=== PATIENT | male | born 1965 | race Caucasian/White ===

== ENCOUNTER 2022-07-04 12:53 | Outpatient (REF) | payer OTHER, SELFPAY ==
[2022-07-04 13:05] LABS: MANUAL DIFF FLAG NO
[2022-07-04 14:04] LABS: Basophils Absolute Auto 0.1 X10*3/uL (0.0-0.2); Basophils Percent Auto 1.4 % (0-2); Eosinophils Absolute Auto 0.5 X10*3/uL (0.0-0.4); Eosinophils Percent Auto 7.2 % (0-4); Hematocrit 49.1 % (42.0-52.0); Hemoglobin 16.1 g/dl (14.0-18.0); Imm Gran Abs Auto 0.02 X10*3/uL (0.00-0.03); Imm Gran Pct Auto 0.3 % (0.0-0.4); Lymphocytes Absolute Auto 2.8 X10*3/uL (1.2-4.9); Lymphocytes Percent Auto 38.8 % (20-40); Mean Corpuscular HGB Conc 32.8 g/dl (31.0-36.0); Mean Corpuscular Hemoglobin 28.5 pg (27.0-33.0); Mean Corpuscular Volume 87.1 fL (80.0-98.0); Mean Platelet Volume 9.9 fL (9.4-12.4); Monocytes Absolute Auto 0.5 X10*3/uL (0.1-1.2); Monocytes Percent Auto 6.9 % (2-11); Neutrophils Absolute Auto 3.2 x10*3/uL (2.0-8.3); Neutrophils Percent Auto 45.4 % (45-73); Platelet Count 225 X10*3/uL (160-400); Red Blood Count 5.64 X10*6/uL (4.60-5.80); Red Cell Distribution Width 13.1 % (11.0-16.0); White Blood Count 7.1 X10*3/uL (4.8-10.8)
[2022-07-04 14:05] LABS: Appearance Urine Clear; Color Urine Yellow; Glucose Urine UA Negative (Negative); Leukocyte Esterase Urine Negative (Negative); Nitrite Urine Negative (Negative); Specific Gravity - Urine 1.015 (1.005-1.025); Urine Blood Negative (Negative); Urine Ketones Negative (Negative); Urine Protein Negative (Neg-Trace)
[2022-07-04 14:10] LABS: Bacteria Urine None Seen (None Seen); Hyaline Casts Urine 0-2 /LPF (0-2); RBC Urine 0-2 /HPF (0-2); Squamous Epithelial Cell Urine 0-2 /HPF (0-2); WBC Urine 0-5 /HPF (0-5)
[2022-07-04 14:16] LABS: Estimated Average Glucose 91 mg/dL; Hemoglobin A1c % 4.8 %
[2022-07-04 14:52] LABS: Creatinine Urine 155.97 mg/dL; Microalbum/Creatinine Ratio Ur 21.7 ug/mg cr
[2022-07-04 15:17] LABS: Alanine Aminotransferase 18 U/L (0-40); Albumin Level 3.8 g/dL (3.5-5.0); Alkaline Phosphatase 60 U/L (39-117); Anion Gap 13 (12-20); Aspartate Amino Transferase 21 U/L (5-37); Bilirubin Total 0.7 mg/dL (0.0-1.0); Blood Urea Nitrogen 17 mg/dL (9-16); Calcium 9.5 mg/dL (8.4-10.2); Carbon Dioxide 26 mmol/L (22-29); Chloride 103 mmol/L (96-108); Cholesterol 204 mg/dL; Estimated Glomerular Filt Rate > 60; Free T4 (Free Thyroxine) 0.87 ng/dL (0.71-1.85); Glucose Random 88 mg/dL (60-115); HDL Cholesterol 34 mg/dL; LDL Cholesterol Calculated 148 mg/dl; Potassium 4.1 mmol/L (3.3-5.1); Prostate Specific Antigen Scr 1.71 ng/mL (<0.05-4.0); Sodium 138 mmol/L (135-145); Thyroid Stimulating Hormone 0.82 uIU/mL (0.32-4.0); Total Protein 6.8 g/dL (6.5-8.0); Triglycerides 110 mg/dL; Uric Acid 6.6 mg/dL (3.4-7.0)
[2022-07-04 15:55] LABS: Vitamin B12 818 pg/mL (200-900)
== END 2022-07-04 12:54 | disposition home or self-care (01) ==
LOC: HO.LAB 12:53
PROVIDERS: PCP Internal Medicine; Visit Provider Internal Medicine
DX: Z12.5 Encounter for screening for malignant neoplasm of prostate (principal); E11.65 Type 2 diabetes mellitus with hyperglycemia; E78.00 Pure hypercholesterolemia, unspecified
CPT/HCPCS: 36415; 80053; 80061; 81001; 82043; 82607; 82746; 83036; 84153; 84439; 84443; 84550; 85025

== ENCOUNTER 2023-02-06 11:23 | Emergency (ER) | payer OTHER, SELFPAY ==
[2023-02-06] VITALS (9 sets, daily range): BP systolic 84–126; BP diastolic 45–85; PULSE 94–114; RESP 16–29; TEMP 36.5–36.9; O2SAT 89–97; BMI 21.0
--- NOTE | 2023-02-06 11:26 | ED.GENADULT ---
HPI - General Adult General Chief complaint: Weakness Stated complaint: R knee swelling/Weakness Time Seen by Provider: 02/06/23 11:55 Source: patient and family (, Paloma, mother, Fauzia) Mode of arrival: wheelchair Limitations: no limitations History of Present Illness HPI narrative: 57-year-old male with a past medical history of hypothyroid, anxiety, renal cell carcinoma currently on Chemo w/lung mets s/p nephrectomy, KAYLYN, HTN, HLD, diabetes, presenting to the ED complaining of weakness w/inability to dress himself, lethargy, myalgias, decreased PO intake x1 week & autramatic R knee pain swelling x4-5 days. Patient's states that he has been sleeping all day long which is very unusual for him. The states that he had a very similar presentation in May of 2022 when he was admitted to the [facility] ICU for sepsis. Related Data Home Medications Medication Instructions Recorded Confirmed hydrocortisone 10 mg tablet 10 mg PO DAILY 10/24/22 02/06/23 levothyroxine 75 mcg tablet 75 mcg PO QAM 10/24/22 02/06/23 sertraline 100 mg tablet 100 mg PO DAILY 10/24/22 02/06/23 Allergies Allergy/AdvReac Type Severity Reaction Status Date / Time No Known Allergies Allergy Verified 10/24/22 13:53 Review of Systems Review of Systems: Yes all other systems are reviewed and are negative [facility] Past Medical History [facility] Narrative: Past medical history: hypothyroid, anxiety, renal cell carcinoma currently on Chemo w/lung mets s/p nephrectomy-chemo Q month due to at [facility], KAYLYN, HTN, HLD, diabetes. Social history: He lives at home with his . He is a former tobacco smoker and quit 20 years prior but smoked for at least 15 years. He denies alcohol use. He denies drug use. Surgical History History of biopsy History of right nephrectomy Family History Family History Father No problems noted. Mother Breast cancer Social History Social History (Updated 10/24/22 @ 14:26 by Nataly Cerda MD) Housing: House Alcohol intake: unknown Patient Tobacco Use Status: Former Tobacco user Years Smoked: quit 2000 Smoked in Last 30 Days: No e-Cigarette/Vaping Use: Never Used Second Hand Smoke Exposure: No Use of substances other than those prescribed or required for medical reasons: Unknown Advance Directives: Yes Advance Directives on File: Yes Advance Directives Date on File: 02/07/23 Current occupational status: unemployed Cognitive needs: No Hearing needs: No Vision needs: Yes Physical Exam ED Vital Signs: Vital Signs - 24 hr 02/07/23 12:05 02/07/23 16:00 02/08/23 06:00 Temperature 98.7 F 99.7 F 97.3 F Pulse Rate 101 H 94 86 Respiratory Rate 20 16 16 Blood Pressure 107/67 109/79 110/73 Pulse Oximetry 93 93 98 Oxygen Delivery Method Room Air Room Air Room Air BMI result Body Mass Index 21.0 Const Other: Awake, alert, male patient, does not appear to be in distress, answers questions appropriately [facility] Head: Yes normal to inspection, Yes normocephalic and Yes atraumatic Ears: external ears normal General nose exam: Normal external nose present Face and sinus: Yes normal facial exam Mouth: Normal oral and palatal mucosa present Throat: Yes posterior oropharynx normal Eyes General: appearance normal, both eyes and all related structures Pupils: Equal, round and reactive pupils present Neck Neck: Yes normal visual inspection, Yes no lymphadenopathy, Yes trachea midline and Yes supple Chest Chest palpation & inspection: normal inspection of the chest and normal palpation of entire chest wall Resp Effort & Inspection: normal respiratory effort and able to speak in complete sentences Auscultation: clear to auscultation bilaterally Cardio Rate: regular rate Rhythm: regular rhythm Heart sounds: S1 normal heart sound present, S2 normal heart sound present and no murmurs GI Inspection: Yes normal to inspection Palpation (GI): Soft to palpation, nontender and no guarding Auscultation: normal bowel sounds General: Yes no CVA tenderness Back/Spine/Pelvis Back: no CVA tenderness Skin General skin exam: no rashes or lesions noted Neuro Cranial nerves: Yes CN's II-XII intact bilaterally and Yes Equal, round and reactive pupils present Cognition (Neuro): normal cognition Motor exam (neuro): 5/5 motor strength present throughout Extrem Other: The patient has a large right knee joint effusion, there is no surrounding erythema but there is slight increased warmth compared to the left knee, patient is tender to palpation over the effusion Psych Appearance: grossly normal Speech and movement: Normal speech and movement present Affect: normal affect Attitude: cooperative Course Course Course Narrative: RME: 57-year-old male with a past medical history of hypothyroid, anxiety, renal cell carcinoma currently on Chemo w/lung mets s/p nephrectomy, KAYLYN, HTN, HLD, diabetes, presenting to the ED complaining of weakness w/inability to dress himself, lethargy, myalgias, decreased PO intake x1 week & autramatic R knee pain swelling x4-5 days Patient presented in wheelchair, at baseline ambulates without assistive devices. BP 93/76, HR 114, appears pale/frail EKG, labs, UA, CXR, lactic/blood cultures, orthostatics, IVF ordered Full HPI, ROS and PE to be performed by primary ED provider. Reevaluation(s) Reevaluation #1: 02/07/2023 0646: Physician observation continues. Patient awaiting PT evaluation and Case mangement. Reevaluation #2: 02/08/2023 0948: Physician observation continues. Case management following the case. 02/08/2023 1128: Patient cleared for discharge to [facility]. Medications Administered Generic Name Dose Route Start Last Admin Trade Name Freq PRN Reason Stop Dose Admin Hydrocortisone 10 mg 02/07/23 09:00 02/07/23 08:28 Hydrocortisone 10 Mg Tablet PO 10 mg DAILY ZOEY Administration Levothyroxine Sodium 75 mcg 02/07/23 06:30 02/08/23 06:22 Levothyroxine Sodium 75 Mcg Tablet PO 75 mcg DAILY@0630 ZOEY Administration Sertraline HCl 100 mg 02/07/23 09:00 02/07/23 08:29 Sertraline Hcl 100 Mg Tablet PO 100 mg DAILY ZOEY Administration Discontinued Medications Generic Name Dose Route Start Last Admin Trade Name Freq PRN Reason Stop Dose Admin Sodium Chloride 1,000 mls @ 999 mls/hr 02/06/23 11:45 02/06/23 13:05 Ns IV 02/06/23 12:45 Infused .Q1H1M ZOEY Infusion Sodium Chloride 1,000 mls @ 999 mls/hr 02/06/23 19:15 02/06/23 20:40 Ns IV 02/06/23 20:15 Infused .Q1H1M ZOEY Infusion Lidocaine HCl 5 ml 02/06/23 13:10 02/06/23 13:33 Lidocaine Hcl 1 % Mpf 5 Ml Vial INFILTRATI 02/06/23 13:11 5 ml ONCE STA Administration Morphine Sulfate 4 mg 02/06/23 13:51 02/06/23 14:10 Morphine Sulfate 4 Mg/Ml Cartridge IVPUSH 02/06/23 13:52 4 mg ONCE STA Administration Protocol Medical Decision Making Medical Decision Making MDM Narrative: 57-year-old male with a past medical history of hypothyroid, anxiety, renal cell carcinoma currently on Chemo w/lung mets s/p nephrectomy, KAYLYN, HTN, HLD, diabetes, presenting to the ED complaining of weakness w/inability to dress himself, lethargy, myalgias, decreased PO intake x1 week & autramatic R knee pain swelling x4-5 days. Patient's family states that a similar presentation in May of 2022 and was hospitalized at the [facility] ICU for sepsis, at that time he did not have knee swelling. Patient's vital signs did reveal tachycardia with a pulse of 114 otherwise were unremarkable. The following tests were ordered: CBC, BMP, liver panel, lactic acid, magnesium, PT/INR, ESR, CRP, urinalysis, blood cultures x2, 12 EKG, synovial fluid-Gram stain, crystal analysis, cell count, chest x-ray one view. 1519: Patient's laboratory evaluation was unremarkable, WBC was normal. Lactic acid was not elevated. Synovial fluid WBC count was 19,000 which is less than 25,000, this is reassuring and suggests that this is not a septic arthritis. Patient's [address] segment depression V3 through V6 which I believe is rate related but is new since January 2019 The following studies are pending: Troponin, urinalysis, synovial fluid Gram stain and crystal analysis. At the end of my shift, patient's care was turned over to my colleague, Dr. Gaffney The patient's case the change of shift. Patient has no crystal in the synovial fluid. Troponin is negative. Patient is as set some slight ST segment depression over the lateral leads which are most likely rate related. Ambulated well in the emergency department. Patient to be discharged home. [place] [address] suggestive of inflammatory arthritis. No evidence for septic joint. Patient unable to ambulate in the emergency department. Will have patient be evaluated by Physical therapy and Case Management in a.m.. Differential Diagnosis Differential diagnosis includes but is not limited to pneumonia, urinary tract infection, electrolyte abnormality, anemia, right knee: inflammatory arthritis, gout, septic arthritis Admission/Observation Consideration of admission/observation: Escalation of care including admission/observation considered Lab Data MDM Lab Attestation statement: I reviewed the patient's lab results. My interpretation of patient's laboratory evaluation is as follows: CBC was normal. Platelet count was elevated 424,000. PT/INR were elevated at 16.9 1.5. Sodium low 130, bicarb low 20, glucose elevated 171. Bilirubin is elevated 1.2. Lactic acid normal 1.6. CRP elevated 35.19. ESR elevated 66. Synovial fluid WBC 19,158, 88% neutrophils, 4% lymphocytes. gram stain and uric acid crystal analysis pending. 02/06/23 11:48 02/06/23 11:48 Labs: Lab Results 02/06/23 02/06/23 02/06/23 Range/Units 11:48 11:48 11:48 WBC 8.2 (4.8-10.8) X10*3/uL RBC 5.53 (4.60-5.80) X10*6/uL Hgb 15.1 (14.0-18.0) g/dl Hct 45.0 (42.0-52.0) % MCV 81.4 (80.0-98.0) fL MCH 27.3 (27.0-33.0) pg MCHC 33.6 (31.0-36.0) g/dl RDW 11.6 (11.0-16.0) % Plt Count 424 H D (160-400) X10*3/uL MPV 8.7 L (9.4-12.4) fL Immature Gran % (Auto) 0.1 (0.0-0.4) % Neut % (Auto) 60.1 (45-73) % Lymph % (Auto) 22.4 (20-40) % [place] % (Auto) 8.5 (2-11) % Eos % (Auto) 7.8 H (0-4) % Baso % (Auto) 1.1 (0-2) % Lymph # (Auto) 1.8 (1.2-4.9) X10*3/uL [place]on # (Auto) 0.7 (0.1-1.2) X10*3/uL Eos # (Auto) 0.6 H (0.0-0.4) X10*3/uL Baso # (Auto) 0.1 (0.0-0.2) X10*3/uL Abs Immat Gran (auto) 0.01 (0.00-0.03) X10*3/uL Absolute Neuts (auto) 4.9 (2.0-8.3) x10*3/uL Absolute Nucleated RBC 0.000 (0.0-0.012) X10*3/uL Nucleated RBC % (auto) 0.0 (0.0-0.2) /100WBC ESR (0-15) MM/HR PT (10.0-13.1) SEC INR (0.9-1.1) Sodium 130 L (135-145) mmol/L Potassium 3.6 (3.3-5.1) mmol/L Chloride 96 (96-108) mmol/L Carbon Dioxide 20 L (22-29) mmol/L Anion Gap 18 (12-20) BUN 16 (9-16) mg/dL Creatinine 1.30 (0.5-1.4) mg/dL Estim Creat Clear Calc 52.9 Estimated GFR 57 Random Glucose 171 H (60-115) mg/dL Lactic Acid (0.5-2.0) mmol/L Calcium 9.6 (8.4-10.2) mg/dL Magnesium 1.9 (1.6-2.6) mg/dL Total Bilirubin 1.2 H (0.0-1.0) mg/dL Direct Bilirubin 0.5 (0.0-0.5) mg/dL AST 15 (5-37) U/L ALT 8 (0-40) U/L Alkaline Phosphatase 73 (39-117) U/L Troponin I High Sens < 2.7 (<3.5-35.0) ng/L C-Reactive Protein 35.19 H (< or = 0.50) mg/dL Total Protein 7.3 (6.5-8.0) g/dL Albumin 3.3 L (3.5-5.0) g/dL Urine Color Urine Appearance Urine pH (5.0-9.0) Ur Specific Taylor (1.005-1.025) Urine Protein (Neg-Trace) mg/dL Urine Glucose (UA) (Negative) mg/dL Urine Ketones (Negative) mg/dL Urine Blood (Negative) Urine Nitrite (Negative) Ur Leukocyte Esterase (Negative) Urine RBC (0-2) /HPF Urine WBC (0-5) /HPF Ur Squamous Epith Cells (0-2) /HPF Urine Bacteria (None Seen) Hyaline Casts (0-2) /LPF Synovial Source Synovial WBC X10*3/uL Synovial RBC X10*6/uL Synovial Neutrophils % Synovial Lymphocytes % Synovial Monocytes % Synovial Other Cells Synovial Uric Acid MG/DL Influenza Type A (PCR) (Negative) Influenza Type B (PCR) (Negative) RSV RNA Qual (PCR) (Negative) SARS-CoV-2 RNA (RT-PCR) (Negative) 02/06/23 02/06/23 02/06/23 Range/Units 11:48 11:48 12:00 WBC (4.8-10.8) X10*3/uL RBC (4.60-5.80) X10*6/uL Hgb (14.0-18.0) g/dl Hct (42.0-52.0) % MCV (80.0-98.0) fL MCH (27.0-33.0) pg MCHC (31.0-36.0) g/dl RDW (11.0-16.0) % Plt Count (160-400) X10*3/uL MPV (9.4-12.4) fL Immature Gran % (Auto) (0.0-0.4) % Neut % (Auto) (45-73) % Lymph % (Auto) (20-40) % [place]on % (Auto) (2-11) % Eos % (Auto) (0-4) % Baso % (Auto) (0-2) % Lymph # (Auto) (1.2-4.9) X10*3/uL [place]on # (Auto) (0.1-1.2) X10*3/uL Eos # (Auto) (0.0-0.4) X10*3/uL Baso # (Auto) (0.0-0.2) X10*3/uL Abs Immat Gran (auto) (0.00-0.03) X10*3/uL Absolute Neuts (auto) (2.0-8.3) x10*3/uL Absolute Nucleated RBC (0.0-0.012) X10*3/uL Nucleated RBC % (auto) (0.0-0.2) /100WBC ESR 66 H (0-15) MM/HR PT 16.9 H (10.0-13.1) SEC INR 1.5 H (0.9-1.1) Sodium (135-145) mmol/L Potassium (3.3-5.1) mmol/L Chloride (96-108) mmol/L Carbon Dioxide (22-29) mmol/L Anion Gap (12-20) BUN (9-16) mg/dL Creatinine (0.5-1.4) mg/dL Estim Creat Clear Calc Estimated GFR Random Glucose (60-115) mg/dL Lactic Acid (0.5-2.0) mmol/L Calcium (8.4-10.2) mg/dL Magnesium (1.6-2.6) mg/dL Total Bilirubin (0.0-1.0) mg/dL Direct Bilirubin (0.0-0.5) mg/dL AST (5-37) U/L ALT (0-40) U/L Alkaline Phosphatase (39-117) U/L Troponin I High Sens (<3.5-35.0) ng/L C-Reactive Protein (< or = 0.50) mg/dL Total Protein (6.5-8.0) g/dL Albumin (3.5-5.0) g/dL Urine Color Urine Appearance Urine pH (5.0-9.0) Ur Specific Taylor (1.005-1.025) Urine Protein (Neg-Trace) mg/dL Urine Glucose (UA) (Negative) mg/dL Urine Ketones (Negative) mg/dL Urine Blood (Negative) Urine Nitrite (Negative) Ur Leukocyte Esterase (Negative) Urine RBC (0-2) /HPF Urine WBC (0-5) /HPF Ur Squamous Epith Cells (0-2) /HPF Urine Bacteria (None Seen) Hyaline Casts (0-2) /LPF Synovial Source Synovial WBC X10*3/uL Synovial RBC X10*6/uL Synovial Neutrophils % Synovial Lymphocytes % Synovial Monocytes % Synovial Other Cells Synovial Uric Acid MG/DL Influenza Type A (PCR) NEGATIVE (Negative) Influenza Type B (PCR) NEGATIVE (Negative) RSV RNA Qual (PCR) NEGATIVE (Negative) SARS-CoV-2 RNA (RT-PCR) NEGATIVE (Negative) 02/06/23 02/06/23 02/06/23 Range/Units 13:48 13:48 14:03 WBC (4.8-10.8) X10*3/uL RBC (4.60-5.80) X10*6/uL Hgb (14.0-18.0) g/dl Hct (42.0-52.0) % MCV (80.0-98.0) fL MCH (27.0-33.0) pg MCHC (31.0-36.0) g/dl RDW (11.0-16.0) % Plt Count (160-400) X10*3/uL MPV (9.4-12.4) fL Immature Gran % (Auto) (0.0-0.4) % Neut % (Auto) (45-73) % Lymph % (Auto) (20-40) % [place] % (Auto) (2-11) % Eos % (Auto) (0-4) % Baso % (Auto) (0-2) % Lymph # (Auto) (1.2-4.9) X10*3/uL [place] # (Auto) (0.1-1.2) X10*3/uL Eos # (Auto) (0.0-0.4) X10*3/uL Baso # (Auto) (0.0-0.2) X10*3/uL Abs Immat Gran (auto) (0.00-0.03) X10*3/uL Absolute Neuts (auto) (2.0-8.3) x10*3/uL Absolute Nucleated RBC (0.0-0.012) X10*3/uL Nucleated RBC % (auto) (0.0-0.2) /100WBC ESR (0-15) MM/HR PT (10.0-13.1) SEC INR (0.9-1.1) Sodium (135-145) mmol/L Potassium (3.3-5.1) mmol/L Chloride (96-108) mmol/L Carbon Dioxide (22-29) mmol/L Anion Gap (12-20) BUN (9-16) mg/dL Creatinine (0.5-1.4) mg/dL Estim Creat Clear Calc Estimated GFR Random Glucose (60-115) mg/dL Lactic Acid 1.6 (0.5-2.0) mmol/L Calcium (8.4-10.2) mg/dL Magnesium (1.6-2.6) mg/dL Total Bilirubin (0.0-1.0) mg/dL Direct Bilirubin (0.0-0.5) mg/dL AST (5-37) U/L ALT (0-40) U/L Alkaline Phosphatase (39-117) U/L Troponin I High Sens (<3.5-35.0) ng/L C-Reactive Protein (< or = 0.50) mg/dL Total Protein (6.5-8.0) g/dL Albumin (3.5-5.0) g/dL Urine Color Urine Appearance Urine pH (5.0-9.0) Ur Specific Taylor (1.005-1.025) Urine Protein (Neg-Trace) mg/dL Urine Glucose (UA) (Negative) mg/dL Urine Ketones (Negative) mg/dL Urine Blood (Negative) Urine Nitrite (Negative) Ur Leukocyte Esterase (Negative) Urine RBC (0-2) /HPF Urine WBC (0-5) /HPF Ur Squamous Epith Cells (0-2) /HPF Urine Bacteria (None Seen) Hyaline Casts (0-2) /LPF Synovial Source Right knee Synovial WBC 19.158 X10*3/uL Synovial RBC < 0.002 X10*6/uL Synovial Neutrophils 88 % Synovial Lymphocytes 4 % Synovial Monocytes 2 % Synovial Other Cells 6 Synovial Uric Acid 7 MG/DL Influenza Type A (PCR) (Negative) Influenza Type B (PCR) (Negative) RSV RNA Qual (PCR) (Negative) SARS-CoV-2 RNA (RT-PCR) (Negative) 02/07/23 Range/Units 06:05 WBC (4.8-10.8) X10*3/uL RBC (4.60-5.80) X10*6/uL Hgb (14.0-18.0) g/dl Hct (42.0-52.0) % MCV (80.0-98.0) fL MCH (27.0-33.0) pg MCHC (31.0-36.0) g/dl RDW (11.0-16.0) % Plt Count (160-400) X10*3/uL MPV (9.4-12.4) fL Immature Gran % (Auto) (0.0-0.4) % Neut % (Auto) (45-73) % Lymph % (Auto) (20-40) % [place] % (Auto) (2-11) % Eos % (Auto) (0-4) % Baso % (Auto) (0-2) % Lymph # (Auto) (1.2-4.9) X10*3/uL [place] # (Auto) (0.1-1.2) X10*3/uL Eos # (Auto) (0.0-0.4) X10*3/uL Baso # (Auto) (0.0-0.2) X10*3/uL Abs Immat Gran (auto) (0.00-0.03) X10*3/uL Absolute Neuts (auto) (2.0-8.3) x10*3/uL Absolute Nucleated RBC (0.0-0.012) X10*3/uL Nucleated RBC % (auto) (0.0-0.2) /100WBC ESR (0-15) MM/HR PT (10.0-13.1) SEC INR (0.9-1.1) Sodium (135-145) mmol/L Potassium (3.3-5.1) mmol/L Chloride (96-108) mmol/L Carbon Dioxide (22-29) mmol/L Anion Gap (12-20) BUN (9-16) mg/dL Creatinine (0.5-1.4) mg/dL Estim Creat Clear Calc Estimated GFR Random Glucose (60-115) mg/dL Lactic Acid (0.5-2.0) mmol/L Calcium (8.4-10.2) mg/dL Magnesium (1.6-2.6) mg/dL Total Bilirubin (0.0-1.0) mg/dL Direct Bilirubin (0.0-0.5) mg/dL AST (5-37) U/L ALT (0-40) U/L Alkaline Phosphatase (39-117) U/L Troponin I High Sens (<3.5-35.0) ng/L C-Reactive Protein (< or = 0.50) mg/dL Total Protein (6.5-8.0) g/dL Albumin (3.5-5.0) g/dL Urine Color Dark Yellow Urine Appearance Cloudy Urine pH 5.5 (5.0-9.0) Ur Specific Taylor 1.015 (1.005-1.025) Urine Protein 30 (1+) H (Neg-Trace) mg/dL Urine Glucose (UA) Negative (Negative) mg/dL Urine Ketones 15 (Negative) mg/dL Urine Blood Negative (Negative) Urine Nitrite Negative (Negative) Ur Leukocyte Esterase Large (3+) H (Negative) Urine RBC 0-2 (0-2) /HPF Urine WBC >50 H (0-5) /HPF Ur Squamous Epith Cells 0-2 (0-2) /HPF Urine Bacteria None Seen (None Seen) Hyaline Casts 11-20 (0-2) /LPF Synovial Source Synovial WBC X10*3/uL Synovial RBC X10*6/uL Synovial Neutrophils % Synovial Lymphocytes % Synovial Monocytes % Synovial Other Cells Synovial Uric Acid MG/DL Influenza Type A (PCR) (Negative) Influenza Type B (PCR) (Negative) RSV RNA Qual (PCR) (Negative) SARS-CoV-2 RNA (RT-PCR) (Negative) Independent Interpretation I performed an independent interpretation of an: EKG and Plain X-Ray Interpretation: My independent interpretation patient's chest x-ray is as follows: No acute disease My independent interpretation the patient's 12 EKG is as follows: Sinus tachycardia with rate of 116, normal MI interval QRS duration and prolonged QTC interval of 489 milliseconds, no ST segment elevation, less than [address] segment depression V3 through V6. Compared to January 2029 ST segment depressions are new. Radiology Impression Discussion of test interpretation with radiology: I have reviewed the radiologist's reading. Radiologist Impression: XR chest 1V IMPRESSION: No acute disease. Dictated By:Tony Shirley MD Independent Historian Clinical information obtained from an independent historian. History obtained from or confirmed by: Spouse () and Parent (Mother) Discharge Plan Discharge Clinical Impression: Weakness, Effusion of knee joint right, Arthritis of knee, right Patient Disposition: Xfer Inpatient Rehab Fac Transfer Details: [facility] [place] Instructions: Osteoarthritis (DC), Joint Aspiration (DC) Prescriptions: No Action levothyroxine 75 mcg tablet 75 mcg PO QAM hydrocortisone 10 mg tablet 10 mg PO DAILY sertraline 100 mg tablet 100 mg PO DAILY Referrals: [facility] [place] [Outside] [facility] [Outside] (Blood work scheduled for 02/26 at 1pm Infusion scheduled for 02/27 at 1pm. ) Po,Nataly Anthony MD [Primary Care Provider] - 02/08/23
[2023-02-06 12:12] LABS: Alanine Aminotransferase 8 U/L (0-40); Albumin Level 3.3 g/dL (3.5-5.0); Alkaline Phosphatase 73 U/L (39-117); Anion Gap 18 (12-20); Aspartate Amino Transferase 15 U/L (5-37); Bilirubin Direct 0.5 mg/dL (0.0-0.5); Bilirubin Total 1.2 mg/dL (0.0-1.0); Blood Urea Nitrogen 16 mg/dL (9-16); C Reactive Protein 35.19 mg/dL (< or = 0.50); Calcium 9.6 mg/dL (8.4-10.2); Carbon Dioxide 20 mmol/L (22-29); Chloride 96 mmol/L (96-108); Creatinine Clr Calc Pharmacy 52.9; Estimated Glomerular Filt Rate 57; Glucose Random 171 mg/dL (60-115); Magnesium 1.9 mg/dL (1.6-2.6); Potassium 3.6 mmol/L (3.3-5.1); Sodium 130 mmol/L (135-145); Total Protein 7.3 g/dL (6.5-8.0)
[2023-02-06 16:20] LABS: Uric Acid Synovial Fluid 7 MG/DL
--- NOTE | 2023-02-06 17:51 | PC.NURSE ---
poor ambulation trial w walker, does not bear weight well. plan for cm/pt eval.
--- NOTE | 2023-02-06 18:40 | PHA.MEDREC ---
Pharmacy Consult ? Medication Reconciliation Pharmacy has completed the medication reconciliation. Pt with rx bottles at bedside
--- NOTE | 2023-02-06 19:13 | MHC.EDTECH ---
This tech assumed care of pt at 1900, Vitals taken and were low, MARÍA Reeder was made aware. Pt was placed on the piano mover and was repositioned to comfort.
--- NOTE | 2023-02-06 19:52 | PC.NURSE ---
Medicated per Oct, Notified Katarina Reeder.
--- NOTE | 2023-02-06 20:38 | PC.NURSE ---
I assumed care of the pt at 1900, pt has been asleep comfortably. Pt had low BP at the beginning of the shift, MD aware, ordered a liter of fluids. Other vital signs stable. Pt is PT/CM, waiting PT eval in AM.
[2023-02-07] VITALS (7 sets, daily range): BP systolic 93–109; BP diastolic 62–79; PULSE 94–101; RESP 11–20; TEMP 36.4–37.6; O2SAT 93–99
--- NOTE | 2023-02-07 04:41 | MHC.EDTECH ---
This tech completed hourly rounding, vitals were taken and pt has a low bp at 93/68,RN Lilli was made aware. Patient is sleeping comfortably at this time. Call wilson within reach
--- NOTE | 2023-02-07 06:44 | MHC.EDTECH ---
Tech completed hourly rounding, pt urinated 400cc of a tea color urine in the urinal. Patient was repositioned and is clean and dry. Call wilson within reach
--- NOTE | 2023-02-07 08:46 | PC.NURSE ---
ate a small amt of breakfast, medicated as ordered, skin wpd, alert
--- NOTE | 2023-02-07 10:01 | MHC.CM.ED ---
Received case management consult overnight. Patient came to the ER due to knee swelling and weakness. Work up essentially negative. Physical therapy eval completed. Short term rehab is recommended. Attempted to meet with patient in regards to discharge planning. Patient currently sleeping. Will attempt to meet again. Continue to monitor for d/c needs.
--- NOTE | 2023-02-07 10:53 | MHC.CM.ED ---
Addendum entered by Gracie Bellamy 02/07/23 15:22: HCP completed, signed and witnessed. Original given to patient. Copy placed in chart. [facility] [place] [facility] is reviewing to see if they can offer a bed. Patient's , Paloma, made aware via telephone. Addendum entered by Gracie Bellamy 02/07/23 13:56: Patient receives monthly chem at [facility]. Spoke with Helen at Center. Patient was scheduled for infusion today. Rescheduled to 02/13. T/W explained patient will need STR. Dr Rodriguez (oncologist) will approve changing blood work to 02/26 at 1pm and infusion to 02/27 at 1pm so patient can go to STR. Original Note: Met with patient in regards to discharge planning. Patient lives with , ambulates independently and had no services prior to coming to the ER. PCP verified. Patient denies having a HCP. Information provided. Patient not interested in completing one at this time. Patient received 2 Pfizer vaccines. No boosters. Physical therapy eval is recommending rehab. Patient is unsure if he wants to go to STR and requested T/W speak with his . Spoke with patient's , Paloma, via telephone at [phone]. Paloma wants to know what the cost of STR will be. T/W explained referrals can be made locally to see what beds are available and what cost would be. Paloma agreeable. Referral broadcasted within 10 miles at this time. Continue to monitor for d/c needs.
--- NOTE | 2023-02-07 16:13 | PC.NURSE ---
Received pt to overflow unit. Denies pain, states is comfortable at this time. GSR took dinner order. All needs met
--- NOTE | 2023-02-07 16:38 | MHC.EDTECH ---
Brought patient a pitcher of ice water.
--- NOTE | 2023-02-07 18:09 | PC.NURSE ---
Pt tolerated dinner, voided in urinal and is currently sleeping in bed. All needs in reach.
[2023-02-08 06:00] VITALS: BP 110/73; PULSE 86; RESP 16; TEMP 36.3; O2SAT 98
--- NOTE | 2023-02-08 06:41 | PC.NURSE ---
no drainage noted to right knee. slept well overnight. no compaints.
--- NOTE | 2023-02-08 11:05 | MHC.CM.ED ---
Patient remains in ER overflow. [facility] has obtained insurance auth. Marcin PETERSEN booked for 130pm. Med [facility] with chart. Patient, Paloma, Debra RN and Mahsa PABON aware. Continue to monitor for d/c needs.
== END 2023-02-08 13:48 ==
PROVIDERS: Emergency Medicine Emergency Medical Services; Physician Assistant; Emergency Provider Emergency Medicine Emergency Medical Services; PCP Internal Medicine
DX: R53.83 Other fatigue (principal); R53.1 Weakness; M25.461 Effusion, right knee; M17.11 Unilateral primary osteoarthritis, right knee; E03.9 Hypothyroidism, unspecified; C64.9 Malignant neoplasm of unspecified kidney, except renal pelvis; C78.00 Secondary malignant neoplasm of unspecified lung; Z79.60 Long term (current) use of unspecified immunomodulators and immunosuppressants; I10 Essential (primary) hypertension; E11.9 Type 2 diabetes mellitus without complications; M79.10 Myalgia, unspecified site; Z20.822 Contact with and (suspected) exposure to COVID-19
CPT/HCPCS: 0241U; 71045; 80048; 80076; 81001; 83605; 83735; 84484; 84560; 85025; 85610; 85652; 86140; 87040; 87070; 87073; 87086; 87205; 89051; 89060; 93005; 96361; 96374; 97162; 99285; J2270

== ENCOUNTER 2023-03-05 08:51 | Outpatient (REF) | payer OTHER, SELFPAY ==
--- NOTE | ~2023-03-05 | XR_ITS ---
EXAMINATION: XR knee RT 2V, XR knee standing BI CLINICAL INFORMATION: Reason for Exam M25.569 - Pain in unspecified knee COMPARISON: None TECHNIQUE: 1 view of the bilateral knees and 2 views of the right knee FINDINGS: RIGHT KNEE: Subtle lucency in the superior aspect of the patella may reflect a possible small nondisplaced patellar fracture in the appropriate clinical setting, recommend correlation with point tenderness and CT knee if warranted. Mild degenerative changes of the knee with small medial and patellofemoral compartment osteophytes. Large suprapatellar joint effusion. Soft tissue swelling. LEFT KNEE: No acute fracture or dislocation appreciated on the limited single view. Mild degenerative changes of the knee with small medial compartment osteophytes and spurring of the tibial spines. Soft tissues are unremarkable. XR/XR knee standing BI IMPRESSION: RIGHT KNEE: 1. Subtle lucency in the superior aspect of the patella may reflect a possible small nondisplaced patellar fracture in the appropriate clinical setting, recommend correlation with history trauma, point tenderness and CT knee if warranted. 2. Large suprapatellar joint effusion. Soft tissue swelling. LEFT KNEE: 1. Mild degenerative changes of the knee.
--- NOTE | ~2023-03-05 | XR_ITS ---
EXAMINATION: XR knee RT 2V, XR knee standing BI CLINICAL INFORMATION: Reason for Exam M25.569 - Pain in unspecified knee COMPARISON: None TECHNIQUE: 1 view of the bilateral knees and 2 views of the right knee FINDINGS: RIGHT KNEE: Subtle lucency in the superior aspect of the patella may reflect a possible small nondisplaced patellar fracture in the appropriate clinical setting, recommend correlation with point tenderness and CT knee if warranted. Mild degenerative changes of the knee with small medial and patellofemoral compartment osteophytes. Large suprapatellar joint effusion. Soft tissue swelling. LEFT KNEE: No acute fracture or dislocation appreciated on the limited single view. Mild degenerative changes of the knee with small medial compartment osteophytes and spurring of the tibial spines. Soft tissues are unremarkable. XR/XR knee RT 2V IMPRESSION: RIGHT KNEE: 1. Subtle lucency in the superior aspect of the patella may reflect a possible small nondisplaced patellar fracture in the appropriate clinical setting, recommend correlation with history trauma, point tenderness and CT knee if warranted. 2. Large suprapatellar joint effusion. Soft tissue swelling. LEFT KNEE: 1. Mild degenerative changes of the knee.
== END 2023-03-05 08:52 | disposition home or self-care (01) ==
LOC: HO.HOSX 08:51
PROVIDERS: Visit Provider Physician Assistant
DX: M17.11 Unilateral primary osteoarthritis, right knee (principal); M25.562 Pain in left knee; C80.1 Malignant (primary) neoplasm, unspecified; Z79.899 Other long term (current) drug therapy
CPT/HCPCS: 20610; 73560; 73565; J1040

== ENCOUNTER 2023-03-05 14:57 | Outpatient (AMB) | payer OTHER, SELFPAY ==
--- NOTE | 2023-03-05 15:18 | A.OFFVIS_ITS ---
Intake Vital Signs 03/05/23 15:21 Height 5 ft 6 in Weight 182 lb 4 oz BMI 29.4 Intake Visit Reasons: Chief Investigator- Arthritis of knee, right Intake Note: Clifford a 57 year old male who presents today as a new patient for an evaluation of right knee. Patient reports cancer doctor prescribed meloxicam that helped with swelling but is no longer helping. He presented to [facility] ED where his knee was aspirated. His pain has been present for about 4 weeks, denies injury. States most of his pain comes with getting up from a sitting position and with walking. He uses a walker for support with ambulation. Denies numbness or tingling. No relief with ibuprofen. Allergies No Known Allergies Allergy (Verified 03/05/23 15:23) Medication List - Last Reconciled 03/05/23 by Magalis Morton PA-C hydrocortisone 10 mg PO DAILY levothyroxine 75 mcg PO QAM meloxicam 7.5 mg PO DAILY sertraline 100 mg PO DAILY HPI Chief Investigator- Arthritis of knee, right HPI Details 57-year-old male who presents to the office today for evaluation of right knee pain for about 4 weeks. He was seen by ED where his knee was aspirated, results were negative for septic arthritis. He states his oncologist prescribed him meloxicam which helped him with swelling but is no longer helpful and he continues to have pain with activity. He states he has pain in his right knee which is aggravated with getting up from a sitting position and when ambulating. He denies any numbness, tingling or injury. He uses a walker for support. He finds no relief with ibuprofen. [facility] Medical History (Updated 03/05/23 @ 21:36 by Magalis Morton PA-C) Hx of cancer of lung Surgical History History of biopsy History of right nephrectomy Family History Father No problems noted. Mother Breast cancer Social History (Updated 10/24/22 @ 14:26 by Nataly Cerda MD) Housing: House Alcohol intake: unknown Patient Tobacco Use Status: Former Tobacco user Years Smoked: quit 1999 e-Cigarette/Vaping Use: Never Used Second Hand Smoke Exposure: No Advance Directives Date on File: 02/07/23 Current occupational status: unemployed Cognitive needs: No Hearing needs: No Vision needs: Yes Review of Systems Const All systems reviewed & are unremarkable except as noted in HPI and below Physical Exam Vital Signs: BMI result Body Mass Index 29.4 Const General: cooperative, healthy appearing, comfortable, no acute distress, well developed and alert Orientation/consciousness: patient oriented x3 HEENT Head: Yes normal to inspection, Yes normocephalic and Yes atraumatic Eyes General: appearance normal, both eyes and all related structures Resp Effort & Inspection: normal respiratory effort and able to speak in complete sentences Cardio Rate: regular rate Peripheral pulses: Peripheral pulses 2+ throughout GI Palpation (GI): Soft to palpation Skin Lesions: no lesions Rashes: no rashes Neuro General: patient oriented x3 Extrem Other: Right knee: Skin intact, no erythema. Retropatellar tenderness present along with a moderate sized effusion. Full ROM with crepitus. Negative Rosa M?s. No ligamentous laxity. NVI. Office Procedures Joint Injection/Drain Joint Injection/Drain Details: 55cc clear joint fluid Primary Site: right knee Prep: site was prepped using aseptic technique and injection warnings given Injected: 80 mg of, DepoMedrol, with 8 mL of, 1% plain lidocaine and in the joint Approach Used: lateral parapatellar Procedure: The patient tolerated the procedure well and there was some relief with the local anesthesia Coding 01065 - Glenohumeral/Tronchanteric Bursa/Intraarticular Procedure code (CPT) selection complete Results Reviewed Results Reviewed: 03/05/23 15:45 Lidocaine HCl 2 % MPF [Xylocaine 2 % MPF] 5 ml .ROUTE .STK-MED ONE methylPREDNISolone acetate [DEPO-MedroL] 80 mg .ROUTE .STK-MED ONE Xrays were obtained in the office today and personally reviewed by me of the right knee show mild oa Assessment & Plan Assessment & Plan (1) Osteoarthritis of right knee: Code(s): M17.11 - Unilateral primary osteoarthritis, right knee Plan We discussed options today which include steroid injection. They did consent to move forward with the right knee injection and aspiration of the right knee, which was tolerated well. 55cc joint fluid was aspirated. This was not sent for analysis as it did appear to be normal appearing joint fluid. I recommended rest, ice and elevation. If symptoms persist or worsens over the next 6-8 weeks, patient will contact the office, otherwise follow-up as needed. Orders: Orders XR knee RT 2V Today M25.569 - Pain in unspecified knee XR knee standing BI Today M25.561 - Pain in right knee, M25.562 - Pain in left knee Patient Instructions: Scribed for Magalis Morton PA-C, by Eloy Davalos medical technician, on 03/05/2023 at 3:15 PM EST. I, Magalis Morton PA-C, have personally reviewed and agree with the information entered by the scribe. Coding Level of Care Code New Pt Level 3 (43181) Diagnoses Osteoarthritis of right knee M17.11 CPT Codes Coding - Joint 7: 45183 - Glenohumeral/Tronchanteric Bursa/Intraarticular ([id number])
[2023-03-05 15:21] VITALS: BMI 29.4
== END 2023-03-05 16:32 | disposition home or self-care (01) ==
PROVIDERS: PCP Internal Medicine; Visit Provider Physician Assistant
DX: M17.11 Unilateral primary osteoarthritis, right knee (principal)
CPT/HCPCS: 20610; 99204; 99214

== ENCOUNTER 2023-03-14 09:15 | Outpatient (AMB) | payer OTHER, SELFPAY ==
[2023-03-14 09:15] VITALS: BP 126/84; PULSE 102; O2SAT 97; BMI 29.2
--- NOTE | 2023-03-14 09:15 | A.OFFPC_ITS ---
Vital Signs 03/14/23 09:15 Height 5 ft 6 in Weight 82.1 kg BMI 29.2 BP 126/84 Blood Pressure Location Lt brachial Position Sitting Pulse 102 H Pulse Source Pulse Oximeter Temp Source Skin Pulse Oximetry (%) 97 Oxygen Delivery Method Room Air Intake Visit Reasons: 02/08/23-02/15/23 following treatment for arthritis Intake Note: Patient is here for hospital discharge follow up. Patient was discharged from [facility] on 02/08/23-02/15/23. 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 Allergies No Known Allergies Allergy (Verified 03/14/23 09:19) Medication List - Last Reconciled 03/14/23 by CM Carter diclofenac sodium 1% 4 grams topical QID hydrocortisone 10 mg PO DAILY levothyroxine 75 mcg PO QAM meloxicam 7.5 mg PO DAILY sertraline 100 mg PO DAILY Tobacco use date assessed: 03/14/23 Dental Screening Dental Screen Date: 03/14/23 Did you have a dental visit in the last 12 months?: Yes Did you have a dental problem in the last 6 months where you did not have access to dental care?: No Was dental information given to patient?: Patient has dentist HPI HPI Comments History of Present Illness Details 57-year-old male with history of hypothyroidism, anxiety, renal cell carcinoma currently on chemo with lung Mets s/p nephrectomy among others presents to the office today for ED and STIR follow-up. The patient had been experiencing weakness and inability to perform ADLs. He was also experiencing severe right knee pain the there is no swelling or erythema. Initially patient did have a mild tachycardia of 114 but no other sirs criteria. ESR, CRP, urinalysis, blood cultures, EKG within normal limits. He did have [place] [address] inconsistent with septic arthritis there are also no significant crystals in the synovial fluid. Patient was diagnosed with inflammatory arthritis and given decrease inability to perform ADLs related to his cancer, he was observed and evaluated by Physical therapy and Case Management and recommended for short-term rehab. The patient has since been discharged and medications have been reviewed. He has since seen orthopedics for his right knee pain and received a cortisone injection with great improvement in pain and mobility. He is functioning much better at home as well. He is now stating that his left leg is hurting and has upcoming appointment with Orthopedics. He is able to ambulate. right knee pain PFSH Medical History Hx of cancer of lung Surgical History History of biopsy History of right nephrectomy Family History Father No problems noted. Mother Breast cancer Social History Housing: House Alcohol intake: unknown Patient Tobacco Use Status: Former Tobacco user Years Smoked: quit 1999 e-Cigarette/Vaping Use: Never Used Second Hand Smoke Exposure: No Advance Directives Date on File: 02/07/23 Current occupational status: unemployed Cognitive needs: No Hearing needs: No Vision needs: Yes Questionnaire Thrive Questionnaire Date Thrive assessed: 06/14/22 AUDIT C Alcohol Use Questionnaire (AUDIT-C) 1. How often do you have a drink containing alcohol?: Never 3. How often do you have six or more drinks on one occasion?: Never Total Score: 0 BRIT-7 AMB Questionnaire BRIT-7 Date BRIT - 7 assessed: 03/14/23 Source: Developed by Drs. Enrrique Chinchilla, Sujata Baer, Linden Robert and colleagues, with an educational herson from [employer]. Review of Systems Const All systems reviewed & are unremarkable except as noted in HPI and below Physical exam (Primary Care) Vital Signs: Last Vital Signs Pulse 102 H 03/14/23 09:15 BP 126/84 03/14/23 09:15 Pulse Ox 97 03/14/23 09:15 Oxygen Delivery Method Room Air 03/14/23 09:15 BMI result Body Mass Index 29.2 Tobacco/Smoking Status: Tobacco use Status Tobacco use date assessed 03/14/23 03/14/23 09:17 Patient Tobacco Use Status Former Tobacco user 03/14/23 09:17 e-Cigarette/Vaping Use Never Used 03/14/23 09:17 Thrive Assessment: Date of Thrive Assessment Date Thrive assessed 06/14/22 03/14/23 09:17 Const Other: Constitutional - Awake and Alert, No apparent distress Eyes - PERRLA, EOMI Cardiovascular - S1S2, RRR, No edema Respiratory - Normal lung expansion, Normal respiratory effort, No respiratory distress, CTA bilaterally Extremities - no calf tenderness bilaterally, no swelling Musculoskeletal - KNees- no swelling, erythema, warmth, or effusion. Full flexion and extension bilaterally. Negative Tim test bilaterally Skin - Warm/Dry Neurological - Alert & oriented x3, 5/5 strength BLE . Gait is normal Psychological - Appropriate affect Assessment and Plan Assessment & Plan (1) Osteoarthritis of right knee: Code(s): M17.11 - Unilateral primary osteoarthritis, right knee Plan: Reviewed ER notes. Arthrocentesis negative for septic arthritis. Has been following with Orthopedic surgery and received cortisone injection with good effect. Continue following with Orthopedic surgery as scheduled. He is also referred to physical therapy giving he is also having left knee pain which is likely compensatory. Prescribed diclofenac gel which she can use up to 4 times daily as needed for pain. (2) Left knee pain: Code(s): M25.562 - Pain in left knee Plan: As above Orders: Orders PT Evaluation and Treatment 03/14/23 M17.11 - Unilateral primary osteoarthritis, right knee, M25.562 - Pain in left knee Medications: New diclofenac sodium 1% apply to single knee, ankle, foot; for foot includes sole/toes/top of foot 4 grams topical QID 100 grams 0RF Coding Level of Care Code Est Pt Level 4 (35394) Diagnoses Osteoarthritis of right knee M17.11 Left knee pain M25.562
== END 2023-03-14 09:44 | disposition home or self-care (01) ==
PROVIDERS: PCP Internal Medicine; Visit Provider Physician Assistant
DX: M17.11 Unilateral primary osteoarthritis, right knee (principal); M25.562 Pain in left knee
CPT/HCPCS: 99214

== ENCOUNTER 2023-04-12 06:50 | Outpatient (REF) | payer OTHER, SELFPAY ==
--- NOTE | ~2023-04-12 | XR_ITS ---
EXAMINATION: XR KNEE, LEFT CLINICAL INFORMATION: Pain. COMPARISON: Bilateral knee standing views 03/05/2023. TECHNIQUE: Two views of the left knee. FINDINGS: No acute fractures or subluxation, accounting for limitations in the absence of the frontal view. Mild joint space narrowing of the patellofemoral compartment. Suboptimal evaluation of the medial and lateral compartments in the absence of a frontal view. Small joint effusion with nonspecific soft tissue thickening along the anterior compartment of the knee. Moderate vascular calcifications. XR/XR knee LT 2V IMPRESSION: 1. No acute fractures or subluxation. 2. Mild degenerative osteoarthritis of the patellofemoral compartment. 3. Small joint effusion. 4. Nonspecific soft tissue thickening along the anterior compartment of the knee.
--- NOTE | ~2023-04-12 | XR_ITS ---
EXAMINATION: XR ANKLE, LEFT CLINICAL INFORMATION: Pain. COMPARISON: None available. TECHNIQUE: AP, lateral, and mortise views of the left ankle. FINDINGS: Bony alignment and mineralization are normal. The ankle mortise is intact. No fracture or dislocation is seen. A trace left ankle joint effusion is noted. Boehler's angle is normal. There is a small posterior calcaneal spur. There is mild soft tissue swelling adjacent to the lateral malleolus. No focal soft tissue gas or foreign body is seen. XR/XR ankle LT min 3V IMPRESSION: 1. No fracture or dislocation is seen. 2. There is a trace left ankle joint effusion. 3. There is mild soft tissue swelling adjacent to lateral malleolus. 4. A small posterior calcaneal spur is seen.
== END 2023-04-12 06:51 | disposition home or self-care (01) ==
LOC: HO.HOSX 06:50
PROVIDERS: Visit Provider Physician Assistant
DX: M17.12 Unilateral primary osteoarthritis, left knee (principal); M25.572 Pain in left ankle and joints of left foot
CPT/HCPCS: 20610; 73560; 73610; J1040

== ENCOUNTER 2023-04-12 09:35 | Outpatient (AMB) | payer OTHER, SELFPAY ==
--- NOTE | 2023-04-12 09:35 | MHC.OFFVIS ---
Intake Vital Signs 04/12/23 09:39 Height 5 ft 6 in Weight 181 lb BMI 29.2 Intake Visit Reasons: New Prob- LT knee pain Intake Note: Clifford a 57 year old male who presents today for an evaluation of left knee pain. Xrays obtained in office. Patient reports pain presented about 4 weeks ago, denies injury. He states pain at the lateral aspect of left ankle. No relief with ibuprofen or Tylenol. States was in too much pain to attend PT. Occasional numbness and tingling. Allergies No Known Allergies Allergy (Verified 04/12/23 09:39) HPI New Prob- LT knee pain HPI Details 57-year-old male who presents to the office today for evaluation of left knee pain for about 4 weeks. He states he has pain, swelling, limited ROM and occasional numbness and tingling in the lateral aspect of his knee. He finds no relief with ibuprofen or Tylenol. He has not had any injury in the past. He also c/o left ankle pain, denies injury. pain is located on the lateral aspect of the ankle. He has a history of diabetes. His sugar level is currently controlled. [facility] Medical History Hx of cancer of lung Surgical History History of biopsy History of right nephrectomy Family History Father No problems noted. Mother Breast cancer Social History Housing: House Alcohol intake: unknown Patient Tobacco Use Status: Former Tobacco user Years Smoked: quit 1999 e-Cigarette/Vaping Use: Never Used Second Hand Smoke Exposure: No Advance Directives Date on File: 02/07/23 Current occupational status: unemployed Cognitive needs: No Hearing needs: No Vision needs: Yes Review of Systems Const All systems reviewed & are unremarkable except as noted in HPI and below Physical Exam Vital Signs: BMI result Body Mass Index 29.2 Extrem Other: Left knee: Skin intact, no erythema. Moderate sized joint effusion present. Tenderness along the lateral joint line. Full ROM with crepitus. Negative Rosa M?s. No ligamentous laxity. NVI. Left ankle skin intact, no redness or joint effusion, mild tenderness along the lateral soft tissues. NVI. Office Procedures Joint Injection/Drain Joint Injection/Drain Details: left knee asp 25 cc joint fluid Primary Site: left knee Prep: site was prepped using aseptic technique and injection warnings given Injected: 80 mg of, DepoMedrol, with 8 mL of, 1% plain lidocaine and in the joint Approach Used: lateral parapatellar Coding 38839 - Glenohumeral/Tronchanteric Bursa/Intraarticular Procedure code (CPT) selection complete Results Reviewed Results Reviewed: 04/12/23 10:58 Lidocaine HCl 2 % MPF [Xylocaine 2 % MPF] 5 ml .ROUTE .STK-MED ONE methylPREDNISolone acetate [DEPO-MedroL] 80 mg .ROUTE .STK-MED ONE Xrays were obtained in the office today and personally reviewed by me of the left knee show mild oa Xrays were obtained in the office today and personally reviewed by me of the left ankle negative for acute fracture or dislocation , mild oa Assessment & Plan Assessment & Plan (1) Osteoarthritis of left knee: Code(s): M17.12 - Unilateral primary osteoarthritis, left knee (2) Left ankle pain: Code(s): M25.572 - Pain in left ankle and joints of left foot Plan We discussed options today which include steroid injection. They did consent to move forward with the left knee injection and aspiration of the right knee, which was tolerated well. 25 cc joint fluid was aspirated. This was not sent for analysis as it did appear to be normal appearing joint fluid. I recommended rest, ice and elevation. If symptoms persist or worsens over the next 6-8 weeks, patient will contact the office, otherwise follow-up as needed. His ankle does not appear to be an infective process. I recommend ankle brace for support and tylenol for pain. He is content with this plan. Orders: Orders XR knee LT 2V Today M25.562 - Pain in left knee XR ankle LT min 3V Today M25.572 - Pain in left ankle and joints of left foot Patient Instructions: Scribed for Magalis Morton PA-C, by Eloy Davalos medical office clerk, on 04/12/2023 at 10:15 AM EST. Magalis Kurtz PA-C, have personally reviewed and agree with the information entered by the scribe. Coding Level of Care Code Est Pt Level 3 (51073) Diagnoses Osteoarthritis of left knee M17.12 Left ankle pain M25.572 CPT Codes Coding - Joint 7: 43798 - Glenohumeral/Tronchanteric Bursa/Intraarticular ([id number])
[2023-04-12 09:39] VITALS: BMI 29.2
== END 2023-04-12 12:21 | disposition home or self-care (01) ==
PROVIDERS: PCP Internal Medicine; Visit Provider Physician Assistant
DX: M17.12 Unilateral primary osteoarthritis, left knee (principal); M25.572 Pain in left ankle and joints of left foot
CPT/HCPCS: 20610; 99213

== ENCOUNTER 2023-04-20 09:50 | Outpatient (AMB) | payer OTHER, SELFPAY ==
[2023-04-20 09:54] VITALS: BP 108/86; PULSE 98; RESP 17; O2SAT 98; BMI 28.3
--- NOTE | 2023-04-20 09:54 | A.OFFPC_ITS ---
Vital Signs 04/20/23 09:54 Height 5 ft 6 in Weight 175 lb 6 oz BMI 28.3 BP 108/86 Blood Pressure Location Lt brachial Position Sitting Respiration 17 Pulse 98 Pulse Source Pulse Oximeter Pulse Oximetry (%) 98 Oxygen Delivery Method Room Air Intake Visit Reasons: office visit Intake Note: Pt is here for routine check up. Fire Information Officer Required: No Accompanied by: Self / Same As Patient Allergies No Known Allergies Allergy (Verified 04/20/23 10:00) Tobacco use date assessed: 03/14/23 Dental Screening Dental Screen Date: 04/20/23 Did you have a dental visit in the last 12 months?: No Did you have a dental problem in the last 6 months where you did not have access to dental care?: No Was dental information given to patient?: Patient has dentist HPI office visit HPI Details 57-year-old overweight male with control led diabetes mellitus hypertension hypothyroidism hypercholesterolemia generalized anxiety disorder history of renal cell carcinoma coming in for follow-up. Patient was last seen in October 2022. April 2023 seen by Ortho for left knee pain x-ray showing mild osteoarthritis and left ankle no fracture. patient had aspiration right knee and injection left knee. Review of the notes in November [address] scan of the abdomen in chest showing stable exam with night nephrectomy and unchanged pulmonary nodules. Able to get the diclofenac due to non coverage but discussed with the patient that this is [id number] gave him the generic name and advised him to use it to help decrease the swelling on the knees. If pain persists then discussed with the patient we can go with the stronger pain controlled. Otherwise reminded about the blood work this has not been done still very much hesitant with colon test even with Cologuard. [facility] Medical History Hx of cancer of lung Surgical History History of biopsy History of right nephrectomy Family History Father No problems noted. Mother Breast cancer Social History Housing: House Alcohol intake: unknown Patient Tobacco Use Status: Former Tobacco user Years Smoked: quit 1999 e-Cigarette/Vaping Use: Never Used Second Hand Smoke Exposure: No Advance Directives Date on File: 02/07/23 Current occupational status: unemployed Cognitive needs: No Hearing needs: No Vision needs: Yes Questionnaire PHQ-9 Over the last 2 weeks, how often have you been bothered by any of the following problems? 1. Little interest or pleasure in doing things: not at all 2. Feeling down, depressed, or hopeless: not at all 3. Trouble falling or staying asleep, or sleeping too much: not at all 4. Feeling tired or having little energy: not at all 5. Poor appetite or overeating: not at all 6. Feeling bad about yourself - or that you are a failure or have let yourself or your family down: not at all 7. Trouble concentrating on things, such as reading the newspaper or watching television: not at all 8. Moving or speaking so slowly that other people could have noticed. Or the opposite - being so fidgety or restless that you have been moving around a lot more than usual: not at all 9. Thoughts that you would be better off or of hurting yourself in some way: not at all Total score: 0 Depression Screening Interpretation: Negative 35737 - PHQ-9 Billing: Yes Source: Developed by Drs. Enrrique Chinchilla, Sujata Baer, Linden Robert and colleagues, with an educational herson from [employer]. Thrive Questionnaire Date Thrive assessed: 04/20/23 I am a: Patient What is your living situation today?: I have a steady place to live Within the past 12 months, did the food you bought not last and you didn't have the money to get more?: Never true Within the past 12 months, did you worry whether your food would run out before you got money to buy more?: Never true Do you have trouble paying for medicines?: No Do you have trouble getting transportation to medical appointments?: No Do you have trouble paying your heating and electricity bill?: No Do you have trouble taking care of your child, family member or friend?: No Do you have trouble with day-to-day activities such as bathing, preparing meals, shopping, managing finances, etc.?: No Are you currently unemployed and looking for a job?: No Are you interested in more education?: No Please select the resources that you would like help with: None Currently or been in a relationship where the following occur: no concerns reported BRIT-7 AMB Questionnaire BRIT-7 Date BRIT - 7 assessed: 03/14/23 Source: Developed by Drs. Enrrique Chinchilla, Sujata Baer, Linden Robert and colleagues, with an educational herson from [employer]. Physical exam (Primary Care) Vital Signs: Last Vital Signs Pulse 98 04/20/23 09:54 Resp 17 04/20/23 09:54 BP 108/86 04/20/23 09:54 Pulse Ox 98 04/20/23 09:54 Oxygen Delivery Method Room Air 04/20/23 09:54 BMI result Body Mass Index 28.3 Tobacco/Smoking Status: Tobacco use Status Tobacco use date assessed 03/14/23 04/20/23 09:54 Patient Tobacco Use Status Former Tobacco user 04/20/23 09:54 e-Cigarette/Vaping Use Never Used 04/20/23 09:54 PHQ-9: PHQ-9 Score PHQ-9: Total score 0 04/20/23 10:04 Depression Screening Interpretation: Negative Thrive Assessment: Date of Thrive Assessment Date Thrive assessed 04/20/23 04/20/23 10:04 Currently or been in a relationship where the following occur: no concerns reported Const General: alert; No acute distress Eyes Conjunctivae: conjunctivae normal Resp Auscultation: clear to auscultation bilaterally Cardio Rate: regular rate Rhythm: regular rhythm GI Inspection: Yes normal to inspection Extrem General: Yes normal to inspection and No edema Assessment and Plan Assessment & Plan (1) Osteoarthritis of left knee: Code(s): M17.12 - Unilateral primary osteoarthritis, left knee Plan: Patient has met with Orthopedics and had injection (2) Osteoarthritis of right knee: Code(s): M17.11 - Unilateral primary osteoarthritis, right knee Plan: Patient met with orthopedics and had aspiration (3) Type 2 diabetes mellitus with hyperglycemia: Code(s): E11.65 - Type 2 diabetes mellitus with hyperglycemia Plan: Decrease the amount of carbohydrate intake, pasta, bread, rice and potatoes are all sugar and that is aside from all the sweet stuff, remember that fruits are good but they are Sweet also. Hemoglobin A1c goal of less than 6.5 patient on diet control (4) Hypercholesterolemia: Code(s): E78.00 - Pure hypercholesterolemia, unspecified Plan: Avoid fried foods, chicken skin, eggs, butter margarine, pastries and meat. Be it pork or beef they have a lot of cholesterol LDL goal of less than 100. Last blood work was done June 2022 (5) Hypertension: Code(s): I10 - Essential (primary) hypertension Plan: Continue with blood pressure medication. Decrease salt intake and exercise since loss of weight patient's blood pressure has been under control (6) Obstructive sleep apnea: Comment: Cannot tolerate CPAP Code(s): G47.33 - Obstructive sleep apnea (adult) (pediatric) Plan: Discussed importance of CPAP 8 minutes for sleep apnea (7) Renal cell carcinoma: Comment: December 2019 Dr. Richard right nephrectomy Code(s): C64.9 - Malignant neoplasm of unspecified kidney, except renal pelvis Plan: Continue to follow-up with Urology. (8) Hypothyroid: Code(s): E03.9 - Hypothyroidism, unspecified Plan: Continue with thyroid medication will need blood work (9) Generalized anxiety disorder: Code(s): F41.1 - Generalized anxiety disorder Plan: Continue with therapy (10) Colonoscopy refused: Code(s): Z53.20 - Procedure and treatment not carried out because of patient's decision for unspecified reasons Orders: Orders Complete Blood Count Auto Diff Today E03.9 - Hypothyroidism, unspecified Comprehensive Met. Panel Today E03.9 - Hypothyroidism, unspecified Thyroid Stimulating Hormone Today E03.9 - Hypothyroidism, unspecified Vitamin B12 and Folate Today E03.9 - Hypothyroidism, unspecified Hemoglobin A1c Today E03.9 - Hypothyroidism, unspecified Free T4 (Free Thyroxine) Today E03.9 - Hypothyroidism, unspecified Lipid Panel Today E03.9 - Hypothyroidism, unspecified, E78.00 - Pure hypercholesterolemia, unspecified Prostate Specific Antigen Scr Today E03.9 - Hypothyroidism, unspecified Coding Level of Care Code Est Pt Level 4 (40339) Diagnoses Osteoarthritis of left knee M17.12 Osteoarthritis of right knee M17.11 Type 2 diabetes mellitus with hyperglycemia E11.65 Hypercholesterolemia E78.00 Hypertension I10 Obstructive sleep apnea G47.33 Renal cell carcinoma C64.9 Hypothyroid E03.9 Generalized anxiety disorder F41.1 Colonoscopy refused Z53.20
== END 2023-04-20 10:21 | disposition home or self-care (01) ==
PROVIDERS: PCP Internal Medicine; Visit Provider Internal Medicine
DX: E11.65 Type 2 diabetes mellitus with hyperglycemia (principal); I10 Essential (primary) hypertension; C64.9 Malignant neoplasm of unspecified kidney, except renal pelvis; E03.9 Hypothyroidism, unspecified; M17.0 Bilateral primary osteoarthritis of knee; E78.00 Pure hypercholesterolemia, unspecified; G47.33 Obstructive sleep apnea (adult) (pediatric); F41.1 Generalized anxiety disorder; Z53.20 Procedure and treatment not carried out because of patient's decision for unspecified reasons
CPT/HCPCS: 99214

== ENCOUNTER 2023-05-23 06:58 | Observation (INO) | payer OTHER, SELFPAY ==
[2023-05-23] VITALS (7 sets, daily range): BP systolic 93–128; BP diastolic 53–96; PULSE 93–114; RESP 12–20; TEMP 36.2–38.7; O2SAT 92–98; BMI 27.8
--- NOTE | ~2023-05-23 | XR_ITS ---
EXAMINATION: XR WRIST, RIGHT CLINICAL INFORMATION: Wrist pain and swelling. COMPARISON: None available. TECHNIQUE: PA, lateral, and oblique views of the right wrist. FINDINGS: Mild degenerative changes are present at the radiocarpal joints with some mild sclerosis. No fractures or dislocations are seen. No chondrocalcinosis. XR/XR wrist RT 2V IMPRESSION: Mild degenerative changes at the radiocarpal joint.
--- NOTE | ~2023-05-23 | XR_ITS ---
EXAMINATION: XR KNEE, RIGHT CLINICAL INFORMATION: Knee pain and swelling COMPARISON: 03/05/2023 TECHNIQUE: Two views of the right knee. FINDINGS: Moderate joint effusion is present, similar compared to 02/23/2023. Bones have normal alignment joint spaces are maintained. No acute fracture or subluxation. There appears to be periarticular osteopenia of the knee. No erosions or periostitis. Small marginal osteophytes are present at patellofemoral and tibiofemoral compartments. XR/XR knee RT 2V IMPRESSION: * No acute fracture or malalignment the right knee. * Persistent joint effusion, similar compared to 03/05/2023. The specific cause of the joint effusion is uncertain. Consider possibility of inflammation/synovitis, or reactive change if there is internal derangement. * Mild tricompartmental osteoarthritis is present.
--- NOTE | ~2023-05-23 | XR_ITS ---
EXAMINATION: XR CHEST CLINICAL INFORMATION: 57-year-old male with fever COMPARISON: 02/06/2023 TECHNIQUE: 2 views of the chest were obtained. FINDINGS: No significant abnormality is noted involving the heart, lungs, mediastinum, bony thorax or soft tissues. There is stable position of Port-A-Cath on the right XR/XR chest 2V IMPRESSION: No active cardiopulmonary disease
--- NOTE | 2023-05-23 07:22 | ED_ITS ---
HPI - General Adult General Chief complaint: General Medical Stated complaint: ZENAIDA KNEE/WRIST SWELLING X4 WKS, HX STAGE 4 LUNG CA Time Seen by Provider: 05/23/23 07:21 Source: patient, EMS and RN notes reviewed Mode of arrival: EMS Limitations: no limitations History of Present Illness HPI narrative: Patient is a 57-year-old male with history of Stave IV lung cancer not currently undergoing treatment, right nephrectomy, T2DM, OA, HTN, hypercholesterolemia, KAYLYN presenting to the emergency department with complaint of right knee pain and swelling as well as bilateral wrist pain, R>L. He also complains of generalized weakness. Denies fevers. reports that symptoms have been ongoing since January and vary in intensity. She reports that patient had fluid aspirated from his knee by Dr. Willingham in January, fluid negative for septic arthritis at that time. also reports decreased p.o. intake over the past several days. States that patient has been urinating into a milk jug and that the urine appears dark. Patient denies any chest pain or shortness of breath. Patient states he has not used any OTC or prescribed medications for his pain. MD complaint: knee and wrist pain Onset (ago): day(s) Location: right, upper extremity and lower extremity Radiation: non-radiation Severity: severe Quality: aching Pain Consistency: constant Relieving factors: rest Exacerbating factors: movement Associated symptoms: weakness Treatments prior to arrival: none Related Data Home Medications Medication Instructions Recorded Confirmed hydrocortisone 10 mg tablet 10 mg PO DAILY 10/24/22 03/14/23 levothyroxine 75 mcg tablet 75 mcg PO QAM 10/24/22 03/14/23 sertraline 100 mg tablet 100 mg PO DAILY 10/24/22 03/14/23 meloxicam 7.5 mg tablet 7.5 mg PO DAILY 03/05/23 03/14/23 Previous Rx's Medication Instructions Recorded diclofenac sodium 1 % topical gel 4 g topical QID #100 grams 03/14/23 Allergies Allergy/AdvReac Type Severity Reaction Status Date / Time No Known Allergies Allergy Verified 04/20/23 10:00 Review of Systems 2 Review of Systems: As per HPI. Yes all other systems are reviewed and are negative Constitutional: Constitutional: Reports as per HPI [facility] Past Medical History Medical History Hx of cancer of lung Surgical History History of biopsy History of right nephrectomy Family History Family History Father No problems noted. Mother Breast cancer Social History Social History Housing: House Alcohol intake: unknown Patient Tobacco Use Status: Former Tobacco user Years Smoked: quit 2000 Smoked in Last 30 Days: No e-Cigarette/Vaping Use: Never Used Second Hand Smoke Exposure: No Use of substances other than those prescribed or required for medical reasons: No Advance Directives: Yes Advance Directives on File: Yes Advance Directives Date on File: 02/07/23 Current occupational status: unemployed Cognitive needs: No Hearing needs: No Vision needs: Yes Physical Exam ED Vital Signs: Vital Signs - 24 hr 05/23/23 07:06 05/23/23 10:41 05/23/23 12:10 Temperature 99.5 F 101.7 F H 99.6 F Pulse Rate 112 H 114 H 110 H Respiratory Rate 20 18 14 Blood Pressure 106/70 93/53 L 99/69 Pulse Oximetry 95 95 92 Oxygen Delivery Method Room Air Room Air Room Air 05/23/23 13:08 Temperature 99 F Pulse Rate 106 H Respiratory Rate 12 Blood Pressure 94/61 Pulse Oximetry 95 Oxygen Delivery Method Room Air BMI result Body Mass Index 27.8 Vital signs have been reviewed and appear to be correct. Blood pressure normal. Heart rate tachycardic. Respiratory rate normal. Temperature normal. Oxygen saturation normal. Const General: cooperative, healthy appearing and no acute distress Orientation/consciousness: oriented to person, oriented to place, oriented to time and patient oriented x3 Limitations: no limitations HENMT Head: Yes normocephalic and Yes atraumatic Ears: external ears normal General nose exam: Normal external nose present Face and sinus: Yes face symmetric Mouth: oropharynx normal and moist mucous membranes Throat: Yes uvula midline Eyes Pupils: Equal, round and reactive pupils present Neck Neck: Yes normal visual inspection and Yes supple Resp Effort & Inspection: normal respiratory effort and able to speak in complete sentences Auscultation: clear to auscultation bilaterally Cardio Rate: regular rate Rhythm: regular rhythm Heart sounds: S1 normal heart sound present and S2 normal heart sound present GI Palpation (GI): Soft to palpation and nontender Auscultation: normoactive bowel sounds General: Yes no CVA tenderness Back/Spine/Pelvis Back: no CVA tenderness Skin General skin exam: elasticity normal and turgor normal Neuro General: oriented to person, oriented to place, oriented to time, patient oriented x3, moves all extremities, no focal motor deficits and CN's II-XI intact bilaterally Cranial nerves: Yes Equal, round and reactive pupils present Cognition (Neuro): normal cognition Extrem General: Yes full ROM, Yes no pedal edema and Yes no calf tenderness Right upper extremity: wrist Details: tenderness Location: of the distal ulna, swelling Location: of the dorsal wrist (mild), normal ROM (pain with ROM) and normal vascular exam; no unusual warmth and no ecchymosis Left upper extremity: wrist distal lateral Details: tenderness Location: of the distal ulna, swelling Location: of the dorsal wrist (mild), normal ROM (pain with ROM) and normal vascular exam; no unusual warmth and no ecchymosis Right lower extremity: knee Details: tenderness (diffuse) Location: of the pre- patellar area, swelling Location: of the pre-patellar area and of the distal upper leg Details: medially and abnormal ROM Details: pain with passive ROM during Details: in extension and in flexion Psych Mental Status: mental status grossly normal Affect: normal affect Thought process: Normal thought process present Medications Administered Discontinued Medications Generic Name Dose Route Start Last Admin Trade Name Freq PRN Reason Stop Dose Admin Acetaminophen 650 mg 05/23/23 10:50 05/23/23 11:36 Acetaminophen 325 Mg Tablet PO 05/23/23 10:51 650 mg ONCE ONE Administration Ceftriaxone Sodium 1 gm/ 50 mls @ 100 mls/hr 05/23/23 11:19 05/23/23 13:46 Sodium Chloride IV 05/23/23 11:48 Infused ONCE ONE Infusion Sodium Chloride 1,000 mls @ 999 mls/hr 05/23/23 12:45 05/23/23 15:16 Ns IV 05/23/23 13:45 Infused .Q1H1M ZOEY Infusion Lidocaine HCl 5 ml 05/23/23 09:29 05/23/23 10:10 Lidocaine Hcl 1 % Mpf 5 Ml Vial INFILTRATI 05/23/23 09:30 5 ml ONCE ONE Administration Oxycodone HCl 5 mg 05/23/23 10:45 05/23/23 11:35 Oxycodone Hcl Immed Release 5 Mg Tablet PO 05/23/23 10:46 5 mg ONCE ONE Administration Procedures Joint Aspiration/Injection Joint Asp./Inject. 1: Time Out Performed: Yes Side of body: right Joint Aspirated: knee Ultrasound Guidance: No Skin Prep: Povidone-Iodine1% Local Anesthetic: lidocaine 1% Amount of anesthesia used (mL): 3 Needle Size Used: 18G Fluid Obtained: clear Total fluid obtained (mL): 60 Patient Tolerated Procedure: well Complications: none Medical Decision Making Medical Decision Making [facility] Narrative: 07:35 Patient is a 57-year-old male with history of Stave IV lung cancer not currently undergoing treatment, right nephrectomy, T2DM, OA, HTN, hypercholesterolemia, KAYLYN presenting to the emergency department with complaint of right knee pain and swelling as well as bilateral wrist pain, R>L. On exam patient is awake, A+Ox3, VS WNL, afebrile, normal neurological exam without focal deficits, physical exam findings as above. Given reported symptoms and physical exam findings, initial differential includes arthralgias, osteoarthritis. Less concern for septic arthritis. Do not suspect sepsis at this time. Labs notable for new microcytic anemia, patient denies any hematochezia or melena, but reports has not had a bowel movement in approximately one week. Denies any abdominal pain, nausea, vomiting. Guaiac negative. Likely related to untreated stage IV lung CA. Right knee x-ray notable for moderate joint effusion, similar to February of this year, mild OA. Wrist x-ray shows mild degenerative changes at radiocarpal joint. My interpretation is in agreement with the radiologist's interpretation. EKG shows sinus tachycardia, rate 113 bpm, with T-wave abnormality, normal OH and QT intervals. Right knee aspirated as per procedure note. 11:20 Patient now febrile, lactic WNL, awaiting urine specimen. Tylenol ordered. No evidence of septic joint. Will swab for flu/Covid. CXR and ceftriaxone ordered. Patient does not meet severe sepsis criteria. Discussed case with Dr. Moulton who accepts admission for sepsis. Lab Data 05/23/23 08:19 05/23/23 08:19 Labs: Lab Results 05/23/23 05/23/23 05/23/23 Range/Units 08:19 09:03 09:56 WBC 5.9 (4.8-10.8) X10*3/uL RBC 4.89 (4.60-5.80) X10*6/uL Hgb 10.6 L D (14.0-18.0) g/dl Hct 35.0 L D (42.0-52.0) % MCV 71.6 L (80.0-98.0) fL MCH 21.7 L (27.0-33.0) pg MCHC 30.3 L (31.0-36.0) g/dl RDW 17.4 H (11.0-16.0) % Plt Count 447 H (160-400) X10*3/uL MPV 8.1 L (9.4-12.4) fL Immature Gran % (Auto) 0.2 (0.0-0.4) % Neut % (Auto) 63.8 (45-73) % Lymph % (Auto) 24.6 (20-40) % [place] % (Auto) 6.9 (2-11) % Eos % (Auto) 3.7 (0-4) % Baso % (Auto) 0.8 (0-2) % Lymph # (Auto) 1.5 (1.2-4.9) X10*3/uL [place] # (Auto) 0.4 (0.1-1.2) X10*3/uL Eos # (Auto) 0.2 (0.0-0.4) X10*3/uL Baso # (Auto) 0.1 (0.0-0.2) X10*3/uL Abs Immat Gran (auto) 0.01 (0.00-0.03) X10*3/uL Absolute Neuts (auto) 3.8 (2.0-8.3) x10*3/uL Absolute Nucleated RBC 0.000 (0.0-0.012) X10*3/uL Nucleated RBC % (auto) 0.0 (0.0-0.2) /100WBC Sodium 132 L (135-145) mmol/L Potassium 3.7 (3.3-5.1) mmol/L Chloride 94 L (96-108) mmol/L Carbon Dioxide 21 L (22-29) mmol/L Anion Gap 21 H (12-20) BUN 10 (9-16) mg/dL Creatinine 0.80 (0.5-1.4) mg/dL Estim Creat Clear Calc 104.7 Estimated GFR > 60 Random Glucose 77 (60-115) mg/dL Lactic Acid 1.2 (0.5-2.0) mmol/L Calcium 9.5 (8.4-10.2) mg/dL Total Bilirubin 0.9 (0.0-1.0) mg/dL AST 17 (5-37) U/L ALT 7 (0-40) U/L Alkaline Phosphatase 100 (39-117) U/L Total Protein 7.3 (6.5-8.0) g/dL Albumin 3.1 L (3.5-5.0) g/dL Synovial Source TNP Synovial WBC 13.606 X10*3/uL Synovial RBC < 0.002 X10*6/uL Synov WBC Hemocytom Sq Cancelled Synov RBC Hemocytom Sq Cancelled Synovial Neutrophils 87 % Synovial Lymphocytes 11 % Synovial Monocytes 2 % Stool Occult Blood NEGATIVE (NEGATIVE) COVID-19 ([facility]) (Negative) COVID-19 Clin Com Influenza Type A (TRUPTI) (Negative) Influenza Type B (TRUPTI) (Negative) Influenza A & B Note 05/23/23 Range/Units 11:21 WBC (4.8-10.8) X10*3/uL RBC (4.60-5.80) X10*6/uL Hgb (14.0-18.0) g/dl Hct (42.0-52.0) % MCV (80.0-98.0) fL MCH (27.0-33.0) pg MCHC (31.0-36.0) g/dl RDW (11.0-16.0) % Plt Count (160-400) X10*3/uL MPV (9.4-12.4) fL Immature Gran % (Auto) (0.0-0.4) % Neut % (Auto) (45-73) % Lymph % (Auto) (20-40) % [place] % (Auto) (2-11) % Eos % (Auto) (0-4) % Baso % (Auto) (0-2) % Lymph # (Auto) (1.2-4.9) X10*3/uL [place] # (Auto) (0.1-1.2) X10*3/uL Eos # (Auto) (0.0-0.4) X10*3/uL Baso # (Auto) (0.0-0.2) X10*3/uL Abs Immat Gran (auto) (0.00-0.03) X10*3/uL Absolute Neuts (auto) (2.0-8.3) x10*3/uL Absolute Nucleated RBC (0.0-0.012) X10*3/uL Nucleated RBC % (auto) (0.0-0.2) /100WBC Sodium (135-145) mmol/L Potassium (3.3-5.1) mmol/L Chloride (96-108) mmol/L Carbon Dioxide (22-29) mmol/L Anion Gap (12-20) BUN (9-16) mg/dL Creatinine (0.5-1.4) mg/dL Estim Creat Clear Calc Estimated GFR Random Glucose (60-115) mg/dL Lactic Acid (0.5-2.0) mmol/L Calcium (8.4-10.2) mg/dL Total Bilirubin (0.0-1.0) mg/dL AST (5-37) U/L ALT (0-40) U/L Alkaline Phosphatase (39-117) U/L Total Protein (6.5-8.0) g/dL Albumin (3.5-5.0) g/dL Synovial Source Synovial WBC X10*3/uL Synovial RBC X10*6/uL Synov WBC Hemocytom Sq Synov RBC Hemocytom Sq Synovial Neutrophils % Synovial Lymphocytes % Synovial Monocytes % Stool Occult Blood (NEGATIVE) COVID-19 ([facility]) Negative (Negative) COVID-19 Clin Com See Note Influenza Type A ([facility]UPTI) Negative (Negative) Influenza Type B ([facility]UPTI) Negative (Negative) Influenza A & B Note See Note Independent Interpretation I performed an independent interpretation of an: EKG Interpretation: EKG: sinus tachycardia, rate 115 bpm, normal OH and QT intervals, no evidence of STEMI Discharge Plan Discharge Clinical Impression: Sepsis Qualifiers: Sepsis type: sepsis due to unspecified organism Sepsis acute organ dysfunction status: without acute organ dysfunction Qualified Code(s): A41.9 - Sepsis, unspecified organism Patient Disposition: Admitted As Inpatient
--- NOTE | 2023-05-23 07:41 | ECG_ITS ---
Test Reason : bilat leg swelling Blood Pressure : / mmHG Vent. Rate : 112 BPM Atrial Rate : 112 BPM P-R Int : 124 ms QRS Dur : 080 ms QT Int : 328 ms P-R-T Axes : 038 037 013 degrees QTc Int : 447 ms Sinus tachycardia Nonspecific ST and T wave abnormality Abnormal ECG When compared with ECG of 06-FEB-2023 11:32, Nonspecific T wave abnormality, worse in Inferior leads Nonspecific T wave abnormality now evident in Lateral leads Referred By: Shantal Brown Electronically Signed By:DEENA WESTON MD
[2023-05-23 08:25] LABS: MANUAL DIFF FLAG NO
[2023-05-23 08:27] LABS: Basophils Absolute Auto 0.1 X10*3/uL (0.0-0.2); Basophils Percent Auto 0.8 % (0-2); Eosinophils Absolute Auto 0.2 X10*3/uL (0.0-0.4); Eosinophils Percent Auto 3.7 % (0-4); Hemoglobin 10.6 g/dl (14.0-18.0); Imm Gran Abs Auto 0.01 X10*3/uL (0.00-0.03); Imm Gran Pct Auto 0.2 % (0.0-0.4); Lymphocytes Absolute Auto 1.5 X10*3/uL (1.2-4.9); Lymphocytes Percent Auto 24.6 % (20-40); Mean Corpuscular HGB Conc 30.3 g/dl (31.0-36.0); Mean Corpuscular Hemoglobin 21.7 pg (27.0-33.0); Mean Corpuscular Volume 71.6 fL (80.0-98.0); Mean Platelet Volume 8.1 fL (9.4-12.4); Monocytes Absolute Auto 0.4 X10*3/uL (0.1-1.2); Monocytes Percent Auto 6.9 % (2-11); Neutrophils Absolute Auto 3.8 x10*3/uL (2.0-8.3); Neutrophils Percent Auto 63.8 % (45-73); Platelet Count 447 X10*3/uL (160-400); Red Blood Count 4.89 X10*6/uL (4.60-5.80); Red Cell Distribution Width 17.4 % (11.0-16.0); White Blood Count 5.9 X10*3/uL (4.8-10.8)
[2023-05-23 08:36] LABS: Lactic Acid 1.2 mmol/L (0.5-2.0)
[2023-05-23 08:41] LABS: Alanine Aminotransferase 7 U/L (0-40); Albumin Level 3.1 g/dL (3.5-5.0); Alkaline Phosphatase 100 U/L (39-117); Anion Gap 21 (12-20); Aspartate Amino Transferase 17 U/L (5-37); Bilirubin Total 0.9 mg/dL (0.0-1.0); Blood Urea Nitrogen 10 mg/dL (9-16); Calcium 9.5 mg/dL (8.4-10.2); Carbon Dioxide 21 mmol/L (22-29); Chloride 94 mmol/L (96-108); Creatinine Clr Calc Pharmacy 104.7; Estimated Glomerular Filt Rate > 60; Glucose Random 77 mg/dL (60-115); Potassium 3.7 mmol/L (3.3-5.1); Sodium 132 mmol/L (135-145); Total Protein 7.3 g/dL (6.5-8.0)
[2023-05-23 09:10] LABS: OBS Int Ctl Valid YES; OBS1 NEGATIVE (NEGATIVE)
--- NOTE | 2023-05-23 10:09 | PC.NURSE ---
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 no distress- pt talking well. aox4.
[2023-05-23] MEDS: Lidocaine HCl 1 % MPF 5 ML VIAL INFILTRATI (10:10)
[2023-05-23 10:29] LABS: WBC Synovial Fluid 13.606 X10*3/uL
[2023-05-23 10:30] LABS: MN% 17.1 %; PMN% 82.9 %; RBC Synovial Fluid < 0.002 X10*6/uL
[2023-05-23 10:48] LABS: BF Shift QC OK YES; Lymphocytes Synovial Fluid 11 %; Man Diluent Bkgrd OK YES; Monocytes Synovial Fluid 2 %; Neutrophils Synovial Fluid 87 %
[2023-05-23] MEDS: oxyCODONE HCl Immed Release 5 MG TABLET PO ×2 (11:35→17:17)
[2023-05-23] MEDS: Acetaminophen 325 MG TABLET 650 MG PO (11:36)
[2023-05-23 11:46] LABS: COVID-19 Test Negative (Negative); IDNOW Serial# 9DB6401D; IDNOW Serial# BCCEAD1C; Influenza A Negative (Negative); Influenza B2 Negative (Negative)
--- NOTE | 2023-05-23 11:55 | PC.NURSE ---
Addendum entered by Ivet Gonsalez 05/23/23 13:11: chemical machine tender aware tachy- +CMS/no cp/no dizziness Addendum entered by Ivet Gonsalez 05/23/23 13:11: kendrick regalado aware sbp 90s. asymptomatic. talks well Original Note: KENDRICK regalado aware pt needs port at this time for iv order per MAR. aware is not power port per CXRAY.
--- NOTE | 2023-05-23 12:45 | PC.NURSE ---
tolerated port access by rn well. no distress noted. talking well. is not a powr port- labeled- 20 g 3/4 needle. sterile.
[2023-05-23] MEDS: cefTRIAXone sodium 1 GM in 0.9 % Sodium Chloride 50 ML IV (12:55)
[2023-05-23] MEDS: 0.9 % Sodium Chloride 1,000 ML 999 ML IV (12:56)
--- NOTE | 2023-05-23 14:22 | P.HPHOSP_ITS ---
History of Present Illness Date of Service: 05/23/23 Attending physician on admission: [facility] Chief Complaint: Bilateral knee/wrist swelling x4 weeks Pt is a 57-year-old male with a PMH significant for?renal cell carcinoma with lung metastasis s/p right nephrectomy in 2019 currently on maintenance immunotherapy, hypothyroidism, osteoarthritis, KAYLYN who presents to the ED for evaluation of increasing right knee and right wrist swelling and pain. Patient has been dealing with right knee pain on and off since January of this year. Head joint aspirated by Dr. Willingham in January, negative for septic arthritis. Patient seen by Orthopedics and given hydrocortisone shot which he states provided great relief for 2 months before pain returned. Patient states the pain has been particularly bad the past couple of weeks. Patient has been unable to get up from his chair and ambulate normally. States he has been drinking less due to this, and eating less secondary to pain. Patient states that he has also been experiencing right wrist and swelling and pain that began about 1 month ago. Patient denies trauma to either areas. Patient denies fever, chills, nausea, vomiting. No abdominal pain. Patient also denies polyuria, dysuria. Says he has been having normal bowel movements with last 1 2-3 days ago. Denies any increased fatigue. No acute episodes of bleeding: Denies hematemesis, hemoptysis, melen, hematochezia. Patient denies chest pain/pressure, palpitations. No shortness of breath, cough. In the ED patient was febrile at 101.7, tachycardic up to 114, with soft BP 93/53, satting at 95% on RA. Labs were significant for microcytic anemia 10.6/35.0, MCV 71.6, platelets 447, sodium 132. No leukocytosis. Lactic acid WNL at 1.2. Renal function baseline. Stool negative for occult blood. Synovial fluid of right knee negative for septic arthritis, no organisms or crystals seen. CXR showed no active cardiopulmonary disease. X-ray of right knee found no acute fracture or malalignment did show persistent joint effusion similar to 03/05/2023 with mild tricompartmental osteoarthritis. Right wrist x-ray found mild degenerative changes at the radiocarpal joint. EKG demonstrated sinus tachycardia with nonspecific ST and T-wave abnormalities. Pt was treated with lidocaine, oxy, acetaminophen, IVF, and ceftriaxone. Pt will be admitted to the hospital under observation treatment further evaluation of right knee swelling and pain and reduced ability to ambulate and perform ADLs. Review of Systems 2 Review of Systems: Right knee and wrist swelling and pain Decreased po intake Difficulty ambulating Denies chest pain/pressure, palpitations No fever, chills, nausea, vomiting, abdominal pain Denies dysuria, polyuria No hemoptysis, hematemesis, hematochezia, melena [facility] Medical History Hx of cancer of lung Family History Father No problems noted. Mother Breast cancer Surgical History History of biopsy History of right nephrectomy Social History Housing: House Alcohol intake: unknown Patient Tobacco Use Status: Former Tobacco user Years Smoked: quit 2000 Smoked in Last 30 Days: No e-Cigarette/Vaping Use: Never Used Second Hand Smoke Exposure: No Use of substances other than those prescribed or required for medical reasons: No Advance Directives: Yes Advance Directives on File: Yes Advance Directives Date on File: 02/07/23 Nutrition Risks: No Nutritional Risk service: No Current occupational status: unemployed Cognitive needs: No Hearing needs: No Vision needs: Yes Meds Allergies Allergy/AdvReac Type Severity Reaction Status Date / Time No Known Allergies Allergy Verified 04/20/23 10:00 Home Medications Medication Instructions Recorded Confirmed Last Taken Type No Known Home Meds 05/23/23 05/23/23 Unknown History Physical Exam 2 Vital Signs and Narrative: Vital Signs: Last Vital Signs Temp 99 F 05/23/23 13:08 Pulse 106 H 05/23/23 13:08 Resp 12 05/23/23 13:08 BP 94/61 05/23/23 13:08 Pulse Ox 95 05/23/23 13:08 O2 Del Method Room Air 05/23/23 13:08 BMI result Body Mass Index 27.8 Constitutional: Alert, in no acute distress. Mental Status: Oriented to person, place and time. Eyes: Pupils are equal, round, and reactive to light. Ear, Nose, and Throat: Oropharynx clear, mucous membranes moist. Ears and nose without deformities. Trachea midline. Respiratory: Clear to auscultation bilaterally. No wheezing, rales, or rhonchi. Cardiovascular: S1, S2 regular. No murmurs, rubs, or gallops. Gastrointestinal: Abdomen soft, non-tender, non-distended. Normal bowel sounds. Neurologic: Cranial nerves II-XII are grossly intact bilaterally. No focal neurological deficits. Moves all extremities spontaneously. Skin: No rashes or lesions noted. Musculoskeletal: No cyanosis or clubbing. Extremities: No edema. Right knee wrapped in fabiola bandage, nontender to palpation. ROM limited to pain. Right knee with moderate swelling, nontender. No warm, erythema. Right wrist with slight swelling, ROM limited secondary to pain. Nontender to palpation. Psychiatric: Normal mood and affect. Results Labs 05/24/23 05:29 05/24/23 05:29 Labs: Laboratory Results - last 24 hr 05/23/23 05/23/23 05/23/23 08:19 09:03 09:56 MCV 71.6 L MCH 21.7 L MCHC 30.3 L RDW 17.4 H Plt Count 447 H MPV 8.1 L Immature Gran % (Auto) 0.2 Neut % (Auto) 63.8 Lymph % (Auto) 24.6 Forrest % (Auto) 6.9 Eos % (Auto) 3.7 Baso % (Auto) 0.8 Lymph # (Auto) 1.5 Forrest # (Auto) 0.4 Eos # (Auto) 0.2 Baso # (Auto) 0.1 Abs Immat Gran (auto) 0.01 Absolute Neuts (auto) 3.8 Absolute Nucleated RBC 0.000 Nucleated RBC % (auto) 0.0 Anion Gap 21 H Estim Creat Clear Calc 104.7 Estimated GFR > 60 Random Glucose 77 Lactic Acid 1.2 Calcium 9.5 Total Bilirubin 0.9 AST 17 ALT 7 Alkaline Phosphatase 100 Total Protein 7.3 Albumin 3.1 L Synovial Source TNP Synovial WBC 13.606 Synovial RBC < 0.002 Synov WBC Hemocytom Sq Cancelled Synov RBC Hemocytom Sq Cancelled Synovial Neutrophils 87 Synovial Lymphocytes 11 Synovial Monocytes 2 Stool Occult Blood NEGATIVE COVID-19 ([facility]) COVID-19 Clin Com Influenza Type A (TRUPTI) Influenza Type B (TRUPTI) Influenza A & B Note 05/23/23 11:21 MCV MCH MCHC RDW Plt Count MPV Immature Gran % (Auto) Neut % (Auto) Lymph % (Auto) Forrest % (Auto) Eos % (Auto) Baso % (Auto) Lymph # (Auto) Forrest # (Auto) Eos # (Auto) Baso # (Auto) Abs Immat Gran (auto) Absolute Neuts (auto) Absolute Nucleated RBC Nucleated RBC % (auto) Anion Gap Estim Creat Clear Calc Estimated GFR Random Glucose Lactic Acid Calcium Total Bilirubin AST ALT Alkaline Phosphatase Total Protein Albumin Synovial Source Synovial WBC Synovial RBC Synov WBC Hemocytom Sq Synov RBC Hemocytom Sq Synovial Neutrophils Synovial Lymphocytes Synovial Monocytes Stool Occult Blood COVID-19 ([facility]) Negative COVID-19 Clin Com See Note Influenza Type A (TRUPTI) Negative Influenza Type B (TRUPTI) Negative Influenza A & B Note See Note Imaging Radiologist's Impressions: Impressions Knee X-Ray 05/23/23 07:55 IMPRESSION: * No acute fracture or malalignment the right knee. * Persistent joint effusion, similar compared to 03/05/2023. The specific cause of the joint effusion is uncertain. Consider possibility of inflammation/synovitis, or reactive change if there is internal derangement. * Mild tricompartmental osteoarthritis is present. Wrist X-Ray 05/23/23 07:55 IMPRESSION: Mild degenerative changes at the radiocarpal joint. Chest X-Ray 05/23/23 11:44 IMPRESSION: No active cardiopulmonary disease Assessment and Plan (1) Swelling of right knee joint: Status: Acute Plan Pt is a 57-year-old male with a PMH significant for?renal cell carcinoma with lung metastasis s/p right nephrectomy in 2019 currently on maintenance immunotherapy, hypothyroidism, osteoarthritis, KAYLYN who presents to the ED for evaluation of increasing right knee and right wrist swelling and pain. Pt will be admitted to the hospital under observation treatment further evaluation of right knee swelling and pain and reduced ability to ambulate and perform ADLs. Right knee and wrist pain Patient has been experiencing right knee pain on and off since January, received hydrocortisone shot in knee in January 2 good affect Joint aspirated in January, negative for septic arthritis; joint re-aspirated today in ED, again negative for septic arthritis X-ray of knee showed persistent joint effusion similar to previous on 03/05/2023, with mild tricompartmental osteoarthritis Right wrist x-ray showed mild degenerative changes at the radiocarpal joint Analgesics for pain management Orthopedic consult PT consult New onset microcytic anemia H&H 10.6/35.0 with MCV 71.6, down from H&H of 15.1/45.0 with MCV of 81.4 on 02/06/2023 Unclear etiology: Pt denies hematemesis, hemoptysis, melena, hematochezia, stool negative for occult blood Iron panels shows me iron 13, TIBC 135, 10% saturation Will start on oral iron supplementation Should f/u outpatient for additional workup Follow CBC Sirs criteria Contrary to ED note, pt does not appear septic: no clear source of infection, no WBC, lactic acid WNL Tachycardia likely secondary to pain Check UA Pt given ceftriaxone in ED Will hold off on additional antibiotics at this time Hyponatremia Sodium slightly low at 132 The patient received IVF in the ED, placed on maintenance fluids Follow BMP Full Code Attending:?Dr. Gardner DVT Prophylaxis: Lovenox Pt will be admitted to the hospital under observation treatment further evaluation of right knee swelling and pain and reduced ability to ambulate and perform ADLs. Time Spent With Patient Time: Total time managing care of this patient today ____ minutes. Quality Stroke Does the patient have a stroke diagnosis?: No VTE Prior VTE?: No VTE Risk Level:: Medical - moderate - high VTE Device Contraindication: Treatment Not Indicated VTE Drug Contraindication: N/A - Med Ordered
--- NOTE | 2023-05-23 15:37 | PC.NURSE ---
This RN assumed care of patient at 1500, pt verbalizes no change in pain/status. offers no complaints to this RN. Pt respirations even and unlabored, skin pwd, alert and oriented x4. Pt provided with water. Vitals stable at this time, with pressure being soft but at baseline per pt. Plan for admission
--- NOTE | 2023-05-23 15:42 | MHC.EDTECH ---
pt provided with urinal. reminded of need for urine sample. belongings list complete
--- NOTE | 2023-05-23 16:06 | PHA.MEDREC ---
Pharmacy Consult ? Medication Reconciliation Pharmacy has completed the medication reconciliation. Patient reports no medications at home any more, including levothyroxine and sertaline. Rachelle Greenwood, PharmD
[2023-05-23 16:14] LABS: Iron 13 mcg/dL (45-160); Percent Iron Saturation 10 % (15-50); Total Iron Binding Capacity 135 mcg/dL (228-428); Unsaturated Iron Binding 122 ug/dL
[2023-05-23] MEDS: Enoxaparin Sodium 40 MG/0.4 ML SYRINGE SUBCUT (16:34)
[2023-05-23] MEDS: 0.9 % Sodium Chloride Flush 3 ML SYRINGE IVFLUSH (16:34)
[2023-05-23] MEDS: Lactated Ringers 1,000 ML 100 ML IVCONT (16:34)
[2023-05-23] MEDS: Ferrous Sulfate 300 MG/5 ML LIQUID PO (17:17)
[2023-05-24] VITALS (7 sets, daily range): BP systolic 94–116; BP diastolic 58–73; PULSE 92–103; RESP 18–20; TEMP 36.3–37.9; O2SAT 94–98
[2023-05-24 05:51] LABS: Mean Corpuscular Hemoglobin 21.4 pg (27.0-33.0); Mean Corpuscular Volume 71.3 fL (80.0-98.0); Mean Platelet Volume 8.4 fL (9.4-12.4); Platelet Count 379 X10*3/uL (160-400); Red Blood Count 4.21 X10*6/uL (4.60-5.80); Red Cell Distribution Width 17.1 % (11.0-16.0); White Blood Count 3.4 X10*3/uL (4.8-10.8)
[2023-05-24 06:12] LABS: Anion Gap 14 (12-20); Blood Urea Nitrogen 8 mg/dL (9-16); Carbon Dioxide 24 mmol/L (22-29); Chloride 98 mmol/L (96-108); Creatinine Clr Calc Pharmacy 126.9; Estimated Glomerular Filt Rate > 60; Glucose Random 84 mg/dL (60-115); Potassium 3.6 mmol/L (3.3-5.1); Sodium 132 mmol/L (135-145)
[2023-05-24] MEDS: 0.9 % Sodium Chloride Flush 3 ML SYRINGE IVFLUSH ×2 (07:59→14:50)
[2023-05-24] MEDS: Ferrous Sulfate 300 MG/5 ML LIQUID PO ×2 (07:59→18:21)
--- NOTE | 2023-05-24 08:35 | MHC.CM.PN ---
CM met with Patient, his /HCP/Paloma and his Mother at bedside and addressed ROBINS with them, providing the original to the Patient and a copy has been placed on the chart. Patient lives in a house with his and 2 adult Sons and he uses both a cane and a walker at times to assist with mobility. Home/self care is the goal and CM has initiated and will follow for dc planning. PCP is Dr. Nataly Cerda.
--- NOTE | 2023-05-24 09:31 | P.PNIM_ITS ---
Subjective Subjective Date of Service: 05/24/23 Interval History: f/u on poly articular arthritis pain seems better today Physical Exam 2 Vital Signs: Vital Signs: Last Vital Signs Temp 98.0 F 05/24/23 07:09 Pulse 95 05/24/23 07:09 Resp 20 05/24/23 07:09 BP 110/73 05/24/23 07:09 Pulse Ox 97 05/24/23 07:09 O2 Del Method Room Air 05/24/23 07:09 BMI result Body Mass Index 27.8 Const: Other: General: AO X 3, no acute distress Resp: CTA bilateral CVS: S1,S2,RRR GI: +BS, NT, no distention Skin: No rash MSK: no erythema over joints, minimal effusion of knee Neuro: motor grossly intact Psych: appropriate affect Objective Data Active Medications Acetaminophen (Acetaminophen 325 Mg Tablet) 650 mg PO Q6H PRN PRN Reason: Pain, Mild (Pain Scale 1-3) Docusate Sodium (Docusate Sodium 100 Mg Capsule) 100 mg PO DAILY PRN PRN Reason: Constipation Enoxaparin Sodium (Enoxaparin Sodium 40 Mg/0.4 Ml Syringe) 40 mg SUBCUT Q24H [facility] Last Admin: 05/23/23 16:34 Dose: 40 mg Documented By: MICKEY Ferrous Sulfate (Ferrous Sulfate 300 Mg/5 Ml Liquid) 300 mg PO BIDWM [facility] Last Admin: 05/24/23 07:59 Dose: 300 mg Documented By: JADYN Ondansetron HCl (Ondansetron Hcl 4 Mg/2 Ml Vial) 4 mg IVPUSH Q8H PRN PRN Reason: Nausea and Vomiting Oxycodone HCl (Oxycodone Hcl Immed Release 5 Mg Tablet) 5 mg PO Q4H PRN PRN Reason: Pain, Severe (Pain Scale 7-10) Last Admin: 05/23/23 17:17 Dose: 5 mg Documented By: CINDY Sodium Chloride (0.9 % Sodium Chloride Flush 3 Ml Syringe) 3 ml IVFLUSH QSHIFT [facility] Last Admin: 05/24/23 07:59 Dose: 3 ml Documented By: JADYN Labs 05/24/23 05:29 05/24/23 05:29 Labs: Laboratory Results - last 24 hr 05/23/23 05/23/23 05/23/23 08:19 09:56 11:21 MCV MCH MCHC RDW Plt Count MPV Absolute Nucleated RBC Nucleated RBC % (auto) Anion Gap Estim Creat Clear Calc Estimated GFR Random Glucose Calcium Iron 13 L TIBC 135 L % Saturation 10 L Unsat Iron Binding 122 Synovial Source TNP Synovial WBC 13.606 Synovial RBC < 0.002 Synov WBC Hemocytom Sq Cancelled Synov RBC Hemocytom Sq Cancelled Synovial Neutrophils 87 Synovial Lymphocytes 11 Synovial Monocytes 2 COVID-19 ([facility]) Negative COVID-19 Clin Com See Note Influenza Type A (TRUPTI) Negative Influenza Type B (TRUPTI) Negative Influenza A & B Note See Note 05/24/23 05:29 MCV 71.3 L MCH 21.4 L MCHC 30.0 L RDW 17.1 H Plt Count 379 MPV 8.4 L Absolute Nucleated RBC 0.000 Nucleated RBC % (auto) 0.0 Anion Gap 14 Estim Creat Clear Calc 126.9 Estimated GFR > 60 Random Glucose 84 Calcium 9.0 Iron TIBC % Saturation Unsat Iron Binding Synovial Source Synovial WBC Synovial RBC Synov WBC Hemocytom Sq Synov RBC Hemocytom Sq Synovial Neutrophils Synovial Lymphocytes Synovial Monocytes COVID-19 ([facility]) COVID-19 Clin Com Influenza Type A (TRUPTI) Influenza Type B (TRUPTI) Influenza A & B Note Microbiology Microbiology Results: Microbiology 05/23/23 09:56 Gram Stain - Final Knee aspirate Anaerobic Culture - Preliminary No growth to date. Gross Specimen Examination - Final Fluid Crystals - Final Assessment and Plan (1) Swelling of right knee joint: Status: Acute Plan Pt is a 57-year-old male with a PMH significant for?renal cell carcinoma with lung metastasis s/p right nephrectomy in 2019 currently on maintenance immunotherapy, hypothyroidism, osteoarthritis, KAYLYN who presents to the ED for evaluation of increasing right knee and right wrist swelling and pain. Pt will be admitted to the hospital under observation treatment further evaluation of right knee swelling and pain and reduced ability to ambulate and perform ADLs. Right knee and wrist pain Patient has been experiencing right knee pain on and off since January, received hydrocortisone shot in knee in January 2 good affect Joint aspirated in January, negative for septic arthritis; joint re-aspirated today in ED, again negative for septic arthritis X-ray of knee showed persistent joint effusion similar to previous on 03/05/2023, with mild tricompartmental osteoarthritis Right wrist x-ray showed mild degenerative changes at the radiocarpal joint -Analgesics for pain management -Orthopedic consult -PT consult -check RF, BOO -Need outpatient rheumatology eval New onset microcytic anemia H&H 10.6/35.0 with MCV 71.6, down from H&H of 15.1/45.0 with MCV of 81.4 on 02/06/2023 Unclear etiology: Pt denies hematemesis, hemoptysis, melena, hematochezia, stool negative for occult blood Iron panels shows me iron 13, TIBC 135, 10% saturation Will start on oral iron supplementation Should f/u outpatient for additional workup Follow CBC Sirs criteria--One time fever and low WBC, NO sepsis. No Abx at this time. mild Hyponatremia, likely chronic Sodium slightly low at 132 The patient received IVF in the ED, placed on maintenance fluids Follow BMP Full Code Attending:?Dr. Gardner DVT Prophylaxis: Lovenox Time Spent With Patient Time: Total time managing care of this patient today ____ minutes. Quality Stroke Does the patient have a stroke diagnosis?: No VTE Prior VTE?: No VTE Risk Level:: Medical - moderate - high VTE Device Contraindication: Treatment Not Indicated VTE Drug Contraindication: N/A - Med Ordered
[2023-05-24 10:42] LABS: Rheumatoid Factor < 13.0 IU/mL (<15.0)
[2023-05-24] MEDS: Enoxaparin Sodium 40 MG/0.4 ML SYRINGE SUBCUT (14:50)
[2023-05-24] MEDS: oxyCODONE HCl Immed Release 5 MG TABLET PO (18:25)
[2023-05-25] VITALS (7 sets, daily range): BP systolic 90–116; BP diastolic 57–77; PULSE 75–100; RESP 18–20; TEMP 36.4–37.6; O2SAT 95–98
[2023-05-25] MEDS: 0.9 % Sodium Chloride Flush 3 ML SYRINGE IVFLUSH ×4 (01:54→22:19)
[2023-05-25] MEDS: oxyCODONE HCl Immed Release 5 MG TABLET PO ×3 (01:57→22:22)
[2023-05-25 06:19] LABS: Appearance Urine Clear; Color Urine Dark Yellow; Glucose Urine UA Negative (Negative); Leukocyte Esterase Urine Trace (Negative); Nitrite Urine Negative (Negative); PH 5.5 (5.0-9.0); Specific Gravity - Urine 1.015 (1.005-1.025); UMIC TRIGGER UACC YES; Urine Blood Negative (Negative); Urine Ketones Trace mg/dL (Negative); Urine Protein Negative (Neg-Trace)
[2023-05-25 06:21] LABS: Bacteria Urine None Seen (None Seen); Hyaline Casts Urine 0-2 /LPF (0-2); RBC Urine 0-2 /HPF (0-2); Squamous Epithelial Cell Urine 0-2 /HPF (0-2); WBC Urine 0-5 /HPF (0-5)
--- NOTE | 2023-05-25 08:13 | P.CONOP_ITS ---
History of Present Illness HPI Consult date: 05/25/23 Chief complaint: right knee pain,unable to ambulate Narrative: 57 yo male known to me from the office for right knee oa s/p injection . He c/o increased pain and swelling in the right knee. No recent injury. Review of Systems 2 Review of Systems: Yes all other systems are reviewed and are negative PMFSH Past Medical History Medical History Hx of cancer of lung Family History Family History Father No problems noted. Mother Breast cancer Surgical History Surgical History History of biopsy History of right nephrectomy Social History Social History Housing: House Alcohol intake: unknown Patient Tobacco Use Status: Former Tobacco user Years Smoked: quit 2000 Smoked in Last 30 Days: No e-Cigarette/Vaping Use: Never Used Second Hand Smoke Exposure: No Use of substances other than those prescribed or required for medical reasons: No Advance Directives: Yes Advance Directives on File: Yes Advance Directives Date on File: 02/07/23 Nutrition Risks: No Nutritional Risk service: No Current occupational status: unemployed Cognitive needs: No Hearing needs: No Vision needs: Yes Meds Allergies Allergy/AdvReac Type Severity Reaction Status Date / Time No Known Allergies Allergy Verified 04/20/23 10:00 Active Medications: Current Medications Acetaminophen (Acetaminophen 325 Mg Tablet) 650 mg PO Q6H PRN PRN Reason: Pain, Mild (Pain Scale 1-3) Docusate Sodium (Docusate Sodium 100 Mg Capsule) 100 mg PO DAILY PRN PRN Reason: Constipation Enoxaparin Sodium (Enoxaparin Sodium 40 Mg/0.4 Ml Syringe) 40 mg SUBCUT Q24H [facility] Last Admin: 05/24/23 14:50 Dose: 40 mg Ferrous Sulfate (Ferrous Sulfate 300 Mg/5 Ml Liquid) 300 mg PO BIDWM [facility] Last Admin: 05/24/23 18:21 Dose: 300 mg Ondansetron HCl (Ondansetron Hcl 4 Mg/2 Ml Vial) 4 mg IVPUSH Q8H PRN PRN Reason: Nausea and Vomiting Oxycodone HCl (Oxycodone Hcl Immed Release 5 Mg Tablet) 5 mg PO Q4H PRN PRN Reason: Pain, Severe (Pain Scale 7-10) Last Admin: 05/25/23 01:57 Dose: 5 mg Sodium Chloride (0.9 % Sodium Chloride Flush 3 Ml Syringe) 3 ml IVFLUSH QSHIFT [facility] Last Admin: 05/25/23 01:54 Dose: 3 ml Home Medications Medication Instructions Recorded Confirmed Last Taken Type No Known Home Meds 05/23/23 05/23/23 Unknown History Physical Exam 2 Vital Signs: Vital Signs: Last Vital Signs Temp 99.7 F 05/25/23 07:10 Pulse 100 05/25/23 07:10 Resp 20 05/25/23 07:10 BP 102/62 05/25/23 07:10 Pulse Ox 98 05/25/23 07:10 O2 Del Method Room Air 05/25/23 07:10 BMI result Body Mass Index 27.8 Const: General: cooperative, healthy appearing, comfortable, no acute distress, well developed and alert Orientation/consciousness: patient oriented x3 HEENT: Head: Yes normal to inspection, Yes normocephalic and Yes atraumatic Eyes: General: appearance normal, both eyes and all related structures Resp: Effort & Inspection: normal respiratory effort and able to speak in complete sentences Cardio: Rate: regular rate Peripheral pulses: Peripheral pulses 2+ throughout GI: Palpation (GI): Soft to palpation Skin: Lesions: no lesions Rashes: no rashes Neuro: General: patient oriented x3 Extrem: Other: Right knee: Skin intact, no erythema. Retropatellar tenderness present along with a moderate sized effusion. Full ROM with crepitus. NVI. Results Labs 05/24/23 05:29 05/24/23 05:29 Labs: Abnormal lab results 05/25/23 Range/Units 06:00 Ur Leukocyte Esterase Trace H (Negative) H & H 05/23/23 05/24/23 Range/Units 08:19 05:29 Hgb 10.6 L D 9.0 L (14.0-18.0) g/dl Hct 35.0 L D 30.0 L (42.0-52.0) % All other labs normal. Assessment and Plan (1) Osteoarthritis of right knee: Qualifiers: Osteoarthritis type: primary Qualified Code(s): M17.11 - Unilateral primary osteoarthritis, right knee Status: Acute Plan No evidence of septic joint. We discussed options today, which include steroid injection. The patient did consent to move forward with the injection, which was tolerated well.? I recommended rest, ice and elevation and OTC antiinflammatories prn for discomfort. If symptoms persist over the next 6-8 weeks, they will contact our office, otherwise, prn Time Spent With Patient Time: Total time managing care of this patient today ____ minutes. Procedures Date of Service Date of Service: 05/25/23 Joint Injection/Drain Joint Injection/Drain Primary Site: right knee Prep: site was prepped using aseptic technique and injection warnings given Injected: 80 mg of, DepoMedrol, with 1 mL of, 1% plain lidocaine and in the joint Approach Used: lateral parapatellar Procedure: The patient tolerated the procedure well and there was some relief with the local anesthesia Coding Procedure code (CPT) selection complete
[2023-05-25] MEDS: methylPREDNISolone acetate 80 MG VIAL INTRAARTIC (08:58)
[2023-05-25] MEDS: Ferrous Sulfate 300 MG/5 ML LIQUID PO ×2 (08:58→16:13)
[2023-05-25] MEDS: Lidocaine HCl 1 % 20 ML VIAL SUBCUT (08:59)
[2023-05-25] MEDS: Celecoxib 200 MG CAPSULE PO ×2 (09:06→22:18)
--- NOTE | 2023-05-25 09:56 | HO.PM.IMPN ---
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 --knee and hands but no synovitis Still with pain in the joints, particularly the right knee and had steroid injection to knee this morning Physical Exam Vital Signs: Vital Signs: Last Vital Signs Temp 99.7 F 05/25/23 07:10 Pulse 100 05/25/23 09:20 Resp 20 05/25/23 07:10 BP 102/62 05/25/23 09:20 Pulse Ox 98 05/25/23 09:20 O2 Del Method Room Air 05/25/23 07:10 BMI result Body Mass Index 27.8 Objective Data Active Medications Acetaminophen (Acetaminophen 325 Mg Tablet) 650 mg PO Q6H PRN PRN Reason: Pain, Mild (Pain Scale 1-3) Celecoxib (Celecoxib 200 Mg Capsule) 200 mg PO BID [facility] Last Admin: 05/25/23 09:06 Dose: 200 mg Documented By: LILY Docusate Sodium (Docusate Sodium 100 Mg Capsule) 100 mg PO DAILY PRN PRN Reason: Constipation Enoxaparin Sodium (Enoxaparin Sodium 40 Mg/0.4 Ml Syringe) 40 mg SUBCUT Q24H [facility] Last Admin: 05/24/23 14:50 Dose: 40 mg Documented By: JADYN Ferrous Sulfate (Ferrous Sulfate 300 Mg/5 Ml Liquid) 300 mg PO BIDWM [facility] Last Admin: 05/25/23 08:58 Dose: 300 mg Documented By: LILY Ondansetron HCl (Ondansetron Hcl 4 Mg/2 Ml Vial) 4 mg IVPUSH Q8H PRN PRN Reason: Nausea and Vomiting Oxycodone HCl (Oxycodone Hcl Immed Release 5 Mg Tablet) 5 mg PO Q4H PRN PRN Reason: Pain, Severe (Pain Scale 7-10) Last Admin: 05/25/23 08:58 Dose: 5 mg Documented By: LILY Sodium Chloride (0.9 % Sodium Chloride Flush 3 Ml Syringe) 3 ml IVFLUSH QSHIFT [facility] Last Admin: 05/25/23 08:59 Dose: 3 ml Documented By: LILY Labs 05/24/23 05:29 05/24/23 05:29 Labs: Laboratory Results - last 24 hr 05/24/23 05/25/23 09:57 06:00 Hold Purple Top SEE NOTE Urine Color Dark Yellow Urine Appearance Clear Urine pH 5.5 Ur Specific [place] 1.015 Urine Protein Negative Urine Glucose (UA) Negative Urine Ketones Trace Urine Blood Negative Urine Nitrite Negative Ur Leukocyte Esterase Trace H Urine RBC 0-2 Urine WBC 0-5 Ur Squamous Epith Cells 0-2 Urine Bacteria None Seen Hyaline Casts 0-2 Rheumatoid Factor < 13.0 Microbiology Microbiology Results: Microbiology 05/23/23 09:56 Gram Stain - Final Knee aspirate Anaerobic Culture - Preliminary No growth to date. Gross Specimen Examination - Final Fluid Crystals - Final Joint Fluid Culture - Final No growth after 2 days 05/23/23 08:19 Blood Culture - Preliminary Blood - Venous No growth after 24 hours. 05/23/23 08:19 Blood Culture - Preliminary Blood - Venous No growth after 24 hours. Assessment and Plan (1) Swelling of right knee joint: Status: Acute Plan Pt is a 57-year-old male with a PMH significant for?renal cell carcinoma with lung metastasis s/p right nephrectomy in 2019 currently on maintenance immunotherapy, hypothyroidism, osteoarthritis, KAYLYN who presents to the ED for evaluation of increasing right knee and right wrist swelling and pain. Pt will be admitted to the hospital under observation treatment further evaluation of right knee swelling and pain and reduced ability to ambulate and perform ADLs. Right knee and wrist pain Patient has been experiencing right knee pain on and off since January, received hydrocortisone shot in knee in January 05 good affect Joint aspirated in January, negative for septic arthritis; joint re-aspirated 05/23 in ED, again negative for septic arthritis X-ray of knee showed persistent joint effusion similar to previous on 03/05/2023, with mild tricompartmental osteoarthritis Right wrist x-ray showed mild degenerative changes at the radiocarpal joint -Analgesics for pain management -Orthopedic has injected the right knee today 05/25 -PT consult recommends STR -check RF, BOO, ESR and CRP, systemic steroid if ESR/CRP high -Need outpatient rheumatology eval New onset microcytic anemia H&H 10.6/35.0 with MCV 71.6, down from H&H of 15.1/45.0 with MCV of 81.4 on 02/06/2023 Unclear etiology: Pt denies hematemesis, hemoptysis, melena, hematochezia, stool negative for occult blood Iron panels shows me iron 13, TIBC 135, 10% saturation Will start on oral iron supplementation Should f/u outpatient for additional workup Follow CBC Sirs criteria--One time fever and low WBC, NO sepsis. No Abx at this time. mild Hyponatremia, likely chronic Sodium slightly low at 132 The patient received IVF in the ED, placed on maintenance fluids Follow BMP Full Code Attending:?Dr. Gardner DVT Prophylaxis: Lovenox DC today if STR bed available Time Spent With Patient Time: Total time managing care of this patient today ____ minutes. Quality Stroke Does the patient have a stroke diagnosis?: No VTE Prior VTE?: No VTE Risk Level:: Medical - moderate - high VTE Device Contraindication: Treatment Not Indicated VTE Drug Contraindication: N/A - Med Ordered
[2023-05-25 10:54] LABS: C Reactive Protein 20.81 mg/dL (< or = 0.50)
--- NOTE | 2023-05-25 10:56 | MHC.CM.PN ---
Per ROUNDS discussion, Patient is medically cleared for dc to STR pending [facility] auth. CM met with Patient, and Mother and ChristoKinzakesha @ [facility] is first choice and interested. CM awaits clarification from MD as to which immunosuppressive med Patient is on (indicated in H&P). No bed offers without this clarification. CM will follow.
[2023-05-25 11:19] LABS: Erythrocyte Sedimentation Rate 101 MM/HR (0-15)
[2023-05-25] MEDS: Enoxaparin Sodium 40 MG/0.4 ML SYRINGE SUBCUT (16:13)
[2023-05-26 03:42] VITALS: BP 107/68; PULSE 69; RESP 18; TEMP 36.3; O2SAT 95
[2023-05-26 07:26] VITALS: BP 91/61; PULSE 71; RESP 20; TEMP 36.2; O2SAT 97
[2023-05-26] MEDS: Ferrous Sulfate 300 MG/5 ML LIQUID PO ×2 (08:19→16:33)
[2023-05-26] MEDS: predniSONE 20 MG TABLET 40 MG PO (08:19)
[2023-05-26] MEDS: 0.9 % Sodium Chloride Flush 3 ML SYRINGE IVFLUSH ×3 (08:19→20:40)
[2023-05-26] MEDS: Celecoxib 200 MG CAPSULE PO ×2 (08:19→20:40)
--- NOTE | 2023-05-26 09:06 | P.PNIM_ITS ---
Subjective Subjective Date of Service: 05/26/23 Interval History: f/u on poly articular arthritis --knee and hands but no synovitis. He is feeling better today, ESR 101, CRP 20, no fever Physical Exam 2 Vital Signs: Vital Signs: Last Vital Signs Temp 97.2 F 05/26/23 07:26 Pulse 71 05/26/23 07:26 Resp 20 05/26/23 07:26 BP 91/61 05/26/23 07:26 Pulse Ox 97 05/26/23 07:26 O2 Del Method Room Air 05/26/23 07:26 BMI result Body Mass Index 27.8 Const: Other: General: AO X 3, no acute distress Resp: CTA bilateral CVS: S1,S2,RRR GI: +BS, NT, no distention Skin: No rash MSK: no erythema over joints, minimal effusion of knee Neuro: motor grossly intact Psych: appropriate affect Objective Data Active Medications Acetaminophen (Acetaminophen 325 Mg Tablet) 650 mg PO Q6H PRN PRN Reason: Pain, Mild (Pain Scale 1-3) Celecoxib (Celecoxib 200 Mg Capsule) 200 mg PO BID [facility] Last Admin: 05/26/23 08:19 Dose: 200 mg Documented By: JADYN Docusate Sodium (Docusate Sodium 100 Mg Capsule) 100 mg PO DAILY PRN PRN Reason: Constipation Enoxaparin Sodium (Enoxaparin Sodium 40 Mg/0.4 Ml Syringe) 40 mg SUBCUT Q24H [facility] Last Admin: 05/25/23 16:13 Dose: 40 mg Documented By: LILY Ferrous Sulfate (Ferrous Sulfate 300 Mg/5 Ml Liquid) 300 mg PO BIDWM [facility] Last Admin: 05/26/23 08:19 Dose: 300 mg Documented By: JADYN Ondansetron HCl (Ondansetron Hcl 4 Mg/2 Ml Vial) 4 mg IVPUSH Q8H PRN PRN Reason: Nausea and Vomiting Oxycodone HCl (Oxycodone Hcl Immed Release 5 Mg Tablet) 5 mg PO Q4H PRN PRN Reason: Pain, Severe (Pain Scale 7-10) Last Admin: 05/25/23 22:22 Dose: 5 mg Documented By: DIXIE Prednisone (Prednisone 20 Mg Tablet) 40 mg PO DAILY [facility] Last Admin: 05/26/23 08:19 Dose: 40 mg Documented By: JADYN Sodium Chloride (0.9 % Sodium Chloride Flush 3 Ml Syringe) 3 ml IVFLUSH QSHIFT [facility] Last Admin: 05/26/23 08:19 Dose: 3 ml Documented By: JADYN Labs 05/24/23 05:29 05/24/23 05:29 Labs: Laboratory Results - last 24 hr 05/25/23 10:36 ESR 101 H C-Reactive Protein 20.81 H Microbiology Microbiology Results: Microbiology 05/23/23 08:19 Blood Culture - Preliminary Blood - Venous No growth after 48 hours. 05/23/23 08:19 Blood Culture - Preliminary Blood - Venous No growth after 48 hours. 05/23/23 09:56 Gram Stain - Final Knee aspirate Anaerobic Culture - Preliminary No growth to date. Gross Specimen Examination - Final Fluid Crystals - Final Joint Fluid Culture - Final No growth after 2 days Assessment and Plan (1) Swelling of right knee joint: Status: Acute Plan Pt is a 57-year-old male with a PMH significant for?renal cell carcinoma with lung metastasis s/p right nephrectomy in 2019 currently on maintenance immunotherapy, hypothyroidism, osteoarthritis, KAYLYN who presents to the ED for evaluation of increasing right knee and right wrist swelling and pain. Pt will be admitted to the hospital under observation treatment further evaluation of right knee swelling and pain and reduced ability to ambulate and perform ADLs. Right knee and wrist pain Patient has been experiencing multiple joint pain, particulary the right knee pain on and off since January, received hydrocortisone shot in knee in January 2 good affect Joint aspirated in January, negative for septic arthritis; joint re-aspirated 05/23 in ED, again negative for septic arthritis X-ray of knee showed persistent joint effusion similar to previous on 03/05/2023, with mild tricompartmental osteoarthritis Right wrist x-ray showed mild degenerative changes at the radiocarpal joint, ESR is 101, CRP 20 -Analgesics for pain management -Orthopedic has injected the right knee today 05/25 -PT consult recommends STR -RF, BOO (pending). High ESR, CRP likely point to systemic reaction, and given negative cultures, will try prednisone 40 mg daily by ultimately evaluation by a rheumatoligst on outpatient basis New onset microcytic anemia H&H 10.6/35.0 with MCV 71.6, down from H&H of 15.1/45.0 with MCV of 81.4 on 02/06/2023 Unclear etiology: Pt denies hematemesis, hemoptysis, melena, hematochezia, stool negative for occult blood Iron panels shows me iron 13, TIBC 135, 10% saturation Will start on oral iron supplementation Should f/u outpatient for additional workup Follow CBC Sirs criteria--One time fever and low WBC, NO sepsis. No Abx at this time. mild Hyponatremia, likely chronic Sodium slightly low at 132 The patient received IVF in the ED, placed on maintenance fluids Follow BMP history of renal cell cancer with lung met--has not been attending chemo and supposedly to be restarted this month, details not available, goes to [facility] Full Code Attending:?Dr. Gardner DVT Prophylaxis: Lito MENDEZ today if STR bed available Time Spent With Patient Time: Total time managing care of this patient today ____ minutes. Quality Stroke Does the patient have a stroke diagnosis?: No VTE Prior VTE?: No VTE Risk Level:: Medical - moderate - high VTE Device Contraindication: Treatment Not Indicated VTE Drug Contraindication: N/A - Med Ordered
[2023-05-26 11:21] VITALS: BP 110/74; PULSE 79; RESP 20; TEMP 36.1; O2SAT 96
--- NOTE | 2023-05-26 13:22 | MHC.CM.PN ---
This CM received message form Manjit at [place] that insurance will review for auth on Monday 05/28.
[2023-05-26 14:49] VITALS: BP 115/61; PULSE 86; RESP 20; TEMP 36.7; O2SAT 98
[2023-05-26] MEDS: Enoxaparin Sodium 40 MG/0.4 ML SYRINGE SUBCUT (16:33)
[2023-05-26 19:18] VITALS: BP 111/73; PULSE 94; RESP 20; TEMP 36.7; O2SAT 97
[2023-05-27] VITALS: BP 114/69; PULSE 78; RESP 16; TEMP 36; O2SAT 98
[2023-05-27 04:00] VITALS: BP 104/68; PULSE 68; RESP 16; TEMP 36.3; O2SAT 97
[2023-05-27 07:28] VITALS: BP 108/67; PULSE 82; RESP 20; TEMP 36.3; O2SAT 97
[2023-05-27] MEDS: Ferrous Sulfate 300 MG/5 ML LIQUID PO ×2 (08:23→16:42)
[2023-05-27] MEDS: predniSONE 20 MG TABLET 40 MG PO (08:23)
[2023-05-27] MEDS: 0.9 % Sodium Chloride Flush 3 ML SYRINGE IVFLUSH ×2 (08:23→16:42)
[2023-05-27] MEDS: Celecoxib 200 MG CAPSULE PO ×2 (08:23→21:14)
--- NOTE | 2023-05-27 09:42 | HO.PM.IMPN ---
Subjective Subjective Date of Service: 05/27/23 Interval History: f/u on poly articular arthritis -- His pain level is significantly much better, he has been able to walk down the [place] with a walker, something he couldn't do earlier Physical Exam Vital Signs: Vital Signs: Last Vital Signs Temp 97.4 F 05/27/23 07:28 Pulse 82 05/27/23 07:28 Resp 20 05/27/23 07:28 BP 108/67 05/27/23 07:28 Pulse Ox 97 05/27/23 07:28 O2 Del Method Room Air 05/27/23 07:28 BMI result Body Mass Index 27.8 Const: Other: General: AO X 3, no acute distress Resp: CTA bilateral CVS: S1,S2,RRR GI: +BS, NT, no distention Skin: No rash MSK: no erythema over joints, minimal effusion of knee Neuro: motor grossly intact Psych: appropriate affect Objective Data Active Medications Acetaminophen (Acetaminophen 325 Mg Tablet) 650 mg PO Q6H PRN PRN Reason: Pain, Mild (Pain Scale 1-3) Celecoxib (Celecoxib 200 Mg Capsule) 200 mg PO BID [facility] Last Admin: 05/27/23 08:23 Dose: 200 mg Documented By: JADYN Docusate Sodium (Docusate Sodium 100 Mg Capsule) 100 mg PO DAILY PRN PRN Reason: Constipation Enoxaparin Sodium (Enoxaparin Sodium 40 Mg/0.4 Ml Syringe) 40 mg SUBCUT Q24H [facility] Last Admin: 05/26/23 16:33 Dose: 40 mg Documented By: JADYN Ferrous Sulfate (Ferrous Sulfate 300 Mg/5 Ml Liquid) 300 mg PO BIDWM [facility] Last Admin: 05/27/23 08:23 Dose: 300 mg Documented By: JADYN Ondansetron HCl (Ondansetron Hcl 4 Mg/2 Ml Vial) 4 mg IVPUSH Q8H PRN PRN Reason: Nausea and Vomiting Oxycodone HCl (Oxycodone Hcl Immed Release 5 Mg Tablet) 5 mg PO Q4H PRN PRN Reason: Pain, Severe (Pain Scale 7-10) Last Admin: 05/25/23 22:22 Dose: 5 mg Documented By: DIXIE Prednisone (Prednisone 20 Mg Tablet) 40 mg PO DAILY [facility] Last Admin: 05/27/23 08:23 Dose: 40 mg Documented By: JADYN Sodium Chloride (0.9 % Sodium Chloride Flush 3 Ml Syringe) 3 ml IVFLUSH QSHIFT [facility] Last Admin: 05/27/23 08:23 Dose: 3 ml Documented By: JADYN Labs 05/24/23 05:29 05/24/23 05:29 Microbiology Microbiology Results: Microbiology 05/23/23 09:56 Gram Stain - Final Knee aspirate Anaerobic Culture - Preliminary No growth to date. Gross Specimen Examination - Final Fluid Crystals - Final Joint Fluid Culture - Final No growth after 2 days Assessment and Plan (1) Swelling of right knee joint: Status: Acute Plan Pt is a 57-year-old male with a PMH significant for?renal cell carcinoma with lung metastasis s/p right nephrectomy in 2019 currently on maintenance immunotherapy, hypothyroidism, osteoarthritis, KAYLYN who presents to the ED for evaluation of increasing right knee and right wrist swelling and pain. Pt will be admitted to the hospital under observation treatment further evaluation of right knee swelling and pain and reduced ability to ambulate and perform ADLs. Right knee and wrist pain Patient has been experiencing multiple joint pain, particulary the right knee pain on and off since January, received hydrocortisone shot in knee in January 2 good affect Joint aspirated in January, negative for septic arthritis; joint re-aspirated 05/23 in ED, again negative for septic arthritis X-ray of knee showed persistent joint effusion similar to previous on 03/05/2023, with mild tricompartmental osteoarthritis Right wrist x-ray showed mild degenerative changes at the radiocarpal joint, ESR is 101, CRP 20 -Analgesics for pain management -Orthopedic has injected the right knee today 05/25 -PT consult recommends STR -RF, BOO (pending). High ESR, CRP likely point to systemic reaction, and given negative cultures, will try prednisone 40 mg daily by ultimately evaluation by a rheumatoligst on outpatient basis--significant improvement with Prednisne and will continue for now New onset microcytic anemia H&H 10.6/35.0 with MCV 71.6, down from H&H of 15.1/45.0 with MCV of 81.4 on 02/06/2023 Unclear etiology: Pt denies hematemesis, hemoptysis, melena, hematochezia, stool negative for occult blood Iron panels shows me iron 13, TIBC 135, 10% saturation Will start on oral iron supplementation Should f/u outpatient for additional workup Follow CBC Sirs criteria--One time fever and low WBC, NO sepsis. No Abx at this time. mild HypOnatremia, likely chronic Sodium slightly low at 132 The patient received IVF in the ED, placed on maintenance fluids Follow BMP history of renal cell cancer with lung met--has not been attending chemo and supposedly to be restarted this month, details not available, goes to [facility] Full Code DVT Prophylaxis: Lovenox I think he is doing signficantly much better and can probably go home with home services rather than reahab, will have PT reassess him in the morning Time Spent With Patient Time: Total time managing care of this patient today ____ minutes. Quality Stroke Does the patient have a stroke diagnosis?: No VTE Prior VTE?: No VTE Risk Level:: Medical - moderate - high VTE Device Contraindication: Treatment Not Indicated VTE Drug Contraindication: N/A - Med Ordered
[2023-05-27 11:44] VITALS: BP 107/66; PULSE 91; RESP 16; TEMP 36.6; O2SAT 95
[2023-05-27 14:52] VITALS: BP 130/79; PULSE 93; RESP 20; TEMP 35.9; O2SAT 97
[2023-05-27] MEDS: Enoxaparin Sodium 40 MG/0.4 ML SYRINGE SUBCUT (16:42)
[2023-05-27 18:51] VITALS: BP 108/72; PULSE 104; RESP 20; TEMP 36.4; O2SAT 97
[2023-05-28] VITALS: BP 111/71; PULSE 78; RESP 20; TEMP 36.3; O2SAT 96
[2023-05-28] MEDS: 0.9 % Sodium Chloride Flush 3 ML SYRINGE IVFLUSH ×2 (00:15→08:03)
[2023-05-28 04:00] VITALS: BP 118/68; PULSE 88; RESP 20; TEMP 36.6; O2SAT 97
[2023-05-28 07:43] VITALS: BP 123/85; PULSE 92; RESP 18; TEMP 36.1; O2SAT 97
[2023-05-28] MEDS: Ferrous Sulfate 300 MG/5 ML LIQUID PO (08:03)
[2023-05-28] MEDS: Celecoxib 200 MG CAPSULE PO (08:03)
[2023-05-28] MEDS: predniSONE 20 MG TABLET 40 MG PO (08:03)
[2023-05-28 08:31] LABS: C Reactive Protein 6.09 mg/dL (< or = 0.50)
[2023-05-28 09:01] LABS: Erythrocyte Sedimentation Rate 63 MM/HR (0-15)
[2023-05-28 10:00] LABS: Anti Nuclear Antibody Screen NEGATIVE (NEGATIVE)
--- NOTE | 2023-05-28 10:18 | PM.DS ---
DS: Providers Provider Date of Service: 05/28/23 Date of admission: 05/23/23 15:48 Primary care physician: Nataly Cerda MD Consults: 05/23/23 15:42 Consult to Orthopedics Routine Consulting Provider: [facility] Orthopedic Surgeons Reason for consultation: Right knee and wrist pain and swelling DS: Diagnosis Discharge Diagnosis (1) Swelling of right knee joint: Status: Acute DS: Summary Hospital Course Hospital Course: Admission HPI Chief Complaint: Bilateral knee/wrist swelling x4 weeks Pt is a 57-year-old male with a PMH significant for?renal cell carcinoma with lung metastasis s/p right nephrectomy in 2019 currently on maintenance immunotherapy, hypothyroidism, osteoarthritis, KAYLYN who presents to the ED for evaluation of increasing right knee and right wrist swelling and pain. Patient has been dealing with right knee pain on and off since January of this year. Head joint aspirated by Dr. Willingham in January, negative for septic arthritis. Patient seen by Orthopedics and given hydrocortisone shot which he states provided great relief for 2 months before pain returned. Patient states the pain has been particularly bad the past couple of weeks. Patient has been unable to get up from his chair and ambulate normally. States he has been drinking less due to this, and eating less secondary to pain. Patient states that he has also been experiencing right wrist and swelling and pain that began about 1 month ago. Patient denies trauma to either areas. Patient denies fever, chills, nausea, vomiting. No abdominal pain. Patient also denies polyuria, dysuria. Says he has been having normal bowel movements with last 1 2-3 days ago. Denies any increased fatigue. No acute episodes of bleeding: Denies hematemesis, hemoptysis, melen, hematochezia. Patient denies chest pain/pressure, palpitations. No shortness of breath, cough. In the ED patient was febrile at 101.7, tachycardic up to 114, with soft BP 93/53, satting at 95% on RA. Labs were significant for microcytic anemia 10.6/35.0, MCV 71.6, platelets 447, sodium 132. No leukocytosis. Lactic acid WNL at 1.2. Renal function baseline. Stool negative for occult blood. Synovial fluid of right knee negative for septic arthritis, no organisms or crystals seen. CXR showed no active cardiopulmonary disease. X-ray of right knee found no acute fracture or malalignment did show persistent joint effusion similar to 03/05/2023 with mild tricompartmental osteoarthritis. Right wrist x-ray found mild degenerative changes at the radiocarpal joint. EKG demonstrated sinus tachycardia with nonspecific ST and T-wave abnormalities. Pt was treated with lidocaine, oxy, acetaminophen, IVF, and ceftriaxone. Pt will be admitted to the hospital under observation treatment further evaluation of right knee swelling and pain and reduced ability to ambulate and perform ADLs. Hospital course: The patient has been intermittently experiencing multiple joint pains, particularly in the right knee, since January. In January, they received a hydrocortisone injection in the knee, which had a positive effect. Joint aspiration was performed in January and then again on 05/23 in the Emergency Department, with both tests returning negative for septic arthritis. A knee X-ray conducted on 03/05/2023 showed persistent joint effusion similar to previous findings, along with mild tricompartmental osteoarthritis. Furthermore, a right wrist X-ray revealed mild degenerative changes at the radiocarpal joint. The patient's ESR (Erythrocyte Sedimentation Rate) is 101, and CRP (C-Reactive Protein) is 20. These elevated ESR and CRP levels suggest likely GOUT. Given the negative culture results, the patient was prescribed prednisone at a daily dose of 40, which resulted in a marked improvement. They can now walk independently. Initially, physical therapy recommended short-term rehabilitation, but later revised their recommendation to home-based therapy. Ultimately, the patient will require evaluation by a street flusher driver on an outpatient basis. Their repeat ESR is now 63, and CRP is 6, as measured two days after starting the steroid treatment. It is advised that they follow up with an pathology specialist on an outpatient basis. He will be discharged with Prednisone 30 mg daily and darryl by 10 mg every week Final diagnosis: Suspect Acute Gout Time Spent with Patient Time attestation: Total time managing care of this patient today ____ minutes. Discharge coordination time: Greater than 30 minutes Quality: Safe Use of Opioids Does Pt have an Active Cancer Diagnosis on the Problem List?: No Quality: Stroke Does the patient have a stroke diagnosis?: No Physical Exam Vital Signs: Vital Signs: Last Vital Signs Temp 97.0 F 05/28/23 07:43 Pulse 92 05/28/23 07:43 Resp 18 05/28/23 07:43 BP 123/85 05/28/23 07:43 Pulse Ox 97 05/28/23 07:43 O2 Del Method Room Air 05/28/23 07:43 BMI result Body Mass Index 27.8 Const: Other: General: AO X 3, no acute distress Resp: CTA bilateral CVS: S1,S2,RRR GI: +BS, NT, no distention Skin: No rash Neuro: motor grossly intact MSK: swelling in knees and hand much reduced Psych: appropriate affect DS: Data Data Completed and Pending Labs on day of discharge: Laboratory Results - last 24 hr 05/24/23 05/28/23 09:57 07:35 ESR 63 H C-Reactive Protein 6.09 H BOO Screen NEGATIVE Preliminary micro results at discharge 05/23/23 09:56 Anaerobic Culture - Preliminary Knee aspirate No growth to date. 05/23/23 08:19 Blood Culture - Preliminary Blood - Venous No growth after 48 hours. 05/23/23 08:19 Blood Culture - Preliminary Blood - Venous No growth after 48 hours. Discharge Plan Discharge Anticipated Discharge Date/Time: 05/28/23 10:14 Patient Disposition: Home Health Service Discharge Diagnosis: Polyarticular inflammatory arthritis Referrals: [facility] [Outside] - 1 Week Po,Nataly Anthony MD [Primary Care Provider] - 1 Week Cortez Francois MD [Physician] - 2 Weeks Discharge Medications: New prednisone 10 mg tablet See Taper PO DIRECTED Qty: 42 0RF Taper: Prednisone 30 mg daily for 7 Days and 0 Hour 20 mg daily for 7 Days and 0 Hour 10 mg daily for 7 Days and 0 Hour Rx Instructions: see taper instructions Discharge Orders: Discharge Order (Routine); Ordered 05/28/23 Ordered By: David Gardner Diet: Advance to usual diet Activity on Discharge: As tolerated Stand Alone Forms: Patient Portal Discharge page Care Plan Goals: recovery from join pain and arthritis Health Concerns: multiple joint arthritis Plan of Treatment: Take Prednisone as recommended and follow up with your Doctor and a rheumatoligist on outpatient basis [facility] Rheumatology will call you for follow up appointment Follow up with your oncologist as previously planned Assessment: as above
--- NOTE | 2023-05-28 10:56 | MHC.CM.PN ---
PT is now recommending home with services. Patient has been medically cleared for dc to home today with [facility]. A referral was made to [facility], who has been made aware of today's dc.
[2023-05-28 11:37] VITALS: BP 112/75; PULSE 83; RESP 18; TEMP 36.3; O2SAT 96
--- NOTE | 2023-05-28 16:02 | P.F2F_ITS ---
Service Date Service Date: 05/28/23 Encounter Date of encounter: 05/28/23 Reasons for Services Signs and symptoms assessed: Pain in joints, difficulty walking Reason for physical therapy: home safety and mobility, therapeutic exercises and gait/transfer training Homebound: Leaving the home is medically contraindicated at this time without the asist of a device and/or another person due th the listed conditions above and below. Reason homebound: unsteady gait / fall risk, fall risk related to blood pressure changes and leg weakness Homebound supporting statement: homebound due to pain in the joints, making ambulation difficult Certification: Based on the above findings, I certify that this patient is confined to the home and needs intermittent group home care, physical therapy and/or speech therapy, or continues to need occupational therapy. The patient is under my care, and I have initiated the establishment of the plan of care. The patient will be followed by a physician who will periodically review the plan of care. Time Spent With Patient Time: Total time managing care of this patient today ____ minutes.
--- NOTE | 2023-05-30 15:54 | MHC.CM.PN ---
[facility] is now not able to accept Patient r/t discovering they are not contracted with Patient's insurance. has initiated a broad search for an accepting [facility] and will continue to follow.
--- NOTE | 2023-05-31 07:46 | MHC.CM.PN ---
[facility] has accepted Patient.
--- NOTE | 2023-05-31 08:49 | MHC.CM.PN ---
SVEN spoke with Patient's /HCP/Paloma at listed #. Paloma indicated that a PT/Dennis from [facility] treated Patient yesterday in the home. SVEN explained it is likely since that visit that [facility] has discovered that they are not contracted with Patient's insurance (frieda MEJIA has now said that they are not in contract either). Paloma stated that this has been happening elsewhere too, i.e. with Patient's [place] MD. Paloma is agreeable to reach our to PCP/Dr. Cerda for additional support; she did indicate that Patient is getting along, alright.
--- NOTE | 2023-05-31 10:46 | MHC.CM.PN ---
[facility] has accepted Patient.
== END 2023-05-28 14:48 | disposition home health service (06) ==
LOC: HO.ED 13:27 → HO.EDOVER 15:55 → HO.IMC 16:03
PROVIDERS: Registered Nurse Emergency; Admitting Provider Student in an Organized Health Care Education/Training Program; Emergency Provider Emergency Medicine Emergency Medical Services; PCP Internal Medicine; Visit Provider Internal Medicine
DX: M13.0 Polyarthritis, unspecified (principal); D53.9 Nutritional anemia, unspecified; E87.1 Hypo-osmolality and hyponatremia; M25.561 Pain in right knee; M25.532 Pain in left wrist; M25.531 Pain in right wrist; I10 Essential (primary) hypertension; E11.9 Type 2 diabetes mellitus without complications; E78.00 Pure hypercholesterolemia, unspecified; M79.89 Other specified soft tissue disorders; R50.9 Fever, unspecified; E03.9 Hypothyroidism, unspecified; G47.33 Obstructive sleep apnea (adult) (pediatric); Z85.528 Personal history of other malignant neoplasm of kidney; Z85.118 Personal history of other malignant neoplasm of bronchus and lung; Z79.60 Long term (current) use of unspecified immunomodulators and immunosuppressants; Z11.52 Encounter for screening for COVID-19; Z79.899 Other long term (current) drug therapy
CPT/HCPCS: 36415; 71046; 73100; 73560; 80048; 80053; 81001; 82272; 83540; 83605; 85025; 85027; 85652; 86038; 86140; 86431; 87040; 87070; 87073; 87205; 87502; 87635; 89051; 89060; 93005; 96361; 96365; 96372; 97116; 97162; 99222; 99285; J0696; J1040; J1650

== ENCOUNTER → 2023-05-23 15:48 | Outpatient (BNV) | payer OTHER, SELFPAY | PROVIDERS: Admitting Provider Student in an Organized Health Care Education/Training Program; Emergency Provider Emergency Medicine Emergency Medical Services; PCP Internal Medicine; Visit Provider Student in an Organized Health Care Education/Training Program | DX: M25.461 Effusion, right knee (principal) | CPT/HCPCS: 99222; 99232; 99239; G0180 ==

== ENCOUNTER → 2023-05-23 15:48 | Outpatient (BNV) | payer OTHER, SELFPAY | PROVIDERS: Admitting Provider Student in an Organized Health Care Education/Training Program; Emergency Provider Emergency Medicine Emergency Medical Services; PCP Internal Medicine; Visit Provider Physician Assistant | DX: M17.11 Unilateral primary osteoarthritis, right knee (principal) | CPT/HCPCS: 20610; 99231 ==

== ENCOUNTER 2023-06-08 16:14 | Outpatient (AMB) | payer OTHER, SELFPAY ==
--- NOTE | 2023-06-08 16:32 | MHC.PC.OV ---
Vital Signs 06/08/23 16:38 Height 5 ft 7 in Weight 190 lb 8 oz BMI 29.8 BP 94/60 Blood Pressure Location Lt brachial Position Sitting Respiration 17 Pulse 97 Pulse Source Pulse Oximeter Pulse Oximetry (%) 98 Oxygen Delivery Method Room Air Intake Visit Reasons: [facility] 05/23-05/28 RT knee pain Intake Note: Patient is here for hospital discharge follow up. Patient was discharged from [facility]. Chain Sales Representative Required: No Accompanied by: Self / Same As Patient Allergies No Known Allergies Allergy (Verified 06/08/23 16:56) Medication List - Last Reconciled 06/08/23 by Nataly Cerda MD prednisone See Taper mg PO DIRECTED Tobacco use date assessed: 03/14/23 Dental Screening Dental Screen Date: 06/08/23 Did you have a dental visit in the last 12 months?: No Did you have a dental problem in the last 6 months where you did not have access to dental care?: No Was dental information given to patient?: Patient has dentist HPI [facility] 05/23-05/28 RT knee pain HPI Details 57-year-old overweight male with diabetes mellitus hypertension hypercholesterolemia obstructive sleep apnea hypothyroidism generalized anxiety disorder and renal cell cancer status post nephrectomy right 2019 on immunotherapy. Last seen in April 2023 had bilateral knee pain having osteoarthritis. Patient has been follow-up with Ortho. Review of the notes 05/28/2023 complains of right knee and right wrist swelling aspiration done in January was given hydrocortisone shot good relief for 2 months. Patient was febrile to 101.7 right knee did show persistent joint effusion with arthritis. Right wrist found mild degenerative changes sed rate was noted to be very elevate culture negative given prednisone diagnosis of gout it is on the tail end of the prednisone taper feels good no knee pain and no wrist pain. Discussion with the patient with regards to the labs that was done in the hospital noted to have severe iron deficiency anemia although the patient is not on any iron right now. Discussed the need to repeat the test. As for rheumatology patient has a schedule. No nausea no vomiting no chest pains no shortness of breath no bowel bladder symptoms. Deny any black stools PFSH Medical History Hx of cancer of lung Surgical History History of biopsy History of right nephrectomy Family History Father No problems noted. Mother Breast cancer Social History Housing: House Alcohol intake: unknown Patient Tobacco Use Status: Former Tobacco user Years Smoked: quit 1999 e-Cigarette/Vaping Use: Never Used Second Hand Smoke Exposure: No Advance Directives Date on File: 02/07/23 service: No Current occupational status: unemployed Cognitive needs: No Hearing needs: No Vision needs: Yes Questionnaire Thrive Questionnaire Date Thrive assessed: 05/24/23 BRIT-7 AMB Questionnaire BRIT-7 Date BRIT - 7 assessed: 03/14/23 Source: Developed by Drs. Enrrique Chinchilla, Sujata Baer, Linden Robert and colleagues, with an educational herson from [employer]. Physical exam (Primary Care) Vital Signs: Last Vital Signs Pulse 97 06/08/23 16:38 Resp 17 06/08/23 16:38 BP 94/60 06/08/23 16:38 Pulse Ox 98 06/08/23 16:38 Oxygen Delivery Method Room Air 06/08/23 16:38 BMI result Body Mass Index 29.8 Tobacco/Smoking Status: Tobacco use Status Tobacco use date assessed 03/14/23 06/08/23 16:36 Patient Tobacco Use Status Former Tobacco user 06/08/23 16:36 e-Cigarette/Vaping Use Never Used 06/08/23 16:36 Thrive Assessment: Date of Thrive Assessment Date Thrive assessed 05/24/23 06/08/23 16:36 Const General: alert; No acute distress Eyes Conjunctivae: conjunctivae normal Resp Auscultation: clear to auscultation bilaterally Cardio Rate: regular rate Rhythm: regular rhythm GI Inspection: Yes normal to inspection Extrem General: Yes normal to inspection and No edema Assessment and Plan Assessment & Plan (1) Type 2 diabetes mellitus with hyperglycemia: Code(s): E11.65 - Type 2 diabetes mellitus with hyperglycemia Plan: Decrease the amount of carbohydrate intake, pasta, bread, rice and potatoes are all sugar and that is aside from all the sweet stuff, remember that fruits are good but they are Sweet also. (2) Hypercholesterolemia: Code(s): E78.00 - Pure hypercholesterolemia, unspecified Plan: Avoid fried foods, chicken skin, eggs, butter margarine, pastries and meat. Be it pork or beef they have a lot of cholesterol LDL goal of less than 100 and triglyceride of less than 150. Last blood work was last year 148 LDL (3) Hypertension: Code(s): I10 - Essential (primary) hypertension Plan: Continue with blood pressure medication. Decrease salt intake and exercise blood pressure has come down (4) Renal cell carcinoma: Comment: December 2019 Dr. Richard right nephrectomy Code(s): C64.9 - Malignant neoplasm of unspecified kidney, except renal pelvis Plan: Patient continue to follow-up with hematology oncology/urology (5) Hypothyroid: Code(s): E03.9 - Hypothyroidism, unspecified Plan: Continue with thyroid medication will need blood work (6) Gout: Code(s): M10.9 - Gout, unspecified Plan: Low purine diet, increase oral fluids (7) Iron deficiency anemia: Code(s): D50.9 - Iron deficiency anemia, unspecified Orders: Orders Influenza [id number] Immunization Today Z23 - Encounter for immunization Comprehensive Met. Panel Today M10.9 - Gout, unspecified IRON PROFILE Today M10.9 - Gout, unspecified Erythrocyte Sedimentation Rate Today M10.9 - Gout, unspecified C Reactive Protein Today M10.9 - Gout, unspecified Vitamin B12 and Folate Today M10.9 - Gout, unspecified Uric Acid Today M10.9 - Gout, unspecified Complete Blood Count Auto Diff Today M10.9 - Gout, unspecified Ferritin Today M10.9 - Gout, unspecified Reticulocyte Count Today M10.9 - Gout, unspecified Hemoglobin A1c Today M10.9 - Gout, unspecified Medications: New flu vacc [id number] 6mos up(PF) 0.5 mL IM ONCE 0.5 mL 0RF Z23 - Encounter for immunization Coding Level of Care Code Est Pt Level 4 (76803) Diagnoses Type 2 diabetes mellitus with hyperglycemia E11.65 Hypercholesterolemia E78.00 Hypertension I10 Renal cell carcinoma C64.9 Hypothyroid E03.9 Gout M10.9 Iron deficiency anemia D50.9
[2023-06-08 16:38] VITALS: BP 94/60; PULSE 97; RESP 17; O2SAT 98; BMI 29.8
== END 2023-06-08 17:18 | disposition home or self-care (01) ==
PROVIDERS: PCP Internal Medicine; Visit Provider Internal Medicine
DX: E11.65 Type 2 diabetes mellitus with hyperglycemia (principal); E78.00 Pure hypercholesterolemia, unspecified; I10 Essential (primary) hypertension; C64.9 Malignant neoplasm of unspecified kidney, except renal pelvis; E03.9 Hypothyroidism, unspecified; M10.9 Gout, unspecified; D50.9 Iron deficiency anemia, unspecified; Z23 Encounter for immunization
CPT/HCPCS: 90471; 90686; 99214

== ENCOUNTER 2023-07-11 14:36 | Outpatient (AMB) | payer OTHER, SELFPAY ==
--- NOTE | 2023-07-11 14:47 | A.OFFVIS_ITS ---
Intake Vital Signs 07/11/23 14:48 Height 5 ft 7 in BMI Reason not done Patient refused/unable BP 98/76 Blood Pressure Location Lt brachial Position Sitting BP not taken reason Patient Refused Respiration 16 Temp 96.6 F L Temp Source Tympanic Intake Visit Reasons: Joint Pain/Arthritis/hospitalist ref Allergies No Known Allergies Allergy (Verified 07/11/23 15:08) Medication List - Last Reconciled 07/11/23 by Cortez Francois MD prednisone 20 mg PO DAILY HPI HPI Comments History of Present Illness Details This is a 57-year-old male presents for evaluation of multiple joint pain. Per patient has history of kidney cancer with lung metastasis. He is here with his and son. Patient states that he just took oxycodone and he is not very alert. He had a nephrectomy and was receiving (chemo/immunotherapy) until about last year. Per patient it was stopped due to patient being weak. He follows up with Dr. Rodriguez. Since May of last year patient has been having multiple episodes of multiple swollen and tender joints including his wrists, knees, ankles. He went to the hospital multiple times and had knee arthrocentesis twice. No infection was found. It would be treated with prednisone with resolution. States that the prednisone taper works until he is down to 10 mg which does not help much. States that he was diagnosed with diabetes but since his cancer he lost a lot of weight and his diabetes was better controlled. He is not currently on diabetes medications. Patient and his state that currently he has painful and swollen joints every single day. Today he has bilateral wrist, left knee and bilateral ankle pain. He is in a wheelchair. He denies any history of kidney stones. He is unaware of any family history of gout [facility] Medical History Hx of cancer of lung Surgical History History of biopsy History of right nephrectomy Family History Father No problems noted. Mother Breast cancer Social History Housing: House Alcohol intake: unknown Patient Tobacco Use Status: Former Tobacco user Years Smoked: quit 1999 e-Cigarette/Vaping Use: Never Used Second Hand Smoke Exposure: No Advance Directives Date on File: 02/07/23 service: No Current occupational status: unemployed Cognitive needs: No Hearing needs: No Vision needs: Yes Review of Systems Musc Reports arthralgias, Reports joint swelling and Reports stiffness Physical Exam Vital Signs: Last Vital Signs Temp 96.6 F L 07/11/23 14:48 Resp 16 07/11/23 14:48 BP 98/76 07/11/23 14:48 Const General: cooperative, healthy appearing and comfortable Nutritional Appearance: overweight Orientation/consciousness: oriented to person Limitations: wheelchair HEENT Head: Yes normocephalic and Yes atraumatic Resp Effort & Inspection: normal respiratory effort and able to speak in complete sentences Skin Other: Significant seborrheic dermatitis on face Neuro General: oriented to person Extrem Other: Bilateral wrist swelling and significantly limited wrist extension Normal nailfold capillaroscopy Left knee swelling and pain with flexion and extension Bilateral ankle swelling and tenderness Results Reviewed Results Reviewed: Laboratory Tests 02/06/23 13:48 Synovial Source Right knee Synovial WBC 19.158 Synovial RBC < 0.002 Synovial Neutrophils 88 Synovial Lymphocytes 4 Synovial Monocytes 2 Synovial Other Cells 6 Synovial Uric Acid 7 Assessment & Plan Assessment & Plan (1) Inflammatory arthritis: Code(s): M19.90 - Unspecified osteoarthritis, unspecified site Plan: This is a 57-year-old male who presents for evaluation of chronic inflammatory arthritis. Right knee arthrocentesis showed inflammatory, no signs of infection, there were no crystals seen but synovial fluid uric acid was positive. Per Patient , he has history of kidney cancer with lung Mets s/p nephrectomy followed by (chemo therapy/immunotherapy) records not available to me. Will request records from patient's oncologist. DX autoimmune inflammatory arthritis versus crystal induced arthritis versus immune related inflammatory arthritis. Check labs Start prednisone 20 mg daily, follow-up in 3 weeks Plan I spent 47 minutes reviewing patient's chart, evaluating patient, ordering diagnostic workup, counseling patient and documenting in the chart Orders: Orders Comprehensive Met. Panel Today M19.90 - Unspecified osteoarthritis, unspecified site Erythrocyte Sedimentation Rate Today M19.90 - Unspecified osteoarthritis, unspecified site T Spot TB Today Z11.7 - Encounter for testing for latent tuberculosis infection HLA B27 Today M45.9 - Ankylosing spondylitis of unspecified sites in spine Complete Blood Count Auto Diff Today M19.90 - Unspecified osteoarthritis, unspecified site C Reactive Protein Today M19.90 - Unspecified osteoarthritis, unspecified site Hemoglobin A1c Today E11.65 - Type 2 diabetes mellitus with hyperglycemia Hepatitis A,B,C Profile Today Z11.59 - Encounter for screening for other viral diseases Uric Acid Today M19.90 - Unspecified osteoarthritis, unspecified site Cyclic Citrullinated Peptide Today M19.90 - Unspecified osteoarthritis, unspecified site Medications: New prednisone 20 mg PO DAILY 21 tabs 0RF Coding Level of Care Code New Pt Level 4 (07189) Diagnoses Inflammatory arthritis M19.90
[2023-07-11 14:48] VITALS: BP 98/76; RESP 16; TEMP 35.9
== END 2023-07-11 15:45 | disposition home or self-care (01) ==
PROVIDERS: PCP Internal Medicine; Visit Provider Student in an Organized Health Care Education/Training Program
DX: M19.90 Unspecified osteoarthritis, unspecified site (principal)
CPT/HCPCS: 99204; 99214

== ENCOUNTER → 2023-07-11 14:36 | Outpatient (BNVA) | payer OTHER, SELFPAY | PROVIDERS: PCP Internal Medicine; Visit Provider Student in an Organized Health Care Education/Training Program ==

== ENCOUNTER 2023-07-17 06:09 | Outpatient (REF) | payer OTHER, SELFPAY ==
[2023-07-17 11:23] LABS: MANUAL DIFF FLAG NO
[2023-07-17 11:25] LABS: Basophils Percent Auto 0.3 % (0-2); Eosinophils Absolute Auto 0.1 X10*3/uL (0.0-0.4); Eosinophils Percent Auto 1.6 % (0-4); Hematocrit 41.4 % (42.0-52.0); Hemoglobin 12.7 g/dl (14.0-18.0); Imm Gran Abs Auto 0.03 X10*3/uL (0.00-0.03); Imm Gran Pct Auto 0.3 % (0.0-0.4); Lymphocytes Absolute Auto 2.9 X10*3/uL (1.2-4.9); Lymphocytes Percent Auto 33.1 % (20-40); Mean Corpuscular HGB Conc 30.7 g/dl (31.0-36.0); Mean Corpuscular Hemoglobin 24.8 pg (27.0-33.0); Mean Corpuscular Volume 80.7 fL (80.0-98.0); Mean Platelet Volume 9.1 fL (9.4-12.4); Monocytes Absolute Auto 0.5 X10*3/uL (0.1-1.2); Monocytes Percent Auto 5.3 % (2-11); Neutrophils Absolute Auto 5.3 x10*3/uL (2.0-8.3); Neutrophils Percent Auto 59.4 % (45-73); Platelet Count 534 X10*3/uL (160-400); Red Blood Count 5.13 X10*6/uL (4.60-5.80); Red Cell Distribution Width 19.9 % (11.0-16.0); Retic HGB Equivalent 32.6 pg (30.0-35.0); Reticulocyte Percent 2.4 % (0.5-1.8); Reticulocytes Absolute 0.122 X10*6/uL (0.026-0.095); White Blood Count 8.9 X10*3/uL (4.8-10.8)
[2023-07-17 11:37] LABS: Estimated Average Glucose 134 mg/dL; Hemoglobin A1C 151.0105 umol/L; Hemoglobin A1c % 6.3 % (<6.0)
[2023-07-17 11:56] LABS: HBS Num1 0.07 mIU/mL (0-7.99); HBsAGNum1 0.37 S/CO (0.00-0.99); Hepatitis A Antibody IgM 0.16 Index (0-0.79); Hepatitis B Core Antibody Nonreactive (Nonreactive); Hepatitis B Surface Antigen Negative (Negative); ~HepC Num1 0.14 S/CO (0.00-0.79); ~Hepatitis A Antibody IgM Nonreactive (Nonreactive); ~Hepatitis B Surface Antibody NONREACTIVE (Nonreactive); ~Hepatitis C Antibody Nonreactive (Nonreactive)
[2023-07-17 11:58] LABS: Alanine Aminotransferase 14 U/L (0-40); Albumin Level 3.6 g/dL (3.5-5.0); Alkaline Phosphatase 84 U/L (39-117); Anion Gap 15 (12-20); Aspartate Amino Transferase 15 U/L (5-37); Bilirubin Total 0.5 mg/dL (0.0-1.0); Blood Urea Nitrogen 11 mg/dL (9-16); C Reactive Protein 12.32 mg/dL (< or = 0.50); Calcium 10.1 mg/dL (8.4-10.2); Carbon Dioxide 27 mmol/L (22-29); Chloride 102 mmol/L (96-108); Cholesterol 235 mg/dL (<200); Estimated Glomerular Filt Rate > 60; Glucose Random 97 mg/dL (60-115); HDL Cholesterol 37 mg/dL (>40); Iron 25 mcg/dL (45-160); LDL Cholesterol Calculated 178 mg/dL (<100); Percent Iron Saturation 12 % (15-50); Potassium 3.6 mmol/L (3.3-5.1); Sodium 140 mmol/L (135-145); Total Iron Binding Capacity 208 mcg/dL (228-428); Total Protein 7.5 g/dL (6.5-8.0); Triglycerides 101 mg/dL (<150); Unsaturated Iron Binding 183 ug/dL; Uric Acid 4.9 mg/dL (3.4-7.0)
[2023-07-17 12:01] LABS: Alanine Aminotransferase 14 U/L (0-40); Albumin Level 3.6 g/dL (3.5-5.0); Alkaline Phosphatase 83 U/L (39-117); Anion Gap 15 (12-20); Aspartate Amino Transferase 16 U/L (5-37); Bilirubin Total 0.5 mg/dL (0.0-1.0); Blood Urea Nitrogen 11 mg/dL (9-16); C Reactive Protein 12.38 mg/dL (< or = 0.50); Calcium 10.1 mg/dL (8.4-10.2); Carbon Dioxide 27 mmol/L (22-29); Chloride 102 mmol/L (96-108); Estimated Glomerular Filt Rate > 60; Ferritin 475 ng/mL (20-250); Free T4 (Free Thyroxine) 1.17 ng/dL (0.71-1.85); Glucose Random 97 mg/dL (60-115); Potassium 3.6 mmol/L (3.3-5.1); Sodium 140 mmol/L (135-145); Thyroid Stimulating Hormone 5.46 uIU/mL (0.32-4.0); Total Protein 7.6 g/dL (6.5-8.0)
[2023-07-17 12:02] LABS: Uric Acid 4.8 mg/dL (3.4-7.0)
[2023-07-17 12:06] LABS: Erythrocyte Sedimentation Rate 65 MM/HR (0-15)
[2023-07-17 12:13] LABS: Folate 5.5 ng/mL (> or = 4.0); Vitamin B12 838 pg/mL (200-900)
[2023-07-19 12:48] LABS: Cyclic Citrullinated Peptide <16 UNITS
[2023-07-20 09:08] LABS: TS Negative Control Passed; TS Panel A 0; TS Panel B 0; TS Positive Control Passed; TSpotTB Negative (Negative)
[2023-07-22 16:02] LABS: HLA B27 Negative (Negative)
== END 2023-07-17 06:10 | disposition home or self-care (01) ==
LOC: HO.HMGCLDS 06:09
PROVIDERS: Absent Provider Student in an Organized Health Care Education/Training Program; PCP Internal Medicine; Visit Provider Internal Medicine
DX: Z11.59 Encounter for screening for other viral diseases (principal); Z11.7 Encounter for testing for latent tuberculosis infection; Z12.5 Encounter for screening for malignant neoplasm of prostate; E03.9 Hypothyroidism, unspecified; M10.9 Gout, unspecified; E78.00 Pure hypercholesterolemia, unspecified; M19.90 Unspecified osteoarthritis, unspecified site; M45.9 Ankylosing spondylitis of unspecified sites in spine; Z72.89 Other problems related to lifestyle
CPT/HCPCS: 36415; 80053; 80061; 82607; 82728; 82746; 83036; 83540; 84153; 84439; 84443; 84550; 85025; 85045; 85652; 86140; 86200; 86481; 86704; 86706; 86709; 86803; 86812; 87340

== ENCOUNTER 2023-07-24 06:09 | Outpatient (REF) | payer OTHER, SELFPAY ==
[2023-07-24 11:24] LABS: MANUAL DIFF FLAG NO
[2023-07-24 11:33] LABS: Basophils Absolute Auto 0.1 X10*3/uL (0.0-0.2); Basophils Percent Auto 0.5 % (0-2); Eosinophils Absolute Auto 0.1 X10*3/uL (0.0-0.4); Eosinophils Percent Auto 0.7 % (0-4); Hematocrit 42.1 % (42.0-52.0); Hemoglobin 12.7 g/dl (14.0-18.0); Imm Gran Abs Auto 0.24 X10*3/uL (0.00-0.03); Imm Gran Pct Auto 1.4 % (0.0-0.4); Lymphocytes Absolute Auto 3.9 X10*3/uL (1.2-4.9); Lymphocytes Percent Auto 22.7 % (20-40); Mean Corpuscular HGB Conc 30.2 g/dl (31.0-36.0); Mean Corpuscular Volume 82.7 fL (80.0-98.0); Mean Platelet Volume 8.8 fL (9.4-12.4); Monocytes Absolute Auto 0.7 X10*3/uL (0.1-1.2); Monocytes Percent Auto 4.3 % (2-11); Neutrophils Absolute Auto 12.2 x10*3/uL (2.0-8.3); Neutrophils Percent Auto 70.4 % (45-73); Platelet Count 490 X10*3/uL (160-400); Red Blood Count 5.09 X10*6/uL (4.60-5.80); Red Cell Distribution Width 19.9 % (11.0-16.0); White Blood Count 17.3 X10*3/uL (4.8-10.8)
[2023-07-24 11:36] LABS: Estimated Average Glucose 143 mg/dL; Hemoglobin A1c % 6.6 % (<6.0)
[2023-07-24 11:52] LABS: Alanine Aminotransferase 41 U/L (0-40); Albumin Level 3.6 g/dL (3.5-5.0); Alkaline Phosphatase 84 U/L (39-117); Anion Gap 15 (12-20); Aspartate Amino Transferase 23 U/L (5-37); Bilirubin Total 0.3 mg/dL (0.0-1.0); Blood Urea Nitrogen 17 mg/dL (9-16); Calcium 9.7 mg/dL (8.4-10.2); Carbon Dioxide 28 mmol/L (22-29); Chloride 102 mmol/L (96-108); Cholesterol 209 mg/dL (<200); Estimated Glomerular Filt Rate > 60; Glucose Random 82 mg/dL (60-115); HDL Cholesterol 54 mg/dL (>40); LDL Cholesterol Calculated 132 mg/dL (<100); Potassium 4.2 mmol/L (3.3-5.1); Sodium 141 mmol/L (135-145); Total Protein 7.2 g/dL (6.5-8.0); Triglycerides 117 mg/dL (<150)
[2023-07-24 12:00] LABS: MANUAL DIFF FLAG NO
[2023-07-24 12:02] LABS: Basophils Absolute Auto 0.1 X10*3/uL (0.0-0.2); Basophils Percent Auto 0.4 % (0-2); Eosinophils Absolute Auto 0.1 X10*3/uL (0.0-0.4); Eosinophils Percent Auto 0.7 % (0-4); Hematocrit 41.7 % (42.0-52.0); Hemoglobin 12.7 g/dl (14.0-18.0); Imm Gran Abs Auto 0.22 X10*3/uL (0.00-0.03); Imm Gran Pct Auto 1.3 % (0.0-0.4); Lymphocytes Absolute Auto 3.8 X10*3/uL (1.2-4.9); Lymphocytes Percent Auto 22.2 % (20-40); Mean Corpuscular HGB Conc 30.5 g/dl (31.0-36.0); Mean Corpuscular Hemoglobin 24.8 pg (27.0-33.0); Mean Corpuscular Volume 81.4 fL (80.0-98.0); Mean Platelet Volume 8.7 fL (9.4-12.4); Monocytes Absolute Auto 0.8 X10*3/uL (0.1-1.2); Monocytes Percent Auto 4.5 % (2-11); Neutrophils Absolute Auto 12.1 x10*3/uL (2.0-8.3); Neutrophils Percent Auto 70.9 % (45-73); Platelet Count 478 X10*3/uL (160-400); Red Blood Count 5.12 X10*6/uL (4.60-5.80); White Blood Count 17.1 X10*3/uL (4.8-10.8)
[2023-07-24 12:07] LABS: PSA,Total (Free>4and<10) 4.05 ng/mL (0.00-4.00)
[2023-07-24 12:09] LABS: Erythrocyte Sedimentation Rate 25 MM/HR (0-15)
[2023-07-24 13:40] LABS: Folate 4.9 ng/mL (> or = 4.0); Vitamin B12 585 pg/mL (200-900)
[2023-07-25 12:14] LABS: Free Prostate Spec Ag 0.5 ng/mL; Percent Free Prostate Spec Ag 14 % (calc) (>25); Prostate Specific Ag Total 3.6 ng/mL (< OR = 4.0)
== END 2023-07-24 06:10 | disposition home or self-care (01) ==
LOC: HO.HMGCLDS 06:09
PROVIDERS: Absent Provider Student in an Organized Health Care Education/Training Program; PCP Internal Medicine; Visit Provider Internal Medicine
DX: Z12.5 Encounter for screening for malignant neoplasm of prostate (principal); E11.65 Type 2 diabetes mellitus with hyperglycemia; E03.9 Hypothyroidism, unspecified; M10.9 Gout, unspecified; E78.00 Pure hypercholesterolemia, unspecified; R97.20 Elevated prostate specific antigen [PSA]; M19.90 Unspecified osteoarthritis, unspecified site
CPT/HCPCS: 36415; 80053; 80061; 82607; 82746; 83036; 84153; 84154; 85025; 85652

== ENCOUNTER 2023-08-03 13:43 | Outpatient (AMB) | payer OTHER, SELFPAY ==
--- NOTE | 2023-08-03 13:48 | MHC.OFFVIS ---
Intake Vital Signs 08/03/23 13:49 Height 5 ft 6 in Weight 209 lb 7.026 oz BMI 33.8 BP 114/78 Blood Pressure Location Rt brachial Position Sitting Pulse 107 H Pulse Source Pulse Oximeter Temp 98.2 F Temp Source Tympanic Pulse Oximetry (%) 97 Intake Visit Reasons: inflammatory arthritis Senior Compliance Officer Required: No Accompanied by: Spouse Allergies No Known Allergies Allergy (Verified 08/03/23 13:50) Medication List - Last Reconciled 08/03/23 by Janine Bell RN ascorbate calcium (vitamin C) 500 mg PO DAILY ferrous sulfate 325 mg PO DAILY prednisone 20 mg PO DAILY HPI HPI Comments History of Present Illness Details 57-year-old male with 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 Patient was taking prednisone 20 mg daily until it ran out 4-5 days ago. He was doing well overall. With improved joint pain swelling and functioning. After prednisone ran out he started having recurrent joint pain swelling and stiffness of his wrists and knees. Initial history: This is a 57-year-old male presents for evaluation of multiple joint pain. Per patient has history of kidney cancer with lung metastasis. He is here with his and son. Patient states that he just took oxycodone and he is not very alert. He had a nephrectomy and was receiving (chemo/immunotherapy) until about last year. Per patient it was stopped due to patient being weak. He follows up with Dr. Rodriguez. Since May of last year patient has been having multiple episodes of multiple swollen and tender joints including his wrists, knees, ankles. He went to the hospital multiple times and had knee arthrocentesis twice. No infection was found. It would be treated with prednisone with resolution. States that the prednisone taper works until he is down to 10 mg which does not help much. States that he was diagnosed with diabetes but since his cancer he lost a lot of weight and his diabetes was better controlled. He is not currently on diabetes medications. Patient and his state that currently he has painful and swollen joints every single day. Today he has bilateral wrist, left knee and bilateral ankle pain. He is in a wheelchair. He denies any history of kidney stones. He is unaware of any family history of gout [facility] Medical History Hx of cancer of lung Surgical History History of biopsy History of right nephrectomy Family History Father No problems noted. Mother Breast cancer Social History Housing: House Alcohol intake: unknown Patient Tobacco Use Status: Former Tobacco user Years Smoked: quit 1999 e-Cigarette/Vaping Use: Never Used Second Hand Smoke Exposure: No Advance Directives Date on File: 02/07/23 service: No Current occupational status: unemployed Cognitive needs: No Hearing needs: No Vision needs: Yes Review of Systems Musc Reports arthralgias, Reports joint swelling and Reports stiffness Physical Exam Vital Signs: Last Vital Signs Temp 98.2 F 08/03/23 13:49 Pulse 107 H 08/03/23 13:49 BP 114/78 08/03/23 13:49 Pulse Ox 97 08/03/23 13:49 BMI result Body Mass Index 33.8 Const General: cooperative, healthy appearing and comfortable Nutritional Appearance: overweight Orientation/consciousness: patient oriented x3 HEENT Head: Yes normocephalic and Yes atraumatic Resp Effort & Inspection: normal respiratory effort and able to speak in complete sentences Neuro General: patient oriented x3 Extrem Other: Bilateral wrist swelling and significantly limited wrist extension Normal nailfold capillaroscopy Left knee swelling and pain with flexion and extension Results Reviewed Results Reviewed: Laboratory Tests 02/06/23 13:48 Synovial Source Right knee Synovial WBC 19.158 Synovial RBC < 0.002 Synovial Neutrophils 88 Synovial Lymphocytes 4 Synovial Monocytes 2 Synovial Other Cells 6 Synovial Uric Acid 7 Assessment & Plan Assessment & Plan (1) Inflammatory arthritis: Code(s): M19.90 - Unspecified osteoarthritis, unspecified site Plan: This is a 57-year-old male who presents for evaluation of chronic inflammatory arthritis. Right knee arthrocentesis showed inflammatory, no signs of infection, there were no crystals seen but synovial fluid uric acid was positive. Patient has history of kidney cancer with lung Mets s/p nephrectomy followed by (chemo therapy/immunotherapy) he received Opdivo for approximately 2 and half years. Comprehensive serology for underlying RA or SLE is negative. 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 At this point will restart prednisone at 20 mg with a slow taper. Follow-up in 2 months. Of note patient has history of diabetes and his most recent HbA1c is 6.6%. Advised patient to call the office his blood sugar is significantly elevated. If patient remains requiring high doses of prednisone, we will have to consider DMARDs. Patient also states that he will be seeing his oncologist soon and will be having a new scan. Follow-up in 2 months Plan I spent 27 minutes reviewing patient's chart, evaluating patient, counseling patient and documenting in the chart Medications: New prednisone Take 4 tabs daily for 2 weeks then 3 tabs daily for 2 weeks then remain on 2 tabs daily 182 tabs 0RF Discontinued prednisone Discontinued Reason: Doctor's Order 20 mg PO DAILY 21 tabs 0RF Coding Level of Care Code Est Pt Level 4 (49793) Diagnoses Inflammatory arthritis M19.90
[2023-08-03 13:49] VITALS: BP 114/78; PULSE 107; TEMP 36.8; O2SAT 97; BMI 33.8
== END 2023-08-03 14:32 | disposition home or self-care (01) ==
LOC: HO.RHE 13:43
PROVIDERS: PCP Internal Medicine; Visit Provider Student in an Organized Health Care Education/Training Program
DX: M19.90 Unspecified osteoarthritis, unspecified site (principal)
CPT/HCPCS: 99214

== ENCOUNTER → 2023-08-03 13:43 | Outpatient (BNVA) | payer OTHER, SELFPAY | PROVIDERS: PCP Internal Medicine; Visit Provider Student in an Organized Health Care Education/Training Program ==

== ENCOUNTER 2023-08-09 09:55 | Outpatient (AMB) | payer OTHER, SELFPAY ==
[2023-08-09 09:56] VITALS: BP 142/100; PULSE 107; O2SAT 98; BMI 34.0
--- NOTE | 2023-08-09 09:56 | MHC.PC.OV ---
Vital Signs 08/09/23 09:56 Height 5 ft 6 in Weight 210 lb 6 oz BMI 34.0 BP 142/100 H Blood Pressure Location Lt brachial Position Sitting Pulse 107 H Pulse Source Pulse Oximeter Pulse Oximetry (%) 98 Oxygen Delivery Method Room Air Intake Visit Reasons: 3mth f/u Toll Booth Operator Required: No Allergies No Known Allergies Allergy (Verified 08/09/23 09:56) Medication List - Last Reconciled 08/09/23 by Nataly Cerda MD ascorbate calcium (vitamin C) 500 mg PO DAILY atorvastatin 10 mg PO BEDTIME ferrous sulfate 325 mg PO DAILY prednisone Take 4 tabs daily for 2 weeks then 3 tabs daily for 2 weeks then remain on 2 tabs daily Tobacco use date assessed: 08/09/23 Dental Screening Dental Screen Date: 08/09/23 Did you have a dental visit in the last 12 months?: No Did you have a dental problem in the last 6 months where you did not have access to dental care?: No HPI 3mth f/u HPI Details 57-year-old obese male with a history of renal cell carcinoma diabetes mellitus hypertension hypercholesterolemia hypothyroidism iron deficiency anemia last seen in June 2023. Patient's hemoglobin A1c in July was 6.6. Patient was seen by Rheumatology August 03. Patient has been having multiple swollen and tender joints treated with prednisone diagnosis of inflammatory arthritis presently receiving Opdivo plus YErvoy 2019 now on Opdivo maintenance restarted on prednisone 20 mg also noted oncology notes patient on palliative immunotherapy PFSH Medical History Hx of cancer of lung Surgical History History of biopsy History of right nephrectomy Family History Father No problems noted. Mother Breast cancer Social History Housing: House Alcohol intake: unknown Patient Tobacco Use Status: Former Tobacco user Years Smoked: quit 1999 e-Cigarette/Vaping Use: Never Used Second Hand Smoke Exposure: No Advance Directives Date on File: 02/07/23 service: No Current occupational status: unemployed Cognitive needs: No Hearing needs: No Vision needs: Yes Questionnaire Thrive Questionnaire Date Thrive assessed: 05/24/23 AUDIT C Alcohol Use Questionnaire (AUDIT-C) 1. How often do you have a drink containing alcohol?: Never 3. How often do you have six or more drinks on one occasion?: Never Total Score: 0 BRIT-7 AMB Questionnaire BRIT-7 Date BRIT - 7 assessed: 08/09/23 Feeling nervous, anxious, or on edge: 0 = Not at all Not being able to stop or control worryin = Not at all Worrying too much about different things: 0 = Not at all Trouble relaxin = Not at all Being so restless that it is hard to sit still: 0 = Not at all Becoming easily annoyed or irritable: 0 = Not at all Feeling afraid as if something awful might happen: 0 = Not at all Total BRIT-7 score (0-4 normal; 5-9 mild; 10-14 moderate; 15-21 severe): 0 Source: Developed by Drs. Enrrique Chinchilla, Sujata Baer, Linden Robert and colleagues, with an educational herson from [employer]. Physical exam (Primary Care) Vital Signs: Last Vital Signs Pulse 107 H 08/09/23 09:56 BP 142/100 H 08/09/23 09:56 Pulse Ox 98 08/09/23 09:56 Oxygen Delivery Method Room Air 08/09/23 09:56 BMI result Body Mass Index 34.0 Tobacco/Smoking Status: Tobacco use Status Tobacco use date assessed 08/09/23 08/09/23 09:57 Patient Tobacco Use Status Former Tobacco user 08/09/23 09:57 e-Cigarette/Vaping Use Never Used 08/09/23 09:57 Thrive Assessment: Date of Thrive Assessment Date Thrive assessed 05/24/23 08/09/23 09:57 Const General: alert; No acute distress Eyes Conjunctivae: conjunctivae normal Resp Auscultation: clear to auscultation bilaterally Cardio Rate: regular rate Rhythm: regular rhythm GI Inspection: Yes normal to inspection Extrem General: Yes normal to inspection and No edema Assessment and Plan Assessment & Plan (1) Type 2 diabetes mellitus with hyperglycemia: Code(s): E11.65 - Type 2 diabetes mellitus with hyperglycemia Plan: Decrease the amount of carbohydrate intake, pasta, bread, rice and potatoes are all sugar and that is aside from all the sweet stuff, remember that fruits are good but they are Sweet also. Hemoglobin A1c goal of less than 6.5 (2) Hypercholesterolemia: Code(s): E78.00 - Pure hypercholesterolemia, unspecified Plan: Avoid fried foods, chicken skin, eggs, butter margarine, pastries and meat. Be it pork or beef they have a lot of cholesterol LDL goal of less than 100 and triglyceride of less than 150 (3) Hypertension: Code(s): I10 - Essential (primary) hypertension Plan: Continue with blood pressure medication. Decrease salt intake and exercise. elevated BP this time , advised to monitor at home and record and ff up in 2 months (4) Renal cell carcinoma: Comment: December 2019 Dr. Richard right nephrectomy Code(s): C64.9 - Malignant neoplasm of unspecified kidney, except renal pelvis Plan: Patient continues to follow-up with Hematology-Oncology and on Opdivo and prednisone (5) Hypothyroid: Code(s): E03.9 - Hypothyroidism, unspecified Plan: Continue to monitor thyroid (6) Generalized anxiety disorder: Code(s): F41.1 - Generalized anxiety disorder (7) Tinnitus: Code(s): H93.19 - Tinnitus, unspecified ear Plan: hold of hearing test for now Orders: Orders Comprehensive Met. Panel 3 Months E78.00 - Pure hypercholesterolemia, unspecified Hemoglobin A1c 3 Months E78.00 - Pure hypercholesterolemia, unspecified Thyroid Stimulating Hormone 3 Months E78.00 - Pure hypercholesterolemia, unspecified Complete Blood Count Auto Diff 3 Months E78.00 - Pure hypercholesterolemia, unspecified Ferritin 3 Months E78.00 - Pure hypercholesterolemia, unspecified IRON PROFILE 3 Months E78.00 - Pure hypercholesterolemia, unspecified Vitamin B12 and Folate 3 Months E78.00 - Pure hypercholesterolemia, unspecified Lipid Panel 3 Months E78.00 - Pure hypercholesterolemia, unspecified Free T4 (Free Thyroxine) 3 Months E78.00 - Pure hypercholesterolemia, unspecified Reticulocyte Count 3 Months E78.00 - Pure hypercholesterolemia, unspecified Medications: New atorvastatin 10 mg PO BEDTIME 30 tabs 3RF E78.00 - Pure hypercholesterolemia, unspecified Refilled ascorbate calcium (vitamin C) 500 mg PO DAILY 30 tabs 4RF D50.9 - Iron deficiency anemia, unspecified, R97.20 - Elevated prostate specific antigen [PSA] Coding Level of Care Code Est Pt Level 4 (69576) Diagnoses Type 2 diabetes mellitus with hyperglycemia E11.65 Hypercholesterolemia E78.00 Hypertension I10 Renal cell carcinoma C64.9 Hypothyroid E03.9 Generalized anxiety disorder F41.1 Tinnitus H93.19
== END 2023-08-09 10:58 | disposition home or self-care (01) ==
PROVIDERS: PCP Internal Medicine; Visit Provider Internal Medicine
DX: E11.65 Type 2 diabetes mellitus with hyperglycemia (principal); E78.00 Pure hypercholesterolemia, unspecified; I10 Essential (primary) hypertension; C64.9 Malignant neoplasm of unspecified kidney, except renal pelvis; E03.9 Hypothyroidism, unspecified; F41.1 Generalized anxiety disorder; H93.19 Tinnitus, unspecified ear
CPT/HCPCS: 99214

== ENCOUNTER 2023-10-11 07:51 | Outpatient (AMB) | payer OTHER, SELFPAY ==
[2023-10-11 07:56] VITALS: BP 128/72; PULSE 101; O2SAT 95; BMI 40.0
--- NOTE | 2023-10-11 07:56 | A.OFFVIS_ITS ---
Intake Vital Signs 10/11/23 07:56 Height 5 ft 6 in Weight 247 lb 12.793 oz BMI 40.0 BP 128/72 Blood Pressure Location Rt brachial Position Sitting Pulse 101 H Pulse Source Pulse Oximeter Pulse Oximetry (%) 95 Oxygen Delivery Method Room Air Intake Visit Reasons: iRAe Intake Note: Pt last seen 08/03/23 presents today for follow up. 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 Patient has been following the prednisone taper. He is currently on prednisone 10 mg daily. He has gained more than 30 lb of weight. He has also been eating more. States that his joint pain is much better overall. He continues to have some stiffness of his wrists in the morning. But overall better. Was evaluated recently by his oncologist and was told he is cancer-free. He remains off Opdivo Initial history: This is a 57-year-old male presents for evaluation of multiple joint pain. Per patient has history of kidney cancer with lung metastasis. He is here with his and son. Patient states that he just took oxycodone and he is not very alert. He had a nephrectomy and was receiving (chemo/immunotherapy) until about last year. Per patient it was stopped due to patient being weak. He follows up with Dr. Rodriguez. Since May of last year patient has been having multiple episodes of multiple swollen and tender joints including his wrists, knees, ankles. He went to the hospital multiple times and had knee arthrocentesis twice. No infection was found. It would be treated with prednisone with resolution. States that the prednisone taper works until he is down to 10 mg which does not help much. States that he was diagnosed with diabetes but since his cancer he lost a lot of weight and his diabetes was better controlled. He is not currently on diabetes medications. Patient and his state that currently he has painful and swollen joints every single day. Today he has bilateral wrist, left knee and bilateral ankle pain. He is in a wheelchair. He denies any history of kidney stones. He is unaware of any family history of gout [facility] Medical History Hx of cancer of lung Surgical History History of biopsy History of right nephrectomy Family History Father No problems noted. Mother Breast cancer Social History Housing: House Alcohol intake: unknown Patient Tobacco Use Status: Former Tobacco user Years Smoked: quit 1999 e-Cigarette/Vaping Use: Never Used Second Hand Smoke Exposure: No Advance Directives Date on File: 02/07/23 service: No Current occupational status: unemployed Cognitive needs: No Hearing needs: No Vision needs: Yes Review of Systems Musc Reports arthralgias and Reports stiffness Physical Exam Vital Signs: Last Vital Signs Pulse 101 H 10/11/23 07:56 BP 128/72 10/11/23 07:56 Pulse Ox 95 10/11/23 07:56 Oxygen Delivery Method Room Air 10/11/23 07:56 BMI result Body Mass Index 40.0 Const General: cooperative, healthy appearing and comfortable Nutritional Appearance: overweight Orientation/consciousness: patient oriented x3 HEENT Head: Yes normocephalic and Yes atraumatic Resp Effort & Inspection: normal respiratory effort and able to speak in complete sentences Neuro General: patient oriented x3 Extrem Other: Minimal bilateral wrist swelling, no warmth, no swelling but pain with full flexion and extension Right 4th MCP swelling without tenderness Right 3rd and 4th PIP swelling without tenderness No knee warmth swelling or tenderness bilaterally Normal range of motion of both knees without pain Results Reviewed Results Reviewed: Laboratory Tests 02/06/23 13:48 Synovial Source Right knee Synovial WBC 19.158 Synovial RBC < 0.002 Synovial Neutrophils 88 Synovial Lymphocytes 4 Synovial Monocytes 2 Synovial Other Cells 6 Synovial Uric Acid 7 Assessment & Plan Assessment & Plan (1) Inflammatory arthritis: Code(s): M19.90 - Unspecified osteoarthritis, unspecified site Plan: This is a 57-year-old male who presents for evaluation of chronic inflammatory arthritis. Right knee arthrocentesis showed inflammatory, no signs of infection, there were no crystals seen but synovial fluid uric acid was positive. Patient has history of kidney cancer with lung Mets s/p nephrectomy followed by (chemo therapy/immunotherapy) he received Opdivo for approximately 2 and half years. Comprehensive serology for underlying RA or SLE is negative. 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 Patient has been doing much better overall on prednisone, he is currently on 10 mg daily, he has gained more than 30 lb of weight. He continues to have mild synovitis. He remains off Opdivo. Will need to add a DMARD. Discussed risks and benefits of hydroxychloroquine. 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 Panel 3 Months M19.90 - Unspecified osteoarthritis, unspecified site Complete Blood Count Auto Diff 3 Months M19.90 - Unspecified osteoarthritis, unspecified site C Reactive Protein 3 Months M19.90 - Unspecified osteoarthritis, unspecified site Erythrocyte Sedimentation Rate 3 Months M19.90 - Unspecified osteoarthritis, unspecified site Medications: New hydroxychloroquine 200 mg PO BID 60 tabs 2RF Coding Level of Care Code Est Pt Level 4 (38998) Diagnoses Inflammatory arthritis M19.90 Long-term use of hydroxychloroquine Z79.899
== END 2023-10-11 08:24 | disposition home or self-care (01) ==
PROVIDERS: PCP Internal Medicine; Visit Provider Student in an Organized Health Care Education/Training Program
DX: M19.90 Unspecified osteoarthritis, unspecified site (principal); Z79.899 Other long term (current) drug therapy
CPT/HCPCS: 99214

== ENCOUNTER → 2023-10-11 07:51 | Outpatient (BNVA) | payer OTHER, SELFPAY | PROVIDERS: PCP Internal Medicine; Visit Provider Student in an Organized Health Care Education/Training Program ==

== ENCOUNTER 2023-11-13 09:47 | Outpatient (AMB) | payer OTHER, SELFPAY ==
[2023-11-13 09:52] VITALS: BP 136/78; PULSE 106; O2SAT 97; BMI 41.6
--- NOTE | 2023-11-13 09:52 | A.OFFPC_ITS ---
Vital Signs 11/13/23 09:52 Height 5 ft 6 in Weight 258 lb BMI 41.6 BP 136/78 Blood Pressure Location Lt brachial Position Sitting Pulse 106 H Pulse Source Pulse Oximeter Pulse Oximetry (%) 97 Oxygen Delivery Method Room Air Intake Visit Reasons: DM, HTN Allergies No Known Allergies Allergy (Verified 11/13/23 09:52) Tobacco use date assessed: 11/13/23 Dental Screening Dental Screen Date: 11/13/23 Did you have a dental visit in the last 12 months?: Yes Did you have a dental problem in the last 6 months where you did not have access to dental care?: No Was dental information given to patient?: Patient has dentist HPI DM, HTN HPI Details 58-year-old morbidly obese male with a h istory of diabetes mellitus hypercholesterolemia hypertension history of kidney cancer hypothyroidism and generalized anxiety disorder last seen in August 2023. Patient is here for follow-up. Patient follows up with Rheumatology seen in October 2023 for inflammatory arthritis on Opdivo patient was advised to start on hydroxychloroquine and advised to follow up with Ophthalmology also noted a CT scan done in September 2023 showing new 3 mm left lower lobe pulmonary nodule PFSH Medical History Hx of cancer of lung Surgical History History of biopsy History of right nephrectomy Family History (Updated 11/13/23 @ 09:53 by Helen Lorenzo CMA) Father No problems noted. Mother Breast cancer Social History Housing: House Alcohol intake: unknown Patient Tobacco Use Status: Former Tobacco user Tobacco use type: Cigarette Years Smoked: quit 1999 e-Cigarette/Vaping Use: Never Used Second Hand Smoke Exposure: No Advance Directives Date on File: 02/07/23 service: No Current occupational status: unemployed Cognitive needs: No Hearing needs: No Vision needs: Yes Questionnaire PHQ-9 Over the last 2 weeks, how often have you been bothered by any of the following problems? 1. Little interest or pleasure in doing things: not at all 2. Feeling down, depressed, or hopeless: not at all 3. Trouble falling or staying asleep, or sleeping too much: not at all 4. Feeling tired or having little energy: not at all 5. Poor appetite or overeating: not at all 6. Feeling bad about yourself - or that you are a failure or have let yourself or your family down: not at all 7. Trouble concentrating on things, such as reading the newspaper or watching television: not at all 8. Moving or speaking so slowly that other people could have noticed. Or the opposite - being so fidgety or restless that you have been moving around a lot more than usual: not at all 9. Thoughts that you would be better off or of hurting yourself in some way: not at all Total score: 0 Depression Screening Interpretation: Negative Depression Screening Done: Yes 15174 - PHQ-9 Billing: Yes Source: Developed by Drs. Enrrique Chinchilla, Sujata Baer, Linden Robert and colleagues, with an educational herson from [employer]. Thrive Questionnaire Date Thrive assessed: 11/13/23 I am a: Patient What is your living situation today?: I have a steady place to live Within the past 12 months, did the food you bought not last and you didn't have the money to get more?: Never true Within the past 12 months, did you worry whether your food would run out before you got money to buy more?: Never true Do you have trouble paying for medicines?: No Do you have trouble getting transportation to medical appointments?: No Do you have trouble paying your heating and electricity bill?: No Do you have trouble taking care of your child, family member or friend?: No Do you have trouble with day-to-day activities such as bathing, preparing meals, shopping, managing finances, etc.?: No Are you currently unemployed and looking for a job?: No Are you interested in more education?: No Currently or been in a relationship where the following occur: no concerns reported THRIVE Score: 0 AUDIT C Alcohol Use Questionnaire (AUDIT-C) 1. How often do you have a drink containing alcohol?: Monthly or less 2. How many drinks containing alcohol do you have on a typical day when you are drinking?: 1 or 2 3. How often do you have six or more drinks on one occasion?: Never Total Score: 1 BRIT-7 AMB Questionnaire BRIT-7 Date BRIT - 7 assessed: 11/13/23 Feeling nervous, anxious, or on edge: 0 = Not at all Not being able to stop or control worryin = Not at all Worrying too much about different things: 0 = Not at all Trouble relaxin = Not at all Being so restless that it is hard to sit still: 0 = Not at all Becoming easily annoyed or irritable: 0 = Not at all Feeling afraid as if something awful might happen: 0 = Not at all Total BRIT-7 score (0-4 normal; 5-9 mild; 10-14 moderate; 15-21 severe): 0 Source: Developed by Drs. Enrrique Chinchilla, Sujata Baer, Linden Robert and colleagues, with an educational herson from [employer]. Physical exam (Primary Care) Vital Signs: Last Vital Signs Pulse 106 H 11/13/23 09:52 BP 136/78 11/13/23 09:52 Pulse Ox 97 11/13/23 09:52 Oxygen Delivery Method Room Air 11/13/23 09:52 BMI result Body Mass Index 41.6 Tobacco/Smoking Status: Tobacco use Status Tobacco use date assessed 11/13/23 11/13/23 09:53 Patient Tobacco Use Status Former Tobacco user 11/13/23 09:53 Tobacco use type Cigarette 11/13/23 09:53 e-Cigarette/Vaping Use Never Used 11/13/23 09:53 PHQ-9: PHQ-9 Score PHQ-9: Total score 0 11/13/23 10:10 Depression Screening Interpretation: Negative Thrive Assessment: Date of Thrive Assessment Date Thrive assessed 11/13/23 11/13/23 09:53 Currently or been in a relationship where the following occur: no concerns reported Const General: alert; No acute distress Eyes Conjunctivae: conjunctivae normal Resp Auscultation: clear to auscultation bilaterally Cardio Rate: regular rate Rhythm: regular rhythm GI Inspection: Yes normal to inspection Extrem General: Yes normal to inspection and No edema Results AMB Hemoglobin A1c AMB Hemoglobin A1c 8.4 % Last Edit by Helen Lorenzo CMA on 11/13/23 10 :10 Results Reviewed Results Reviewed: Laboratory Last Values Hgb A1c (Clinic) 8.4 % (4.0-6.0) H 11/13/23 09:54 Assessment and Plan Assessment & Plan (1) Renal cell carcinoma: Comment: December 2019 Dr. Richard right nephrectomy Code(s): C64.9 - Malignant neoplasm of unspecified kidney, except renal pelvis Plan: Patient continues to be followed up by hematology oncology had a recent CT scan in September showing a new pulmonary nodule. (2) Type 2 diabetes mellitus with hyperglycemia: Code(s): E11.65 - Type 2 diabetes mellitus with hyperglycemia Plan: Decrease the amount of carbohydrate intake, pasta, bread, rice and potatoes are all sugar and that is aside from all the sweet stuff, remember that fruits are good but they are Sweet also. Hemoglobin A1c goal of less than 6.5. Patient's last hemoglobin A1c was 6.6. Presently on prednisone and not on any medication. ADVISED TO GET THE BLOOD WORK!!! (3) Hypercholesterolemia: Code(s): E78.00 - Pure hypercholesterolemia, unspecified Plan: Avoid fried foods, chicken skin, eggs, butter margarine, pastries and meat. Be it pork or beef they have a lot of cholesterol LDL goal of less than 100 and triglyceride of less than 150 patient is taking atorvastatin 10 mg once a day (4) Hypertension: Code(s): I10 - Essential (primary) hypertension Plan: Continue with blood pressure medication. Decrease salt intake and exercise stable not on any medication (5) Hypothyroid: Code(s): E03.9 - Hypothyroidism, unspecified Plan: Continue to monitor thyroid (6) Inflammatory arthritis: Code(s): M19.90 - Unspecified osteoarthritis, unspecified site Plan: Patient started on hydroxychloroquine Orders: Orders AMB Hemoglobin A1c Today Z13.9 - Encounter for screening, unspecified Referrals Ophthalmology Referral E11.65 - Type 2 diabetes mellitus with hyperglycemia Medications: New metformin 500 mg PO BIDWMEAL 60 tabs 3RF E11.65 - Type 2 diabetes mellitus with hyperglycemia blood sugar diagnostic (FreeStyle Lite Strips) As directed check the BS QD 100 ea 3RF E11.65 - Type 2 diabetes mellitus with hyperglycemia blood-glucose meter (FreeStyle Lite Meter kit) As directed 1 ea 0RF E11.65 - Type 2 diabetes mellitus with hyperglycemia lancets (FreeStyle Lancets) As directed check BS QD 100 ea 3RF E11.65 - Type 2 diabetes mellitus with hyperglycemia Coding Level of Care Code Est Pt Level 4 (40812) Diagnoses Renal cell carcinoma C64.9 Type 2 diabetes mellitus with hyperglycemia E11.65 Hypercholesterolemia E78.00 Hypertension I10 Hypothyroid E03.9 Inflammatory arthritis M19.90
== END 2023-11-13 10:46 | disposition home or self-care (01) ==
PROVIDERS: PCP Internal Medicine; Visit Provider Internal Medicine
DX: C64.9 Malignant neoplasm of unspecified kidney, except renal pelvis (principal); E11.65 Type 2 diabetes mellitus with hyperglycemia; E78.00 Pure hypercholesterolemia, unspecified; I10 Essential (primary) hypertension; E03.9 Hypothyroidism, unspecified
CPT/HCPCS: 83036; 99214

== ENCOUNTER 2024-01-09 13:58 | Outpatient (REF) | payer OTHER, SELFPAY ==
[2024-01-09 16:17] LABS: MANUAL DIFF FLAG NO
[2024-01-09 16:26] LABS: Basophils Absolute Auto 0.1 X10*3/uL (0.0-0.2); Basophils Percent Auto 1.3 % (0-2); Eosinophils Absolute Auto 0.2 X10*3/uL (0.0-0.4); Eosinophils Percent Auto 3.2 % (0-4); Hematocrit 48.5 % (42.0-52.0); Hemoglobin 15.6 g/dl (14.0-18.0); Imm Gran Abs Auto 0.02 X10*3/uL (0.00-0.03); Imm Gran Pct Auto 0.3 % (0.0-0.4); Immature Retic Fraction 23.3 % (2.3-13.4); Lymphocytes Absolute Auto 2.2 X10*3/uL (1.2-4.9); Mean Corpuscular HGB Conc 32.2 g/dl (31.0-36.0); Mean Corpuscular Hemoglobin 27.8 pg (27.0-33.0); Mean Corpuscular Volume 86.3 fL (80.0-98.0); Mean Platelet Volume 9.8 fL (9.4-12.4); Monocytes Absolute Auto 0.5 X10*3/uL (0.1-1.2); Monocytes Percent Auto 6.9 % (2-11); Neutrophils Absolute Auto 4.1 x10*3/uL (2.0-8.3); Neutrophils Percent Auto 57.3 % (45-73); Platelet Count 261 X10*3/uL (160-400); Red Blood Count 5.62 X10*6/uL (4.60-5.80); Retic HGB Equivalent 30.2 pg (30.0-35.0); Reticulocytes Absolute 0.123 X10*6/uL (0.026-0.095); White Blood Count 7.1 X10*3/uL (4.8-10.8)
[2024-01-09 16:30] LABS: RET ABN SCTR 1
[2024-01-09 16:34] LABS: Estimated Average Glucose 143 mg/dL; Hemoglobin A1c % 6.6 % (<6.0)
[2024-01-09 16:47] LABS: Alanine Aminotransferase 12 U/L (0-40); Albumin Level 4.2 g/dL (3.5-5.0); Alkaline Phosphatase 79 U/L (39-117); Anion Gap 18 (12-20); Aspartate Amino Transferase 12 U/L (5-37); Bilirubin Total 0.8 mg/dL (0.0-1.0); Blood Urea Nitrogen 13 mg/dL (9-16); C Reactive Protein 3.09 mg/dL (< or = 0.50); Calcium 9.8 mg/dL (8.4-10.2); Carbon Dioxide 23 mmol/L (22-29); Chloride 104 mmol/L (96-108); Cholesterol 154 mg/dL (<200); Estimated Glomerular Filt Rate > 60; Glucose Random 104 mg/dL (60-115); HDL Cholesterol 41 mg/dL (>40); Iron 62 mcg/dL (45-160); LDL Cholesterol Calculated 92 mg/dL (<100); Percent Iron Saturation 20 % (15-50); Potassium 3.8 mmol/L (3.3-5.1); Sodium 141 mmol/L (135-145); Total Iron Binding Capacity 304 mcg/dL (228-428); Total Protein 7.4 g/dL (6.5-8.0); Triglycerides 105 mg/dL (<150); Unsaturated Iron Binding 242 ug/dL
[2024-01-09 17:04] LABS: Ferritin 76 ng/mL (20-250); Free T4 (Free Thyroxine) 1.01 ng/dL (0.71-1.85); Thyroid Stimulating Hormone 4.19 uIU/mL (0.32-4.0)
[2024-01-09 17:05] LABS: Erythrocyte Sedimentation Rate 7 MM/HR (0-15)
[2024-01-09 17:11] LABS: Vitamin B12 292 pg/mL (200-900)
== END 2024-01-09 13:59 | disposition home or self-care (01) ==
LOC: HO.HMGCLDS 13:58
PROVIDERS: PCP Internal Medicine; Referring Provider Student in an Organized Health Care Education/Training Program; Visit Provider Internal Medicine
DX: E78.00 Pure hypercholesterolemia, unspecified (principal); M19.90 Unspecified osteoarthritis, unspecified site
CPT/HCPCS: 36415; 80053; 80061; 82607; 82728; 82746; 83036; 83540; 84439; 84443; 85025; 85045; 85652; 86140

== ENCOUNTER 2024-01-14 08:15 | Outpatient (AMB) | payer OTHER, SELFPAY ==
--- NOTE | 2024-01-14 08:18 | MHC.OFFVIS ---
Vital Signs 01/14/24 08:19 Height 5 ft 6 in Weight 254 lb 13.67 oz BMI 41.1 BP 128/76 Blood Pressure Location Rt brachial Position Sitting Pulse 96 Pulse Source Pulse Oximeter Pulse Oximetry (%) 92 Oxygen Delivery Method Room Air Intake Visit Reasons: iRAE/CM Intake Note: Patient last seen 10/11/23 presents today for follow up and test results. On prednisone 4mg daily, plaquenil bid. Eye appt booked Sales Marketing Manager Required: No Accompanied by: Self / Same As Patient Allergies No Known Allergies Allergy (Verified 01/14/24 08:27) Medication List - Last Reconciled 01/14/24 by Cortez Francois MD ascorbate calcium (vitamin C) 500 mg PO DAILY atorvastatin 10 mg PO BEDTIME blood sugar diagnostic (FreeStyle Lite Strips) As directed check the BS QD blood-glucose meter (FreeStyle Lite Meter kit) As directed ferrous sulfate 325 mg PO DAILY hydroxychloroquine 200 mg PO BID lancets (FreeStyle Lancets) As directed check BS QD metformin 500 mg PO BIDWMEAL prednisone 5 mg PO DAILY HPI Comments Details: 58-year-old male with 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 He has been taking hydroxychloroquine 200 mg Twice daily regularly over the last 3 months and is currently on prednisone 5 mg daily for the last 2 months. States that his joints are much better overall. Denies any swollen joints. States that he just had a repeat CT scan by his oncologist and he will be going back for a follow-up visit. Initial history: This is a 57-year-old male presents for evaluation of multiple joint pain. Per patient has history of kidney cancer with lung metastasis. He is here with his and son. Patient states that he just took oxycodone and he is not very alert. He had a nephrectomy and was receiving (chemo/immunotherapy) until about last year. Per patient it was stopped due to patient being weak. He follows up with Dr. Rodriguez. Since May of last year patient has been having multiple episodes of multiple swollen and tender joints including his wrists, knees, ankles. He went to the hospital multiple times and had knee arthrocentesis twice. No infection was found. It would be treated with prednisone with resolution. States that the prednisone taper works until he is down to 10 mg which does not help much. States that he was diagnosed with diabetes but since his cancer he lost a lot of weight and his diabetes was better controlled. He is not currently on diabetes medications. Patient and his state that currently he has painful and swollen joints every single day. Today he has bilateral wrist, left knee and bilateral ankle pain. He is in a wheelchair. He denies any history of kidney stones. He is unaware of any family history of gout PFSH Medical History Hx of cancer of lung Surgical History History of biopsy History of right nephrectomy Family History Father No problems noted. Mother Breast cancer Social History Housing: House Alcohol intake: unknown Patient Tobacco Use Status: Former Tobacco user Tobacco use type: Cigarette Years Smoked: quit 1999 e-Cigarette/Vaping Use: Never Used Second Hand Smoke Exposure: No Advance Directives Date on File: 02/07/23 service: No Current occupational status: unemployed Cognitive needs: No Hearing needs: No Vision needs: Yes Review of Systems Musc Denies arthralgias and Denies joint swelling Physical Exam Vital Signs: Last Vital Signs Pulse 96 01/14/24 08:19 BP 128/76 01/14/24 08:19 Pulse Ox 92 01/14/24 08:19 Oxygen Delivery Method Room Air 01/14/24 08:19 BMI result Body Mass Index 41.1 Const General: cooperative, healthy appearing and comfortable Nutritional Appearance: overweight Orientation/consciousness: patient oriented x3 HEENT Head: Yes normocephalic and Yes atraumatic Resp Effort & Inspection: normal respiratory effort and able to speak in complete sentences Neuro General: patient oriented x3 Extrem Other: No wrist swelling or tenderness but pain with full flexion and extension Minimal puffy fingers but no tender joints in the hands Normal range of motion of elbows and shoulders without pain No knee swelling or tenderness or pain with range of motion bilaterally No ankle swelling or tenderness bilaterally Results Reviewed Results Reviewed: Laboratory Tests 02/06/23 13:48 Synovial Source Right knee Synovial WBC 19.158 Synovial RBC < 0.002 Synovial Neutrophils 88 Synovial Lymphocytes 4 Synovial Monocytes 2 Synovial Other Cells 6 Synovial Uric Acid 7 Assessment & Plan Assessment & Plan (1) Inflammatory arthritis: Comment: dx 07/2023 HCQ 10/2023 effective Code(s): M19.90 - Unspecified osteoarthritis, unspecified site Category: Medical Plan: This is a 57-year-old male immune check point inhibitor related inflammatory arthritis who presents for follow-up. Doing much better overall on hydroxychloroquine 200 mg Twice daily and prednisone 5 mg daily CRP remains elevated but symptomatically patient is much better. 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 Patient made an appointment with his sales agent protective service Plan I spent 27 minutes reviewing patient's chart, evaluating patient, ordering diagnostic workup, counseling patient and documenting in the chart Orders: Orders Comprehensive Met. Panel 3 Months M19.90 - Unspecified osteoarthritis, unspecified site Erythrocyte Sedimentation Rate 3 Months M19.90 - Unspecified osteoarthritis, unspecified site Complete Blood Count Auto Diff 3 Months M19.90 - Unspecified osteoarthritis, unspecified site C Reactive Protein 3 Months M19.90 - Unspecified osteoarthritis, unspecified site Medications: New prednisone Take 2 tabs daily for 1 month then stay on 1 tab daily 90 tabs 1RF Refilled hydroxychloroquine 200 mg PO BID 180 tabs 1RF Discontinued prednisone Discontinued Reason: Doctor's Order 5 mg PO DAILY 30 tabs 1RF Coding Level of Care Code Est Pt Level 4 (79410) Diagnoses Inflammatory arthritis M19.90 Long-term use of hydroxychloroquine Z79.899
[2024-01-14 08:19] VITALS: BP 128/76; PULSE 96; O2SAT 92; BMI 41.1
== END 2024-01-14 08:39 | disposition home or self-care (01) ==
PROVIDERS: PCP Internal Medicine; Referring Provider Internal Medicine; Visit Provider Student in an Organized Health Care Education/Training Program
DX: M19.90 Unspecified osteoarthritis, unspecified site (principal); Z79.899 Other long term (current) drug therapy
CPT/HCPCS: 99214

== ENCOUNTER → 2024-01-14 08:15 | Outpatient (BNVA) | payer OTHER, SELFPAY | PROVIDERS: PCP Internal Medicine; Visit Provider Student in an Organized Health Care Education/Training Program ==

== ENCOUNTER 2024-03-26 09:50 | Outpatient (AMB) | payer OTHER, SELFPAY ==
[2024-03-26 09:56] VITALS: BP 124/92; PULSE 101; O2SAT 94; BMI 39.7
--- NOTE | 2024-03-26 09:56 | A.OFFPC_ITS ---
Vital Signs 03/26/24 09:56 Height 5 ft 6 in Weight 246 lb BMI 39.7 BP 124/92 H Blood Pressure Location Lt brachial Position Sitting Pulse 101 H Pulse Source Pulse Oximeter Pulse Oximetry (%) 94 Oxygen Delivery Method Room Air Intake Visit Reasons: DM, hx of renal cancer, hypercholesterol Allergies No Known Allergies Allergy (Verified 03/26/24 09:56) Medication List - Last Reconciled 03/26/24 by Nataly Cerda MD ascorbate calcium (vitamin C) 500 mg PO DAILY atorvastatin 10 mg PO BEDTIME blood sugar diagnostic (FreeStyle Lite Strips) As directed check the BS QD blood-glucose meter (FreeStyle Lite Meter kit) As directed ferrous sulfate 325 mg PO DAILY hydroxychloroquine 200 mg PO BID lancets (FreeStyle Lancets) As directed check BS QD lisinopril 5 mg PO DAILY metformin 500 mg PO BIDWMEAL prednisone Take 2 tabs daily for 1 month then stay on 1 tab daily Tobacco use date assessed: 11/13/23 Dental Screening Dental Screen Date: 11/13/23 HPI DM, hx of renal cancer, hypercholesterol HPI Details 58-year-old obese male(noted) 8 lb weigh t loss with a history of renal cell carcinoma diabetes mellitus hypercholesterolemia hypertension hypothyroid and inflammatory arthritis coming in for follow-up. Last seen in November 2023. Review of the notes had a CT scan of the chest in January 2024 showing enlarging left lower pulmonary nodule and several new and enlarging nodules in the abdomen concerning for metastasis. Patient has also followed up with Rheumatology in January for the inflammatory arthritis on prednisone and Plaquenil patient is reminded about Ophthalmology follow-up. January last blood work sed rate has come down good hemoglobin A1c has come down to 6.6 and the cholesterol LDL is low below 100. will see Dr. Rodriguez in the next few weeks. Patient states was on vacation so did not see the Hematology-Oncology it. Patient also complains of the joint pain after the prednisone was decreased but will be follow-up with Rheumatology. Patient has not seen the business account specialist because of financial reasons and discussed the importance of getting the business account specialist to check due to the medication Plaquenil and diabetes problem patient is aware of consequences of the medication but declined to have the Ophthalmology due to financial. [facility] Medical History (Updated 03/26/24 @ 10:25 by Nataly Cerda MD) Pulmonary nodule, left Hx of cancer of lung Surgical History History of biopsy History of right nephrectomy Family History Father No problems noted. Mother Breast cancer Social History Housing: House Alcohol intake: unknown Patient Tobacco Use Status: Former Tobacco user Tobacco use type: Cigarette Years Smoked: quit 1999 e-Cigarette/Vaping Use: Never Used Second Hand Smoke Exposure: No Advance Directives Date on File: 02/07/23 service: No Current occupational status: unemployed Cognitive needs: No Hearing needs: No Vision needs: Yes Questionnaire PHQ-9 Over the last 2 weeks, how often have you been bothered by any of the following problems? 1. Little interest or pleasure in doing things: not at all 2. Feeling down, depressed, or hopeless: several days 3. Trouble falling or staying asleep, or sleeping too much: not at all 4. Feeling tired or having little energy: not at all 5. Poor appetite or overeating: not at all 6. Feeling bad about yourself - or that you are a failure or have let yourself or your family down: not at all 7. Trouble concentrating on things, such as reading the newspaper or watching television: not at all 8. Moving or speaking so slowly that other people could have noticed. Or the op posite - being so fidgety or restless that you have been moving around a lot more than usual: not at all 9. Thoughts that you would be better off or of hurting yourself in some way: not at all Total score: 1 Depression Screening Interpretation: Negative Depression Screening Done: Yes 28281 - PHQ-9 Billing: Yes Source: Developed by Drs. Enrrique Chinchilla, Sujata Baer, Linden Robert and colleagues, with an educational herson from [employer]. Thrive Questionnaire Date Thrive assessed: 11/13/23 AUDIT C Alcohol Use Questionnaire (AUDIT-C) 1. How often do you have a drink containing alcohol?: Monthly or less 2. How many drinks containing alcohol do you have on a typical day when you are drinking?: 1 or 2 3. How often do you have six or more drinks on one occasion?: Never Total Score: 1 BRIT-7 AMB Questionnaire BRIT-7 Date BRIT - 7 assessed: 11/13/23 Feeling nervous, anxious, or on edge: 1 = Several days Not being able to stop or control worryin = Several days Worrying too much about different things: 1 = Several days Trouble relaxin = Not at all Being so restless that it is hard to sit still: 0 = Not at all Becoming easily annoyed or irritable: 0 = Not at all Feeling afraid as if something awful might happen: 0 = Not at all Total BRIT-7 score (0-4 normal; 5-9 mild; 10-14 moderate; 15-21 severe): 3 Source: Developed by Drs. Enrrique Chinchilla, Sujata Baer, Linden Robert and colleagues, with an educational herson from [employer]. Physical exam (Primary Care) Vital Signs: Last Vital Signs Pulse 101 H 03/26/24 09:56 BP 124/92 H 03/26/24 09:56 Pulse Ox 94 03/26/24 09:56 Oxygen Delivery Method Room Air 03/26/24 09:56 BMI result Body Mass Index 39.7 Tobacco/Smoking Status: Tobacco use Status Tobacco use date assessed 11/13/23 03/26/24 09:57 Patient Tobacco Use Status Former Tobacco user 03/26/24 09:57 Tobacco use type Cigarette 03/26/24 09:57 e-Cigarette/Vaping Use Never Used 03/26/24 09:57 PHQ-9: PHQ-9 Score PHQ-9: Total score 1 03/26/24 10:18 Depression Screening Interpretation: Negative Thrive Assessment: Date of Thrive Assessment Date Thrive assessed 11/13/23 03/26/24 09:57 Const General: alert; No acute distress Eyes Conjunctivae: conjunctivae normal Resp Auscultation: clear to auscultation bilaterally Cardio Rate: regular rate Rhythm: regular rhythm GI Inspection: Yes normal to inspection Extrem General: Yes normal to inspection and No edema Assessment and Plan Assessment & Plan (1) Type 2 diabetes mellitus with hyperglycemia: Code(s): E11.65 - Type 2 diabetes mellitus with hyperglycemia Plan: Decrease the amount of carbohydrate intake, pasta, bread, rice and potatoes are all sugar and that is aside from all the sweet stuff, remember that fruits are good but they are Sweet also. Hemoglobin A1c goal of less than 6.5. Patient on metformin 500 mg twice a day (2) Hypercholesterolemia: Code(s): E78.00 - Pure hypercholesterolemia, unspecified Plan: Avoid fried foods, chicken skin, eggs, butter margarine, pastries and meat. Be it pork or beef they have a lot of cholesterol LDL goal of less than 100 and triglyceride of less than 150 on atorvastatin 10 mg at bedtime blood work last done in 01/24/2024 (3) Hypertension: Code(s): I10 - Essential (primary) hypertension Plan: Continue with blood pressure medication. Decrease salt intake and exercise presently not on medication. (4) Renal cell carcinoma: Comment: December 2019 Dr. Richard right nephrectomy Code(s): C64.9 - Malignant neoplasm of unspecified kidney, except renal pelvis Plan: Continue to follow-up with Hematology-Oncology and concerns about pulmonary nodule with abdominal lymphadenopathy. Patient will be seeing the Hematology-On cology next week (5) Hypothyroid: Code(s): E03.9 - Hypothyroidism, unspecified Plan: Advised to monitor and retest. 01/24/2024 last tested (6) Generalized anxiety disorder: Code(s): F41.1 - Generalized anxiety disorder Plan: Stable (7) Inflammatory arthritis: Comment: dx 07/2023 HCQ 10/2023 effective Code(s): M19.90 - Unspecified osteoarthritis, unspecified site Plan: Patient follows up with Rheumatology on Plaquenil and prednisone. Reminded about Ophthalmology evaluation. (8) Abdominal lymphadenopathy: Comment: January 2024 Code(s): R59.0 - Localized enlarged lymph nodes Plan: Concerning of metastasis (9) Pulmonary nodule, left: Comment: 01/24/2024 Code(s): R91.1 - Solitary pulmonary nodule Plan: Concerning of metastasis Medications: New lisinopril 5 mg PO DAILY 30 tabs 4RF I10 - Essential (primary) hypertension Refilled metformin 500 mg PO BIDWMEAL 180 tabs 2RF E11.65 - Type 2 diabetes mellitus with hyperglycemia Coding Level of Care Code Est Pt Level 4 (51942) Complex EM visit Add On G2211 Diagnoses Type 2 diabetes mellitus with hyperglycemia E11.65 Hypercholesterolemia E78.00 Hypertension I10 Renal cell carcinoma C64.9 Hypothyroid E03.9 Generalized anxiety disorder F41.1 Inflammatory arthritis M19.90 Abdominal lymphadenopathy R59.0 Pulmonary nodule, left R91.1
== END 2024-03-26 10:41 | disposition home or self-care (01) ==
PROVIDERS: PCP Internal Medicine; Visit Provider Internal Medicine
DX: E11.65 Type 2 diabetes mellitus with hyperglycemia (principal); E78.00 Pure hypercholesterolemia, unspecified; I10 Essential (primary) hypertension; C64.9 Malignant neoplasm of unspecified kidney, except renal pelvis; E03.9 Hypothyroidism, unspecified; F41.1 Generalized anxiety disorder; M19.90 Unspecified osteoarthritis, unspecified site; R59.0 Localized enlarged lymph nodes; R91.1 Solitary pulmonary nodule
CPT/HCPCS: 99214; G2211

== ENCOUNTER 2024-04-09 11:46 | Outpatient (REF) | payer OTHER, SELFPAY ==
[2024-04-09 13:21] LABS: MANUAL DIFF FLAG NO
[2024-04-09 13:36] LABS: Basophils Absolute Auto 0.1 X10*3/uL (0.0-0.2); Basophils Percent Auto 0.8 % (0-2); Eosinophils Absolute Auto 0.3 X10*3/uL (0.0-0.4); Eosinophils Percent Auto 5.2 % (0-4); Hematocrit 47.6 % (42.0-52.0); Hemoglobin 15.2 g/dl (14.0-18.0); Imm Gran Abs Auto 0.02 X10*3/uL (0.00-0.03); Imm Gran Pct Auto 0.3 % (0.0-0.4); Lymphocytes Absolute Auto 1.9 X10*3/uL (1.2-4.9); Lymphocytes Percent Auto 30.5 % (20-40); Mean Corpuscular HGB Conc 31.9 g/dl (31.0-36.0); Mean Corpuscular Hemoglobin 27.4 pg (27.0-33.0); Mean Corpuscular Volume 85.9 fL (80.0-98.0); Mean Platelet Volume 9.4 fL (9.4-12.4); Monocytes Absolute Auto 0.4 X10*3/uL (0.1-1.2); Monocytes Percent Auto 6.4 % (2-11); Neutrophils Absolute Auto 3.6 x10*3/uL (2.0-8.3); Neutrophils Percent Auto 56.8 % (45-73); Platelet Count 248 X10*3/uL (160-400); Red Blood Count 5.54 X10*6/uL (4.60-5.80); Red Cell Distribution Width 16.3 % (11.0-16.0); White Blood Count 6.3 X10*3/uL (4.8-10.8)
[2024-04-09 13:44] LABS: Alanine Aminotransferase 15 U/L (0-40); Albumin Level 3.8 g/dL (3.5-5.0); Alkaline Phosphatase 81 U/L (39-117); Anion Gap 13 (12-20); Aspartate Amino Transferase 12 U/L (5-37); Bilirubin Total 0.9 mg/dL (0.0-1.0); Blood Urea Nitrogen 11 mg/dL (9-16); C Reactive Protein 3.72 mg/dL (< or = 0.50); Calcium 9.3 mg/dL (8.4-10.2); Carbon Dioxide 25 mmol/L (22-29); Chloride 104 mmol/L (96-108); Estimated Glomerular Filt Rate > 60; Glucose Random 121 mg/dL (60-115); Potassium 4.2 mmol/L (3.3-5.1); Sodium 138 mmol/L (135-145); Total Protein 7.2 g/dL (6.5-8.0)
[2024-04-09 14:12] LABS: Erythrocyte Sedimentation Rate 13 MM/HR (0-15)
== END 2024-04-09 11:47 | disposition home or self-care (01) ==
LOC: HO.HMGCLDS 11:46
PROVIDERS: PCP Internal Medicine; Visit Provider Student in an Organized Health Care Education/Training Program
DX: M19.90 Unspecified osteoarthritis, unspecified site (principal)
CPT/HCPCS: 36415; 80053; 85025; 85652; 86140

== ENCOUNTER 2024-04-15 07:57 | Outpatient (AMB) | payer OTHER, SELFPAY ==
--- NOTE | 2024-04-15 08:03 | MHC.OFFVIS ---
Vital Signs 04/15/24 08:09 Height 5 ft 6 in Weight 249 lb 1.957 oz BMI 40.2 BP 134/72 Blood Pressure Location Rt brachial Position Sitting Pulse 103 H Pulse Source Pulse Oximeter Pulse Oximetry (%) 94 Oxygen Delivery Method Room Air Intake Visit Reasons: iRAE Intake Note: Patient presents for IRAE. Allergies No Known Allergies Allergy (Verified 04/15/24 08:08) Medication List - Last Reconciled 04/15/24 by Cortez Francois MD ascorbate calcium (vitamin C) 500 mg PO DAILY atorvastatin 10 mg PO BEDTIME blood sugar diagnostic (FreeStyle Lite Strips) As directed check the BS QD blood-glucose meter (FreeStyle Lite Meter kit) As directed cabozantinib (Cabometyx) 60 mg PO DAILY ferrous sulfate 325 mg PO DAILY hydroxychloroquine 200 mg PO BID lancets (FreeStyle Lancets) As directed check BS QD lisinopril 5 mg PO DAILY metformin 500 mg PO BIDWMEAL prednisone 2.5 mg PO DAILY HPI Comments Details: 58-year-old male with 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 He is on hydroxychloroquine 20 mg Twice daily and prednisone 2.5 mg daily. He states that he continues to have bilateral wrist pain, slightly worse on the right, bilateral ankle pain especially with activity, intermittent bilateral knee pain generally worse on the right, worse with standing up. Unfortunately his metastatic cancer has recurred and he was started on a new medication very recently Initial history: This is a 57-year-old male presents for evaluation of multiple joint pain. Per patient has history of kidney cancer with lung metastasis. He is here with his and son. Patient states that he just took oxycodone and he is not very alert. He had a nephrectomy and was receiving (chemo/immunotherapy) until about last year. Per patient it was stopped due to patient being weak. He follows up with Dr. Rodriguez. Since May of last year patient has been having multiple episodes of multiple swollen and tender joints including his wrists, knees, ankles. He went to the hospital multiple times and had knee arthrocentesis twice. No infection was found. It would be treated with prednisone with resolution. States that the prednisone taper works until he is down to 10 mg which does not help much. States that he was diagnosed with diabetes but since his cancer he lost a lot of weight and his diabetes was better controlled. He is not currently on diabetes medications. Patient and his state that currently he has painful and swollen joints every single day. Today he has bilateral wrist, left knee and bilateral ankle pain. He is in a wheelchair. He denies any history of kidney stones. He is unaware of any family history of gout [facility] Medical History Pulmonary nodule, left Hx of cancer of lung Surgical History History of biopsy History of right nephrectomy Family History Father No problems noted. Mother Breast cancer Social History Housing: House Alcohol intake: unknown Patient Tobacco Use Status: Former Tobacco user Tobacco use type: Cigarette Years Smoked: quit 1999 e-Cigarette/Vaping Use: Never Used Second Hand Smoke Exposure: No Advance Directives Date on File: 02/07/23 service: No Current occupational status: unemployed Cognitive needs: No Hearing needs: No Vision needs: Yes Review of Systems Musc Reports arthralgias, Reports joint swelling and Reports stiffness Physical Exam Vital Signs: Last Vital Signs Pulse 103 H 04/15/24 08:09 BP 134/72 04/15/24 08:09 Pulse Ox 94 04/15/24 08:09 Oxygen Delivery Method Room Air 04/15/24 08:09 BMI result Body Mass Index 40.2 Const General: cooperative, healthy appearing and comfortable Nutritional Appearance: overweight Orientation/consciousness: patient oriented x3 HEENT Head: Yes normocephalic and Yes atraumatic Resp Effort & Inspection: normal respiratory effort and able to speak in complete sentences Neuro General: patient oriented x3 Extrem Other: Right wrist swelling, no tenderness but pain with flexion-extension Left wrist with no swelling or tenderness but pain with flexion-extension Mildly limited shoulder abduction bilaterally No elbow warmth or pain with full range of motion bilaterally Right knee warmth Assessment & Plan Assessment & Plan (1) Inflammatory arthritis: Comment: dx 07/2023 HCQ 10/2023 effective Code(s): M19.90 - Unspecified osteoarthritis, unspecified site Category: Medical Plan: This is a 58-year-old male immune check point inhibitor (Opdivo) related inflammatory arthritis who presents for follow-up. He is on hydroxychloroquine 200 mg Twice daily and prednisone 2.5 mg daily. Opdivo has been stopped many months ago Overall patient is doing much better since he was started on hydroxychloroquine and prednisone however he continues multiple swollen and tender joints. I think there is room for improvement. We discussed risks and benefits of adding methotrexate. Patient agreed to proceed. However I will have to discuss with his oncologist Dr. Rodriguez first. I called their office and left a message For now Continue hydroxychloroquine 200 mg Twice daily Continue prednisone 2.5 mg daily Labs before next visit in 3 months (2) Long-term use of hydroxychloroquine: Code(s): Z79.899 - Other long term care administrator (current) drug therapy Category: Medical Plan: Discussed risk of retinopathy with hydroxychloroquine. I strongly urged patient to make an appointment with his physical science professor Plan I spent 27 minutes reviewing patient's chart, evaluating patient, ordering diagnostic workup, counseling patient and documenting in the chart Orders: Orders Comprehensive Met. Panel 3 Months M19.90 - Unspecified osteoarthritis, unspecified site Erythrocyte Sedimentation Rate 3 Months M19.90 - Unspecified osteoarthritis, unspecified site Complete Blood Count Auto Diff 3 Months M19.90 - Unspecified osteoarthritis, unspecified site C Reactive Protein 3 Months M19.90 - Unspecified osteoarthritis, unspecified site Medications: Changed From prednisone Take 2 tabs daily for 1 month then stay on 1 tab daily 90 tabs 1RF To prednisone 2.5 mg PO DAILY Coding Level of Care Code Est Pt Level 4 (81041) Diagnoses Inflammatory arthritis M19.90 Long-term use of hydroxychloroquine Z79.899
[2024-04-15 08:09] VITALS: BP 134/72; PULSE 103; O2SAT 94; BMI 40.2
== END 2024-04-15 08:40 | disposition home or self-care (01) ==
PROVIDERS: PCP Internal Medicine; Visit Provider Student in an Organized Health Care Education/Training Program
DX: M19.90 Unspecified osteoarthritis, unspecified site (principal); Z79.899 Other long term (current) drug therapy
CPT/HCPCS: 99214

== ENCOUNTER → 2024-04-15 07:57 | Outpatient (BNVA) | payer OTHER, SELFPAY | PROVIDERS: PCP Internal Medicine; Visit Provider Student in an Organized Health Care Education/Training Program ==

== ENCOUNTER 2024-05-30 06:56 | Inpatient (IN) | payer OTHER, SELFPAY ==
[2024-05-30] VITALS (15 sets, daily range): BP systolic 78–117; BP diastolic 41–78; PULSE 56–128; RESP 15–24; TEMP 36.2–37.4; O2SAT 91–98; BMI 40.1
--- NOTE | 2024-05-30 | ECG_ITS ---
Test Reason : CHECK QTC Blood Pressure : / mmHG Vent. Rate : 113 BPM Atrial Rate : 113 BPM P-R Int : 112 ms QRS Dur : 086 ms QT Int : 468 ms P-R-T Axes : 037 047 050 degrees QTc Int : 641 ms Sinus tachycardia Low voltage QRS Nonspecific T wave abnormality Prolonged QT Abnormal ECG When compared with ECG of 23-MAY-2023 07:53, Nonspecific T wave abnormality no longer evident in Inferior leads Nonspecific T wave abnormality, worse in Lateral leads Referred By: Liz Thompson Electronically Signed By:Romeo Carter
--- NOTE | ~2024-05-30 | XR_ITS ---
EXAMINATION: XR CHEST CLINICAL INFORMATION: Cough, nausea, vomiting R/O pneumonia COMPARISON: X-ray dated May 23, 2023 TECHNIQUE: Frontal view of the chest was obtained. FINDINGS: No consolidation, pleural effusion or pneumothorax. No hyperinflation. Cardiomediastinal silhouette is normal in size. Right-sided Port-A-Cath remains in unchanged position tip ends at the SVC. Osseous structures are intact. XR/XR chest 1V IMPRESSION: No acute airspace disease. Stable. Electronically signed by: Jarrett García MD 05/30/2024 08:51 AM EDT
--- NOTE | ~2024-05-30 | CT_ITS ---
EXAMINATION: CT ANGIOGRAM CHEST CLINICAL INFORMATION: Shortness of breath and hypoxia COMPARISON: None available. TECHNIQUE: Multiple axial images were obtained through the chest after the administration of 65 mL of Omnipaque 350 intravenous contrast. Extensive vascular post-processing including two-dimensional and three-dimensional reformatted images were created and reviewed on an independent workstation. This CT examination was performed using dose optimization techniques as appropriate, variously including the following: *Automated exposure control *Adjustment of mA and/or kV according to patient size (this includes techniques or standardized protocols for targeted exams where dose is matched to indication/reason for exam; i.e. extremities or head) *Use of iterative reconstruction technique DLP: 360 mGy-cm FINDINGS: Vascular: There is good opacification of pulmonary artery and its branches without intraluminal filling defect or defect or narrowing. The thoracic aorta is of normal caliber. Three-vessel branching of the aortic arch with heart atherosclerotic plaque at the origin of left subclavian artery. Nonvascular: The central trachea and the bronchi are widely patent. Thyroid lobes are symmetrical. No abnormal sized mediastinal or hilar lymph nodes seen. Heart size is normal. No pericardial or pleural effusion seen. There is minimal bibasilar dependent pleural thickening. The lungs are well-expanded with a 5 mm ill-defined opacity right upper lobe axial image 26/6. No acute pneumonic process seen. Minimal atelectatic changes seen in the right lung base. The axilla and chest wall is unremarkable. CT/CT angio chest PE protocol IMPRESSION: 1. No evidence of PE. 2. No evidence of aortic dissection or aneurysm. 3. 5 mm ill-defined opacity right upper lobe. Fleischner guidelines were followed. Electronically signed by: Jorge Courtney MD 06/01/2024 03:15 PM EDT
--- NOTE | ~2024-05-30 | CT_ITS ---
EXAMINATION: CT ABDOMEN AND PELVIS WITHOUT CONTRAST CLINICAL INFORMATION: Right nephrectomy. Renal cancer. Right flank pain. Nausea and vomiting. COMPARISON: Abdominal ultrasound dated 10/02/2019. TECHNIQUE: Multidetector volumetric imaging was performed from the superior aspect of the liver through the pubic symphysis. Sagittal and coronal reformatted images were obtained on the technologist's workstation. This CT examination was performed using dose optimization techniques as appropriate, variously including the following: *Automated exposure control *Adjustment of mA and/or kV according to patient size (this includes techniques or standardized protocols for targeted exams where dose is matched to indication/reason for exam; i.e. extremities or head) *Use of iterative reconstruction technique DLP: 1077 mGy-cm FINDINGS: LUNG BASES: The visualized lung bases are unremarkable. LIVER, GALLBLADDER, AND BILIARY TREE: The liver is normal in size, shape, and attenuation. No focal hepatic lesion or biliary ductal dilatation is present. The gallbladder is unremarkable with no evidence of radiopaque gallstones, gallbladder wall thickening, or obvious pericholecystic inflammatory changes. PANCREAS: Unremarkable. SPLEEN: Unremarkable. ADRENAL GLANDS: Unremarkable. KIDNEYS AND URETERS: The right kidney is surgically absent. No recurrent mass or fluid collection in the right renal fossa. Stable left renal mid pole cyst, unchanged when compared to the ultrasound from 2019. Normal left renal contour. No new parenchymal lesion. No left-sided renal or ureteral stone. No left-sided hydronephrosis or hydroureter. BLADDER: Unremarkable. GASTROINTESTINAL TRACT: No small or large bowel obstruction. There are a few scattered sigmoid diverticula. No evidence of diverticulitis. No bowel wall thickening or inflammatory change. Unremarkable appendix. PERITONEAL CAVITY: No intra-abdominal free air or free fluid. No intra-abdominal mass or organized fluid collection/abscess formation. ABDOMINAL WALL: No significant hernia is appreciated. LYMPH NODES: No significant lymphadenopathy. VASCULAR: No abdominal aortic dilatation. Scattered atherosclerotic calcifications. PELVIC VISCERA: Small prostate calcifications. OSSEOUS STRUCTURES: Unremarkable. CT/CT abdomen pelvis wo IV con IMPRESSION: 1. Status post right nephrectomy. No recurrent mass or fluid collection in the right renal fossa. 2. No new intra-abdominal mass, lymphadenopathy, or ascites. 3. Diverticulosis without evidence of acute diverticulitis. No small or large bowel obstruction. Unremarkable appendix. Fleischner guidelines were followed. Electronically signed by: Magen Blackburn MD 05/30/2024 11:11 AM EDT
--- NOTE | 2024-05-30 07:32 | PC.NURSE ---
changed patient over into hospital attire, belongings on the back of stretcher, patient in room. patient is vague with answers, states he does not want to take his medications because they make him poop a lot. patient states he has not gotten out of bed, wont eat and will not take meds. patient appears to disheveled, no acute distress noted.
--- NOTE | 2024-05-30 08:18 | ED.GENADULT ---
HPI - General Adult General Chief complaint: Psychiatric Symptoms Stated complaint: Gen Med Time Seen by Provider: 05/30/24 07:19 Source: patient and family () Mode of arrival: ambulatory Limitations: no limitations History of Present Illness ED Provider: Dr. Griffin Okeefe HPI narrative: 58-year-old male history of Stave IV lung cancer-right nephrectomy, T2DM, OA, HTN, hypercholesterolemia, KAYLYN presenting to the emergency department with complaint abdominal pain, nausea, vomiting, diarrhea, lack of appetite, lethargy with increased sleepiness and not showering for 2 weeks. The patient was diagnosed with right kidney cancer 2 years prior and had a nephrectomy. According the patient had recurrence of his right-sided renal cancer in February of 2024 and was seen by an oncologist at [facility]. Patient has been taking Cabometyx (cabozantinib) daily for 2 months but he states that this medication has been giving him diarrhea. According to his he stopped all of his medications a proximally 2 weeks prior. The patient has been sleeping and not getting out of bed in his not showered for 2 weeks. The patient denied being suicidal but he states that he does not see the point of taking his medications anymore. He states he does not want to talk to the care team at this time. Denies being actively suicidal. Patient's states she was having difficulty caring for him at home and is requesting case management consult. Related Data Home Medications ?Medication ?Instructions ?Recorded ?Confirmed cabozantinib 60 mg tablet 60 mg PO DAILY 04/15/24 04/15/24 (Cabometyx) prednisone 2.5 mg tablet 2.5 mg PO DAILY 04/15/24 04/15/24 Previous Rx's ?Medication ?Instructions ?Recorded ascorbate calcium (vitamin C) 500 500 mg PO DAILY #30 tabs 08/09/23 mg tablet blood sugar diagnostic (FreeStyle #100 ea 11/13/23 Lite Strips) blood-glucose meter (FreeStyle #1 ea 11/13/23 Lite Meter kit) lancets 28 gauge (FreeStyle #100 ea 11/13/23 Lancets) hydroxychloroquine 200 mg tablet 200 mg PO BID #180 tabs 01/14/24 lisinopril 5 mg tablet 5 mg PO DAILY #30 tabs 03/26/24 metformin 500 mg tablet 500 mg PO BIDWMEAL #180 tabs 03/26/24 ferrous sulfate 325 mg (65 mg 325 mg PO DAILY #90 tabs 04/02/24 iron) tablet folic acid 1 mg tablet 1 mg PO DAILY #90 tabs 04/15/24 methotrexate sodium 2.5 mg tablet See Rx Instructions PO QWEEK #64 04/15/24 tabs atorvastatin 10 mg tablet 10 mg PO BEDTIME #90 tabs 05/10/24 Allergies Allergy/AdvReac Type Severity Reaction Status Date / Time No Known Allergies Allergy Verified 05/30/24 07:06 [facility] Past Medical History [facility] Narrative: Social history: He lives at home with his . Medical History Pulmonary nodule, left Hx of cancer of lung Surgical History History of biopsy History of right nephrectomy Family History Family History Father No problems noted. Mother Breast cancer Social History Social History Housing: House Alcohol intake: unknown Patient Tobacco Use Status: Former Tobacco user Tobacco use type: Cigarette Years Smoked: quit 2000 Smoked in Last 30 Days: No e-Cigarette/Vaping Use: Never Used Second Hand Smoke Exposure: No Advance Directives: Yes Advance Directives on File: Yes Advance Directives Date on File: 02/07/23 service: No Current occupational status: unemployed Cognitive needs: No Hearing needs: No Vision needs: Yes Physical Exam ED Vital Signs: Vital Signs - 24 hr 05/30/24 07:03 05/30/24 09:17 05/30/24 09:58 Temperature 98.5 F 99.3 F Pulse Rate 128 H 125 H Respiratory Rate 22 H 15 18 Blood Pressure 104/78 117/68 Pulse Oximetry 97 97 Oxygen Delivery Method Room Air Room Air Oxygen Flow Rate 05/30/24 09:59 05/30/24 11:09 05/30/24 12:32 Temperature 99.4 F 98.3 F Pulse Rate 123 H 56 127 H Respiratory Rate 18 16 16 Blood Pressure 117/68 114/61 103/53 L Pulse Oximetry 97 97 96 Oxygen Delivery Method Nasal Cannula Nasal Cannula Aerosol Mask Oxygen Flow Rate 3 5 3 05/30/24 13:30 05/30/24 13:31 05/30/24 13:50 Temperature Pulse Rate Respiratory Rate Blood Pressure 85/51 L 78/53 L 87/41 L Pulse Oximetry Oxygen Delivery Method Oxygen Flow Rate 05/30/24 14:14 05/30/24 14:25 Temperature 98.0 F Pulse Rate 117 H 119 H Respiratory Rate 18 24 H Blood Pressure 86/55 L 101/65 Pulse Oximetry 98 94 Oxygen Delivery Method Nasal Cannula Oxygen Flow Rate 2 BMI result Body Mass Index 40.1 Vital signs revealed an elevated heart rate of 128, elevated respiratory rate of 22 Exam: General: Awake, alert, appears depressed, has a strong ketotic odor to his breath, answers questions appropriate Head: Normocephalic, atraumatic EENT: PERRL, Lids normal, sclera normal, conjunctiva normal, nose normal , ears normal, throat without erythema or exudates, very dry mucous membranes Neck: Supple, no adenopathy Lung: breath sounds symmetric, no wheezing, rales or rhonchi Chest: symmetric movement, nontender Heart: regular rate and rhythm, normal S1, S2 no murmurs or rubs Abdomen: soft, diffuse abdominal tenderness with moderate right lower and right upper quadrant tenderness, abdomen appears to be distended, normal bowel sounds Back: no vertebral tenderness, no CVAT Extremities: no deformities, moves all extremities symmetrically Neuro: Awake, alert, oriented, normal speech, cranial nerves intact, moves all extremities symmetrically Psych: Appears depressed Medications Administered Discontinued Medications Generic Name Dose Route Start Last Admin Trade Name Freq PRN Reason Stop Dose Admin Sodium Chloride 1,000 mls @ 999 mls/hr 05/30/24 08:35 05/30/24 10:13 Ns IV 05/30/24 09:35 Infused .Q1H1M STA Infusion Lactated Ringer's 1,000 mls @ 999 mls/hr 05/30/24 13:30 05/30/24 13:43 Lr IV 05/30/24 14:30 999 mls/hr .Q1H1M ZOEY Administration Morphine Sulfate 4 mg 05/30/24 08:56 05/30/24 09:21 Morphine Sulfate 4 Mg/Ml Cartridge IVPUSH 05/30/24 08:57 4 mg ONCE STA Administration Protocol Ondansetron HCl 4 mg 05/30/24 08:35 05/30/24 09:21 Ondansetron Hcl 4 Mg/2 Ml Vial IVPUSH 05/30/24 08:36 4 mg ONCE ONE Administration Medical Decision Making Medical Decision Making [facility] Narrative: 58-year-old male history of Stave IV lung cancer-right nephrectomy, T2DM, OA, HTN, hypercholesterolemia, KAYLYN presenting to the emergency department with complaint abdominal pain, nausea, vomiting, diarrhea, lack of appetite, lethargy with increased sleepiness and not eating or showering for 2 weeks very poor fluid intake x2 weeks. Patient had recurrence of his renal cancer on the right in February of 2024 in his taking Cabometyx orally for 2 month, patient states that this has been giving him diarrhea and he stopped this medication all of his other medications for 2 weeks. Vital signs revealed an elevated heart rate and elevated respiratory rate. Patient was a strong ketotic odor to his mouth and has very dry mucous membranes. Patient has diffuse abdominal tenderness with increased right-sided tenderness. Abdomen also appears to be distended. Differential diagnosis: ?Includes but is not limited to ABD pain secondary to renal cell cancer, bowel obstruction, pneumonia, starvation ketosis, dehydration, volume depletion, depression, anxiety Course: 08:56 Patient was initially treated with normal saline IV x1 L, morphine 4 mg IV, Zofran 4 mg IV 14:38 My interpretation patient's laboratory evaluation as follows WBC low 4100. Platelet count low 141,000. PT INR elevated 23.7 and 2.0. PH was normal at 7.43. Sodium elevated 133. Bicarb low 21. Lactic elevated 2.5-most likely secondary to starvation ketosis not related to infectious process. T bili elevated 2.8. AST and ALT elevated 94 and 92 CK elevated 340. Albumin and total protein low 2.7 and 5.8-consistent with malnutrition. Lipase normal. COVID-19, influenza, RSV were negative. TSH was elevated 8.24 with a normal free T4 of 1.0. Beta hydroxybutyrate elevated at 3.74 again consistent with starvation ketosis CT scan of the abdomen pelvis with IV contrast revealed no significant abnormalities Patient's blood pressures have been low most likely secondary to dehydration and volume depletion. He did get improvement with IV fluid. Patient has not been taking his medications, he is weak secondary to malnutrition/starvation from not eating for the past 2 weeks. The patient may have depression however I do not think that he was medically cleared until he was eating and drinking normally therefore the patient will need to be admitted for further treatment. I did discuss admission over tiger text with the covering hospitalist, Dr. Andino. Admission/Observation Consideration of admission/observation: Escalation of care including admission/observation considered (Yes) Consult Healthcare Provider Management of the patient was discussed with: Hospitalist (Dr. Carter) Lab Data MDM Lab Attestation statement: I reviewed the patient's lab results. 05/30/24 09:08 05/30/24 09:08 Labs: Lab Results 05/30/24 05/30/24 05/30/24 Range/Units 09:08 09:17 11:44 WBC 4.1 L (4.8-10.8) X10*3/uL RBC 5.67 (4.60-5.80) X10*6/uL Hgb 16.3 (14.0-18.0) g/dl Hct 46.6 (42.0-52.0) % MCV 82.2 (80.0-98.0) fL MCH 28.7 (27.0-33.0) pg MCHC 35.0 (31.0-36.0) g/dl RDW 19.9 H (11.0-16.0) % Plt Count 141 L D (160-400) X10*3/uL MPV 9.6 (9.4-12.4) fL Immature Gran % (Auto) 0.2 (0.0-0.4) % Neut % (Auto) 45.5 (45-73) % Lymph % (Auto) 33.8 (20-40) % [place] % (Auto) 13.2 H (2-11) % Eos % (Auto) 6.1 H (0-4) % Baso % (Auto) 1.2 (0-2) % Lymph # (Auto) 1.4 (1.2-4.9) X10*3/uL [place] # (Auto) 0.5 (0.1-1.2) X10*3/uL Eos # (Auto) 0.3 (0.0-0.4) X10*3/uL Baso # (Auto) 0.1 (0.0-0.2) X10*3/uL Abs Immat Gran (auto) 0.01 (0.00-0.03) X10*3/uL Absolute Neuts (auto) 1.9 L (2.0-8.3) x10*3/uL Absolute Nucleated RBC 0.000 (0.0-0.012) X10*3/uL Nucleated RBC % (auto) 0.0 (0.0-0.2) /100WBC PT 23.7 H (10.9-12.4) SEC INR 2.0 H (0.9-1.1) APTT 29.7 (26.0-36.8) SEC VBG pH 7.43 (7.32-7.43) VBG pCO2 31 mmHg VBG pO2 46 mmHg VBG HCO3 21 L (22-26) mmol/L VBG O2 Saturation 78.0 % VBG Base Excess -1.9 mmol/L Sodium 133 L (135-145) mmol/L Potassium 3.4 (3.3-5.1) mmol/L Chloride 98 (96-108) mmol/L Carbon Dioxide 21 L (22-29) mmol/L Anion Gap 17 (12-20) BUN 5 L (9-16) mg/dL Creatinine 1.08 (0.5-1.4) mg/dL Estim Creat Clear Calc 91.9 Estimated GFR > 60 Random Glucose 100 (60-115) mg/dL Lactic Acid 2.5 H* (0.5-2.0) mmol/L Lactic Acid F/U @ 2Hr 2.1 H* (0.5-2.0) mmol/L Lactic Acid F/U @ 4Hr (0.5-2.0) mmol/L Calcium 7.7 L D (8.4-10.2) mg/dL Magnesium 1.7 (1.6-2.6) mg/dL Total Bilirubin 2.8 H (0.0-1.0) mg/dL AST 94 H (5-37) U/L ALT 92 H (0-40) U/L Alkaline Phosphatase 100 (39-117) U/L Total Creatine Kinase 340 H (38-174) U/L Total Protein 5.8 L (6.5-8.0) g/dL Albumin 2.7 L (3.5-5.0) g/dL Lipase 12 (8-78) U/L Beta-Hydroxybutyrate 3.74 H (0.02-0.27) mmol/L TSH 8.29 H (0.32-4.0) uIU/mL Free T4 1.04 (0.71-1.85) ng/dL Ethyl Alcohol < 10 mg/dL Influenza Type A (PCR) NEGATIVE (Negative) Influenza Type B (PCR) NEGATIVE (Negative) RSV RNA Qual (PCR) NEGATIVE (Negative) SARS-CoV-2 RNA (RT-PCR) NEGATIVE (Negative) 05/30/24 Range/Units 14:03 WBC (4.8-10.8) X10*3/uL RBC (4.60-5.80) X10*6/uL Hgb (14.0-18.0) g/dl Hct (42.0-52.0) % MCV (80.0-98.0) fL MCH (27.0-33.0) pg MCHC (31.0-36.0) g/dl RDW (11.0-16.0) % Plt Count (160-400) X10*3/uL MPV (9.4-12.4) fL Immature Gran % (Auto) (0.0-0.4) % Neut % (Auto) (45-73) % Lymph % (Auto) (20-40) % [place] % (Auto) (2-11) % Eos % (Auto) (0-4) % Baso % (Auto) (0-2) % Lymph # (Auto) (1.2-4.9) X10*3/uL [place] # (Auto) (0.1-1.2) X10*3/uL Eos # (Auto) (0.0-0.4) X10*3/uL Baso # (Auto) (0.0-0.2) X10*3/uL Abs Immat Gran (auto) (0.00-0.03) X10*3/uL Absolute Neuts (auto) (2.0-8.3) x10*3/uL Absolute Nucleated RBC (0.0-0.012) X10*3/uL Nucleated RBC % (auto) (0.0-0.2) /100WBC PT (10.9-12.4) SEC INR (0.9-1.1) APTT (26.0-36.8) SEC VBG pH (7.32-7.43) VBG pCO2 mmHg VBG pO2 mmHg VBG HCO3 (22-26) mmol/L VBG O2 Saturation % VBG Base Excess mmol/L Sodium (135-145) mmol/L Potassium (3.3-5.1) mmol/L Chloride (96-108) mmol/L Carbon Dioxide (22-29) mmol/L Anion Gap (12-20) BUN (9-16) mg/dL Creatinine (0.5-1.4) mg/dL Estim Creat Clear Calc Estimated GFR Random Glucose (60-115) mg/dL Lactic Acid (0.5-2.0) mmol/L Lactic Acid F/U @ 2Hr (0.5-2.0) mmol/L Lactic Acid F/U @ 4Hr 2.4 H* (0.5-2.0) mmol/L Calcium (8.4-10.2) mg/dL Magnesium (1.6-2.6) mg/dL Total Bilirubin (0.0-1.0) mg/dL AST (5-37) U/L ALT (0-40) U/L Alkaline Phosphatase (39-117) U/L Total Creatine Kinase (38-174) U/L Total Protein (6.5-8.0) g/dL Albumin (3.5-5.0) g/dL Lipase (8-78) U/L Beta-Hydroxybutyrate (0.02-0.27) mmol/L TSH (0.32-4.0) uIU/mL Free T4 (0.71-1.85) ng/dL Ethyl Alcohol mg/dL Influenza Type A (PCR) (Negative) Influenza Type B (PCR) (Negative) RSV RNA Qual (PCR) (Negative) SARS-CoV-2 RNA (RT-PCR) (Negative) Independent Interpretation I performed an independent interpretation of an: Plain X-Ray Interpretation: My interpretation patient's chest x-ray is as follows: No acute disease Radiology Impression Discussion of test interpretation with radiology: I have reviewed the radiologist's reading. Radiologist Impression: CT abdomen pelvis wo IV con IMPRESSION: 1. Status post right nephrectomy. No recurrent mass or fluid collection in the right renal fossa. 2. No new intra-abdominal mass, lymphadenopathy, or ascites. 3. Diverticulosis without evidence of acute diverticulitis. No small or large bowel obstruction. Unremarkable appendix. Fleischner guidelines were followed. Electronically signed by: Magen Blackburn MD 05/30/2024 11:11 AM XR chest 1V IMPRESSION: No acute airspace disease. Stable. Electronically signed by: Jarrett García MD 05/30/2024 08:51 AM Independent Historian Clinical information obtained from an independent historian. History obtained from or confirmed by: Spouse Chronic Conditions Patient?s care impacted by: Diabetes and Hypertension Critical Care Time Critical Care Time Critical Care Time: Yes Total Critical Care Time: 45 Attestation: Critical Care: The patient was critically ill with a high probability of imminent or life threatening deterioration. I spent greater than 30 minutes of discontinuous time evaluating the patient,delivering critical care at the bedside, discussing and evaluating pertinent data with consultants. Critical care time does not include time spent performing separately billable procedures or teaching. Total time spent performing critical care was 45 minutes. Discharge Plan Discharge Clinical Impression: Adult failure to thrive, Starvation ketoacidosis, Weakness, Volume depletion Patient Disposition: Admitted As Inpatient Prescriptions: No Action ferrous sulfate 325 mg (65 mg iron) tablet 325 mg PO DAILY Qty: 90 0RF atorvastatin 10 mg tablet 10 mg PO BEDTIME Qty: 90 1RF ascorbate calcium (vitamin C) 500 mg tablet 500 mg PO DAILY Qty: 30 4RF (DME) blood-glucose meter [FreeStyle Lite Meter] Kit See Rx Instructions .ROUTE .MEDSUPPLY Qty: 1 0RF Rx Instructions: As directed (DME) FreeStyle Lite Strips Strip See Rx Instructions .ROUTE .MEDSUPPLY Qty: 100 3RF Rx Instructions: As directed check the BS QD (DME) lancets [FreeStyle Lancets] 28 gauge misc See Rx Instructions .ROUTE .MEDSUPPLY Qty: 100 3RF Rx Instructions: As directed check BS QD metformin 500 mg tablet 500 mg PO BIDWMEAL Qty: 180 2RF lisinopril 5 mg tablet 5 mg PO DAILY Qty: 30 4RF Cabometyx 60 mg tablet 60 mg PO DAILY prednisone 2.5 mg tablet 2.5 mg PO DAILY methotrexate sodium 2.5 mg tablet See Rx Instructions PO QWEEK Qty: 64 0RF Rx Instructions: Take 6 tabs once weekly for 2 weeks then 8 tabs once weekly folic acid 1 mg tablet 1 mg PO DAILY Qty: 90 0RF hydroxychloroquine 200 mg tablet 200 mg PO BID Qty: 180 1RF Print Language: Nicaraguan
[2024-05-30] MEDS: 0.9 % Sodium Chloride 1,000 ML 999 ML IV (09:11)
[2024-05-30 09:14] LABS: MANUAL DIFF FLAG NO
[2024-05-30 09:17] LABS: Basophils Absolute Auto 0.1 X10*3/uL (0.0-0.2); Basophils Percent Auto 1.2 % (0-2); Eosinophils Absolute Auto 0.3 X10*3/uL (0.0-0.4); Eosinophils Percent Auto 6.1 % (0-4); Hematocrit 46.6 % (42.0-52.0); Hemoglobin 16.3 g/dl (14.0-18.0); Imm Gran Abs Auto 0.01 X10*3/uL (0.00-0.03); Imm Gran Pct Auto 0.2 % (0.0-0.4); Lymphocytes Absolute Auto 1.4 X10*3/uL (1.2-4.9); Lymphocytes Percent Auto 33.8 % (20-40); Mean Corpuscular Hemoglobin 28.7 pg (27.0-33.0); Mean Corpuscular Volume 82.2 fL (80.0-98.0); Mean Platelet Volume 9.6 fL (9.4-12.4); Monocytes Absolute Auto 0.5 X10*3/uL (0.1-1.2); Monocytes Percent Auto 13.2 % (2-11); Neutrophils Absolute Auto 1.9 x10*3/uL (2.0-8.3); Neutrophils Percent Auto 45.5 % (45-73); Platelet Count 141 X10*3/uL (160-400); Red Blood Count 5.67 X10*6/uL (4.60-5.80); Red Cell Distribution Width 19.9 % (11.0-16.0); White Blood Count 4.1 X10*3/uL (4.8-10.8)
[2024-05-30 09:20] LABS: VBG Base Excess -1.9 mmol/L; VBG HCO3 21 mmol/L (22-26); VBG pCO2 31 mmHg; VBG pH 7.43 (7.32-7.43); VBG pO2 46 mmHg
[2024-05-30 09:20] LABS: Venous Blood Gas Refer to POC result
[2024-05-30] MEDS: Morphine Sulfate 4 MG/ML CARTRIDGE IVPUSH (09:21)
[2024-05-30] MEDS: ondansetron HCL 4 MG/2 ML VIAL IVPUSH (09:21)
[2024-05-30 09:29] LABS: Beta-Hydroxybutyrate 3.74 mmol/L (0.02-0.27)
[2024-05-30 09:35] LABS: Lactic Acid 2.5 mmol/L (0.5-2.0)
[2024-05-30 09:39] LABS: Alanine Aminotransferase 92 U/L (0-40); Albumin Level 2.7 g/dL (3.5-5.0); Alkaline Phosphatase 100 U/L (39-117); Anion Gap 17 (12-20); Aspartate Amino Transferase 94 U/L (5-37); Bilirubin Total 2.8 mg/dL (0.0-1.0); Blood Urea Nitrogen 5 mg/dL (9-16); Calcium 7.7 mg/dL (8.4-10.2); Carbon Dioxide 21 mmol/L (22-29); Chloride 98 mmol/L (96-108); Creatinine Clr Calc Pharmacy 91.9; Estimated Glomerular Filt Rate > 60; Ethanol < 10 mg/dL; Glucose Random 100 mg/dL (60-115); Lipase 12 U/L (8-78); Magnesium 1.7 mg/dL (1.6-2.6); Potassium 3.4 mmol/L (3.3-5.1); Sodium 133 mmol/L (135-145); Total Protein 5.8 g/dL (6.5-8.0)
[2024-05-30 09:40] LABS: Prothrombin Time 23.7 SEC (10.9-12.4)
[2024-05-30 09:43] LABS: Partial Thromboplastin Time 29.7 SEC (26.0-36.8)
[2024-05-30 09:53] LABS: TSH reflex Free T4 8.29 uIU/mL (0.32-4.0)
[2024-05-30 09:56] LABS: Influenza A PCR NEGATIVE (Negative); Influenza B PCR NEGATIVE (Negative); Resp Syncy Virus RNA Qual PCR NEGATIVE (Negative); SARS COV2 PCR INHOUSE NEGATIVE (Negative)
[2024-05-30 10:36] LABS: Free T4 (Free Thyroxine) 1.04 ng/dL (0.71-1.85)
--- NOTE | 2024-05-30 10:58 | PC.NURSE ---
Pt sinus tach on court monitor, 120s-130s. Tech notified this RN of pt having rhythm change. MD Okeefe made aware.
[2024-05-30 11:13] LABS: Reflex Lactate? Lactic Acid Added
--- NOTE | 2024-05-30 11:37 | PC.NURSE ---
Pt port no longer has blood return. Flushing okay. MD Okeefe made aware and okayed.
[2024-05-30 12:00] LABS: ~Lactic Acid-LAB USE ONLY 2.1 mmol/L (0.5-2.0)
--- NOTE | 2024-05-30 13:31 | MHC.EDTECH ---
rn aware of pt bp
[2024-05-30] MEDS: Lactated Ringers 1,000 ML 999 ML IV (13:43)
[2024-05-30 13:46] LABS: Reflex Lactate? 2 Y
--- NOTE | 2024-05-30 13:52 | PC.NURSE ---
Pt BPs noted to be 80s/50s after taken multiple times on bilateral arms. MD lance made aware of low BP. Verbal order to hang 1L LR. LR running at this time, BP cycling q10 min. at bedside, call wilson within reach, all needs met at this time.
[2024-05-30 14:25] LABS: ~Lactic Acid-LAB USE ONLY 2.4 mmol/L (0.5-2.0)
[2024-05-30] MEDS: Dextrose 5 % and Lactated Ring 1,000 ML 80 ML IVCONT (15:30)
--- NOTE | 2024-05-30 15:31 | P.HPHOSP_ITS ---
History of Present Illness Date of Service: 05/30/24 Attending physician on admission: Loc Carter Chief Complaint: weakness Patient is a is a 58-year-old male with a past medical history significant for stage IV lung cancer, history of right renal cancer status post nephrectomy, type 2 diabetes, RA, hypertension, HLD, KAYLYN (no CPAP), who presented to the ED today due to weakness, abdominal pain, nausea, vomiting, diarrhea and decreased appetite. He has not been eating or showering for the past 2 weeks due to lethargy. His reports that she just found out earlier this week that he has not been taking any of his medications for the past 2 weeks due to diarrhea. He spoke with his oncologist regarding this with his cabozantinib and Imodium did not help, but they still persist even after stopping all medications. He has had very poor oral intake and has had a few cups of Pedialyte, refuses protein shakes or any food. Nausea and vomiting have improved. He also describes some dizziness. Review of Systems 2 Constitutional: Constitutional: Reports daytime sleepiness, Reports fatigue, Reports headache(s), Reports lethargy and Reports weakness Eyes: Eyes: Denies change in vision ENT: Reports dizziness, Reports headache(s), Denies nasal congestion and Denies sore throat Cardiovascular: Cardiovascular: Denies rapid heart rate, Reports lightheadedness and Denies dyspnea Respiratory: Respiratory: Denies cough and Denies dyspnea Gastrointestinal: Gastrointestinal: Denies constipation, Reports diarrhea, Reports nausea and Reports vomiting Genitourinary: Genitourinary: Denies dysuria Musculoskeletal: Musculoskeletal: Reports muscle weakness Integumentary/Breasts: Skin/Breast: Denies rash Neurologic: Reports dizziness, Reports headache(s) and Reports weakness Endocrine: Endocrine: Reports fatigue [facility] Medical History Pulmonary nodule, left Hx of cancer of lung Family History Father No problems noted. Mother Breast cancer Surgical History History of biopsy History of right nephrectomy Social History Housing: House Alcohol intake: unknown Patient Tobacco Use Status: Former Tobacco user Tobacco use type: Cigarette Years Smoked: quit 2000 Smoked in Last 30 Days: No e-Cigarette/Vaping Use: Never Used Second Hand Smoke Exposure: No Advance Directives: Yes Advance Directives on File: Yes Advance Directives Date on File: 02/07/23 service: No Current occupational status: unemployed Cognitive needs: No Hearing needs: No Vision needs: Yes Meds Allergies Allergy/AdvReac Type Severity Reaction Status Date / Time No Known Allergies Allergy Verified 05/30/24 07:06 Active Medications: Current Medications Dextrose/Lactated Ringer's (D5lr) 1,000 mls @ 80 mls/hr IVCONT .[id number] Home Medications ?Medication ?Instructions ?Recorded ?Confirmed ?Last Taken ?Type cabozantinib 60 mg tablet 60 mg PO DAILY 04/15/24 04/15/24 Unknown History (Cabometyx) prednisone 2.5 mg tablet 2.5 mg PO DAILY 04/15/24 04/15/24 Unknown History Physical Exam 2 Vital Signs and Narrative: Vital Signs: Last Vital Signs Temp 98.0 F 05/30/24 14:14 Pulse 119 H 05/30/24 14:25 Resp 24 H 05/30/24 14:25 BP 102/62 05/30/24 14:54 Pulse Ox 94 05/30/24 14:25 O2 Del Method Nasal Cannula 05/30/24 14:25 O2 Flow Rate 2 05/30/24 14:25 BMI result Body Mass Index 40.1 General: AOx3, no acute distress, with sister and bedside Resp: CTA bilaterally CVS: S1, S2, RRR GI: +BS, tender LLQ, no distention Skin: Warm, dry Extremities: No edema Psych: Depressed affect Results Labs 05/30/24 09:08 05/30/24 09:08 Labs: Laboratory Results - last 24 hr 05/30/24 05/30/24 05/30/24 09:08 09:17 11:44 MCV 82.2 MCH 28.7 MCHC 35.0 RDW 19.9 H Plt Count 141 L D MPV 9.6 Immature Gran % (Auto) 0.2 Neut % (Auto) 45.5 Lymph % (Auto) 33.8 [place] % (Auto) 13.2 H Eos % (Auto) 6.1 H Baso % (Auto) 1.2 Lymph # (Auto) 1.4 [place] # (Auto) 0.5 Eos # (Auto) 0.3 Baso # (Auto) 0.1 Abs Immat Gran (auto) 0.01 Absolute Neuts (auto) 1.9 L Absolute Nucleated RBC 0.000 Nucleated RBC % (auto) 0.0 PT 23.7 H INR 2.0 H APTT 29.7 VBG pH 7.43 VBG pCO2 31 VBG pO2 46 VBG HCO3 21 L VBG O2 Saturation 78.0 VBG Base Excess -1.9 Anion Gap 17 Estim Creat Clear Calc 91.9 Estimated GFR > 60 Random Glucose 100 Lactic Acid 2.5 H* Lactic Acid F/U @ 2Hr 2.1 H* Lactic Acid F/U @ 4Hr Calcium 7.7 L D Magnesium 1.7 Total Bilirubin 2.8 H AST 94 H ALT 92 H Alkaline Phosphatase 100 Total Creatine Kinase 340 H Total Protein 5.8 L Albumin 2.7 L Lipase 12 Beta-Hydroxybutyrate 3.74 H TSH 8.29 H Free T4 1.04 Ethyl Alcohol < 10 Influenza Type A (PCR) NEGATIVE Influenza Type B (PCR) NEGATIVE RSV RNA Qual (PCR) NEGATIVE SARS-CoV-2 RNA (RT-PCR) NEGATIVE 05/30/24 14:03 MCV MCH MCHC RDW Plt Count MPV Immature Gran % (Auto) Neut % (Auto) Lymph % (Auto) [place] % (Auto) Eos % (Auto) Baso % (Auto) Lymph # (Auto) [place] # (Auto) Eos # (Auto) Baso # (Auto) Abs Immat Gran (auto) Absolute Neuts (auto) Absolute Nucleated RBC Nucleated RBC % (auto) PT INR APTT VBG pH VBG pCO2 VBG pO2 VBG HCO3 VBG O2 Saturation VBG Base Excess Anion Gap Estim Creat Clear Calc Estimated GFR Random Glucose Lactic Acid Lactic Acid F/U @ 2Hr Lactic Acid F/U @ 4Hr 2.4 H* Calcium Magnesium Total Bilirubin AST ALT Alkaline Phosphatase Total Creatine Kinase Total Protein Albumin Lipase Beta-Hydroxybutyrate TSH Free T4 Ethyl Alcohol Influenza Type A (PCR) Influenza Type B (PCR) RSV RNA Qual (PCR) SARS-CoV-2 RNA (RT-PCR) Imaging Radiologist's Impressions: Impressions Chest X-Ray 05/30/24 08:38 IMPRESSION: No acute airspace disease. Stable. Electronically signed by: Jarrett García MD 05/30/2024 08:51 AM EDT RP Abdomen/Pelvis CT 05/30/24 09:43 IMPRESSION: 1. Status post right nephrectomy. No recurrent mass or fluid collection in the right renal fossa. 2. No new intra-abdominal mass, lymphadenopathy, or ascites. 3. Diverticulosis without evidence of acute diverticulitis. No small or large bowel obstruction. Unremarkable appendix. Fleischner guidelines were followed. Electronically signed by: Magen Blackburn MD 05/30/2024 11:11 AM EDT RP Comment: Labs and Imaging reviewed Assessment and Plan (1) Starvation ketoacidosis: Status: Acute (2) Morbid obesity with BMI of 40.0-44.9, adult: Status: Acute Plan Patient is a is a 58-year-old male with a past medical history significant for stage IV lung cancer, history of right renal cancer status post nephrectomy, type 2 diabetes, RA, hypertension, HLD, KAYLYN (no CPAP), who presented to the ED today due to weakness, abdominal pain, nausea, vomiting, diarrhea and decreased appetite. Labs consistent with starvation ketosis. Abdominopelvic CT normal. Chest x-ray normal. Starvation ketosis with mild hypovolemic hyponatremia- likely due to depression with stage IV lung cancer and poor oral intake x 2 weeks - D5LR 80 mls/hr - regular diet - magnesium low, 1.7, given Mag 800 mg PO x 1 - Zofran as needed for nausea - discuss hospice with tomorrow - follow BMP Abdominal pain - mostly tenderness with exam in the left lower quadrant, likely secondary to starvation ketosis - A/P CT normal - no leukocytosis HTN - BP is low likely secondary to hypovolemia - hold home BP meds for now, patient has not been taking Type 2 diabetes - monitor blood sugars - hold meds for now Hyperlipidemia - atorvastatin Full code VTE prophylaxis: Lovenox Patient with starvation ketosis with mild hypovolemic hyponatremia likely secondary to depression with stage IV lung cancer and poor oral intake for the past 2 weeks, requiring admission for IV fluids and treatment of nausea to allow patient were adequate nutritional intake for at least 2 midnight stay. Quality Stroke Does the patient have a stroke diagnosis?: No VTE Prior VTE?: No VTE Risk Level:: Medical - moderate - high VTE Device Contraindication: Treatment Not Indicated VTE Drug Contraindication: N/A - Med Ordered
--- NOTE | 2024-05-30 16:13 | PHA.MEDREC ---
Pharmacy Consult ? Medication Reconciliation Pharmacy has completed the medication reconciliation. Spoke with patient over the phone and she confirmed her husbands medications with his prescription bottles. 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
--- NOTE | 2024-05-30 16:19 | PHA.MEDREC ---
Addendum entered by Peggy Pittman RPh 05/30/24 16:28: MED REC REVIEWED BY BRENDEN Original Note: Pharmacy Consult ? Medication Reconciliation Pharmacy has completed the medication reconciliation. Spoke with patient over the phone and she confirmed her husbands medications with his prescription bottles. While on the phone she found her husbands Methotrexate 2.5mg tab unopened from 05/12 not started. 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
[2024-05-30] MEDS: Enoxaparin Sodium 40 MG/0.4 ML SYRINGE SUBCUT (16:23)
[2024-05-30] MEDS: Magnesium Oxide 400 MG TABLET 800 MG PO (16:23)
[2024-05-30 17:45] LABS: Glucose, Whole Blood 102 mg/dL (60-115)
[2024-05-30] MEDS: Albumin Human 25 % 100 ML IV ×2 (17:55→19:38)
[2024-05-30 18:39] LABS: Glucose, Whole Blood 78 mg/dL (60-115)
[2024-05-30 19:18] LABS: Glucose, Whole Blood 112 mg/dL (60-115)
[2024-05-30] MEDS: Hydroxychloroquine Sulfate 200 MG TABLET PO (20:54)
[2024-05-31] VITALS (10 sets, daily range): BP systolic 103–155; BP diastolic 52–96; PULSE 99–180; RESP 17–18; TEMP 36.3–36.8; O2SAT 93–98
--- NOTE | 2024-05-31 | ECG_ITS ---
Test Reason : stem Blood Pressure : / mmHG Vent. Rate : 179 BPM Atrial Rate : 000 BPM P-R Int : 000 ms QRS Dur : 084 ms QT Int : 260 ms P-R-T Axes : 000 070 -61 degrees QTc Int : 448 ms Supraventricular tachycardia Septal infarct (cited on or before 31-MAY-2024) Abnormal ECG When compared to the previous EKG of Supraventricular tachycardia Present Referred By: David Gardner Electronically Signed By:Romeo Carter
[2024-05-31] MEDS: Dextrose 5 % and Lactated Ring 1,000 ML 80 ML IVCONT (04:00)
[2024-05-31 06:11] LABS: Anion Gap 10 (12-20); Blood Urea Nitrogen 4 mg/dL (9-16); Calcium 7.8 mg/dL (8.4-10.2); Carbon Dioxide 26 mmol/L (22-29); Chloride 101 mmol/L (96-108); Creatinine Clr Calc Pharmacy 97.3; Estimated Glomerular Filt Rate > 60; Glucose Random 126 mg/dL (60-115); Potassium 3.3 mmol/L (3.3-5.1); Sodium 134 mmol/L (135-145)
--- NOTE | 2024-05-31 07:13 | HO.PM.IMPN ---
Subjective Subjective Date of Service: 06/02/24 Interval History: follow up with adult failure to thrive, history renal cell cancer with met to lung, starvation ketosis, dehydration interval history:Patient went into SVT with HR of 180s this morning, didn't break with vagal maneuver, converted to sinus with 6 mg of adenosine given IVF and transfering to [facility] Physical Exam Vital Signs: Vital Signs: Last Vital Signs Temp 97.4 F 05/31/24 03:36 Pulse 108 H 05/31/24 03:36 Resp 18 05/31/24 03:36 BP 104/71 05/31/24 03:36 Pulse Ox 97 05/31/24 03:36 O2 Del Method Room Air 05/31/24 03:36 O2 Flow Rate 2 05/30/24 19:32 BMI result Body Mass Index 40.1 General: AO X 3, no acute distress Resp: CTA bilateral CVS: S1,S2,RRR GI: +BS, NT, no distention Skin: No rash Neuro: motor grossly intact Psych: appropriate affect Objective Data Active Medications Acetaminophen (Acetaminophen 325 Mg Tablet) 650 mg PO Q6H PRN PRN Reason: Pain, Mild (Pain Scale 1-3), fever or headache Calcium Carbonate (Calcium Carbonate 750 Mg Tab.Chew) 750 mg PO Q4H PRN PRN Reason: Heartburn Enoxaparin Sodium (Enoxaparin Sodium 40 Mg/0.4 Ml Syringe) 40 mg SUBCUT Q24H [facility] Last Admin: 05/30/24 16:23 Dose: 40 mg Documented By: CAROL Folic Acid (Folic Acid 1 Mg Tablet) 1 mg PO DAILY [facility] Hydroxychloroquine Sulfate (Hydroxychloroquine Sulfate 200 Mg Tablet) 200 mg PO BID [facility] Last Admin: 05/30/24 20:54 Dose: 200 mg Documented By: YOSELIN Dextrose/Lactated Ringer's (D5lr) 1,000 mls @ 80 mls/hr IVCONT .[id number] [facility] Last Admin: 05/31/24 04:00 Dose: 80 mls/hr Documented By: YOSELIN Influenza Virus Vaccine (Flu Vacc [id number](6mos Up)/Pf 0.5 Ml Syringe) 0.5 ml IM .ONCE ONE Stop: 05/31/24 09:01 Magnesium Hydroxide (Milk Of Magnesia 30 Ml Oral.Susp) 30 ml PO DAILY PRN PRN Reason: Constipation Melatonin (Melatonin 3 Mg Tablet) 6 mg PO BEDTIME PRN PRN Reason: Insomnia Morphine Sulfate (Morphine Sulfate 4 Mg/Ml Cartridge) 4 mg IVPUSH Q4H PRN; Protocol PRN Reason: Pain, Severe (Pain Scale 7-10) Ondansetron HCl (Ondansetron Hcl 4 Mg/2 Ml Vial) 4 mg IVPUSH Q8H PRN PRN Reason: Nausea and Vomiting Oxycodone HCl (Oxycodone Hcl Immed Release 5 Mg Tablet) 5 mg PO Q6H PRN PRN Reason: Pain, Moderate(Pain Scale 4-6) Prednisone (Prednisone 2.5 Mg Tablet) 2.5 mg PO DAILY [facility] Sodium Chloride (0.9 % Sodium Chloride Flush 3 Ml Syringe) 3 ml IVFLUSH QSHIFT [facility] Last Admin: 05/30/24 22:38 Dose: Not Given Documented By: YOSELIN Non-Admin Reason: IV Running Labs 05/30/24 09:08 06/02/24 05:56 Labs: Laboratory Results - last 24 hr 05/30/24 05/30/24 05/30/24 09:08 09:17 11:44 MCV 82.2 MCH 28.7 MCHC 35.0 RDW 19.9 H Plt Count 141 L D MPV 9.6 Immature Gran % (Auto) 0.2 Neut % (Auto) 45.5 Lymph % (Auto) 33.8 [place] % (Auto) 13.2 H Eos % (Auto) 6.1 H Baso % (Auto) 1.2 Lymph # (Auto) 1.4 [place] # (Auto) 0.5 Eos # (Auto) 0.3 Baso # (Auto) 0.1 Abs Immat Gran (auto) 0.01 Absolute Neuts (auto) 1.9 L Absolute Nucleated RBC 0.000 Nucleated RBC % (auto) 0.0 Hold Purple Top PT 23.7 H INR 2.0 H APTT 29.7 VBG pH 7.43 VBG pCO2 31 VBG pO2 46 VBG HCO3 21 L VBG O2 Saturation 78.0 VBG Base Excess -1.9 Anion Gap 17 Estim Creat Clear Calc 91.9 Estimated GFR > 60 POC Glucose Random Glucose 100 Lactic Acid 2.5 H* Lactic Acid F/U @ 2Hr 2.1 H* Lactic Acid F/U @ 4Hr Calcium 7.7 L D Magnesium 1.7 Total Bilirubin 2.8 H AST 94 H ALT 92 H Alkaline Phosphatase 100 Total Creatine Kinase 340 H Total Protein 5.8 L Albumin 2.7 L Lipase 12 Beta-Hydroxybutyrate 3.74 H TSH 8.29 H Free T4 1.04 Ethyl Alcohol < 10 Influenza Type A (PCR) NEGATIVE Influenza Type B (PCR) NEGATIVE RSV RNA Qual (PCR) NEGATIVE SARS-CoV-2 RNA (RT-PCR) NEGATIVE 05/30/24 05/30/24 05/30/24 14:03 17:41 18:36 MCV MCH MCHC RDW Plt Count MPV Immature Gran % (Auto) Neut % (Auto) Lymph % (Auto) [place] % (Auto) Eos % (Auto) Baso % (Auto) Lymph # (Auto) [place] # (Auto) Eos # (Auto) Baso # (Auto) Abs Immat Gran (auto) Absolute Neuts (auto) Absolute Nucleated RBC Nucleated RBC % (auto) Hold Purple Top PT INR APTT VBG pH VBG pCO2 VBG pO2 VBG HCO3 VBG O2 Saturation VBG Base Excess Anion Gap Estim Creat Clear Calc Estimated GFR POC Glucose 102 78 Random Glucose Lactic Acid Lactic Acid F/U @ 2Hr Lactic Acid F/U @ 4Hr 2.4 H* Calcium Magnesium Total Bilirubin AST ALT Alkaline Phosphatase Total Creatine Kinase Total Protein Albumin Lipase Beta-Hydroxybutyrate TSH Free T4 Ethyl Alcohol Influenza Type A (PCR) Influenza Type B (PCR) RSV RNA Qual (PCR) SARS-CoV-2 RNA (RT-PCR) 05/30/24 05/31/24 19:14 05:30 MCV MCH MCHC RDW Plt Count MPV Immature Gran % (Auto) Neut % (Auto) Lymph % (Auto) [place] % (Auto) Eos % (Auto) Baso % (Auto) Lymph # (Auto) [place] # (Auto) Eos # (Auto) Baso # (Auto) Abs Immat Gran (auto) Absolute Neuts (auto) Absolute Nucleated RBC Nucleated RBC % (auto) Hold Purple Top SEE NOTE PT INR APTT VBG pH VBG pCO2 VBG pO2 VBG HCO3 VBG O2 Saturation VBG Base Excess Anion Gap 10 L Estim Creat Clear Calc 97.3 Estimated GFR > 60 POC Glucose 112 Random Glucose 126 H Lactic Acid Lactic Acid F/U @ 2Hr Lactic Acid F/U @ 4Hr Calcium 7.8 L Magnesium Total Bilirubin AST ALT Alkaline Phosphatase Total Creatine Kinase Total Protein Albumin Lipase Beta-Hydroxybutyrate TSH Free T4 Ethyl Alcohol Influenza Type A (PCR) Influenza Type B (PCR) RSV RNA Qual (PCR) SARS-CoV-2 RNA (RT-PCR) Assessment and Plan (1) SVT (supraventricular tachycardia): Status: Acute (2) Morbid obesity with BMI of 40.0-44.9, adult: Status: Acute (3) Volume depletion: Status: Acute Plan 58-year-old male with a past medical history significant for stage IV lung cancer, history of right renal cancer status post nephrectomy, type 2 diabetes, RA, hypertension, HLD, KAYLYN (no CPAP), who presented to the ED today due to weakness, abdominal pain, nausea, vomiting, diarrhea and decreased appetite. Labs consistent with starvation ketosis. Abdominopelvic CT normal. Chest x-ray normal. Went into SVT this morning SVT with HR of 180, failed vagal maneuver, covnerted to sinus rythm with adenosine 6 mg -start metoprolo 25 mg q12 -cardiology consult -TSH, mag, K within normal -transfer to med-tele Starvation ketosis with mild hypovolemic hyponatremia- resolved. -continue IVF Abdominal pain - mostly tenderness with exam in the left lower quadrant, likely secondary to starvation ketosis - A/P CT normal - no leukocytosis -symptomatic treatment Acute lactic acidosis--not due sepsis, d/t starvation ketosis dehydration Mild hyponatermia--d/t hypovolemia, improving, -monitor Hypotension NOT due to sepsis, likely dehydration. -hold BP meds, -hydrate with IVF Type 2 diabetes -hold metformin - monitor blood sugars -SSI as needed Hyperlipidemia - atorvastatin Obesity--should strive for weight loss Renal Cell cancer with Met to lung, status unknown -Obtain more information from [facility] Full code VTE prophylaxis: Lovenox need for inpt: adul failure to thrive with advance cancer Quality Stroke Does the patient have a stroke diagnosis?: No VTE Prior VTE?: No VTE Risk Level:: Medical - moderate - high VTE Device Contraindication: Treatment Not Indicated VTE Drug Contraindication: N/A - Med Ordered
[2024-05-31] MEDS: Adenosine 6 MG/2 ML VIAL IVPUSH (07:50)
[2024-05-31] MEDS: Lactated Ringers 1,000 ML 999 ML IV (07:51)
[2024-05-31] MEDS: 0.9 % Sodium Chloride Flush 3 ML SYRINGE IVFLUSH ×3 (08:10→20:00)
[2024-05-31] MEDS: predniSONE 2.5 MG TABLET PO (08:19)
[2024-05-31] MEDS: Hydroxychloroquine Sulfate 200 MG TABLET PO ×2 (08:19→20:00)
[2024-05-31] MEDS: Folic Acid 1 MG TABLET PO (08:19)
[2024-05-31] MEDS: Metoprolol Tartrate 25 MG TABLET PO ×2 (08:19→20:00)
[2024-05-31] MEDS: Lactated Ringers 1,000 ML 150 ML IVCONT ×3 (09:51→23:23)
[2024-05-31 11:15] LABS: Glucose, Whole Blood 119 mg/dL (60-115)
[2024-05-31 12:03] LABS: Glucose, Whole Blood 123 mg/dL (60-115)
--- NOTE | 2024-05-31 12:29 | P.CONCA_ITS ---
History of Present Illness History of Present Illness Date of Service: 05/31/24 Requesting physician: David Gardner Chief complaint: Starvation ketosis, SVT Narrative: [age] year gentleman who we have been asked to see for supraventricular tachycardia. He unfortunately has metastatic renal cell cancer with previous nephrectomy. He had previous workup done at [facility]. He is presenting to us with failure to thrive and starvation ketosis. He went into supraventricular tachycardia and received adenosine with improvement in rhythm. He is in sinus rhythm currently. He has no symptoms. Denying chest pain or shortness of breath. No palpitations. Saying that he has never had any cardiac issues before. [facility] Past Medical History Medical History Pulmonary nodule, left Hx of cancer of lung Family History Family History Father No problems noted. Mother Breast cancer Surgical History Surgical History History of biopsy History of right nephrectomy Social History Social History Household Members: Spouse and Children Housing: House Do you presently have visiting nurse or other home services: No Alcohol intake: unknown Patient Tobacco Use Status: Never used Tobacco Tobacco use type: Cigarette Years Smoked: quit 1999 e-Cigarette/Vaping Use: Never Used Second Hand Smoke Exposure: No Advance Directives Date on File: 02/07/23 service: No Current occupational status: unemployed Cognitive needs: No Hearing needs: No Vision needs: Yes Meds Allergies Allergy/AdvReac Type Severity Reaction Status Date / Time No Known Allergies Allergy Verified 05/30/24 07:06 Active Medications: Current Medications Acetaminophen (Acetaminophen 325 Mg Tablet) 650 mg PO Q6H PRN PRN Reason: Pain, Mild (Pain Scale 1-3), fever or headache Calcium Carbonate (Calcium Carbonate 750 Mg Tab.Chew) 750 mg PO Q4H PRN PRN Reason: Heartburn Enoxaparin Sodium (Enoxaparin Sodium 40 Mg/0.4 Ml Syringe) 40 mg SUBCUT Q24H [facility] Last Admin: 05/30/24 16:23 Dose: 40 mg Folic Acid (Folic Acid 1 Mg Tablet) 1 mg PO DAILY [facility] Last Admin: 05/31/24 08:19 Dose: 1 mg Hydroxychloroquine Sulfate (Hydroxychloroquine Sulfate 200 Mg Tablet) 200 mg PO BID [facility] Last Admin: 05/31/24 08:19 Dose: 200 mg Lactated Ringer's (Lr) 1,000 mls @ 150 mls/hr IVCONT .Q6H40M [facility] Last Admin: 05/31/24 09:51 Dose: 150 mls/hr Magnesium Hydroxide (Milk Of Magnesia 30 Ml Oral.Susp) 30 ml PO DAILY PRN PRN Reason: Constipation Melatonin (Melatonin 3 Mg Tablet) 6 mg PO BEDTIME PRN PRN Reason: Insomnia Metoprolol Tartrate (Metoprolol Tartrate 25 Mg Tablet) 25 mg PO BID [facility]; Protocol Last Admin: 05/31/24 08:19 Dose: 25 mg Morphine Sulfate (Morphine Sulfate 4 Mg/Ml Cartridge) 4 mg IVPUSH Q4H PRN; Protocol PRN Reason: Pain, Severe (Pain Scale 7-10) Ondansetron HCl (Ondansetron Hcl 4 Mg/2 Ml Vial) 4 mg IVPUSH Q8H PRN PRN Reason: Nausea and Vomiting Oxycodone HCl (Oxycodone Hcl Immed Release 5 Mg Tablet) 5 mg PO Q6H PRN PRN Reason: Pain, Moderate(Pain Scale 4-6) Prednisone (Prednisone 2.5 Mg Tablet) 2.5 mg PO DAILY [facility] Last Admin: 05/31/24 08:19 Dose: 2.5 mg Sodium Chloride (0.9 % Sodium Chloride Flush 3 Ml Syringe) 3 ml IVFLUSH QSHIFT [facility] Last Admin: 05/31/24 08:19 Dose: 3 ml Home Medications ?Medication ?Instructions ?Recorded ?Confirmed ?Last Taken ?Type cabozantinib 60 mg tablet 60 mg PO DAILY 04/15/24 05/30/24 1 Week Ago History (Cabometyx) ~05/23/24 prednisone 2.5 mg tablet 2.5 mg PO DAILY 04/15/24 05/30/24 1 Week Ago History ~05/23/24 Physical Exam 2 Vital Signs: Vital Signs: Last Vital Signs Temp 98.1 F 05/31/24 09:59 Pulse 100 05/31/24 09:59 Resp 18 05/31/24 09:59 BP 109/57 L 05/31/24 09:59 Pulse Ox 95 05/31/24 09:59 O2 Del Method Room Air 05/31/24 09:59 O2 Flow Rate 2 05/30/24 19:32 BMI result Body Mass Index 40.1 GENERAL APPEARANCE: in no acute distress. NECK: no carotid bruit, no jugular venous distention. SKIN: no suspicious lesions, warm and dry. HEART: no murmurs, regular rate and rhythm. LUNGS: clear to auscultation bilaterally. ABDOMEN: soft, nontender. EXTREMITIES: + edema. PERIPHERAL PULSES: equal. NEUROLOGIC: No gross deficits, AAO X 3 Objective Labs and Meds 05/30/24 09:08 05/31/24 05:30 Lab results: Laboratory Results - last 24 hr 05/30/24 05/30/24 05/30/24 14:03 17:41 18:36 Hold Purple Top Sodium Potassium Chloride Carbon Dioxide Anion Gap BUN Creatinine Estim Creat Clear Calc Estimated GFR POC Glucose 102 78 Random Glucose Lactic Acid F/U @ 4Hr 2.4 H* Calcium 05/30/24 05/31/24 05/31/24 19:14 05:30 07:28 Hold Purple Top SEE NOTE Sodium 134 L Potassium 3.3 Chloride 101 Carbon Dioxide 26 Anion Gap 10 L BUN 4 L Creatinine 1.02 Estim Creat Clear Calc 97.3 Estimated GFR > 60 POC Glucose 112 119 H Random Glucose 126 H Lactic Acid F/U @ 4Hr Calcium 7.8 L 05/31/24 11:27 Hold Purple Top Sodium Potassium Chloride Carbon Dioxide Anion Gap BUN Creatinine Estim Creat Clear Calc Estimated GFR POC Glucose 123 H Random Glucose Lactic Acid F/U @ 4Hr Calcium Assessment and Plan (1) SVT (supraventricular tachycardia): Status: Acute Plan Pleasant 58 year gentleman with renal cell carcinoma, hypertension, hyperlipidemia and diabetes who presented for failure to thrive. He had SVT episode and required adenosine with conversion to sinus rhythm. Agree with adding metoprolol 25 mg twice a day. Monitor closely for recurrent episodes. Would avoid antiarrhythmic therapy currently. If he has any hypoxia or recurrent episodes then would recommend scanning him for pulmonary embolism. Sometimes PE can trigger similar arrhythmia and he is high-risk for that given renal cell cancer. We will follow along with you. Thank you for allowing me to participate in the care of your patient. Please feel free to contact me if you have any questions. Procedures Date of Service Date of Service: 05/31/24
[2024-05-31 16:07] LABS: Glucose, Whole Blood 149 mg/dL (60-115)
[2024-05-31] MEDS: Enoxaparin Sodium 40 MG/0.4 ML SYRINGE SUBCUT (16:31)
[2024-05-31 19:45] LABS: Glucose, Whole Blood 124 mg/dL (60-115)
[2024-06-01 00:42] VITALS: BP 117/67; PULSE 95; RESP 20; TEMP 36.3; O2SAT 92
[2024-06-01 04:00] VITALS: BP 108/72; PULSE 97; RESP 20; TEMP 36.4; O2SAT 98
[2024-06-01] MEDS: Lactated Ringers 1,000 ML 150 ML IVCONT ×3 (05:48→18:13)
[2024-06-01 06:48] LABS: Anion Gap 12 (12-20); Blood Urea Nitrogen 3 mg/dL (9-16); Calcium 7.5 mg/dL (8.4-10.2); Carbon Dioxide 22 mmol/L (22-29); Chloride 104 mmol/L (96-108); Creatinine Clr Calc Pharmacy 118.1; Estimated Glomerular Filt Rate > 60; Glucose Random 88 mg/dL (60-115); Potassium 4.3 mmol/L (3.3-5.1); Sodium 134 mmol/L (135-145)
[2024-06-01 07:32] VITALS: BP 110/71; PULSE 99; RESP 20; TEMP 36.4; O2SAT 98
[2024-06-01 07:55] LABS: Glucose, Whole Blood 78 mg/dL (60-115)
[2024-06-01] MEDS: Folic Acid 1 MG TABLET PO (09:24)
[2024-06-01] MEDS: Metoprolol Tartrate 25 MG TABLET PO ×2 (09:24→21:51)
[2024-06-01] MEDS: predniSONE 2.5 MG TABLET PO (09:24)
[2024-06-01] MEDS: Hydroxychloroquine Sulfate 200 MG TABLET PO ×2 (09:24→21:52)
[2024-06-01] MEDS: 0.9 % Sodium Chloride Flush 3 ML SYRINGE IVFLUSH ×2 (09:25→15:24)
[2024-06-01 11:16] LABS: Glucose, Whole Blood 102 mg/dL (60-115)
[2024-06-01] MEDS: iohexoL 350 MG/ML 100 ML INFUS..BTL IV (11:42)
--- NOTE | 2024-06-01 13:31 | MHC.CM.PN ---
CM MET WITH PT AND HIS AT BEDSIDE PT LIVES AT HOME AND IS INDEPENDENT WITH CARE HE HAS NO SERVICES PT HAS A WALKER, CANE AND W/C, HE USES EACH DEPENDING ON HOW HE IS FEELING/HOW FAR HE IS GONG PT DECLINES TO COMPLETE A HCP PCP: PUJA SÁNCHEZ DCP: HOME NO SERVICES TO TRANSPORT
[2024-06-01] MEDS: Enoxaparin Sodium 40 MG/0.4 ML SYRINGE SUBCUT (15:23)
[2024-06-01 15:55] VITALS: BP 93/67; PULSE 95; RESP 18; TEMP 36.5; O2SAT 95
[2024-06-01 16:29] LABS: Glucose, Whole Blood 120 mg/dL (60-115)
[2024-06-01 20:00] VITALS: BP 98/59; PULSE 86; RESP 18; TEMP 37.1; O2SAT 99
[2024-06-01 20:52] LABS: Glucose, Whole Blood 106 mg/dL (60-115)
[2024-06-01 21:26] LABS: Glucose, Whole Blood 118 mg/dL (60-115)
[2024-06-02] MEDS: Lactated Ringers 1,000 ML 150 ML IVCONT ×2 (01:48→08:56)
[2024-06-02 02:56] VITALS: BP 120/78; PULSE 95; RESP 18; TEMP 36.3; O2SAT 96
[2024-06-02 06:55] LABS: Anion Gap 9 (12-20); Blood Urea Nitrogen < 3 mg/dL (9-16); Calcium 7.3 mg/dL (8.4-10.2); Carbon Dioxide 28 mmol/L (22-29); Chloride 104 mmol/L (96-108); Creatinine Clr Calc Pharmacy 132.3; Estimated Glomerular Filt Rate > 60; Glucose Random 90 mg/dL (60-115); Potassium 3.7 mmol/L (3.3-5.1); Sodium 137 mmol/L (135-145)
[2024-06-02 08:00] VITALS: BP 123/81; PULSE 90; RESP 20; TEMP 36.3; O2SAT 96
[2024-06-02 08:40] LABS: Glucose, Whole Blood 82 mg/dL (60-115)
[2024-06-02] MEDS: 0.9 % Sodium Chloride Flush 3 ML SYRINGE IVFLUSH (08:55)
[2024-06-02 08:57] VITALS: BP 123/81; PULSE 90
[2024-06-02] MEDS: predniSONE 2.5 MG TABLET PO (08:57)
[2024-06-02] MEDS: Folic Acid 1 MG TABLET PO (08:57)
[2024-06-02] MEDS: Hydroxychloroquine Sulfate 200 MG TABLET PO (08:57)
[2024-06-02] MEDS: Metoprolol Tartrate 25 MG TABLET PO (08:57)
[2024-06-02 12:08] LABS: Glucose, Whole Blood 87 mg/dL (60-115)
[2024-06-02 12:14] VITALS: BP 128/79; PULSE 95; RESP 18; TEMP 36.4; O2SAT 96
--- NOTE | 2024-06-02 14:09 | PM.DS ---
DS: Providers Provider Date of Service: 06/02/24 Date of admission: 05/30/24 15:26 Primary care physician: Nataly Cerda MD Consults: 05/31/24 08:08 Consult to Cardiology Routine Consulting Provider: [facility] Reason for consultation: SVTs Has provider been notified: Yes DS: Diagnosis Discharge Diagnosis (1) SVT (supraventricular tachycardia): Status: Acute (2) Morbid obesity with BMI of 40.0-44.9, adult: Status: Acute (3) Volume depletion: Status: Acute DS: Summary Hospital Course Hospital Course: admission hpi Chief Complaint: weakness Patient is a is a 58-year-old male with a past medical history significant for stage IV lung cancer, history of right renal cancer status post nephrectomy, type 2 diabetes, RA, hypertension, HLD, KAYLYN (no CPAP), who presented to the ED today due to weakness, abdominal pain, nausea, vomiting, diarrhea and decreased appetite. He has not been eating or showering for the past 2 weeks due to lethargy. His reports that she just found out earlier this week that he has not been taking any of his medications for the past 2 weeks due to diarrhea. He spoke with his oncologist regarding this with his cabozantinib and Imodium did not help, but they still persist even after stopping all medications. He has had very poor oral intake and has had a few cups of Pedialyte, refuses protein shakes or any food. Nausea and vomiting have improved. He also describes some dizziness. Hospital course: 58-year-old male with a past medical history significant for stage IV lung cancer, history of right renal cancer status post nephrectomy, type 2 diabetes, RA, hypertension, HLD, KAYLYN (no CPAP), who presented to the ED to weakness, abdominal pain, nausea, vomiting, diarrhea and decreased appetite. Labs consistent with starvation ketosis. Abdominopelvic CT normal. Chest x-ray normal. Went into SVT at rate of 180 the following and succesfully treated with adenosine with no recurrence SVT with HR of 180, failed vagal maneuver, covnerted to sinus rythm with adenosine 6 mg -started metoprolo 25 mg q12. He was seen by cardiology with no further testing indicated Starvation ketosis with mild hypovolemic hyponatremia- resolved with IVF Abdominal pain - mostly tenderness with exam in the left lower quadrant, likely secondary to starvation ketosis, CT show no acute finding. Pain has resolved. His diet has been advanced. He is tolerating regular diet. Acute lactic acidosis--not due sepsis, d/t starvation ketosis dehydration Mild hyponatermia--d/t hypovolemia, resolved. Hypotension NOT due to sepsis, likely dehydration. Resolved with IVF Type 2 diabetes -resume metformin - monitor blood sugars -SSI as needed Hyperlipidemia - atorvastatin Obesity--should strive for weight loss Renal Cell cancer with Met to lung, status unknown - to schedule a follow up appointment Time Attestation Discharge Coordination Time (in mins): 45 Quality: Safe Use of Opioids Does Pt have an Active Cancer Diagnosis on the Problem List?: No Quality: Stroke Does the patient have a stroke diagnosis?: No Physical Exam Vital Signs: Vital Signs: Last Vital Signs Temp 97.6 F 06/02/24 12:14 Pulse 95 06/02/24 12:14 Resp 18 06/02/24 12:14 BP 128/79 06/02/24 12:14 Pulse Ox 96 06/02/24 12:14 O2 Del Method Room Air 06/02/24 12:14 O2 Flow Rate 1 06/02/24 08:00 BMI result Body Mass Index 40.1 DS: Data Data Completed and Pending Labs on day of discharge: Laboratory Results - last 24 hr 06/01/24 06/01/24 06/01/24 16:25 20:35 21:22 Hold Purple Top Sodium Potassium Chloride Carbon Dioxide Anion Gap BUN Creatinine Estim Creat Clear Calc Estimated GFR POC Glucose 120 H 106 118 H Random Glucose Calcium 06/02/24 06/02/24 06/02/24 05:56 08:31 12:03 Hold Purple Top SEE NOTE Sodium 137 Potassium 3.7 Chloride 104 Carbon Dioxide 28 Anion Gap 9 L BUN < 3 L Creatinine 0.75 Estim Creat Clear Calc 132.3 Estimated GFR > 60 POC Glucose 82 87 Random Glucose 90 Calcium 7.3 L Preliminary micro results at discharge 05/30/24 09:08 Blood Culture - Preliminary Blood - Venous No growth after 48 hours. 05/30/24 09:08 Blood Culture - Preliminary Blood - Venous No growth after 48 hours. Discharge Plan Discharge Anticipated Discharge Date/Time: 06/02/24 13:55 Patient Disposition: Home, Self-Care Discharge Diagnosis: Dehydration, SVT Referrals: Nataly Cerda MD [Primary Care Provider] - 1 Week Discharge Medications: New metoprolol tartrate 25 mg Tablet 25 mg PO BID Qty: 180 0RF Protocol: Hold for SBP/HR < HOLD for SBP < : 90 HOLD for HR < : 60 Continued ferrous sulfate 325 mg (65 mg iron) tablet 325 mg PO DAILY Qty: 90 0RF atorvastatin 10 mg tablet 10 mg PO BEDTIME Qty: 90 1RF (DME) blood-glucose meter [FreeStyle Lite Meter] Kit See Rx Instructions .ROUTE .MEDSUPPLY Qty: 1 0RF Rx Instructions: As directed (DME) FreeStyle Lite Strips Strip See Rx Instructions .ROUTE .MEDSUPPLY Qty: 100 3RF Rx Instructions: As directed check the BS QD (DME) lancets [FreeStyle Lancets] 28 gauge misc See Rx Instructions .ROUTE .MEDSUPPLY Qty: 100 3RF Rx Instructions: As directed check BS QD metformin 500 mg tablet 500 mg PO BIDWMEAL Qty: 180 2RF lisinopril 5 mg tablet 5 mg PO DAILY Qty: 30 4RF Cabometyx 60 mg tablet 60 mg PO DAILY prednisone 2.5 mg tablet 2.5 mg PO DAILY folic acid 1 mg tablet 1 mg PO DAILY Qty: 90 0RF hydroxychloroquine 200 mg tablet 200 mg PO BID Qty: 180 1RF Discharge Orders: Discharge Order (Routine); Ordered 06/02/24 Ordered By: David Gardner Diet: Advance to usual diet Activity on Discharge: As tolerated Stand Alone Forms: Patient Portal Discharge page Print Language: Georgian Care Plan Goals: recovery from dehydration, svt Health Concerns: SVT dehydration Plan of Treatment: take all your medication as before, follow up with your doctor in a week follow up with your oncologist Assessment: see above
--- NOTE | 2024-06-02 14:44 | MHC.CM.PN ---
Pt. has been medically cleared for DC, his will transport home, DC plan is home, self care.
== END 2024-06-02 15:11 | disposition home or self-care (01) | DRG 642 ==
LOC: HO.ED 14:48 → HO.EDOVER 15:36 → HO.S3 16:46 → HO.IMC 05-31 07:56
PROVIDERS: Internal Medicine; Admitting Provider Physician Assistant; Emergency Provider Emergency Medicine Emergency Medical Services; PCP Internal Medicine; Visit Provider Internal Medicine
DX: E88.89 Other specified metabolic disorders (principal); C78.00 Secondary malignant neoplasm of unspecified lung; E87.1 Hypo-osmolality and hyponatremia; I47.10 Supraventricular tachycardia, unspecified; E87.21 Acute metabolic acidosis; Z68.41 Body mass index [BMI] 40.0-44.9, adult; T73.0XXA Starvation, initial encounter; X58.XXXA Exposure to other specified factors, initial encounter; G47.33 Obstructive sleep apnea (adult) (pediatric); E86.0 Dehydration; F32.A Depression, unspecified; E66.01 Morbid (severe) obesity due to excess calories; I10 Essential (primary) hypertension; M06.9 Rheumatoid arthritis, unspecified; E86.1 Hypovolemia; E11.9 Type 2 diabetes mellitus without complications; Z20.822 Contact with and (suspected) exposure to COVID-19; Z90.5 Acquired absence of kidney; Z85.528 Personal history of other malignant neoplasm of kidney; Z79.52 Long term (current) use of systemic steroids; Z79.84 Long term (current) use of oral hypoglycemic drugs; Z79.899 Other long term (current) drug therapy
CPT/HCPCS: 0241U; 36415; 71045; 71275; 74176; 80048; 80053; 80307; 82010; 82550; 82803; 82947; 83605; 83690; 83735; 84439; 84443; 85025; 85610; 85730; 87040; 93005; 99285; J0153; J1650; J2270; J2405; J7120; P9047; Q9967

== ENCOUNTER → 2024-05-30 08:38 | Outpatient (BNV) | payer OTHER, SELFPAY | PROVIDERS: Emergency Provider Emergency Medicine Emergency Medical Services; PCP Internal Medicine; Visit Provider Radiology Diagnostic Radiology | DX: R05.9 Cough, unspecified (principal) | CPT/HCPCS: 71045 ==

== ENCOUNTER 2024-05-30 15:26 | Outpatient (BNV) | payer OTHER, SELFPAY | END 2024-05-31 07:38 | PROVIDERS: Admitting Provider Physician Assistant; Emergency Provider Emergency Medicine Emergency Medical Services; PCP Internal Medicine; Visit Provider Internal Medicine Cardiovascular Disease | DX: I47.10 Supraventricular tachycardia, unspecified (principal); R94.31 Abnormal electrocardiogram [ECG] [EKG] | CPT/HCPCS: 93010 ==

== ENCOUNTER → 2024-05-30 15:26 | Outpatient (BNV) | payer OTHER, SELFPAY | PROVIDERS: Admitting Provider Physician Assistant; Emergency Provider Emergency Medicine Emergency Medical Services; PCP Internal Medicine; Visit Provider Physician Assistant | DX: I47.10 Supraventricular tachycardia, unspecified (principal); E66.01 Morbid (severe) obesity due to excess calories; Z68.41 Body mass index [BMI] 40.0-44.9, adult; E86.9 Volume depletion, unspecified | CPT/HCPCS: 99223; 99232; 99239 ==

== ENCOUNTER → 2024-05-30 15:26 | Outpatient (BNV) | payer OTHER, SELFPAY | PROVIDERS: Admitting Provider Physician Assistant; Emergency Provider Emergency Medicine Emergency Medical Services; PCP Internal Medicine; Visit Provider Internal Medicine Cardiovascular Disease | DX: R00.0 Tachycardia, unspecified (principal); R94.31 Abnormal electrocardiogram [ECG] [EKG] | CPT/HCPCS: 93010; 99223 ==

== ENCOUNTER 2024-06-10 11:19 | Outpatient (AMB) | payer OTHER, SELFPAY ==
[2024-06-10 11:39] VITALS: BP 140/102; PULSE 87; O2SAT 97; BMI 38.3
--- NOTE | 2024-06-10 11:39 | A.OFFPC_ITS ---
Vital Signs 06/10/24 11:39 Height 5 ft 6 in Weight 237 lb 0.8 oz BMI 38.3 BP 140/102 H Blood Pressure Location Lt brachial Position Sitting Pulse 87 Pulse Source Pulse Oximeter Pulse Oximetry (%) 97 Oxygen Delivery Method Room Air Intake Visit Reasons: TCM [facility] 05/07 SVT Intake Note: Patient is here for hospital discharge follow up. Patient was discharged from [facility] on 06/02/24 Allergies No Known Allergies Allergy (Verified 06/10/24 11:40) Tobacco use date assessed: 11/13/23 Dental Screening Dental Screen Date: 11/13/23 HPI TCM TCM Information Date of Discharge 06/02/24 Discharged From [facility] HPI Comments History of Present Illness Details 58 y/o male patient who presents to the clinic today for TCM. He was admitted at [facility] on 05/30 and discharged home on 06/02. He was found to have SVT in the hospital, which was reversed with Adenosine one dose and back Sinus. Recommended he follows with cardiology. History significant for stage IV lung cancer, history of right renal cancer status post nephrectomy, currently on Chemo. He has been experiencing Nausea and vomiting plus Anorexia. [facility] Medical History Pulmonary nodule, left Hx of cancer of lung Surgical History History of biopsy History of right nephrectomy Family History Father No problems noted. Mother Breast cancer Social History Household Members: Spouse and Children Housing: House Do you presently have visiting nurse or other home services: No Alcohol intake: unknown Patient Tobacco Use Status: Never used Tobacco Tobacco use type: Cigarette Years Smoked: quit 1999 e-Cigarette/Vaping Use: Never Used Second Hand Smoke Exposure: No Advance Directives Date on File: 02/07/23 service: No Current occupational status: unemployed Cognitive needs: No Hearing needs: No Vision needs: Yes Questionnaire Thrive Questionnaire Date Thrive assessed: 06/01/24 AUDIT C Alcohol Use Questionnaire (AUDIT-C) 3. How often do you have six or more drinks on one occasion?: Never Total Score: 0 BRIT-7 AMB Questionnaire BRIT-7 Date BRIT - 7 assessed: 11/13/23 Source: Developed by Drs. Enrrique Chinchilla, Sujata Baer, Linden Robert and colleagues, with an educational herson from [employer]. Review of Systems Const All systems reviewed & are unremarkable except as noted in HPI and below Physical exam (Primary Care) Vital Signs: Last Vital Signs Pulse 87 06/10/24 11:39 BP 140/102 H 06/10/24 11:39 Pulse Ox 97 06/10/24 11:39 Oxygen Delivery Method Room Air 06/10/24 11:39 BMI result Body Mass Index 38.3 Tobacco/Smoking Status: Tobacco use Status Tobacco use date assessed 11/13/23 06/10/24 11:46 Patient Tobacco Use Status Never used Tobacco 06/10/24 11:46 Tobacco use type Cigarette 06/10/24 11:46 e-Cigarette/Vaping Use Never Used 06/10/24 11:46 Thrive Assessment: Date of Thrive Assessment Date Thrive assessed 06/01/24 06/10/24 11:46 Const General: no acute distress Nutritional Appearance: obese Orientation/consciousness: patient oriented x3 HENMT Head: Yes normocephalic Resp Effort & Inspection: normal respiratory effort and able to speak in complete sentences Auscultation: clear to auscultation bilaterally Cardio Heart sounds: S1 normal heart sound present and S2 normal heart sound present Neuro General: patient oriented x3 Coding Level of Care Code TCM Mod MDM <= 7 Days Diagnoses SVT (supraventricular tachycardia) I47.10 Time Spent (min) 20 Assessment & Plan Assessment & Plan (1) SVT (supraventricular tachycardia): Code(s): I47.10 - Supraventricular tachycardia, unspecified Plan: Currently prescribed Metoprolol 25 mg BID Referral to cardiology placed. Orders: Referrals Cardiology Referral I47.10 - Supraventricular tachycardia, unspecified
--- NOTE | 2024-06-10 11:39 | MHC.PC.OV ---
Vital Signs 06/10/24 11:39 Blood Pressure Location Lt brachial Position Sitting Pulse Source Pulse Oximeter Oxygen Delivery Method Room Air Intake Visit Reasons: TCM [facility] 05/07 SVT Allergies No Known Allergies Allergy (Verified 06/10/24 11:40) Tobacco use date assessed: 11/13/23 Dental Screening Dental Screen Date: 11/13/23 [facility] Medical History Pulmonary nodule, left Hx of cancer of lung Surgical History History of biopsy History of right nephrectomy Family History Father No problems noted. Mother Breast cancer Social History Household Members: Spouse and Children Housing: House Do you presently have visiting nurse or other home services: No Alcohol intake: unknown Patient Tobacco Use Status: Never used Tobacco Tobacco use type: Cigarette Years Smoked: quit 1999 e-Cigarette/Vaping Use: Never Used Second Hand Smoke Exposure: No Advance Directives Date on File: 02/07/23 service: No Current occupational status: unemployed Cognitive needs: No Hearing needs: No Vision needs: Yes Questionnaire Thrive Questionnaire Date Thrive assessed: 06/01/24 AUDIT C Alcohol Use Questionnaire (AUDIT-C) 3. How often do you have six or more drinks on one occasion?: Never Total Score: 0 BRIT-7 AMB Questionnaire BRIT-7 Date BRIT - 7 assessed: 11/13/23 Source: Developed by Drs. Enrrique Chinchilla, Sujata Baer, Linden Robert and colleagues, with an educational herson from [employer]. Physical exam (Primary Care) Vital Signs: Oxygen Delivery Method Room Air 06/10/24 11:39 Tobacco/Smoking Status: Tobacco use Status Tobacco use date assessed 11/13/23 06/10/24 11:40 Patient Tobacco Use Status Never used Tobacco 06/10/24 11:40 Tobacco use type Cigarette 06/10/24 11:40 e-Cigarette/Vaping Use Never Used 06/10/24 11:40 Thrive Assessment: Date of Thrive Assessment Date Thrive assessed 06/01/24 06/10/24 11:40 Coding
== END 2024-06-10 12:12 | disposition home or self-care (01) ==
LOC: HO.HMCH 11:19
PROVIDERS: PCP Internal Medicine; Visit Provider Nurse Practitioner Family
DX: I47.10 Supraventricular tachycardia, unspecified (principal)

== ENCOUNTER 2024-07-21 10:51 | Outpatient (AMB) | payer OTHER, SELFPAY ==
[2024-07-21 10:53] VITALS: BP 118/78; PULSE 73; O2SAT 97; BMI 35.7
--- NOTE | 2024-07-21 10:53 | MHC.PC.OV ---
Vital Signs 07/21/24 10:53 Height 5 ft 6 in Weight 221 lb BMI 35.7 BP 118/78 Blood Pressure Location Lt brachial Position Sitting Pulse 73 Pulse Source Pulse Oximeter Pulse Oximetry (%) 97 Oxygen Delivery Method Room Air Intake Visit Reasons: DM, renal cancer Allergies No Known Allergies Allergy (Verified 07/21/24 10:53) Tobacco use date assessed: 11/13/23 Dental Screening Dental Screen Date: 11/13/23 HPI DM, renal cancer HPI Details The patient is a 58-year-old male presenting with a follow-up visit post-hospitalization for heart disease management. He was recently hospitalized for issues related to heart disease and was subsequently prescribed medication regimens, including steroids to support adrenal function and address hypothyroidism. He reports that his hemoglobin level recently measured at 5.5, indicating anemia. Additionally, his left arm had a venous thromboembolism, for which aspirin therapy was recommended for three months; no blood thinners were deemed necessary. In relation to his rheumatoid arthritis, current treatment includes methotrexate, hydroxychloroquine, and folic acid. For his diabetes management, the patient has been on metformin 500 mg twice daily, but has considered titrating down to once daily due to current normal glycemic control. He reports experiencing loose bowel movements, likely attributable to ongoing chemotherapy. His hypertension is managed with metoprolol, but he expresses concerns about monitoring his heart rate to ensure it remains within a normal range for continued safe administration of the medication. Additionally, the patient reports significant weight loss of approximately 16 pounds. He is mindful of maintaining hydration and a healthy diet to manage occasional diarrhea and decrease swelling associated with medication. [facility] Medical History Pulmonary nodule, left Hx of cancer of lung Surgical History History of biopsy History of right nephrectomy Family History Father No problems noted. Mother Breast cancer Social History Household Members: Spouse and Children Housing: House Do you presently have visiting nurse or other home services: No Alcohol intake: unknown Patient Tobacco Use Status: Never used Tobacco Tobacco use type: Cigarette Years Smoked: quit 1999 e-Cigarette/Vaping Use: Never Used Second Hand Smoke Exposure: No Advance Directives Date on File: 02/07/23 service: No Current occupational status: unemployed Cognitive needs: No Hearing needs: No Vision needs: Yes Questionnaire PHQ-9 Over the last 2 weeks, how often have you been bothered by any of the following problems? 1. Little interest or pleasure in doing things: not at all 2. Feeling down, depressed, or hopeless: several days 3. Trouble falling or staying asleep, or sleeping too much: not at all 4. Feeling tired or having little energy: not at all 5. Poor appetite or overeating: not at all 6. Feeling bad about yourself - or that you are a failure or have let yourself or your family down: not at all 7. Trouble concentrating on things, such as reading the newspaper or watching television: not at all 8. Moving or speaking so slowly that other people could have noticed. Or the opposite - being so fidgety or restless that you have been moving around a lot more than usual: not at all 9. Thoughts that you would be better off or of hurting yourself in some way: not at all Total score: 1 Depression Screening Interpretation: Negative Depression Screening Done: Yes 75918 - PHQ-9 Billing: Yes Source: Developed by Drs. Enrrique Chinchilla, Sujata Baer, Linden Robert and colleagues, with an educational herson from [employer]. Thrive Questionnaire Date Thrive assessed: 06/01/24 AUDIT C Alcohol Use Questionnaire (AUDIT-C) 3. How often do you have six or more drinks on one occasion?: Never Total Score: 0 BRIT-7 AMB Questionnaire BRIT-7 Date BRIT - 7 assessed: 11/13/23 Source: Developed by Drs. Enrrique Chinchilla, Linden Loo and colleagues, with an educational herson from [employer]. Physical exam (Primary Care) Vital Signs: Last Vital Signs Pulse 73 07/21/24 10:53 BP 118/78 07/21/24 10:53 Pulse Ox 97 07/21/24 10:53 Oxygen Delivery Method Room Air 07/21/24 10:53 BMI result Body Mass Index 35.7 Tobacco/Smoking Status: Tobacco use Status Tobacco use date assessed 11/13/23 07/21/24 10:54 Patient Tobacco Use Status Never used Tobacco 07/21/24 10:54 Tobacco use type Cigarette 07/21/24 10:54 e-Cigarette/Vaping Use Never Used 07/21/24 10:54 PHQ-9: PHQ-9 Score PHQ-9: Total score 1 07/21/24 11:24 Depression Screening Interpretation: Negative Thrive Assessment: Date of Thrive Assessment Date Thrive assessed 06/01/24 07/21/24 10:54 Const General: alert; No acute distress Eyes Conjunctivae: conjunctivae normal Resp Auscultation: clear to auscultation bilaterally Cardio Rate: regular rate Rhythm: regular rhythm GI Inspection: Yes normal to inspection Extrem General: Yes normal to inspection and No edema Office Procedures Flu Questionnaire Does the patient have a severe egg allergy?: No Does the patient have severe life threatening allergies?: No Does the patient have a fever or illness today?: No Has the patient ever had Guillain-Carmel Syndrome?: No Has the patient ever had any past reaction to a flu shot?: No Results AMB Hemoglobin A1c AMB Hemoglobin A1c 5.5 % Last Edit by Helen Lorenzo CMA on 07/21/24 11:06 Immunizations Fluarix Triv [id number] (PF) 45 mcg (15 mcg x 3)/0.5 mL IM syringe Performing Provider: Nataly Cerda MD [facility] Administered by: Helen Lorenzo CMA on 07/21/24 11:24 Dose Route Admin Location Dispensed Lot Number Expiration Date FORMERLY NAMED [facility] Development Mgr 0.5 mL IM Left Deltoid 0.5 mL [id number] 02/02/25 [id number] [employer] VIS Given Date VIS Provided VIS Publication Date 07/21/24 Single Vaccine 21 Eligibility Eligibility Date Funding Source Not [facility] Eligible 07/21/24 Private Results Reviewed Results Reviewed: Laboratory Last Values Hgb A1c (Clinic) 5.5 % (4.0-6.0) 07/21/24 10:54 Coding Level of Care Code Est Pt Level 4 (30192) Diagnoses Acute deep vein thrombosis (DVT) of left upper extremity, unspecified vein I82.622 Affected thrombotic vein of extremity: unspecified vein of extremity Chronicity: acute Inflammatory arthritis M19.90 Renal cell carcinoma of right kidney C64.1 Laterality: right Type 2 diabetes mellitus with hyperglycemia, without long-term current use of insulin E11.65 Diabetes mellitus terminal gauger insulin use: without terminal gauger use Hypercholesterolemia E78.00 Primary hypertension I10 Hypertension type: primary hypertension Generalized anxiety disorder F41.1 Additional Codes PHQ-9 - 06517 - PHQ-9 Billing: Yes ([id number]) Assessment & Plan Assessment & Plan (1) Deep vein thrombosis (DVT) of left upper extremity: Comment: DVT occlusive thrombus in the left cephalic and basilic vein 06/04/2024 Code(s): I82.622 - Acute embolism and thrombosis of deep veins of left upper extremity Category: Medical Qualifiers: Affected thrombotic vein of extremity: unspecified vein of extremity Chronicity: acute Qualified Code(s): I82.622 - Acute embolism and thrombosis of deep veins of left upper extremity Plan: Patient has been seen by hematology oncology and has been advised aspirin 81 mg once a day (2) Inflammatory arthritis: Comment: dx 07/2023 HCQ 10/2023 effective Code(s): M19.90 - Unspecified osteoarthritis, unspecified site Category: Medical Plan: Patient has seen Rheumatology and has started on methotrexate with folic acid and hydroxychloroquine (3) Renal cell carcinoma: Comment: December 2019 Dr. Richard right nephrectomy Code(s): C64.9 - Malignant neoplasm of unspecified kidney, except renal pelvis Category: Medical Qualifiers: Laterality: right Qualified Code(s): C64.1 - Malignant neoplasm of right kidney, except renal pelvis Plan: Continue to follow-up with Hematology-Oncology on chemotherapy. (4) Type 2 diabetes mellitus with hyperglycemia: Code(s): E11.65 - Type 2 diabetes mellitus with hyperglycemia Category: Medical Qualifiers: Diabetes mellitus alf insulin use: without alf use Qualified Code(s): E11.65 - Type 2 diabetes mellitus with hyperglycemia Plan: Decrease the amount of carbohydrate intake, pasta, bread, rice and potatoes are all sugar and that is aside from all the sweet stuff, remember that fruits are good but they are Sweet also. On metformin 500 mg twice a day hemoglobin A1c goal of less than 6.5. (5) Hypercholesterolemia: Code(s): E78.00 - Pure hypercholesterolemia, unspecified Category: Medical Plan: Avoid fried foods, chicken skin, eggs, butter margarine, pastries and meat. Be it pork or beef they have a lot of cholesterol on atorvastatin 10 mg at bedtime LDL goal of less than 100 and triglyceride of less than 150 (6) Hypertension: Code(s): I10 - Essential (primary) hypertension Category: Medical Qualifiers: Hypertension type: primary hypertension Qualified Code(s): I10 - Essential (primary) hypertension Plan: Continue with blood pressure medication. Decrease salt intake and exercise on lisinopril 5 mg once a day metoprolol 25 mg once a day (7) Generalized anxiety disorder: Code(s): F41.1 - Generalized anxiety disorder Category: Medical Plan: Stable presently Plan - For heart disease, continue the current medication regimen, including metoprolol, ensuring adherence and adjusting as necessary based on heart rate monitoring. - For adrenal insufficiency, continue prescribed steroids to maintain adrenal function. - For hypothyroidism, monitor thyroid function tests through the oncology center. - For anemia, monitor hematological parameters and ensure adequate follow-up. - For venous thromboembolism, continue aspirin therapy as prescribed for the specified duration. - For rheumatoid arthritis, continue methotrexate, hydroxychloroquine, and folic acid; monitor for liver and kidney function. - For type 2 diabetes mellitus, reduce metformin to once daily and reassess blood glucose control. - For chemotherapy-related diarrhea, maintain hydration; assess the need for gastroenterology referral if symptoms persist. - For cardiomyopathy, ensure regular cardiological assessments and adjust medications as needed. - For hypertension, continue metoprolol and lifestyle modifications to maintain blood pressure control. - Administer the flu vaccine as part of preventive health maintenance. - Emphasize the importance of a balanced diet and exercise. Orders: Orders AMB Hemoglobin A1c Today Z13.9 - Encounter for screening, unspecified Influenza [id number] Immunization Today Z23 - Encounter for immunization Medications: Changed From metformin 500 mg PO BIDWMEAL 180 tabs 2RF E11.65 - Type 2 diabetes mellitus with hyperglycemia To metformin 500 mg PO .QD 180 tabs 2RF E11.65 - Type 2 diabetes mellitus with hyperglycemia
== END 2024-07-21 11:29 | disposition home or self-care (01) ==
PROVIDERS: PCP Internal Medicine; Visit Provider Internal Medicine
DX: I82.622 Acute embolism and thrombosis of deep veins of left upper extremity (principal); M19.90 Unspecified osteoarthritis, unspecified site; C64.1 Malignant neoplasm of right kidney, except renal pelvis; E11.65 Type 2 diabetes mellitus with hyperglycemia; E78.00 Pure hypercholesterolemia, unspecified; I10 Essential (primary) hypertension; F41.1 Generalized anxiety disorder; Z23 Encounter for immunization; Z13.9 Encounter for screening, unspecified

== ENCOUNTER → 2024-07-21 10:51 | Outpatient (BNVA) | payer OTHER, SELFPAY | PROVIDERS: PCP Internal Medicine; Visit Provider Internal Medicine | DX: I82.622 Acute embolism and thrombosis of deep veins of left upper extremity (principal); M19.90 Unspecified osteoarthritis, unspecified site; C64.1 Malignant neoplasm of right kidney, except renal pelvis; E11.65 Type 2 diabetes mellitus with hyperglycemia; E78.00 Pure hypercholesterolemia, unspecified; I10 Essential (primary) hypertension; Z23 Encounter for immunization; F41.1 Generalized anxiety disorder; E03.9 Hypothyroidism, unspecified; E27.40 Unspecified adrenocortical insufficiency; M06.9 Rheumatoid arthritis, unspecified; D64.9 Anemia, unspecified; I42.9 Cardiomyopathy, unspecified; Z79.82 Long term (current) use of aspirin; Z79.84 Long term (current) use of oral hypoglycemic drugs; Z79.899 Other long term (current) drug therapy | CPT/HCPCS: 83036; 90471; 90656; 96127 ==

== ENCOUNTER 2024-08-05 13:52 | Outpatient (AMB) | payer OTHER, SELFPAY ==
[2024-08-05 13:55] VITALS: BP 134/90; PULSE 112; BMI 36.0
--- NOTE | 2024-08-05 13:55 | MHC.OFFVIS ---
Vital Signs 08/05/24 13:55 Height 5 ft 6 in Weight 222 lb 14.197 oz BMI 36.0 BP 134/90 H Blood Pressure Location Lt brachial Position Sitting Pulse 112 H Pulse Source Pulse Oximeter Intake Visit Reasons: IRAEs Intake Note: Patient present today for IRAEs. [employer] Certified Network Associate Required: No Accompanied by: Self / Same As Patient Allergies No Known Allergies Allergy (Verified 08/05/24 13:57) Medication List - Last Reconciled 08/05/24 by Cortez Francois MD atorvastatin 10 mg PO BEDTIME blood sugar diagnostic (FreeStyle Lite Strips) As directed check the BS QD blood-glucose meter (FreeStyle Lite Meter kit) As directed cabozantinib (Cabometyx) 60 mg PO DAILY ferrous sulfate 325 mg PO DAILY folic acid 1 mg PO DAILY hydroxychloroquine 200 mg PO BID lancets (FreeStyle Lancets) As directed check BS QD lisinopril 5 mg PO DAILY metformin 500 mg PO .QD metoprolol tartrate 25 mg See Protocol PO BID prednisone 2.5 mg PO Q OTHER DAY HPI Comments Details: 58-year-old male with 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 He is on hydroxychloroquine 200 mg Twice daily and prednisone 2.5 mg daily. He ran out of methotrexate about 2 weeks ago. He was taking 15 mg weekly. He states that his joints feel a bit better overall. Less stiff. Able to walk but feels that his knees are a little stiff. Hands and wrists are only a little bit swollen.. Initial history: This is a 57-year-old male presents for evaluation of multiple joint pain. Per patient has history of kidney cancer with lung metastasis. He is here with his and son. Patient states that he just took oxycodone and he is not very alert. He had a nephrectomy and was receiving (chemo/immunotherapy) until about last year. Per patient it was stopped due to patient being weak. He follows up with Dr. Rodriguez. Since May of last year patient has been having multiple episodes of multiple swollen and tender joints including his wrists, knees, ankles. He went to the hospital multiple times and had knee arthrocentesis twice. No infection was found. It would be treated with prednisone with resolution. States that the prednisone taper works until he is down to 10 mg which does not help much. States that he was diagnosed with diabetes but since his cancer he lost a lot of weight and his diabetes was better controlled. He is not currently on diabetes medications. Patient and his state that currently he has painful and swollen joints every single day. Today he has bilateral wrist, left knee and bilateral ankle pain. He is in a wheelchair. He denies any history of kidney stones. He is unaware of any family history of gout [facility] Medical History Morbid obesity with BMI of 40.0-44.9, adult Pulmonary nodule, left Hx of cancer of lung Surgical History History of biopsy History of right nephrectomy Family History Father No problems noted. Mother Breast cancer Social History Household Members: Spouse and Children Housing: House Do you presently have visiting nurse or other home services: No Alcohol intake: unknown Patient Tobacco Use Status: Never used Tobacco Tobacco use type: Cigarette Years Smoked: quit 1999 e-Cigarette/Vaping Use: Never Used Second Hand Smoke Exposure: No Advance Directives Date on File: 02/07/23 service: No Current occupational status: unemployed Cognitive needs: No Hearing needs: No Vision needs: Yes Review of Systems Musc Reports arthralgias, Reports joint swelling and Reports stiffness Physical Exam Vital Signs: Last Vital Signs Pulse 112 H 08/05/24 13:55 BP 134/90 H 08/05/24 13:55 BMI result Body Mass Index 36.0 Const General: cooperative, healthy appearing and comfortable Nutritional Appearance: overweight Orientation/consciousness: patient oriented x3 HEENT Head: Yes normocephalic and Yes atraumatic Resp Effort & Inspection: normal respiratory effort and able to speak in complete sentences Neuro General: patient oriented x3 Extrem Other: Subtle right wrist swelling, no tenderness but some pain with full flexion Left wrist with no swelling or tenderness no pain with flexion-extension Fingers are a little puffy bilaterally negative MCP squeeze test bilaterally No MCP swelling or tenderness bilaterally No tenderness at the PIP is or DIPs bilaterally Normal bilateral hand quality improvement analyst strength Normal pain-free range of motion of elbows and shoulders Subtle right knee warmth but no swelling No knee pain with full flexion-extension bilaterally Assessment & Plan Assessment & Plan (1) Inflammatory arthritis: Comment: dx 07/2023 HCQ 10/2023 effective MTX added (after discussion with oncologist )04/2024 effective Code(s): M19.90 - Unspecified osteoarthritis, unspecified site Category: Medical Plan: This is a 58-year-old male immune check point inhibitor (Opdivo) related inflammatory arthritis who presents for follow-up. He is on hydroxychloroquine 200 mg Twice daily and prednisone 2.5 mg daily. He ran out of methotrexate about 2 weeks ago Opdivo has been stopped many months ago Patient is doing much better overall since methotrexate was added Advised patient to get blood work done as soon as possible Restart methotrexate once safety blood work is completed. Plan to increase methotrexate to 20 mg once weekly Continue hydroxychloroquine 200 mg Twice daily Lower prednisone to 2.5 mg every other day Continue folic acid 1 mg daily Labs as soon as possible and before next visit in 3 months (2) Long-term use of hydroxychloroquine: Code(s): Z79.899 - Other rn long term care (current) drug therapy Category: Medical Plan: Discussed risk of retinopathy with hydroxychloroquine. 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 Panel 3 Months M06.041 - Rheumatoid arthritis without rheumatoid factor, right hand, M06.042 - Rheumatoid arthritis without rheumatoid factor, left hand C Reactive Protein 3 Months M06.041 - Rheumatoid arthritis without rheumatoid factor, right hand, M06.042 - Rheumatoid arthritis without rheumatoid factor, left hand Complete Blood Count Auto Diff 3 Months M06.041 - Rheumatoid arthritis without rheumatoid factor, right hand, M06.042 - Rheumatoid arthritis without rheumatoid factor, left hand Erythrocyte Sedimentation Rate 3 Months M06.041 - Rheumatoid arthritis without rheumatoid factor, right hand, M06.042 - Rheumatoid arthritis without rheumatoid factor, left hand Medications: Changed From prednisone 2.5 mg PO DAILY 30 tabs 2RF To prednisone 2.5 mg PO Q OTHER DAY 45 tabs 0RF Coding Level of Care Code Est Pt Level 4 (16855) Complex EM visit Add On G2211 Diagnoses Inflammatory arthritis M19.90 Long-term use of hydroxychloroquine Z79.899 superintendent terminal methotrexate user Z79.635
== END 2024-08-05 14:23 | disposition home or self-care (01) ==
PROVIDERS: PCP Internal Medicine; Visit Provider Student in an Organized Health Care Education/Training Program
DX: M19.90 Unspecified osteoarthritis, unspecified site (principal); Z79.899 Other long term (current) drug therapy; Z79.631 Long term (current) use of antimetabolite agent
CPT/HCPCS: 99214

== ENCOUNTER → 2024-08-05 13:52 | Outpatient (BNVA) | payer OTHER, SELFPAY | PROVIDERS: PCP Internal Medicine; Visit Provider Student in an Organized Health Care Education/Training Program ==

== ENCOUNTER 2024-10-22 11:01 | Outpatient (REF) | payer OTHER, SELFPAY ==
[2024-10-22 12:47] LABS: MANUAL DIFF FLAG NO
[2024-10-22 12:52] LABS: Basophils Absolute Auto 0.1 X10*3/uL (0.0-0.2); Eosinophils Absolute Auto 0.3 X10*3/uL (0.0-0.4); Eosinophils Percent Auto 2.8 % (0-4); Hematocrit 46.3 % (42.0-52.0); Hemoglobin 15.2 g/dl (14.0-18.0); Imm Gran Abs Auto 0.04 X10*3/uL (0.00-0.03); Imm Gran Pct Auto 0.4 % (0.0-0.4); Lymphocytes Absolute Auto 1.1 X10*3/uL (1.2-4.9); Lymphocytes Percent Auto 9.6 % (20-40); Mean Corpuscular HGB Conc 32.8 g/dl (31.0-36.0); Mean Corpuscular Hemoglobin 31.5 pg (27.0-33.0); Mean Corpuscular Volume 96.1 fL (80.0-98.0); Mean Platelet Volume 8.8 fL (9.4-12.4); Monocytes Absolute Auto 0.5 X10*3/uL (0.1-1.2); Monocytes Percent Auto 4.1 % (2-11); Neutrophils Absolute Auto 9.3 x10*3/uL (2.0-8.3); Neutrophils Percent Auto 82.1 % (45-73); Platelet Count 252 X10*3/uL (160-400); Red Blood Count 4.82 X10*6/uL (4.60-5.80); Red Cell Distribution Width 12.8 % (11.0-16.0); White Blood Count 11.3 X10*3/uL (4.8-10.8)
[2024-10-22 13:26] LABS: Alanine Aminotransferase 24 U/L (0-40); Albumin Level 3.8 g/dL (3.5-5.0); Alkaline Phosphatase 74 U/L (39-117); Anion Gap 12 (12-20); Aspartate Amino Transferase 25 U/L (5-37); Bilirubin Total 0.3 mg/dL (0.0-1.0); Blood Urea Nitrogen 12 mg/dL (9-16); C Reactive Protein 0.79 mg/dL (< or = 0.50); Carbon Dioxide 27 mmol/L (22-29); Chloride 106 mmol/L (96-108); Estimated Glomerular Filt Rate > 60; Glucose Random 122 mg/dL (60-115); Potassium 4.5 mmol/L (3.3-5.1); Sodium 140 mmol/L (135-145); Total Protein 7.5 g/dL (6.5-8.0)
[2024-10-22 13:32] LABS: Erythrocyte Sedimentation Rate 13 MM/HR (0-15)
== END 2024-10-22 11:02 | disposition home or self-care (01) ==
LOC: HO.LAB 11:01
PROVIDERS: Absent Provider Student in an Organized Health Care Education/Training Program; PCP Internal Medicine; Visit Provider Internal Medicine
DX: M19.90 Unspecified osteoarthritis, unspecified site (principal); M06.041 Rheumatoid arthritis without rheumatoid factor, right hand; M06.042 Rheumatoid arthritis without rheumatoid factor, left hand; Z13.1 Encounter for screening for diabetes mellitus
CPT/HCPCS: 36415; 80053; 83036; 85025; 85652; 86140

== ENCOUNTER 2024-10-22 11:01 | Outpatient (AMB) | payer OTHER, SELFPAY ==
--- NOTE | 2024-10-22 11:05 | A.OFFPC_ITS ---
Vital Signs 10/22/24 11:07 Height 5 ft 6 in Weight 218 lb 6 oz BMI 35.2 BP 112/62 Blood Pressure Location Lt brachial Position Sitting Pulse 109 H Pulse Source Pulse Oximeter Temp 97.7 F Temp Source Temporal Artery Scan Pulse Oximetry (%) 94 Oxygen Delivery Method Room Air Intake Visit Reasons: 3m f/u Intake Note: Patient is here to follow up on DM, HTN, Hypercholesterolemia. Horticulture Worker Required: No Greenhouse Staff: Not Required per policy Accompanied by: Self / Same As Patient Allergies No Known Allergies Allergy (Verified 10/22/24 11:07) Medication List - Last Reconciled 10/22/24 by Nataly Cerda MD apixaban (Eliquis) 5 mg PO BID atorvastatin 10 mg PO BEDTIME blood sugar diagnostic (FreeStyle Lite Strips) As directed check the BS QD blood-glucose meter (FreeStyle Lite Meter kit) As directed cabozantinib (Cabometyx) 60 mg PO DAILY ferrous sulfate 325 mg PO DAILY folic acid 1 mg PO DAILY hydrocortisone 10 mg PO TID hydroxychloroquine 200 mg PO BID lancets (FreeStyle Lancets) As directed check BS QD lisinopril 5 mg PO DAILY metformin 500 mg PO .QD methotrexate (PF) 20 mg subcut QWEEK metoprolol tartrate 25 mg See Protocol PO BID prednisone 2.5 mg PO Q OTHER DAY Tobacco use date assessed: 10/22/24 Dental Screening Dental Screen Date: 10/22/24 Did you have a dental visit in the last 12 months?: Yes Did you have a dental problem in the last 6 months where you did not have access to dental care?: No Was dental information given to patient?: Patient has dentist [facility] Medical History Morbid obesity with BMI of 40.0-44.9, adult Pulmonary nodule, left Hx of cancer of lung Surgical History History of biopsy History of right nephrectomy Family History Father No problems noted. Mother Breast cancer Social History (Updated 10/22/24 @ 11:12 by JENISE Mcleod) Household Members: Spouse and Children Housing: House Do you presently have visiting nurse or other home services: No Alcohol intake: never Patient Tobacco Use Status: Never used Tobacco Tobacco use type: Cigarette Years Smoked: quit 1999 e-Cigarette/Vaping Use: Never Used Second Hand Smoke Exposure: No Advance Directives Date on File: 02/07/23 service: No Current occupational status: unemployed Cognitive needs: No Hearing needs: No Vision needs: Yes Questionnaire PHQ-9 Over the last 2 weeks, how often have you been bothered by any of the following problems? 1. Little interest or pleasure in doing things: not at all 2. Feeling down, depressed, or hopeless: not at all 3. Trouble falling or staying asleep, or sleeping too much: not at all 4. Feeling tired or having little energy: not at all 5. Poor appetite or overeating: not at all 6. Feeling bad about yourself - or that you are a failure or have let yourself or your family down: not at all 7. Trouble concentrating on things, such as reading the newspaper or watching television: not at all 8. Moving or speaking so slowly that other people could have noticed. Or the opposite - being so fidgety or restless that you have been moving around a lot more than usual: not at all 9. Thoughts that you would be better off or of hurting yourself in some way: not at all Total score: 0 Depression Screening Interpretation: Negative Depression Screening Done: Yes Source: Developed by Drs. Enrrique Chinchilla, Sujata Baer, Linden Robert and colleagues, with an educational herson from [employer]. Thrive Questionnaire Date Thrive assessed: 10/22/24 I am a: Patient What is your living situation today?: I have a steady place to live Within the past 12 months, did the food you bought not last and you didn't have the money to get more?: Never true Within the past 12 months, did you worry whether your food would run out before you got money to buy more?: Never true Do you have trouble paying for medicines?: No Do you have trouble getting transportation to medical appointments?: No Do you have trouble paying your heating and electricity bill?: No Do you have trouble taking care of your child, family member or friend?: No Do you have trouble with day-to-day activities such as bathing, preparing meals, shopping, managing finances, etc.?: No Are you currently unemployed and looking for a job?: No Are you interested in more education?: No Please select the resources that you would like help with: None Currently or been in a relationship where the following occur: No concerns reported THRIVE Score: 0 AUDIT C Alcohol Use Questionnaire (AUDIT-C) 1. How often do you have a drink containing alcohol?: Never Total Score: 0 BRIT-7 AMB Questionnaire BRIT-7 Date BRIT - 7 assessed: 10/22/24 Feeling nervous, anxious, or on edge: 0 = Not at all Not being able to stop or control worryin = Not at all Worrying too much about different things: 0 = Not at all Trouble relaxin = Not at all Being so restless that it is hard to sit still: 0 = Not at all Becoming easily annoyed or irritable: 0 = Not at all Feeling afraid as if something awful might happen: 0 = Not at all Total BRIT-7 score (0-4 normal; 5-9 mild; 10-14 moderate; 15-21 severe): 0 Source: Developed by Drs. Enrrique Chinchilla, Sujata Baer, Linden Robert and colleagues, with an educational herson from [employer]. Physical exam (Primary Care) Vital Signs: Last Vital Signs Temp 97.7 F 10/22/24 11:07 Pulse 109 H 10/22/24 11:07 BP 112/62 10/22/24 11:07 Pulse Ox 94 10/22/24 11:07 Oxygen Delivery Method Room Air 10/22/24 11:07 BMI result Body Mass Index 35.2 Tobacco/Smoking Status: Tobacco use Status Tobacco use date assessed 10/22/24 10/22/24 11:16 Patient Tobacco Use Status Never used Tobacco 10/22/24 11:16 Tobacco use type Cigarette 10/22/24 11:16 e-Cigarette/Vaping Use Never Used 10/22/24 11:16 PHQ-9: PHQ-9 Score PHQ-9: Total score 0 10/22/24 11:16 Depression Screening Interpretation: Negative Thrive Assessment: Date of Thrive Assessment Date Thrive assessed 10/22/24 10/22/24 11:16 Currently or been in a relationship where the following occur: No concerns reported Const General: alert; No acute distress Eyes Conjunctivae: conjunctivae normal Resp Auscultation: clear to auscultation bilaterally Cardio Rate: regular rate Rhythm: regular rhythm GI Inspection: Yes normal to inspection Extrem General: Yes normal to inspection and No edema Results AMB Hemoglobin A1c AMB Hemoglobin A1c 5.2 % Last Edit by JENISE Mcleod on 10/22/24 11:20 Results Reviewed Results Reviewed: Laboratory Last Values Hgb A1c (Clinic) 5.2 % (4.0-6.0) 10/22/24 11:05 Coding Level of Care Code Est Pt Level 4 (81047) Complex EM visit Add On G2211 Diagnoses Portal vein thrombosis I81 Acute deep vein thrombosis (DVT) of left upper extremity, unspecified vein I82.622 Affected thrombotic vein of extremity: unspecified vein of extremity Chronicity: acute Abdominal lymphadenopathy R59.0 Pulmonary nodule, left R91.1 Inflammatory arthritis M19.90 Renal cell carcinoma of right kidney C64.1 Laterality: right Obstructive sleep apnea G47.33 Primary hypertension I10 Hypertension type: primary hypertension Hypercholesterolemia E78.00 Type 2 diabetes mellitus with hyperglycemia, without long-term current use of insulin E11.65 Diabetes mellitus terminal 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 on anticoagulation (2) Deep vein thrombosis (DVT) of left upper extremity: Comment: DVT occlusive thrombus in the left cephalic and basilic vein 06/04/2024 Code(s): I82.622 - Acute embolism and thrombosis of deep veins of left upper extremity Category: Medical Qualifiers: Affected thrombotic vein of extremity: unspecified vein of extremity Chronicity: acute Qualified Code(s): I82.622 - Acute embolism and thrombosis of deep veins of left upper extremity Plan: on anticoagulation (3) Abdominal lymphadenopathy: Comment: January 2024 Code(s): R59.0 - Localized enlarged lymph nodes Category: Medical Plan: Continuing to be followed up by hematology oncology (4) Pulmonary nodule, left: Comment: 01/24/2024 Code(s): R91.1 - Solitary pulmonary nodule Category: Medical Plan: Continue to follow-up by hematology oncology (5) Inflammatory arthritis: Comment: dx 07/2023 HCQ 10/2023 effective MTX added (after discussion with oncologist )04/2024 effective Code(s): M19.90 - Unspecified osteoarthritis, unspecified site Category: Medical Plan: Patient sees Rheumatology and on Opdivo, hydroxychloroquine and methotrexate (6) Renal cell carcinoma: Comment: December 2019 Dr. Richard right nephrectomy Code(s): C64.9 - Malignant neoplasm of unspecified kidney, except renal pelvis Category: Medical Qualifiers: Laterality: right Qualified Code(s): C64.1 - Malignant neoplasm of right kidney, except renal pelvis Plan: Continue to follow-up with oncology (7) Obstructive sleep apnea: Comment: Cannot tolerate CPAP Code(s): G47.33 - Obstructive sleep apnea (adult) (pediatric) Category: Medical Plan: Discussed importance of CPAP treatment for obstructive sleep apnea (8) Hypertension: Code(s): I10 - Essential (primary) hypertension Category: Medical Qualifiers: Hypertension type: primary hypertension Qualified Code(s): I10 - Essential (primary) hypertension Plan: Continue with blood pressure medication. Decrease salt intake and exercise on lisinopril 5 mg once a day (9) Hypercholesterolemia: Code(s): E78.00 - Pure hypercholesterolemia, unspecified Category: Medical Plan: Avoid fried foods, chicken skin, eggs, butter margarine, pastries and meat. Be it pork or beef they have a lot of cholesterol LDL goal of less than 100 and triglyceride of less than 150 (10) Type 2 diabetes mellitus with hyperglycemia: Code(s): E11.65 - Type 2 diabetes mellitus with hyperglycemia Category: Medical Qualifiers: Diabetes mellitus correction insulin use: without terminal gauger supervisor use Qualified Code(s): E11.65 - Type 2 diabetes mellitus with hyperglycemia Plan: Decrease the amount of carbohydrate intake, pasta, bread, rice and potatoes are all sugar and that is aside from all the sweet stuff, remember that fruits are good but they are Sweet also. On metformin 500 mg once a day Plan History of Present Illness The patient is a 59-year-old male presenting for a follow-up on his chronic conditions, including recent weight loss. His medical history is significant for diabetes mellitus, hypertension, hypercholesterolemia, obstructive sleep apnea with intolerance to CPAP, renal cell carcinoma resulting in nephrectomy, and a range of other conditions such as hypothyroidism, generalized anxiety disorder, and gout. Importantly, he has had significant vascular issues, including a history of DVT in 2023 and portal vein thrombosis in 2024. A August 2024 abdominal CAT scan showed reduced metastatic nodules and new segmental portal vein thrombosis. Additionally, increased mural thrombus in the thoracoabdominal aorta was observed. The visit entails managing his multiple conditions with a consideration of recent lab results indicating mild leukopenia, thrombocytopenia, and hyponatremia but otherwise normal renal function and satisfactory hemoglobin A1c. Health Maintenance - Discussed the importance of managing cholesterol with an LDL goal of less than 100 and triglycerides of less than 150. - Addressed diabetes management with metformin 500 mg once a day, emphasizing the significance of maintaining a normal hemoglobin A1c. - Highlighted the importance of continuing CPAP treatment? - Noted the importance of vaccinations, including recent flu vaccination and upcoming need for COVID vaccination. - Encouraged regular exercise as part of weight management, given the patient's obesity and recent weight loss. Social History - Exercise: Previously reported limited physical activity; advised to increase activity levels given recent weight loss and chronic health conditions. - No recent detailed information was provided on employment, housing, or specific substance use. Review of Systems - Respiratory: Denies any recent cough or breathing concerns. - General: Reports limited physical activity. Physical Exam Results - Labs: May last blood work showed mild leukopenia and thrombocytopenia. Mild hyponatremia was noted with normal renal function. Hemoglobin A1c was reported as normal. - Imaging: August 2024 CAT scan revealed decreased size of metastatic nodules in the right phi abdomen and new segmental portal vein thrombosis in the right hepatic lobe, with incidental finding of increased mural thrombus in the thoracoabdominal aorta. Plan The patient's diabetes and cholesterol will be managed using metformin and atorvastatin respectively, with target goals for A1c and LDL. Blood pressure control will involve lisinopril. The existing anticoagulation strategy with laly roxaban will continue for thrombotic conditions. Current oncological therapy with nivolumab and cabozantinib will proceed. Rheumatology will manage inflammatory arthritis through hydroxychloroquine, prednisone, and methotrexate. A strong emphasis is placed on compliance with CPAP and increased physical activity, alongside routine health maintenance measures including ophthalmology evaluation for hydroxychloroquine use. Patient was informed and verbally consented to the use of an ambient scribe for clinic note documentation during this visit. Discussion Notes During the visit, I reviewed the patient's current status regarding his chronic conditions. I explained the management approach for his diabetes with a focus on maintaining an optimal A1c through metformin. For hypertension and hyp ercholesterolemia, lisinopril and atorvastatin were discussed, with clear goals set for blood pressure and lipid levels. Continuous treatment with rivaroxaban for thrombotic events and oncological treatments with nivolumab and cabozantinib were discussed and supported by the decreasing size of nodules. I emphasized the importance of CPAP for sleep apnea and the potential impact on his overall heal th. Given the use of hydroxychloroquine, an ophthalmology referral was agreed upon. I advised on lifestyle changes, including increased exercise, addressing both weight management and overall wellness, and encouraged vaccination for additional health protection. Patient Instructions - Continue taking metformin 500 mg once a day for diabetes management. - Take atorvastatin for cholesterol as prescribed, to maintain target LDL levels below 100. - Continue lisinopril as prescribed for blood pressure management. - Resume methotrexate as prescribed. - Continue taking Eliquis for blood clot management as instructed. - Schedule an ophthalmology appointment due to hydroxychloroquine use. - Prioritize CPAP usage for sleep apnea management and general health. - Incorporate regular exercise into your routine to aid weight management. - Stay up-to-date with vaccinations, including scheduling a COVID vaccine. - Monitor for signs of worsening conditions and seek prompt attention if necessary. Orders: Orders AMB Hemoglobin A1c Today E11.65 - Type 2 diabetes mellitus with hyperglycemia Comprehensive Met. Panel 3 Months E11.65 - Type 2 diabetes mellitus with hyperglycemia Free T4 (Free Thyroxine) 3 Months E11.65 - Type 2 diabetes mellitus with hyperglycemia Vitamin D 25-OH Total 3 Months E11.65 - Type 2 diabetes mellitus with hyperglycemia Prostate Specific Antigen Scr 3 Months E11.65 - Type 2 diabetes mellitus with hyperglycemia Complete Blood Count Auto Diff 3 Months E11.65 - Type 2 diabetes mellitus with hyperglycemia Creatinine Urine 3 Months E11.65 - Type 2 diabetes mellitus with hyperglycemia Microalbumin, Random (w Creat) 3 Months E11.65 - Type 2 diabetes mellitus with hyperglycemia Lipid Panel 3 Months E11.65 - Type 2 diabetes mellitus with hyperglycemia, E78.00 - Pure hypercholesterolemia, unspecified Thyroid Stimulating Hormone 3 Months E11.65 - Type 2 diabetes mellitus with hyperglycemia Hemoglobin A1c 3 Months E11.65 - Type 2 diabetes mellitus with hyperglycemia Vitamin B12 and Folate 3 Months E11.65 - Type 2 diabetes mellitus with hyperglycemia Medications: Refilled atorvastatin 10 mg PO BEDTIME 90 tabs 2RF E78.00 - Pure hypercholesterolemia, unspecified
[2024-10-22 11:07] VITALS: BP 112/62; PULSE 109; TEMP 36.5; O2SAT 94; BMI 35.2
--- OUTSIDE RECORDS SUMMARY | 2024-10-22 13:19 | XMS_ITS ---
Author Organization [facility] Care Team Providers Care Simulation Software Engineer Name Role Phone Winsome Walker Unavailable Unavailable Randi Estrada Unavailable Unavailable Allergies and adverse reactions No Known Allergies Care Team Name Role Address Phone Organization Dates Winsome Walker Attending Physician [address] [facility] [address], [place], [address], [place] (Office): : : [facility] 02/08/2023 - 02/15/2023 Randi Estrada Attending Physician [address] [facility] [facility] [address], [place], [address], [place] (Office): : [facility] 02/08/2023 - 02/15/2023 Functional Status Functional Condition Code Code System Date Dependence on Cane 843419135 SNOMED CT 3 Immunizations Immunization Status Vaccine Details Vaccine Code CodeSystem Date Notes TB 1 Step Mantoux (PPD) completed tuberculin skin test; purified protein derivative solution, intradermal lotNumber: [id number] expiry: 04/06/2024 Mfg: par pharmacutical Given 0.1 ml Left Forearm intradermally 96 CVX created date: 02/09/2023 consent date: 02/09/2023 administer ed date: 02/09/2023 Educated by on 02/09/2023 Influenza (vial) completed Influenza, spli t virus, trivalent, injectable, contains preservative 141 CVX created date: 02/20/2023 administer ed date: 06/14/2022 COVID-19 Vaccine Dose 1 completed unknown vaccine or immune globulin Mfg: Pfizer 999 CVX created date: 02/20/2023 consent date: 02/20/2023 administer ed date: 10/18/2020 COVID-19 Vaccine Dose 2 completed unknown vaccine or immune globulin Mfg: Pfizer 999 CVX created date: 02/20/2023 administer ed date: 11/08/2020 Mental Status Section Date Assessment Total Score Description 02/15/2023 CAM 0 No delirium ind icated 02/12/2023 BIMS 15 cognitively int act CAM 0 No delirium ind icated PHQ-9 04 minimal depress ion Problems Problem # Description Date of onset Resolved Date Code CodeSystem Concern Status 1 ACQUIRED ABSENCE OF KIDNEY 02/08/[address] active 2 ANXIETY DISORDER, UNSPECIFIED 02/08/[address] active 3 ESSENTIAL (PRIMARY) HYPERTENSION 02/08/[address] active 4 HYPERLIPIDEMIA, UNSPECIFIED 02/08/[address] active 5 HYPOTHYROIDISM, UNSPECIFIED 02/08/[address] active 6 MALIGNANT NEOPLASM OF UNSPECIFIED KIDNEY, EXCEPT RENAL PELVIS 02/08/[address] active 7 MONOARTHRITIS, NOT ELSEWHERE CLASSIFIED, RIGHT KNEE 02/08/[address] active 8 OBSTRUCTIVE SLEEP APNEA (ADULT) (PEDIATRIC) 02/08/[address] active 9 PERSONAL HISTORY OF NICOTINE DEPENDENCE 02/08/[address] active 10 SECONDARY MALIGNANT NEOPLASM OF UNSPECIFIED LUNG 02/08/2023 C78.00 ICD-10-CM active 11 TYPE 2 DIABETES MELLITUS WITHOUT COMPLICATIONS 02/08/[address] active 12 WEAKNESS 02/08/[address] active Reason for Referral No Reasons for Referral Entered Social History Social History Observation Description Start Date End Date Code Code System Current Smoking Status Tobacco smoking consumption unknown 098761764 SNOMED CT Sex Assigned At Male 1965 87526-3 [facility] Vital Signs Code Code System Vitals Name Values and Units Timing Information 72717-4 [facility] Pain Level Value=0.0 02/15/2023 9279-1 [facility] Respiratory Rate Value=18.0 Units=/m in 02/15/2023 8462-4 [facility] Blood Pressure-Diastolic Value=67 Un its=mmHg 02/15/2023 8480-6 [facility] Blood Pressure-Systolic Cfdmt=133 Un its=mmHg 02/15/2023 8310-5 [facility] Body Temperature Value=98.6 Units=?? F 02/15/2023 8867-4 [facility] Heart rate Value=94.0 Units=/min 21324-9 [facility] O2 % BldC Oximetry Value=97.0 Units= % 02/15/2023 30042-3 [facility] Weight Hzcbg=765.0 Units=Lbs 01/2023 8302-2 [facility] Height Value=69.0 Units=Inches 02/08/2023
--- OUTSIDE RECORDS SUMMARY | 2024-10-22 13:19 | XMS_ITS ---
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 06/08 Hypovolemic shock 07/05/2022 Hypothyroidism due to medication 07/13/2021 Reactive depression 01/25/2021 Constipation 06/08/2020 Neoplastic malignant related fatigue 05/11/2020 Weight loss 05/11/2020 Thyroiditis, iatrogenic 04/21/2020 Hypotension due to drugs 04/20/2020 Hypotension due to hypovolemia 04/06/2020 Hypophysitis 04/06/2020 New daily persistent headache 03/30/2020 Photophobia 03/30/2020 Renal cell carcinoma of right kidney 01/12/2020 Cancer Staging:Pathologic stage from 01/05/2020:Stage IV(pT3a, pNX, pM1) - Signed by Quintin Ott MD on 02/04/2020 Clinical: Unsigned Renal mass, right 12/11/2019 Malignant neoplasm metastatic to lung 12/11/2019 Secondary erythrocytosis 12/11/2019 Essential hypertension 12/11/2019 Current Oncology Plans No current plan information found. Past Plans ONCOLOGY TREATMENT Plan Name Start Date Discontinue Date Treatment Medications Discontinue Reason Plan Provider Cycles [facility] OP NIVOLUMAB 480 MG EVERY 28 DAYS 2 08/08/2023 albuterol (PROVENTIL)diphen hydrAMINE (BENADRYL)EPINEPH rinefamotidine (PEPCID)hydrocort isone (SOLU-CORTEF) IVmeperidine (DEMEROL) 25 MG/MLnivolumab (OPDIVO) infusionSaline Flush 0.9 %sodium chloride (NS) 0.9 %sodium chloride 0.9% bolus (NS) Not Tolerated Quintin Ott MD 13 of 17 cycles started Radiation Treatments * No radiation treatments are documented for this patient in [facility]. Treatments may have been administered in another system.
--- OUTSIDE RECORDS SUMMARY | 2024-10-22 13:19 | XMS_ITS | Clinical Summary ---
Author Organization [facility] Address [address] [place] [address] Care Team Providers Care Mold Changer Name Role Phone Nataly eCrda MD Primary Care Provider [phone] Allergies No known active allergies Medications Medication Sig Dispensed Refills Start Date End Date Status meloxicam (MOBIC) 15 MG tablet TAKE 1 TABLET (15 MG TOTAL) BY MOUTH DAILY. 30 tablet 0 03/26/2023 Active predniSONE (DELTASONE) tablet 10 mg Take by mouth every morning with breakfast. 0 Active ferrous sulfate 325 (65 FE) MG tablet Take 1 tablet (325 mg total) by mouth every morning with breakfast. 0 Active oxyCODONE-acetaminoph en (PERCOCET) 5-325 MG per tablet Take 1 tablet by mouth 2 (two) times a day as needed for pain. 60 tablet 0 08/08/2023 Active metFORMIN (GLUCOPHAGE) tablet 500 mg Take 1 tablet (500 mg total) by mouth 2 (two) times a day with meals. 0 Active hydroxychloroquine (PLAQUENIL) 200 MG tablet Take by mouth daily. 0 Active atorvastatin (LIPITOR) tablet 40 mg Take 1 tablet (40 mg total) by mouth daily. 0 Active cabozantinib (CABOMETYX) 60 MG tablet Take 1 tablet (60 mg total) by mouth daily 90 tablet 3 04/01/2024 Active folic acid (FOLVITE) tablet 1 mg Take 1 tablet (1,000 mcg total) by mouth daily. 0 04/15/2024 Active methotrexate 2.5 MG tablet TAKE 6 TABLETS BY MOUTH ONCE WEEKLY FOR 2 WEEKS THEN 8 TABS ONCE WEEKLY 0 04/15/2024 Active hydrocortisone (CORTEF) tablet 10 mg Take 1 tablet (10 mg total) by mouth daily. 30 tablet 9 06/04/2024 Active Active Problems Problem Noted Date Diagnosed Date [...] 12/11/2019 Secondary erythrocytosis 12/11/2019 Essential hypertension 12/11/2019 Family History Medical History Relation Name Comments Cancer Mother Relation Name Status Comments Mother Social History Tobacco Use Types Packs/Day Years Used Date Smoking Tobacco: Former Cigarettes 0.5 Q uit: 11/04/2004 Smokeless Tobacco: Never Alcohol Use Standard Drinks/Week Comments Yes 0 (1 standard drink = 0.6 oz pur e alcohol) rarely Sex and Gender Information Value Date Recorded Sex Assigned at Male 03/21/2022 11:49 AM EDT Gender Identity Not on file Sexual Orientation Not on file Job Start Date Occupation Industry Not on file Not on file Not on file Last Filed Vital Signs Vital Sign Reading Time Taken Comments Blood Pressure 119/96 06/04/2024 10:34 AM EDT Pulse 100 06/04/2024 10:34 AM EDT Temperature 36.9 ??C (98.4 ??F) 06/04/2024 10:34 AM E DT Respiratory Rate 18 01/10/2023 12:48 PM EDT Oxygen Saturation 97% 06/04/2024 10:34 AM EDT Inhaled Oxygen Concentration - - Weight 113.9 kg (251 lb) 06/04/2024 10:34 AM EDT Height 170.2 cm (5' 7.01 ) 01/27/2022 2:39 PM ED T Body Mass Index 39.3 01/27/2022 2:39 PM EDT Plan of Treatment Health Maintenance Due Date Last Done Comments Hepatitis B Vaccines (1 of 3 - 3-dose series) 1966 Hepatitis C Screening 1966 COVID-19 Vaccine (#1) 1971 Pneumococcal Vaccine (1 of 2 - PCV) 1972 Depression Screening 1978 BMI Counseling 1984 Preventative Health Evaluation 1984 DTap / Tdap / Td (1 - Tdap) 1985 Shingrix-Zoster Vaccine (1 of 2) 1985 Colon Cancer Screening (Colonoscopy) 2011 Influenza Vaccine (#1) 2024 2, 05/01/2019, 05/24/2018, Additional history exists RSV Ped < 20 months Aged Out No longe r eligible based on patient's age to complete this topic Care Teams Mold Changer Relationship Specialty Start Date End Date Nataly Cerda MD [address] [place] [address] [address] [facility] [place] [address] PCP - General Internal Medicine 07/05/22
--- OUTSIDE RECORDS SUMMARY | 2024-10-22 13:19 | XMS_ITS | Encounter Summary ---
Author Organization [facility] Address [address] [place] [address] Care Team Providers Care Credentialing Manager Name Role Phone Nataly Cerda MD Primary Care Provider [phone] Encounter Details Date Type Department Care Team (Latest Contact Info) Description 10/10/2024 12:00 PM EST - 10/10/2024 11:59 PM EST Hospital Encounter [facility] Infusion [facility] [address] [phone] Quintin Guzmán MD [address] [place] [phone] Renal cell carcinoma of right kidney (CMS/HCC) Discharge Disposition: Home or Self Care Social History Tobacco Use Types Packs/Day Years Used Date Smoking Tobacco: Former Cigarettes Q uit: 11/04/2004 Smokeless Tobacco: Never Alcohol Use Standard Drinks/Week Comments Yes 0 (1 standard drink = 0.6 oz pur e alcohol) Sex and Gender Information Value Date Recorded Sex Assigned at Male 09/12/2024 3:01 PM EST Legal Sex Male 11:33 AM EST Gender Identity Male 09/12/2024 3:01 PM EST Sexual Orientation Straight 09/12/2024 3: 01 PM EST documented as of this encounter Medications at Time of Discharge amLODIPine (NORVASC) 5 mg tablet Take 1 tablet (5 mg total) by mouth. apixaban (ELIQUIS) 5 mg tabletIndications :Portal vein thrombosis Take 1 tablet (5 mg total) by mouth 2 (two) times a day. 60 each 2 09/12/2024 12/11/2024 atorvastatin (LIPITOR) 20 mg tablet Take 1 tablet (20 mg total) by mouth. cholecalciferol, vitamin D3, 25 mcg (1,000 unit) tablet,chewable Chew 25 mcg. ferrous sulfate 325 mg (65 mg elemental iron) tablet Take 1 tablet (325 mg total) by mouth 1 (one) time each day. folic acid (FOLVITE) 1 mg tablet Take 1 tablet (1,000 mcg total) by mouth. 04/15/2024 hydroCHLOROthiazi de (HYDRODIURIL) 25 mg tablet Take 1 tablet (25 mg total) by mouth. hydrocortisone (CORTEF) 10 mg tablet Take 1 tablet (10 mg total) by mouth 1 (one) time each day. 06/04/2024 lisinopril (PRINIVIL,ZESTRIL ) 40 mg tablet Take 1 tablet (40 mg total) by mouth. metFORMIN (GLUCOPHAGE) 500 mg tablet Take 1 tablet (500 mg total) by mouth 2 (two) times a day with meals. methotrexate 2.5 mg tablet TAKE 6 TABLETS BY MOUTH ONCE WEEKLY FOR 2 WEEKS THEN 8 TABS ONCE WEEKLY metoprolol tartrate (LOPRESSOR) 25 mg tablet Take 1 tablet (25 mg total) by mouth 2 (two) times a day. 06/02/2024 oxyCODONE-acetami nophen (PERCOCET) 5-325 mg per tablet Take 1 tablet by mouth 2 times daily as needed. 08/08/2023 predniSONE (DELTASONE) 2.5 mg tablet TAKE 2 TABS BY MOUTH DAILY FOR 1 MONTH THEN STAY ON 1 TAB DAILY 06/02/2024 Vitamin C 500 mg tablet Take 1 tablet (500 mg total) by mouth 1 (one) time each day. 08/09/2023 cabozantinib (Cabometyx) 20 mg tablet Take 1 tablet (20 mg total) by mouth 1 (one) time each day 30 tablet 09/12/2024 10/12/2024 documented as of this encounter Discharge Disposition Disposition Code Departure Means Destination Home or Self Care documented in this encounter Progress Notes * Estephania Zelaya RN - 10/10/2024 12:00 PM EST Arrived amb for port labs after OV. Pt is feeling well. Labs drawn as ordered, next lab draw scheduled after next MD VALLADARES. Pt left amb, stable at D/C. documented in this encounter Plan of Treatment Upcoming Encounters Date Type Department Care Team (Late st Contact Info) Description 11/07/2024 2:45 PM EDT Office Visit [facility] Hematology Oncology [address] [place] [phone] Quintin Guzmán MD [address] [place] [phone] 11/07/2024 3:00 PM EDT Appointment [facility] [address] [place] [phone] documented as of this encounter Procedures Procedure Name Priority Date/Time Associated Diagnosis Comments CBC WITH AUTO DIFFERENTIAL Routine 10/10/2024 12:44 PM EST Renal cell carcinoma of right kidney (CMS/HCC) CBC AND DIFFERENTIAL Routine 10/10/2024 12:44 PM EST Renal cell carcinoma of right kidney (CMS/HCC) THYROID STIMULATING HORMONE Routine 10/10/2024 12:44 PM EST Renal cell carcinoma of right kidney (CMS/HCC) COMPREHENSIVE METABOLIC PANEL Routine 10/10/2024 12:44 PM EST Renal cell carcinoma of right kidney (CMS/HCC) documented in this encounter Results * (ABNORMAL) CBC auto differential (10/10/2024 12:44 PM EST) WBC 8.8 4.8 - 10.8 K/mcL LAB HEMETOLOGY METHOD 10/10/2024 1:52 PM EST [facility] RBC 4.30(L) 4.50 - 5.50 M/mcL LAB HEMETOLOGY METHOD 10/10/2024 1:52 PM EST [facility] Hemoglobin 14.1 13.5 - 17.5 g/dL LAB HEMETOLOGY METHOD 10/10/2024 1:52 PM [facility] Hematocrit 42.7 42.0 - 54.0 % LAB HEMETOLOGY METHOD 10/10/2024 1:52 PM [facility] MCV 98.6(H) 79.0 - 98.0 FL LAB HEMETOLOGY METHOD 10/10/2024 1:52 PM [facility] MCH 32.6(H) 27.0 - 32.0 pcg LAB HEMETOLOGY METHOD 10/10/2024 1:52 PM [facility] MCHC 33.0 32.0 - 37.0 g/dL LAB HEMETOLOGY METHOD 10/10/2024 1:52 PM [facility] RDW 12.6 11.0 - 15.0 % LAB HEMETOLOGY METHOD 10/10/2024 1:52 PM [facility] Platelets 190 130 - 400 K/mcL LAB HEMETOLOGY METHOD 10/10/2024 1:52 PM [facility] MPV 9.6 7.0 - 11.0 FL LAB HEMETOLOGY METHOD 10/10/2024 1:52 PM [facility] NRBC 0.0 <1.0 % LAB HEMETOLOGY METHOD 10/10/2024 1:52 PM [facility] NRBC Absolute 0.00 <0.10 K/mcL LAB HEMETOLOGY METHOD 10/10/2024 1:52 PM [facility] Neutrophils Relative 64.6 % LAB HEMETOLOGY METHOD 10/10/2024 1:52 PM [facility] Lymphocytes Relative 15.0 % LAB HEMETOLOGY METHOD 10/10/2024 1:52 PM [facility] Monocytes Relative 6.2 % LAB HEMETOLOGY METHOD 10/10/2024 1:52 PM [facility] Eosinophils Relative 13.1 % LAB HEMETOLOGY METHOD 10/10/2024 1:52 PM EST [facility] Basophils Relative 0.8 % LAB HEMETOLOGY METHOD 10/10/2024 1:52 PM [facility] Immature Granulocytes Relative 0.3 % LAB HEMETOLOGY METHOD 10/10/2024 1:52 PM [facility] Neutrophils Absolute 5.67 1.50 - 7.00 K/mcL LAB HEMETOLOGY METHOD 10/10/2024 1:52 PM EST [facility] Lymphocytes Absolute 1.32 1.00 - 5.00 K/mcL LAB HEMETOLOGY METHOD 10/10/2024 1:52 PM [facility] Monocytes Absolute 0.54 0.20 - 1.00 K/mcL LAB HEMETOLOGY METHOD 10/10/2024 1:52 PM [facility] Eosinophils Absolute 1.15(H) 0.00 - 0.50 K/mcL LAB HEMETOLOGY METHOD 10/10/2024 1:52 PM EST [facility] Basophils Absolute 0.07 0.00 - 0.20 K/mcL LAB HEMETOLOGY METHOD 10/10/2024 1:52 PM [facility] Immature Granulocytes Absolute 0.03 0.00 - 0.03 K/mcL LAB HEMETOLOGY METHOD 10/10/2024 1:52 PM [facility] Blood Blood sample taken from central line / Unknown Existing Catheter / Unknown 10/10/2024 12:44 PM EST 10/10/2024 1:31 PM EST us Quintin Guzmán MD LAB BLOOD ORDERABLE S Final Result [facility] [address] [place] [address], * (ABNORMAL) Thyroid stimulating hormone (10/10/2024 12:44 PM EST) TSH 6.30(H) 0.40 - 4.00 mcIU/mL LAB CHEMISTRY METHOD 10/10/2024 2:08 PM [facility] Blood Blood sample taken from central line / Unknown Existing Catheter / Unknown 10/10/2024 12:44 PM EST 10/10/2024 1:31 PM EST Subramedward Guzmán MD LAB BLOOD ORDERABLE S Final Result [facility] [address] [place] [address], * (ABNORMAL) Comprehensive metabolic panel (10/10/2024 12:44 PM EST) [facility] Sodium 139 133 - 145 mmol/L LAB CHEMISTRY METHOD 10/10/2024 3:56 PM [facility] Potassium 3.9 3.5 - 5.5 mmol/L LAB CHEMISTRY METHOD 10/10/2024 3:56 PM [facility] Chloride 108 96 - 110 mmol/L LAB CHEMISTRY METHOD 10/10/2024 3:56 PM [facility] CO2 23 21 - 32 mmol/L LAB CHEMISTRY METHOD 10/10/2024 3:56 PM [facility] Anion Gap 8 3 - 11 LAB CHEMISTRY METHOD 10/10/2024 3:56 PM [facility] Glucose 100 70 - 100 mg/dL LAB CHEMISTRY METHOD 10/10/2024 3:56 PM [facility] BUN 8 5 - 25 mg/dL LAB CHEMISTRY METHOD 10/10/2024 3:56 PM [facility] Creatinine 1.07 0.70 - 1.30 mg/dL LAB CHEMISTRY METHOD 10/10/2024 3:56 PM [facility] eGFR 80 >=60 mL/min/1. 73m2 LAB CHEMISTRY METHOD 10/10/2024 3:56 PM [facility] Comment:Calculation based on the??Chronic Kidney Disease Epidemiology Collaboration (CKD-EPI) equation refit??without adjustment for race. BUN/Creatinine Ratio 7.5 LAB CHEMISTRY METHOD 10/10/2024 3:56 PM [facility] Calcium 8.3(L) 8.5 - 10.5 mg/dL LAB CHEMISTRY METHOD 10/10/2024 3:56 PM [facility] AST (SGOT) 20 10 - 42 unit/L LAB CHEMISTRY METHOD 10/10/2024 3:56 PM [facility] ALT (SGPT) 26 10 - 60 unit/L LAB CHEMISTRY METHOD 10/10/2024 3:56 PM [facility] Alkaline Phosphatase 81 42 - 121 unit/L LAB CHEMISTRY METHOD 10/10/2024 3:56 PM [facility] Total Protein 6.9 6.0 - 8.0 g/dL LAB CHEMISTRY METHOD 10/10/2024 3:56 PM [facility] Albumin 3.3 3.2 - 5.0 g/dL LAB CHEMISTRY METHOD 10/10/2024 3:56 PM [facility] Total Bilirubin 0.6 0.0 - 1.4 mg/dL LAB CHEMISTRY METHOD 10/10/2024 3:56 PM [facility] Blood Blood sample taken from central line / Unknown Existing Catheter / Unknown 10/10/2024 12:44 PM EST 10/10/2024 1:31 PM EST us Subramony Arielle PRIETO LAB BLOOD ORDERABLE S Final Result [facility] [address] [place] [address], [place] [phone] documented in this encounter Visit Diagnoses Diagnosis Renal cell carcinoma of right kidney (CMS/HCC) documented in this encounter Care Teams Credentialing Manager Relationship Specialty Start Date End Date Nataly Cerda MD [address] [facility] [place] [address] PCP - General 07/05/22 documented as of this encounter
--- OUTSIDE RECORDS SUMMARY | 2024-10-22 13:19 | XMS_ITS | Encounter Summary ---
Author Organization [facility] Address [address] [place] [address] Care Team Providers Care Grassroots Organizer Name Role Phone Nataly Cerda MD Primary Care Provider [phone] Reason for Visit * Reason Comments New Start CABOMETYX (cabozantinib) Encounter Details Date Type Department Care Team Description 01/15/2024 Nurse Only [facility] Oncology Services [address] [place] [address] Maribel Allred RN New Start CABOMETYX (cabozantinib) Social History Tobacco Use Types Packs/Day Years [...] file Not on file Not on file documented as of this encounter Progress Notes * Maribel Allred RN - 01/15/2024 2:11 PM EDT New Oral Chemo Start ??? Notice Letter and Medication Education packet mailed to patient. RX submitted to Specialty Pharm[facility] on file - Patients will need to call the SP for monthly refills FYI: Prescription processing takes 7-10 days. If Financial Assistance is required, then the process will be extended. SP will call the patient or caregiver directly to schedule delivery. They must speak with them directly prior to shipping the medication every month. Please contact your Nurse Navigator for additional information. documented in this encounter Plan of Treatment Not on file documented as of this encounter Visit Diagnoses Not on filedocumented in this encounter Care Teams Grassroots Organizer Relationship Specialty Start Date End Date Nataly Cerda MD [address] [place] [address] [address] [facility] [place] [address] PCP - General Internal Medicine 07/05/22 documented as of this encounter
--- OUTSIDE RECORDS SUMMARY | 2024-10-22 13:19 | XMS_ITS | Encounter Summary ---
Author Organization [facility] [place] [address] Care Team Providers Care Front Office Assistant Name Role Phone Nataly Cerda MD Primary Care Provider [phone] Encounter Details Date Type Department Care Team (Late st Contact Info) Description 06/04/2024 10:04 AM EDT Hospital Encounter [facility] HISTORIC ENCOUNTERS [facility]AST[facility] CONVERSION ONLY Janis Carrillo MD [address] [place] [phone] Social History Tobacco Use Types Packs/Day Years [...] 2:39 PM EDT documented in this encounter Progress Notes * Janis Carrillo [...] due to cabozantinib), patient end up in [facility] with generalized weakness, abdominal pain, nausea vomiting [...] -- no metastases 12/30/2021 - 01/10/2023 Chemotherapy [facility] OP NIVOLUMAB 480 MG EVERY 28 DAYS [...] and patient last Sunday and up in [facility] with generalized weakness, abdominal pain, nausea, vomiting, diarrhea, decreased appetiteand have significant SVT, his heart rate was 180, patient had some extensive workup and restarted on prednisone as well as metoprolol and discharge. I discussed with patient and his about his hospitalization, I also discussed with Dr. Melvin Post (hospitalist in [facility]) about his symptom which most likely because [...] Description 11/07/2024 2:45 PM EDT Office Visit [facility] Hematology Oncology [address] [place] [phone] Quintin Guzmán MD [address] [place] [phone] 11/07/2024 3:[address] [facility]fusion [facility] [address] [place] [phone] documented as of this encounter Procedures Procedure Name Priority Date/Time Associated Diagnosis Comments HISTORICAL IMAGING SCAN RESULT 06/04/2024 documented in this encounter Results * HISTORICAL IMAGING SCAN RESULT (06/04/2024) Anatomical Region Laterality Modality Ultrasound us Provider Onbase IMMorgan US PROCEDURES Final Resul t documented in this encounter Visit Diagnoses Not on filedocumented in this encounter Care Teams Front Office Assistant Relationship Specialty Start Date End Date Prashant, MD Nataly [address] [place] [address] [address] [facility] [place] [address] PCP - General 07/05/22 documented as of this encounter
--- OUTSIDE RECORDS SUMMARY | 2024-10-22 13:19 | XMS_ITS | Encounter Summary ---
Author Organization [facility] Address [address] [place] [address] Care Team Providers Care Commercial Pest Control Representative Name Role Phone Nataly Cerda MD Primary Care Provider [phone] Reason for Visit * Reason Comments Follow-up Encounter Details Date Type Department Care Team (Latest Contact Info) Description 10/10/2024 11:45 AM EST Office Visit [facility] Hematology Oncology [address] [place] [phone] Quintin Guzmán MD [address] [place] [phone] Renal cell carcinoma of right kidney (CMS/HCC) (Primary Dx); 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 (CMS/HCC); Thyroiditis, iatrogenic; Secondary erythrocytosis; Hypovolemic shock (CMS/HCC); Neoplastic malignant related fatigue; Hypotension due to drugs Social History Tobacco Use Types Packs/Day Years Used Date Smoking Tobacco: Former Cigarettes Q uit: 11/04/2004 Smokeless Tobacco: Never Tobacco Cessation:Counseling Given: Not Answered Alcohol Use Standard Drinks/Week Comments Yes 0 [...] Sign Reading Time Taken Comments Blood Pressure 133/87 10/10/2024 12:04 PM EST Pulse 98 10/10/2024 12:04 PM EST Temperature 36.8 ??C (98.2 ??F) 10/10/2024 12:[address] Respiratory Rate - - Oxygen Saturation 100% 10/10/2024 12:04 PM EST Inhaled Oxygen Concentration - - Weight 100 kg (221 lb) 10/10/2024 12:04 PM EST Height - - Body Mass Index 35.67 06/11/2024 11:19 AM EST documented in this encounter Progress Notes * Quintin Wilson-MD Michael - 10/10/2024 11:45 AM EST CHIEF COMPLAINT: Chief Complaint Patient presents with Follow-up Renal cell carcinoma Lung metastasis Depression Regimen #1 palliative immunotherapy, Opdivo plus Yervoy X 4 cycle--February 2020 - April 2020 Regimen #2 Opdivo maintenence since April 2020, every 4 weeks treatment since August 2020--DC January 2023, due to hospitalization Hypoadrenalism-hydrocortisone started 07/2022 -- pt DC himself Hypothyroidism - on Levothyroxine - He DCed it himself Remained off treatment x 1 year until January 2024 Regimen #1-hswdtskwlvwv-3/2024, restarted after interruption 06/2024 IDENTIFIER:Clifford Brooks is a 59 y.o. male. HPI: The patient returns for follow up of renal cell carcinoma. He is accompanied by his . For details of initial diagnosis and follow up until JUN 06, 2024- please refer to notes from prior [facility] EMR last note dated 04/30/2024, and Dr. Sanchez note 06/04/2024 Patient is currently on cabozantinib, at a lower dose, 60 Mg every other day, as she was not able to tolerate the full dose medication. Patient had restaging imaging and is here for follow-up. He continues on Cabozantinib after a couple of weeks interruption ue to insurance issues [place] quite well while he was off the med No nausea, or fatigue Now back on 20 mg daily Could increase to 30 mg with next script if he tolerates it Portal vein thrombosis noted, will need anticoagulation x 3 months. The following is copied, reviewed and edited Cancer Staging No matching staging information was found for the patient. Oncology History No history exists. 11/2019 54-year-old gentleman, who is referred for evaluation regarding a recently diagnosed right renal mass, suspected renal cell carcinoma PLAN -- #1 this is a 54-year-old gentleman, with recently diagnosed right-sided renal mass, as wellas multiple bilateral pulmonary nodules, suspicious for pulmonary metastasis from renal cell carcinoma I discussed with the patient regarding the likely diagnosis, staging, most likely stage IV disease I recommend obtaining lab work including CBC, differential, PT/INR, to facilitate a biopsy #2 I recommend a needle biopsy of 1 of the lung nodules, that will help for diagnosis and staging #3 for complete staging I requested MRI of the brain with and without contrast #4 recommendations for treatment, he would benefit from a palliative nephrectomy., And can proceed with it as long as he does not have any significant brain metastasis. He does not have any symptoms referable to [employer] at this time. If he has brain metastasis, would send in a radiation oncology referral for palliative XRT, after which once disease is controlled he may undergo nephrectomy #5 after completion of nephrectomy, he would be a candidate for either combination immunotherapy ora combination of TK IV with immunotherapy. I discussed with the patient in brief regarding these options, and that he will have a follow-up in clinic in the next few weeks to discuss therapy I discussed with him regarding a Mediport placement to facilitate IV immunotherapy, that can be arranged after his surgery . 12/2019-- He had a biopsy of lung, that indicated metastatic renal cell carcinoma He also had an MRI of the brain, that did not reveal any brain metastasis Patient is awaiting surgery, right nephrectomy tomorrow - Unfortunately this is indicated of of recurrence of renal cell carcinoma. Lab work from November are reviewed, in the stable range Patient continues on hydroxychloroquine/small dose of prednisone 5 mg daily, for management of his inflammatory arthritis. Discussion with the patient and his today regarding systemic treatment options for recurrent progressive renal cell carcinoma. Previous immunotherapy noted. Side effects included severe arthritis, hypophysitis, hypotensive episodes. He may be a candidate for pembrolizumab, however while he is on steroid therapy it may not beeffective. Therefore TKI therapy is considered. Several agents available such as Cabometyx, Inlyta, Lenvima and Votrient. This usually work better in combination with immunotherapy, however single agent medication can also provide durable responses. The other option is for a combination of Cabometyx plus Welireg which is available in clinical trials at this time. 03/2024 - Patient was seen in clinic in mid January after restaging imaging. He was counseled to initiate Cabometyx which she did. He received medication in mid January, and gradually titrated up to 3 tablets a day.Patient reports that he was quite fatigued and was sleeping up to several hours during the daytime.He completed 1 month of medication. In mid February, our nurse navigator contacted him regarding medication refill, but he was not able to return the call. He has been without medication for 6 weeks and we have not received any contact from him in this time. Today he comes in and would like to continuethe medication. He is due for lab work. He has lost weight about 5 pounds. He complains of pain along the right ankle area. Denies any dyspnea chest pressure or headache. Will need to obtain baselinelabs and resume medication Side effects of medications were reviewed in detail with him. I recommend starting on Cabometyx at 20 mg dose, and build up over. Of 2 to 3 weeks to 60 Mg daily if tolerated Adverse reactions could include hypertension, BP ED, skin rash, hyperglycemia, electrolyte abnormalities, hypothyroidism, increased triglycerides, LDH, abdominal pain, altered bowel habits, nausea, anemia, fatigue, dizziness, arthralgia cough Will plan restaging imaging after 2 to 3 months of treatment 04/2024 Patient had restaging imaging performed on 01/10/2024. CT CAP reviewed and indicates enlarging left lower lobe pulmonary nodule 9 mm, as well as several new/enlarging nodules and masses in the right side of abdomen, new partly necrotic mass right upper quadrant 5 x 3.6 x 3.9 cm, and right lower quadrant 3.4 cm, in the previous study there was a 9 mm area. Patient comes in for follow-up. He was seen in clinic a month ago. He had lab work. This is reviewed with him TSH slightly high. He is continued on Cabometyx tolerating the 60 mg dose without any significant side effects. He developed worsening arthritis in his knee and feet again despite hydroxychloroquine. He had a rheumatology follow-up. Dr. Stuart contacted me. His recommendation was to startmethotrexate and folic acid, patient has been on it for about 3 weeks, has not noticed much of a difference. He will be due for restaging imaging next month, can order after next visit 07/2024- Patient was seen in clinic in April. At that time he had been on cabozantinib, for 3 months andwas tolerating it well. Advised him to continue same dosing. A few weeks later patient feels that he was not able to use the medication due to flank pain. Therefore he stopped it and thereafter all me dications including hydrocortisone. He was admitted to [facility], he was quite sick with abdominal pain, hypotension, and also developed SVT. He was started on prednisone, and also metoprolol. Symptoms have improved. Abdominal pain has improved. He is concerned about starting back on Senna. He will be also due for restaging imaging later on but has not completed sufficient time on the medication recently. Discussion today regarding risk of adrenal crisis, and risk of if he stops hydrocortisone without morning Also discussed regarding the use of lower dose of cabozantinib which may be better tolerated Update-patient returns after 3 weeks he has been on the cabozantinib every other day and is tolerating it better. He is unsure whether he is taking the levothyroxine but is quite diligent about continuing on hydrocortisone. He is due for lab work. Also question regarding restaging imaging, will plan for CT chest, abdomen, pelvis and August. He agrees. ROS: GENERAL: No malaise, significant weight loss or fever NECK: No lumps, goiter, pain or significant neck swelling RESPIRATORY: No cough, wheezing or shortness of breath CARDIOVASCULAR: No chest pain, leg swelling or palpitations GI: No abdominal discomfort, blood in stools or black stools MUSCULOSKELETAL: No joint pain or swelling, back pain, or muscle pain. HEMATOLOGY/LYMPHOLOGY No prolonged bleeding, easy bruisability or swollen nodes Other Systems review is non contributory PAST MEDICAL HISTORY: Active Ambulatory Problems Diagnosis Date Noted History of renal carcinoma 06/11/2024 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 ([facility]) 07/05/2022 Constipation 06/08/2020 Bilateral knee effusions 02/26/2023 Hypophysitis ([facility]/HCC) 04/06/2020 Inflammatory arthritis 05/30/2023 Hypotension due to drugs 04/20/2020 Hypothyroidism due to medication 07/13/2021 Hypovolemic shock ([facility]) 07/05/2022 Neoplastic malignant related fatigue 05/11/2020 Reactive depression 01/25/2021 Obstructive sleep apnea (adult) (pediatric) 02/08/2023 Renal cell carcinoma of right kidney ([facility]) 01/12/2020 Secondary erythrocytosis 12/11/2019 Thyroiditis, iatrogenic 04/21/2020 Type 2 diabetes mellitus without complications ([facility]) 02/08/2023 Acute cephalic vein thrombosis, left 06/20/2024 Resolved Ambulatory Problems Diagnosis Date Noted No Resolved Ambulatory Problems Past Medical History: Diagnosis Date Diabetes mellitus ([facility]) Hypercholesterolemia Hypertension Sleep apnea SOCIAL HISTORY: Social History Tobacco Use Smoking status: Former Current packs/day: 0.00 Types: Cigarettes Quit date: 11/04/2004 Years since quittin.9 Smokeless tobacco: Never Substance Use Topics Alcohol use: Yes FAMILY HISTORY: Family History Problem Relation Name Age of Onset Cancer Mother Current Outpatient Medications: amLODIPine (NORVASC) 5 mg tablet, Take 1 tablet (5 mg total) by mouth., Disp: , Rfl: apixaban (ELIQUIS) 5 mg tablet, Take 1 tablet (5 mg total) by mouth 2 (two) times a day., Disp: 60 each, Rfl: 2 atorvastatin (LIPITOR) 20 mg tablet, Take 1 tablet (20 mg total) by mouth., Disp: , Rfl: cabozantinib (Cabometyx) 20 mg tablet, Take 1 tablet (20 mg total) by mouth 1 (one) time each day, Disp: 30 tablet, Rfl: 0 cholecalciferol, vitamin D3, 25 mcg (1,000 unit) tablet,chewable, Chew 25 mcg., Disp: , Rfl: ferrous sulfate 325 mg (65 mg elemental iron) tablet, Take 1 tablet (325 mg total) by mouth 1 (one)time each day., Disp: , Rfl: folic acid (FOLVITE) 1 mg tablet, Take 1 tablet (1,000 mcg total) by mouth., Disp: , Rfl: hydroCHLOROthiazide (HYDRODIURIL) 25 mg tablet, Take 1 tablet (25 mg total) by mouth., Disp: , Rfl: hydrocortisone (CORTEF) 10 mg tablet, Take 1 tablet (10 mg total) by mouth 1 (one) time each day., Disp: , Rfl: lisinopril (PRINIVIL,ZESTRIL) 40 mg tablet, Take 1 tablet (40 mg total) by mouth., Disp: , Rfl: metFORMIN (GLUCOPHAGE) 500 mg tablet, Take 1 tablet (500 mg total) by mouth 2 (two) times a day with meals., Disp: , Rfl: methotrexate 2.5 mg tablet, TAKE 6 TABLETS BY MOUTH ONCE WEEKLY FOR 2 WEEKS THEN 8 TABS ONCE WEEKLY, Disp: , Rfl: metoprolol tartrate (LOPRESSOR) 25 mg tablet, Take 1 tablet (25 mg total) by mouth 2 (two) times a day., Disp: , Rfl: oxyCODONE-acetaminophen (PERCOCET) 5-325 mg per tablet, Take 1 tablet by mouth 2 times daily as needed., Disp: , Rfl: predniSONE (DELTASONE) 2.5 mg tablet, TAKE 2 TABS BY MOUTH DAILY FOR 1 MONTH THEN STAY ON 1 TAB DAILY, Disp: , Rfl: Vitamin C 500 mg tablet, Take 1 tablet (500 mg total) by mouth 1 (one) time each day., Disp: , Rfl: No Known Allergies PHYSICAL EXAM: Visit Vitals BP 133/87 (BP Location: Left arm, Patient Position: Sitting, BP Cuff Size: Large adult) Pulse 98 Temp 36.8 ??C (98.2 ??F) (Temporal) Wt 100 kg (221 lb) SpO2 100% BMI 35.67 kg/m?? Smoking Status Former BSA 2.08 m?? APPEARANCE: Alert and in no acute distress EYES: PERRL, conjunctiva pink and sclera are Normal without icterus ORAL CAVITY: No erythema or exudates NECK: Neck supple, no adenopathy, HEART: RRR with normal S1 and S2, no murmurs, no gallops, no JVD appreciated LUNG: clear to auscultation bilaterally Percussion note normal LYMPH NODES: No palpable superficial adenopathy ABDOMEN: Bowel sounds normoactive, no bruits, soft, non-tender, without organomegaly or palpable masses EXTREMITIES: Extremities warm and well perfused without clubbing, cyanosis, rash or edema NEURO: Oriented X 3, no focal weakness; sensation is normal LABS: Review of Lab results , interpreted Lab Results Component Value Date WBC 9.2 09/12/2024 HGB 15.5 09/12/2024 HCT 46.9 09/12/2024 MCV 98.7 (H) 09/12/2024 PLT 215 09/12/2024 Lab Results Component Value Date NA 137 09/12/2024 K 3.7 09/12/2024 CL 105 09/12/2024 CO2 24 09/12/2024 GLUCOSE 109 (H) 09/12/2024 BUN 10 09/12/2024 CREATININE 1.11 09/12/2024 CALCIUM 8.9 09/12/2024 PROT 6.7 09/12/2024 ALBUMIN 3.6 09/12/2024 BILITOT 0.8 09/12/2024 AST 35 09/12/2024 ALT 57 09/12/2024 ALKPHOS 84 09/12/2024 EGFR 77 09/12/2024 Review of Imaging, interpreted CT Chest/Abdomen/Pelvis w Contrast Narrative: CT CHEST, ABDOMEN AND PELVIS WITH CONTRAST INDICATION: renal cancer TECHNIQUE: Chest, abdomen and pelvis CT following the intravenous administration of 90cc ISOVUE 370. Multiplanar reformats were created and interpreted. The examination was performed utilizing dose reduction techniques. COMPARISON: No priors available. FINDINGS: CT CHEST: LUNGS/PLEURA: There is mild bronchiectasis at the lung bases. There is no consolidation or effusion. The previously noted 9 mm left lower lobe nodule has significantly decreased in size now measuringup to 4 mm.. MEDIASTINUM: Thyroid gland is unremarkable. No mediastinal or hilar lymphadenopathy. Cardiac chambers are normal in size. Coronary artery calcifications. No pericardial effusion. Esophagus is normal. CHEST WALL: No axillary lymphadenopathy or superficial hematoma. BONES: No acute fracture. Scattered degenerative changes seen throughout the bones. CT ABDOMEN AND PELVIS: HEPATOBILIARY: There is differential enhancement involving segment 8 due to segmental portal venousthrombosis. The previously noted mass abutting the inferior tip of the right hepatic lobe previously measured 3.3 x 5 cm and now measures 2.2 x 1.4 cm. SPLEEN: No splenomegaly. PANCREAS: No focal mass or ductal dilatation. ADRENALS: No nodules. KIDNEYS/URETERS: Status post right nephrectomy. No mass or adenopathy. Left renal cyst. PELVIC ORGANS/BLADDER: Enlarged prostate. Circumferential wall thickening of the bladder related tochronic outlet obstruction. No bladder distention. PERITONEUM / RETROPERITONEUM: No ascites or free air. No retroperitoneal lymphadenopathy. VESSELS: Compared to prior examination of 01/10/2024 there is increased soft plaque within the thoracoabdominal aorta. There are scattered metastatic gastric calcifications of the aortoiliac bifurcation. There is no aneurysm. GI TRACT: Decrease in size of a few nodules previously identified in the right lower quadrant. The largest which was adjacent to the appendix previously measured 2.6 cm and now measures 1.3 cm. BONES AND SOFT TISSUES: Scattered degenerative changes seen throughout the bones. Soft tissues are unremarkable. No acute fracture. Impression: Decrease in size of the metastatic nodules in the right hemiabdomen. New segmental portal vein thrombosis in the right hepatic lobe. Incidental findings as noted above including increase in soft plaque/mural thrombus involving the thoracoabdominal aorta. -------- FINAL REPORT -------- Dictated By: Srinivas Moulton Dictated Date: 09/09/2024 12:18 ET Assigned Physician: Srinivas Moulton Reviewed and Electronically Signed By: Srinivas Moulton Signed Date: 09/09/2024 12:40 ET Workstation ID: [id number] Transcribed By: Self Edit Transcribed Date: 09/09/2024 12:18 ET Review of External Documentation Notes from epic Tests ordered -lab work monthly No orders of the defined types were placed in this encounter. IMPRESSION: 1. Renal cell carcinoma of right kidney (CMS/HCC) 2. 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 (CMS/HCC) 3. Thyroiditis, iatrogenic 4. Secondary erythrocytosis 5. Hypovolemic shock (CMS/HCC) 6. Neoplastic malignant related fatigue 7. Hypotension due to drugs PLAN: 59 -year-old man, who has metastatic renal cell carcinoma, pulmonary metastasis, who has completed surgery, radical nephrectomy of the right side #1 immunotherapy for renal cell carcinoma, metastatic disease, palliative intent,-the patient has completed 4 cycles of combination therapy Opdivo maintenance --patient is tolerating quite well, he did develop thyroiditis, hypothyroidism and recently hypoadrenalism with episode of shock in June 2022, recovered quickly Maintained quite well on replacement levothyroxine, hydrocortisone, continue current doses, no indication to change it Patient stated that he is unsure whether he is taking the levothyroxine will check medications Monitor TSH closely, remained stable at 1.91, recheck of lab work showed TSH of 2.81, awaiting follow up labs Restaging imaging reviewed-unfortunately progressive disease, in the nephrectomy fossa as well as lung nodule. I recommend starting on TKI, In July 2024, advised him to take the medication every other day as he is not able to tolerate the daily 60 Mg dosing Will send in a new prescription for 20 mg as he is having more symptoms and gradually increase the dosing next month Now he is on 20 mg daily [place] much better off med x 2 weeks ( insurance issues) Will increase to 30 mg with the next script Adverse reactions could include hypertension, BP ED, skin rash, hyperglycemia, electrolyte abnormalities, hypothyroidism, increased triglycerides, LDH, abdominal pain, altered bowel habits, nausea, anemia, fatigue, dizziness, arthralgia cough Reviewed in detail-restaging imaging to be done in late August CT chest, abdomen, pelvis with contrast-imaging studies reviewed and copies provided to him, appears to have a response If he has disease progression or unable to tolerate this medications, can use Welireg/belzutifan, will decide after restaging imaging, and plan for imaging in 2 to 3 months #2 Depression, started on Zoloft in January 2021--improved #3 pain control-no issues currently, has Percocet available as needed #4 episode of adrenal crisis-resolved--continue hydrocortisone 10 Mg daily, tolerating well, recommended that he not stop the medication -- Reviewed with the patient regarding adverse events and likely following discontinuation ofhydrocortisone without warning He has been on steroid supplements for quite long time, suspect complete suppression of her hypothalamic adrenal axis #5 Hypothyroidism, secondary to immunotherapy checkpoint inhibitors Continue levothyroxine 75 MCG,--however patient is stopped the medication on his own, may be contributing to weight gain Monitor TSH at 2-monthly intervals along with CBC-declines CMP #6 history of diabetes mellitus, has been started on metformin per his PCP #7 inflammatory arthritis-on prednisone 5 Mg daily and hydroxychloroquine Starting on methotrexate and folic acid, in addition to hydroxychloroquine Continue rheumatology follow-up #8 left cephalic/basilic vein thrombosis, on aspirin, can complete 3 months -- Currently new diagnosis of portal vein thrombosis recommend Eliquis 5 mg twice daily x 3 months thereafter will switch back to aspirin Clinic follow-up in 1 month and sooner if new issues arise Lab work to be done today-CBC-D, CMP, TSH level Restaging imaging in 3 months, he agrees Pain Control--no issues Health Care Proxy--his MD Kellen Snowden MD documented in this encounter Plan of Treatment Upcoming Encounters Date Type Department Care Team (Late st Contact Info) Description 11/07/2024 2:45 PM EDT Office Visit [facility] Hematology Oncology [address] [place] [phone] Quintin Guzmán MD [address] [place] [phone] 11/07/2024 3:00 PM EDT Appointment [facility] Infusion Center [address] [phone] documented as of this encounter Visit Diagnoses Diagnosis Renal cell carcinoma of right kidney (CMS/HCC)- Primary 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 (CMS/HCC) Glucocorticoid deficiency Thyroiditis, iatrogenic Iatrogenic thyroiditis Secondary erythrocytosis Polycythemia, secondary Hypovolemic shock ([facility]/HCC) Other shock without mention of trauma Neoplastic malignant related fatigue Hypotension due to drugs Other iatrogenic hypotension documented in this encounter Care Teams Commercial Pest Control Representative Relationship Specialty Start Date End Date Po, MD Nataly [address] [place] [address] Dr [address] [facility] [place] [address] PCP - General 07/05/22 documented as of this encounter
--- OUTSIDE RECORDS SUMMARY | 2024-10-22 13:20 | XMS_ITS | Clinical Summary ---
Author Organization [facility] Address [address] [place] [address] Phone Care Team Providers Care Boilermaker'S Assistant Name Role Phone Nataly Cerda MD Primary Care Provider [phone] Allergies No known active allergies Medications amLODIPine (NORVASC) 5 mg tablet Take 1 tablet (5 mg total) by mouth. Active Vitamin C 500 mg tablet Take 1 tablet (500 mg total) by mouth 1 (one) time each day. 08/09/2023 Active atorvastatin (LIPITOR) 20 mg tablet Take 1 tablet (20 mg total) by mouth. Active cholecalciferol , vitamin D3, 25 mcg (1,000 unit) tablet,chewable Chew 25 mcg. A ctive ferrous sulfate 325 mg (65 mg elemental iron) tablet Take 1 tablet (325 mg total) by mouth 1 (one) time each day. Active folic acid (FOLVITE) 1 mg tablet Take 1 tablet (1,000 mcg total) by mouth. 04/15/2024 Active hydroCHLOROthia zide (HYDRODIURIL) 25 mg tablet Take 1 tablet (25 mg total) by mouth. Active hydrocortisone (CORTEF) 10 mg tablet Take 1 tablet (10 mg total) by mouth 1 (one) time each day. 06/04/2024 Active lisinopril (PRINIVIL,ZESTR IL) 40 mg tablet Take 1 tablet (40 mg total) by mouth. Active metFORMIN (GLUCOPHAGE) 500 mg tablet Take 1 tablet (500 mg total) by mouth 2 (two) times a day with meals. Active metoprolol tartrate (LOPRESSOR) 25 mg tablet Take 1 tablet (25 mg total) by mouth 2 (two) times a day. 06/02/2024 Active methotrexate 2.5 mg tablet TAKE 6 TABLETS BY MOUTH ONCE WEEKLY FOR 2 WEEKS THEN 8 TABS ONCE WEEKLY Active oxyCODONE-aceta minophen (PERCOCET) 5-325 mg per tablet Take 1 tablet by mouth 2 times daily as needed. 08/08/2023 Active predniSONE (DELTASONE) 2.5 mg tablet TAKE 2 TABS BY MOUTH DAILY FOR 1 MONTH THEN STAY ON 1 TAB DAILY 06/02/2024 Active apixaban (ELIQUIS) 5 mg tabletIndicatio ns:Portal vein thrombosis Take 1 tablet (5 mg total) by mouth 2 (two) times a day. 60 each 2 09/12/2024 12/12/19 25 Active cabozantinib (Cabometyx) 20 mg tablet Take 1 tablet (20 mg total) by mouth 1 (one) time each day 30 tablet 09/12/2024 10/13/19 25 Active Problems Problem Noted Date Diagnosed Date Acute cephalic vein thrombosis, left 06/20/2024 History of renal carcinoma 06/11/2024 Inflammatory arthritis 05/30/2023 Bilateral knee effusions 02/26/2023 Obstructive sleep apnea (adult) (pediatric) 01/2023 Type 2 diabetes mellitus without complications 0 02/08/2023 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 06/08 Hypovolemic shock 07/05/2022 Hypothyroidism due to medication 07/13/2021 Reactive depression 01/25/2021 Constipation 06/08/2020 Neoplastic malignant related fatigue 05/11/2020 Thyroiditis, iatrogenic 04/21/2020 Hypotension due to drugs 04/20/2020 Hypophysitis 04/06/2020 Renal cell carcinoma of right kidney 01/12/2020 Secondary erythrocytosis 12/11/2019 Encounters Date Type Department Care Team Description 10/10/2024 12:00 PM EST - 10/10/2024 11:59 PM EST Hospital Encounter [facility] Center [address] [place] [phone] Quintin Murray MD Renal cell carcinoma of right kidney (CMS/HCC) Discharge Disposition: Home or Self Care 10/10/2024 11:45 AM EST Office Visit [facility] Hematology Oncology [address] [place] [phone] MckennaIQuintin trevizo MD Renal cell carcinoma of right kidney (CMS/HCC) (Primary Dx); 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 (CMS/HCC); Thyroiditis, iatrogenic; Secondary erythrocytosis; Hypovolemic shock (CMS/HCC); Neoplastic malignant related fatigue; Hypotension due to drugs 09/12/2024 3:00 PM EST - 09/12/2024 11:59 PM EST Hospital Encounter [facility] Infusion Center [address] [place] [phone] MckennaIQuintin trevizo MD Renal cell carcinoma of right kidney (CMS/HCC); Hypothyroidism due to medication Discharge Disposition: Home or Self Care 09/12/2024 2:30 PM EST Office Visit [facility] Hematology Oncology [address] [place] [phone] MckennaIQuintin trevizo MD Renal cell carcinoma of right kidney (CMS/HCC) (Primary Dx); Inflammatory arthritis; 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 (CMS/HCC); Hypothyroidism due to medication; Thyroiditis, iatrogenic; Type 2 diabetes mellitus without complication, without long-term current use of insulin (CMS/HCC); Hypophysitis (CMS/HCC); Hypotension due to drugs; Reactive depression; Hypovolemic shock (CMS/HCC); Secondary erythrocytosis; Portal vein thrombosis 09/05/2024 2:07 PM EST - 09/05/2024 11:59 PM EST Hospital Encounter [facility] CT Scan [address] [place] [phone] Renal cell carcinoma of right kidney (CMS/HCC) Discharge Disposition: Home or Self Care from Last 3 Months Medical History Medical History Date Comments Hypertension DX:Hypertension Diabetes mellitus (CMS/HCC) DX:D iabetes mellitus (HCC) Hypercholesterolemia DX:Hypercho lesterolemia Sleep apnea DX:Sleep apnea Family History Medical History Relation Name Comments [...] Orientation Straight 09/12/2024 3: 01 PM EST Obstetrics History Last Filed Vital Signs Vital Sign Reading Time Taken Comments Blood Pressure 133/87 10/10/2024 12:04 PM EST Pulse 98 10/10/2024 12:04 PM EST Temperature 36.8 ??C (98.2 ??F) 10/10/2024 12:[address] Respiratory Rate - - Oxygen Saturation 100% 10/10/2024 12:04 PM EST Inhaled Oxygen Concentration - - Weight 100 kg (221 lb) 10/10/2024 12:04 PM EST Height 167.6 cm (5' 6 ) 06/11/2024 11:19 AM EST Body Mass Index 35.67 06/11/2024 11:19 AM EST Plan of Treatment Upcoming Encounters Date Type Department Care Team (Late st Contact Info) Description 11/07/2024 2:45 PM EDT Office Visit [facility] Hematology Oncology [address] [place] [phone] Quintin Guzmán MD [address] [place] [phone] 11/07/2024 3:00 PM EDT Appointment [facility] Infusion Center [address] [place] [phone] Health Maintenance Due Date Last Done Comments Diabetes: Annual Foot Exam 1976 Diabetes: Annual Retina Eye Exam 1976 Hepatitis B Vaccines (1 of 3 - 19+ 3-dose series) 1985 Pneumococcal Vaccine: 50+ Years (1 of 2 - PCV) 1985 Pneumococcal Vaccine: Pediatrics (0 to 5 Years) and At-Risk Patients (6 to 64 Years) (1 of 2 - PCV) 1985 Zoster Vaccines (1 of 2) 1985 COVID-19 Vaccine (3 - Pfizer risk series) 12/06/2020 11/08/2020, 10/18/2020 Cholesterol Screening (Lipid Panel) 07/10/2022 Colorectal Cancer Screening: Colonoscopy 07/10/2022 Depression Screening 07/10/2022 HIV Screening 07/10/2022 Hepatitis C Screening 07/10/2022 Social Influencers of Health Screening 07/10/2022 Diabetes: Annual Urine Albumin-Creatinine Ratio (uACR) 06/11/2024 Diabetes: Blood Sugar Control Test (HGBA1C) 06/11/2024 Diabetes: Annual GFR (Glomerular Filtration Rate) 10/10/2025 10/10/2024, 09/12/2024, 07/11/2024 Hypertension/CHF/CAD Annual BMP Blood Test 10/10/2025 10/10/2024, 09/12/2024, 07/11/2024 DTaP,Tdap,and Td Vaccines (2 - Td or Tdap) 10/24/2032 10/24/2022 Influenza Vaccine Completed 07/21/2024, , 06/14/2022, Additional history exists HIB Vaccines Aged Out No longer eligi ble based on patient's age to complete this topic HPV Vaccines Aged Out No longer eligi ble based on patient's age to complete this topic Hepatitis A Vaccines Aged Out No long er eligible based on patient's age to complete this topic IPV Vaccines Aged Out No longer eligi ble based on patient's age to complete this topic MMR Vaccines Aged Out No longer eligi ble based on patient's age to complete this topic Meningococcal ACWY Vaccine Aged Out N o longer eligible based on patient's age to complete this topic Meningococcal B Vacine Aged Out No lo nger eligible based on patient's age to complete this topic RSV Immunization Patients Under 20 months Aged Out No longer eligible based on patient's age to complete this topic Varicella Vaccines Aged Out No longer eligible based on patient's age to complete this topic Procedures Procedure Name Priority Date/Time Associated Diagnosis [...] cell carcinoma of right kidney (CMS/HCC) CBC WITH AUTO DIFFERENTIAL Routine 09/12/2024 3:07 PM EST Renal cell carcinoma of right kidney (CMS/HCC) Hypothyroidism due to medication CBC AND DIFFERENTIAL Routine 09/12/2024 3:07 PM EST Renal cell carcinoma of right kidney (CMS/HCC) Hypothyroidism due to medication COMPREHENSIVE METABOLIC PANEL Routine 09/12/2024 3:07 PM EST Renal cell carcinoma of right kidney (CMS/HCC) Hypothyroidism due to medication THYROID STIMULATING HORMONE Routine 09/12/2024 3:07 PM EST Renal cell carcinoma of right kidney (CMS/HCC) Hypothyroidism due to medication CT CHEST/ABDOMEN/PELVIS W CONTRAST Routine 09/05/2024 2:46 PM EST Renal cell carcinoma of right kidney (CMS/HCC) from Last 3 Months Results * (ABNORMAL) CBC auto differential (10/10/2024 12:44 PM EST) Only the most recent of2 resultswithin the time period is included. WBC 8.8 4.8 - 10.8 K/mcL LAB HEMETOLOGY METHOD 10/10/2024 1:52 PM [facility] RBC 4.30(L) 4.50 - 5.50 M/mcL LAB HEMETOLOGY METHOD 10/10/2024 1:52 PM EST [facility] Hemoglobin 14.1 13.5 - 17.5 g/dL LAB HEMETOLOGY METHOD 10/10/2024 1:52 PM [facility] Hematocrit 42.7 42.0 - 54.0 % LAB HEMETOLOGY METHOD 10/10/2024 1:52 PM [facility] MCV 98.6(H) 79.0 - 98.0 FL LAB HEMETOLOGY METHOD 10/10/2024 1:52 PM [facility] MCH 32.6(H) 27.0 - 32.0 pcg LAB HEMETOLOGY METHOD 10/10/2024 1:52 PM [facility] MCHC 33.0 32.0 - 37.0 g/dL LAB HEMETOLOGY METHOD 10/10/2024 1:52 PM [facility] RDW 12.6 11.0 - 15.0 % LAB HEMETOLOGY METHOD 10/10/2024 1:52 PM [facility] Platelets 190 130 - 400 K/mcL LAB HEMETOLOGY METHOD 10/10/2024 1:52 PM [facility] MPV 9.6 7.0 - 11.0 FL LAB HEMETOLOGY METHOD 10/10/2024 1:52 PM [facility] NRBC 0.0 <1.0 % LAB HEMETOLOGY METHOD 10/10/2024 1:52 PM [facility] NRBC Absolute 0.00 <0.10 K/mcL LAB HEMETOLOGY METHOD 10/10/2024 1:52 PM [facility] Neutrophils Relative 64.6 % LAB HEMETOLOGY METHOD 10/10/2024 1:52 PM [facility] Lymphocytes Relative 15.0 % LAB HEMETOLOGY METHOD 10/10/2024 1:52 PM [facility] Monocytes Relative 6.2 % LAB HEMETOLOGY METHOD 10/10/2024 1:52 PM [facility] Eosinophils Relative 13.1 % LAB HEMETOLOGY METHOD 10/10/2024 1:52 PM [facility] Basophils Relative 0.8 % LAB HEMETOLOGY METHOD 10/10/2024 1:52 PM [facility] Immature Granulocytes Relative 0.3 % LAB HEMETOLOGY METHOD 10/10/2024 1:52 PM EST [facility] Neutrophils Absolute 5.67 1.50 - 7.00 K/mcL LAB HEMETOLOGY METHOD 10/10/2024 1:52 PM EST [facility] Lymphocytes Absolute 1.32 1.00 - 5.00 K/mcL LAB HEMETOLOGY METHOD 10/10/2024 1:52 PM EST [facility] Monocytes Absolute 0.54 0.20 - 1.00 K/mcL LAB HEMETOLOGY METHOD 10/10/2024 1:52 PM EST [facility] Eosinophils Absolute 1.15(H) 0.00 - 0.50 K/mcL LAB HEMETOLOGY METHOD 10/10/2024 1:52 PM EST [facility] Basophils Absolute 0.07 0.00 - 0.20 K/mcL LAB HEMETOLOGY METHOD 10/10/2024 1:52 PM EST [facility] Immature Granulocytes Absolute 0.03 0.00 - 0.03 K/mcL LAB HEMETOLOGY METHOD 10/10/2024 1:52 PM [facility] Blood Blood sample taken from central line / Unknown Existing Catheter / Unknown 10/10/2024 12:44 PM EST 10/10/2024 1:31 PM EST us Quintin Guzmán MD LAB BLOOD ORDERABLE S Final Result [facility] [address] [place] [address], * (ABNORMAL) Thyroid stimulating hormone (10/10/2024 12:44 PM EST) Only the most recent of2 resultswithin the time period is included. TSH 6.30(H) 0.40 - 4.00 mcIU/mL LAB CHEMISTRY METHOD 10/10/2024 2:08 PM [facility] Blood Blood sample taken from central line / Unknown Existing Catheter / Unknown 10/10/2024 12:44 PM EST 10/10/2024 1:31 PM EST Quintin Guzmán MD LAB BLOOD ORDERABLE S Final Result [facility] [address] [place] [address], * (ABNORMAL) Comprehensive metabolic panel (10/10/2024 12:44 PM EST) Only the most recent of2 resultswithin the time period is included. Sodium 139 133 - 145 mmol/L LAB CHEMISTRY METHOD 10/10/2024 3:56 PM [facility] Potassium 3.9 3.5 - 5.5 mmol/L LAB CHEMISTRY METHOD 10/10/2024 3:56 PM [facility] Chloride 108 96 - 110 mmol/L LAB CHEMISTRY METHOD 10/10/2024 3:56 PM [facility] CO2 23 21 - 32 mmol/L LAB CHEMISTRY METHOD 10/10/2024 3:56 PM [facility] Anion Gap 8 3 - 11 LAB CHEMISTRY METHOD 10/10/2024 3:56 PM [facility] Glucose 100 70 - 100 mg/dL LAB CHEMISTRY METHOD 10/10/2024 3:56 PM [facility] BUN 8 5 - 25 mg/dL LAB CHEMISTRY METHOD 10/10/2024 3:56 PM [facility] Creatinine 1.07 0.70 - 1.30 mg/dL LAB CHEMISTRY METHOD 10/10/2024 3:56 PM [facility] eGFR 80 >=60 mL/min/1. 73m2 LAB CHEMISTRY METHOD 10/10/2024 3:56 PM [facility] Comment:Calculation based on the??Chronic Kidney Disease Epidemiology Collaboration (CKD-EPI) equation refit??without adjustment for race. BUN/Creatinine Ratio 7.5 LAB CHEMISTRY METHOD 10/10/2024 3:56 PM EST [facility] Calcium 8.3(L) 8.5 - 10.5 mg/dL LAB CHEMISTRY METHOD 10/10/2024 3:56 PM [facility] AST (SGOT) 20 10 - 42 unit/L LAB CHEMISTRY METHOD 10/10/2024 3:56 PM [facility] ALT (SGPT) 26 10 - 60 unit/L LAB CHEMISTRY METHOD 10/10/2024 3:56 PM [facility] Alkaline Phosphatase 81 42 - 121 unit/L LAB CHEMISTRY METHOD 10/10/2024 3:56 PM [facility] Total Protein 6.9 6.0 - 8.0 g/dL LAB CHEMISTRY METHOD 10/10/2024 3:56 PM [facility] Albumin 3.3 3.2 - 5.0 g/dL LAB CHEMISTRY METHOD 10/10/2024 3:56 PM [facility] Total Bilirubin 0.6 0.0 - 1.4 mg/dL LAB CHEMISTRY METHOD 10/10/2024 3:56 PM EST [facility] Blood Blood sample taken from central line / Unknown Existing Catheter / Unknown 10/10/2024 12:44 PM EST 10/10/2024 1:31 PM EST us Subramedward Guzmán MD LAB BLOOD ORDERABLE S Final Result [facility] [address] [place] [address], * CT Chest/Abdomen/Pelvis w Contrast (09/05/2024 2:46 PM EST) Anatomical Region Laterality Modality Body Computed Tomogra phy 09/09/2024 12:1 8 PM EST Impressions 09/09/2024 12:40 PM EST Decrease in size of the metastatic nodules [...] Signed Date: 09/09/2024 12:40 ET Workstation ID: [id number] Transcribed By: Self Edit Transcribed Date: 09/09/2024 12:18 ET Narrative 09/09/2024 12:[address] CHEST, ABDOMEN AND PELVIS WITH CONTRAST INDICATION: renal cancer TECHNIQUE: Chest, abdomen and pelvis CT following the intravenous administration of 90cc ISOVUE 370. Multiplanar reformats were created and interpreted. The examination was performed utilizing dose reduction techniques. COMPARISON: ??No priors available. FINDINGS: ?? CT CHEST: LUNGS/PLEURA: There is mild bronchiectasis at the lung bases. ??There is no consolidation or effusion. ??The previously noted 9 mm left lower lobe nodule has significantly decreased in size now measuring up to 4 mm.. MEDIASTINUM: Thyroid gland is unremarkable. No mediastinal or hilar lymphadenopathy. Cardiac chambers are normal in size. ??Coronary artery calcifications. ??No pericardial effusion. Esophagus is normal. CHEST WALL: No axillary lymphadenopathy or superficial hematoma. BONES: No acute fracture. Scattered degenerative changes seen throughout the bones. CT ABDOMEN AND PELVIS: HEPATOBILIARY: There is differential enhancement involving segment 8 due to segmental portal venous thrombosis. ??The previously noted mass abutting the inferior tip of the right hepatic lobe previously measured 3.3 x 5 cm and now measures 2.2 x 1.4 cm. SPLEEN: No splenomegaly. PANCREAS: No focal mass or ductal dilatation. ADRENALS: No nodules. KIDNEYS/URETERS: Status post right nephrectomy. ??No mass or adenopathy. ??Left renal cyst. PELVIC ORGANS/BLADDER: Enlarged prostate. ??Circumferential wall thickening of the bladder related to chronic outlet obstruction. ??No bladder distention. PERITONEUM / RETROPERITONEUM: No ascites or free air. No retroperitoneal lymphadenopathy. VESSELS: Compared to prior examination of 01/10/2024 there is increased soft plaque within the thoracoabdominal aorta. ??There are scattered metastatic gastric calcifications of the aortoiliac bifurcation. ??There is no aneurysm. GI TRACT: Decrease in size of a few nodules previously identified in the right lower quadrant. ??The largest which was adjacent to the appendix previously measured 2.6 cm and now measures 1.3 cm. BONES AND SOFT TISSUES: Scattered degenerative changes seen throughout the bones. Soft tissues are unremarkable. No acute fracture. Procedure Note Srinivas Moulton MD - 09/09/2024 CT CHEST, ABDOMEN AND PELVIS WITH CONTRAST INDICATION: renal cancer TECHNIQUE: Chest, abdomen and pelvis CT following the intravenousadministration of 90cc ISOVUE 370. Multiplanar reformats were created andinterpreted. The examination was performed utilizing dose reductiontechniques. COMPARISON: No priors available. FINDINGS: CT CHEST: LUNGS/PLEURA: There is mild bronchiectasis at the lung bases. There is noconsolidation or effusion. The previously noted 9 mm left lower lobenodule has significantly decreased in size now measuring up to 4 mm.. MEDIASTINUM: Thyroid gland is unremarkable. No mediastinal or hilarlymphadenopathy. Cardiac chambers are normal in size. Coronary arterycalcifications. No pericardial effusion. Esophagus is normal. CHEST WALL: No axillary lymphadenopathy or superficial hematoma. BONES: No acute fracture. Scattered degenerative changes seen throughoutthe bones. CT ABDOMEN AND PELVIS: HEPATOBILIARY: There is differential enhancement involving segment 8 dueto segmental portal venous thrombosis. The previously noted mass abuttingthe inferior tip of the right hepatic lobe previously measured 3.3 x 5 cmand now measures 2.2 x 1.4 cm. SPLEEN: No splenomegaly. PANCREAS: No focal mass or ductal dilatation. ADRENALS: No nodules. KIDNEYS/URETERS: Status post right nephrectomy. No mass or adenopathy.Left renal cyst. PELVIC ORGANS/BLADDER: Enlarged prostate. Circumferential wall thickeningof the bladder related to chronic outlet obstruction. No bladderdistention. PERITONEUM / RETROPERITONEUM: No ascites or free air. No retroperitoneallymphadenopathy. VESSELS: Compared to prior examination of 01/10/2024 there is increasedsoft plaque within the thoracoabdominal aorta. There are scatteredmetastatic gastric calcifications of the aortoiliac bifurcation. There isno aneurysm. GI TRACT: Decrease in size of a few nodules previously identified in theright lower quadrant. The largest which was adjacent to the appendixpreviously measured 2.6 cm and now measures 1.3 cm. BONES AND SOFT TISSUES: Scattered degenerative changes seen throughout thebones. Soft tissues are unremarkable. No acute fracture. IMPRESSION: Decrease in size of the metastatic nodules in the right hemiabdomen. New segmental portal vein thrombosis in the right hepatic lobe. Incidental findings as noted above including increase in soft plaque/muralthrombus involving the thoracoabdominal aorta. -------- FINAL REPORT -------- Dictated By: Srinivas Moulton Dictated Date: 09/09/2024 12:18 ET Assigned Physician: Srinivas Moulton Reviewed and Electronically Signed By: Srinivas Moulton Signed Date: 09/09/2024 12:40 ET Workstation ID: [id number] Transcribed By: Self Edit Transcribed Date: 09/09/2024 12:18 ET Subramony Arielle PRIETO IMG CT PROCEDURES F inal Result from Last 3 Months Insurance [facility] Care Teams Boilermaker'S Assistant Relationship Specialty Start Date End Date Nataly Cerda MD [address] [place] [address] Dr [address] [facility] [place] [address] PCP - General 07/05/22
== END 2024-10-22 11:56 | disposition home or self-care (01) ==
LOC: HO.HMCH 11:02
PROVIDERS: PCP Internal Medicine; Visit Provider Internal Medicine
DX: I81 Portal vein thrombosis (principal); I82.622 Acute embolism and thrombosis of deep veins of left upper extremity; C64.1 Malignant neoplasm of right kidney, except renal pelvis; E11.65 Type 2 diabetes mellitus with hyperglycemia; R59.0 Localized enlarged lymph nodes; R91.1 Solitary pulmonary nodule; M19.90 Unspecified osteoarthritis, unspecified site; G47.33 Obstructive sleep apnea (adult) (pediatric); I10 Essential (primary) hypertension; E78.00 Pure hypercholesterolemia, unspecified

== ENCOUNTER 2024-10-22 13:58 | Outpatient (AMB) | payer OTHER, SELFPAY ==
[2024-10-22 14:03] VITALS: BP 118/66; PULSE 108; O2SAT 97; BMI 35.3
--- NOTE | 2024-10-22 14:03 | MHC.OFFVIS ---
Vital Signs 10/22/24 14:03 Height 5 ft 6 in Weight 218 lb 11.177 oz BMI 35.3 BP 118/66 Blood Pressure Location Lt brachial Position Sitting Pulse 108 H Pulse Source Pulse Oximeter Pulse Oximetry (%) 97 Oxygen Delivery Method Room Air Intake Visit Reasons: IRAEs Intake Note: Patient last seen by Doctor Cortez Francois on 08/05/24. Presents for IRAEs follow up and test results. Allergies No Known Allergies Allergy (Verified 10/22/24 14:06) Medication List - Last Reconciled 10/22/24 by Ines Mckeon MD apixaban (Eliquis) 5 mg PO BID atorvastatin 10 mg PO BEDTIME blood sugar diagnostic (FreeStyle Lite Strips) As directed check the BS QD blood-glucose meter (FreeStyle Lite Meter kit) As directed cabozantinib (Cabometyx) 60 mg PO DAILY ferrous sulfate 325 mg PO DAILY folic acid 1 mg PO DAILY hydrocortisone 10 mg PO TID hydroxychloroquine 200 mg PO BID lancets (FreeStyle Lancets) As directed check BS QD lisinopril 5 mg PO DAILY metformin 500 mg PO .QD methotrexate sodium 15 mg (6 x 2.5 mg) PO QWEEK 90 days metoprolol tartrate 25 mg See Protocol PO BID prednisone 2.5 mg PO Q OTHER DAY HPI Comments Details: Patient is a 59-year-old male with history of renal cell carcinoma with lung metastasis, KAYLYN hyperlipidemia, hypertension, diabetes, history of portal vein thrombosis and DVT on blood thinners, gout, polyarticular osteoarthritis and hypothyroidism here today for follow up of immune checkpoint inhibitor related inflammatory arthritis. Interval History: Patient last seen 08/05/[address] Francois. At that time he was on hydroxychloroquine 200 mg twice a day and prednisolone 2.5 mg daily. He ran out of his methotrexate 2 weeks prior to the appointment but he reported feeling better overall with his joints. He was supposed to repeat blood work prior to the MTx refill but he did not do the blood work and so the methotrexate was not refilled. Today Complaining of right knee pain. Ran out of prednisone 2 weeks ago Rheumatologic History: Previously nivolumab Currently on Cabozantinib Initial history: This is a 57-year-old male presents for evaluation of multiple joint pain. Per patient has history of kidney cancer with lung metastasis. He is here with his and son. Patient states that he just took oxycodone and he is not very alert. He had a nephrectomy and was receiving (chemo/immunotherapy) until about last year. Per patient it was stopped due to patient being weak. He follows up with Dr. Rodriguez. Since May of last year patient has been having multiple episodes of multiple swollen and tender joints including his wrists, knees, ankles. He went to the hospital multiple times and had knee arthrocentesis twice. No infection was found. It would be treated with prednisone with resolution. States that the prednisone taper works until he is down to 10 mg which does not help much. States that he was diagnosed with diabetes but since his cancer he lost a lot of weight and his diabetes was better controlled. He is not currently on diabetes medications. Patient and his state that currently he has painful and swollen joints every single day. Today he has bilateral wrist, left knee and bilateral ankle pain. He is in a wheelchair. He denies any history of kidney stones. He is unaware of any family history of gout Current Rheumatology Medication(s): Hydroxychloroquine 200mg bid Prednisone 2.5mg daily Methotrexate 15 mg weekly (not taking) Folic acid mg daily (not taking) [facility] Medical History Morbid obesity with BMI of 40.0-44.9, adult Pulmonary nodule, left Hx of cancer of lung Surgical History History of biopsy History of right nephrectomy Family History Father No problems noted. Mother Breast cancer Social History (Updated 10/22/24 @ 11:12 by JENISE Mcleod) Household Members: Spouse and Children Housing: House Do you presently have visiting nurse or other home services: No Alcohol intake: never Patient Tobacco Use Status: Never used Tobacco Tobacco use type: Cigarette Years Smoked: quit 1999 e-Cigarette/Vaping Use: Never Used Second Hand Smoke Exposure: No Advance Directives Date on File: 02/07/23 service: No Current occupational status: unemployed Cognitive needs: No Hearing needs: No Vision needs: Yes Review of Systems Const Details: Review of Systems Constitutional: Denies fever, chills, weight loss ENT: Denies vision changes, eye pain or eye redness, dental caries, dry mouth GI: Denies nausea, vomiting, diarrhea, abdominal pain, change in BM Pulm: Denies SOB, ALEGRE, hemoptysis, wheezing Cards: Denies chest pain, palpitations Skin: Denies Raynaud's, rash, nail changes, photosensitivity, MANAGER CREDIT RISK: Denies headaches, weakness, paresthesias, recurrent falls MSK: as per HPI All other systems reviewed and are unremarkable except noted above Physical Exam Vital Signs: Last Vital Signs Pulse 108 H 10/22/24 14:03 BP 118/66 10/22/24 14:03 Pulse Ox 97 10/22/24 14:03 Oxygen Delivery Method Room Air 10/22/24 14:03 BMI result Body Mass Index 35.3 Vital signs reviewed Physical Examination CONSTITUITIONAL Patient alert and cooperative. Well appearing and in no apparent painful distress HEENT Conjunctiva and sclera clear. ?Pupils equal round and reactive to light. ?No lymphadenopathy. ? CHEST/RESPIRATORY SYSTEM Normal respiratory effort and able to speak in complete sentences. ?Clear to auscultation bilaterally. ?No crackles, rales, rhonchi, wheezes heard. CARDIAC SYSTEM Regular rate and rhythm. ?S1 and S2 heard no murmurs. ?Radial pulses intact bilaterally MSK Hands: ?Good tooth cutter pinion strength bilaterally. No deformities noted. ?No synovitis noted to the MCPs, PIPs or DIPs. ?No tenderness to palpation of these joints. Wrists: ?Full range of motion at the wrists without pain. ?No tenderness to palpation or synovitis noted to the wrists. Elbows: Full range of motion without pain. No tenderness, weakness, swelling, increased warmth or erythema. Shoulders: Full range of motion without pain. No tenderness, weakness, swelling, increased warmth or erythema. Hips: Full range of motion without pain. Hip bursa: No tenderness to palpation Knees: ?Full range of motion. ?Right knee warm to touch with mild effusion. Left knee without any effusion or warmth. Ankles: Full range of motion. ?No tenderness, swelling, increased warmth or erythema.? Feet: ?Negative squeeze test. ?No tenderness to palpation or swelling of the MTPs. Tender points:?No tenderness to palpation of the bilateral trapezius, supraspinatus, greater trochanters, anterior costochondral junctions, bilateral gluteal areas, bilateral suboccipital muscle insertions SKIN Skin intact without rashes. Results AMB Hemoglobin A1c AMB Hemoglobin A1c 5.2 % Last Edit by JENISE Mcleod on 10/22/24 11:20 Results Reviewed Results Reviewed: Laboratory Tests 10/22/24 12:46 WBC 11.3 H RBC 4.82 Hgb 15.2 Hct 46.3 Plt Count 252 D ESR 13 Sodium 140 Potassium 4.5 D Chloride 106 Carbon Dioxide 27 BUN 12 Creatinine 1.07 Calcium 9.0 D Total Bilirubin 0.3 AST 25 ALT 24 Alkaline Phosphatase 74 C-Reactive Protein 0.79 H Total Protein 7.5 Albumin 3.8 Assessment & Plan Assessment & Plan (1) Inflammatory arthritis: Comment: dx 07/2023 HCQ 10/2023 effective MTX added (after discussion with oncologist )04/2024 effective Code(s): M19.90 - Unspecified osteoarthritis, unspecified site Category: Medical Plan: #Inflammatory arthritis related to check point inhibitors Patient is a 59-year-old male renal cell carcinoma with Mets to the lung currently on cabozantinib. His course has been complicated by inflammatory arthritis related to checkpoint inhibitors which has responded to prednisone Plaquenil. Unable to wean off the prednisone and continues to have inflammatory arthritis to the right knee likely in the setting of not being on his methotrexate. We will restart his methotrexate and revisit management in 4 months. Plan - Restart methotrexate 15mg PO weekly - Folic acid 1 mg daily - Continue plaquenil 200mg bid - Continue prednisone 2.5mg every other day - RTC 4 months - Labs before visit: CBC, CMP, ESR, CRP, hepatitis panel, T spot (2) Long-term use of hydroxychloroquine: Code(s): Z79.899 - Other watermaster (current) drug therapy Category: Medical Plan: #Long-term Use of Hydroxychloroquine Discussed with patient the risks and benefits of hydroxychloroquine in managing the rheumatic condition Benefits include: - Reduced pain, reduce mortality, maintenance of remission and reduction of flares Risks include: - GI upset, skin hyperpigmentation, retinal toxicity (especially after more than 5 years of use), myopathy Advised yearly ophthalmology visits (3) senior care methotrexate user: Code(s): Z79.631 - terminal worker (current) use of 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 Limit alcohol and avoid Bactrim ? Monitoring: ?CBC, BMP, LFTs every 3-4 months and hepatitis serologies as needed (4) terminal worker (current) use of systemic steroids: Code(s): Z79.52 - senior care (current) use of systemic steroids Plan: #Long-term Use of Steroids Discussed with patient the risks and benefits of steroid for managing the rheumatic condition Benefits include: - Reduced pain, improved mobility, increased participation in activities, and decreased progression of disease Risks include: - GI upset, potential ultrasound worsening or formation (especially in patients > 65 years old), elevated blood pressure/worsening hypertension, elevated blood sugar/worsening diabetes control, worsening of bone density, elevated lipids/worsening triglycerides, cataract formation, weight gain Recommended using proton pump inhibitors (PPIs) for the duration of steroid use to reduce the risk of gastric ulcers and vitamin-D daily to reduce the risk of osteoporosis Labs checked: ?A1c, T spot, hepatitis-B and C serologies Pneumocystis jiroveci prophylaxis: ?Patient with risk factors including steroids greater than 50 mg for more than 30 days, age greater than 60 years, and lung involvement from underlying rheumatic disease requires prophylaxis and will be given so Plan I spent 37 minutes reviewing the record and labs, taking a history, examining the patient, discussing the treatment plan, ordering diagnostic work up and documenting in the medical record Orders: Orders C Reactive Protein 4 Months - Unspecified osteoarthritis, unspecified site Hepatitis A,B,C Profile Today - Unspecified osteoarthritis, unspecified site T Spot TB Today - Unspecified osteoarthritis, unspecified site Complete Blood Count Auto Diff 4 Months - Unspecified osteoarthritis, unspecified site Comprehensive Met. Panel 4 Months - Unspecified osteoarthritis, unspecified site Erythrocyte Sedimentation Rate 4 Months - Unspecified osteoarthritis, unspecified site Medications: New methotrexate sodium 15 mg (6 x 2.5 mg) PO QWEEK 90 days 78 tabs 1RF M19.90 - Unspecified osteoarthritis, unspecified site Refilled hydroxychloroquine 200 mg PO BID 180 tabs 1RF prednisone 2.5 mg PO Q OTHER DAY 45 tabs 1RF M19.90 - Unspecified osteoarthritis, unspecified site folic acid 1 mg PO DAILY 90 tabs 1RF M19.90 - Unspecified osteoarthritis, unspecified site Coding Level of Care Code Est Pt Level 4 (54661) Complex EM visit Add On G2211 Diagnoses Inflammatory arthritis M19.90 Long-term use of hydroxychloroquine Z79.899 senior care methotrexate user Z79.631 terminal worker (current) use of systemic steroids Z79.52
--- OUTSIDE RECORDS SUMMARY | 2024-10-22 16:23 | XMS_ITS | Encounter Summary ---
Author Organization [facility] Address [address] [place] [address] Care Team Providers Care Weight And Balance Control Agent Name Role Phone Nataly Cerda MD Primary Care Provider [phone] Reason for Visit * Reason Comments Follow-up Encounter Details Date Type Department Care Team (Latest Contact Info) Description 10/10/2024 11:45 AM EST Office Visit [facility] Hematology Oncology [address] [place] [phone] Quintin Guzmán MD [address] [place] [phone] Renal cell carcinoma of right kidney (CMS/HCC) [...] x 1 year until January 2024 Regimen #[id number], restarted after interruption 06/2024 IDENTIFIER:Clifford Brooks is a 59 y.o. male. HPI: The patient returns for follow up of renal cell carcinoma. He is accompanied by his . For details of initial diagnosis and follow up until JUN 06, 2024- please refer to notes from prior [facility] EMR last note dated 04/30/2024, and Dr. Sanchez note 06/04/2024 Patient is currently on cabozantinib, at a lower dose, 60 Mg every other day, as she was not able to tolerate the full dose medication. Patient had restaging imaging and is here for follow-up. He continues on Cabozantinib after a couple of weeks interruption ue to insurance issues [place] quite well while he was off the [...] does not have any symptoms referable to BUSINESS ANALYTICS MANAGER at this time. If he has brain [...] dications including hydrocortisone. 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 ([facility]) 07/05/2022 Constipation 06/08/2020 Bilateral knee effusions 02/26/2023 Hypophysitis ([facility]/HCC) 04/06/2020 Inflammatory arthritis 05/30/2023 Hypotension due to drugs 04/20/2020 Hypothyroidism due to medication 07/13/2021 Hypovolemic shock ([facility]) 07/05/2022 Neoplastic malignant related fatigue 05/11/2020 Reactive depression 01/25/2021 Obstructive sleep apnea (adult) (pediatric) 02/08/2023 Renal cell carcinoma of right kidney ([facility]) 01/12/2020 Secondary erythrocytosis 12/11/2019 Thyroiditis, iatrogenic 04/21/2020 Type 2 diabetes mellitus without complications ([facility]) 02/08/2023 Acute cephalic vein thrombosis, left 06/20/2024 Resolved Ambulatory Problems Diagnosis Date Noted No Resolved Ambulatory Problems Past Medical History: Diagnosis Date Diabetes mellitus ([facility]) Hypercholesterolemia [...] Signed Date: 09/09/2024 12:40 ET Workstation ID: [id number] Transcribed By: Self Edit Transcribed Date: 09/09/2024 [...] Now he is on 20 mg daily [place] much better off med x 2 weeks [...] Description 11/07/2024 2:45 PM EDT Office Visit [facility] Hematology Oncology [address] [place] [phone] Quintin Guzmán MD [address] [place] [phone] 11/07/2024 3:00 PM EDT Appointment [facility] [address] [phone] documented as of this encounter Visit Diagnoses Diagnosis Renal cell carcinoma of right kidney (CMS/HCC)- Primary 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 (CMS/HCC) Glucocorticoid deficiency Thyroiditis, iatrogenic Iatrogenic thyroiditis Secondary erythrocytosis Polycythemia, secondary Hypovolemic shock ([facility]/HCC) Other shock without mention of trauma Neoplastic malignant related fatigue Hypotension due to drugs Other iatrogenic hypotension documented in this encounter Care Teams Weight And Balance Control Agent Relationship Specialty Start Date End Date Po, MD Nataly [address] [place] [address] Dr [address] [facility] [place] [address] PCP - General 07/05/22 documented as of this encounter
--- OUTSIDE RECORDS SUMMARY | 2024-10-22 16:23 | XMS_ITS | Encounter Summary ---
Author Organization [facility] Address [address] [place] [address] Care Team Providers Care Networking Technology Instructor Name Role Phone Nataly Cerda MD Primary Care Provider [phone] Reason for Visit * Reason Comments New Start CABOMETYX (cabozantinib) Encounter Details Date Type Department Care Team Description 01/15/2024 Nurse Only [facility] Oncology Services [address] [place] [address] Maribel Allred RN New Start CABOMETYX (cabozantinib) [...] on filedocumented in this encounter Care Teams Networking Technology Instructor Relationship Specialty Start Date End Date Nataly Cerda MD [address] [place] [address] [address] [facility] [place] [address] PCP - General Internal Medicine 07/05/22 documented as of this encounter
--- OUTSIDE RECORDS SUMMARY | 2024-10-22 16:23 | XMS_ITS | Clinical Summary ---
Author Organization [facility] Address [address] [place] [address] Phone Care Team Providers Care Cable Operator Name Role Phone Nataly Cerda MD Primary Care Provider [phone] Allergies No known active allergies Medications amLODIPine (NORVASC) 5 mg tablet Take 1 tablet (5 mg total) by mouth. Active Vitamin C 500 mg tablet Take 1 tablet (500 mg total) by mouth 1 (one) time each day. 4 Active atorvastatin (LIPITOR) 20 mg tablet Take [...] 1 tablet (1,000 mcg total) by mouth. 4 Active hydroCHLOROthia zide (HYDRODIURIL) 25 mg tablet Take 1 tablet (25 mg total) by mouth. Active hydrocortisone (CORTEF) 10 mg tablet Take 1 tablet (10 mg total) by mouth 1 (one) time each day. 4 Active lisinopril (PRINIVIL,ZESTR IL) 40 mg tablet Take 1 tablet (40 mg total) by mouth. Active metFORMIN (GLUCOPHAGE) 500 mg tablet Take 1 tablet (500 mg total) by mouth 2 (two) times a day with meals. Active metoprolol tartrate (LOPRESSOR) 25 mg tablet Take 1 tablet (25 mg total) by mouth 2 (two) times a day. 4 Active methotrexate 2.5 mg tablet TAKE 6 TABLETS BY MOUTH ONCE WEEKLY FOR 2 WEEKS THEN 8 TABS ONCE WEEKLY Active oxyCODONE-aceta minophen (PERCOCET) 5-325 mg per tablet Take 1 tablet by mouth 2 times daily as needed. 4 Active predniSONE (DELTASONE) 2.5 mg tablet TAKE 2 TABS BY MOUTH DAILY FOR 1 MONTH THEN STAY ON 1 TAB DAILY 4 Active apixaban (ELIQUIS) 5 mg tabletIndicatio ns:Portal vein thrombosis Take 1 tablet (5 mg total) by mouth 2 (two) times a day. 60 each 2 5 12/12/19 25 Active cabozantinib (CABOMETYX) 40 mg tabletIndicatio ns:renal cell carcinoma Take 1 tablet (40 mg total) by mouth 1 (one) time each day 30 tablet 3 5 Active cabozantinib (Cabometyx) 20 mg tablet Take 1 tablet (20 mg total) by mouth 1 (one) time each day 30 tablet 5 10/23/19 25 Discontinu ed(Dose adjustment ) Active Problems Problem Noted Date Diagnosed Date Acute cephalic vein thrombosis, left 06/20/2024 History of renal carcinoma 06/11/2024 Inflammatory arthritis 05/30/2023 Bilateral knee effusions 02/26/2023 Obstructive sleep apnea (adult) (pediatric) 0701/2023 Type 2 diabetes mellitus without complications 0 02/08/2023 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 06/08 Hypovolemic shock 07/05/2022 Hypothyroidism due to medication 07/13/2021 Reactive depression 01/25/2021 Constipation 06/08/2020 Neoplastic malignant related fatigue 05/11/2020 Thyroiditis, iatrogenic 04/21/2020 Hypotension due to drugs 04/20/2020 Hypophysitis 04/06/2020 Renal cell carcinoma of right kidney 01/12/2020 Secondary erythrocytosis 12/11/2019 Encounters Date Type Department Care Team Description 10/21/2024 Telephone [facility] Hematology Oncology [address] [place] [phone] Quintin Murray MD Med Refill 10/10/2024 12:00 PM EST - 10/10/2024 11:59 PM EST Hospital Encounter [facility] Infusion Center [address] [place] [phone] Katie-Iy Quintin zhong MD Renal cell carcinoma of right kidney (CMS/HCC) Discharge Disposition: Home or Self Care 10/10/2024 11:45 AM EST Office Visit [facility] Hematology Oncology [address] [place] [phone] Brianonia-Iy Quintin zhong MD Renal cell carcinoma of right kidney (CMS/HCC) (Primary Dx); 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 (CMS/HCC); Thyroiditis, iatrogenic; Secondary erythrocytosis; Hypovolemic shock (CMS/HCC); Neoplastic malignant related fatigue; Hypotension due to drugs 09/12/2024 3:00 PM EST - 09/12/2024 11:59 PM EST Hospital Encounter [facility] Infusion Center [address] [place] [phone] Katie-Iy Quintin zhong MD Renal cell carcinoma of right kidney (CMS/HCC); Hypothyroidism due to medication Discharge Disposition: Home or Self Care 09/12/2024 2:30 PM EST Office Visit [facility] Hematology Oncology [address] [place] [phone] Katie-Iy Quintin zhong MD Renal cell carcinoma of right kidney [...] - 09/05/2024 11:59 PM EST Hospital Encounter [facility] CT Scan [address] [place] [phone] Renal cell carcinoma of right kidney (CMS/HCC) [...] Description 11/07/2024 2:45 PM EDT Office Visit [facility] Hematology Oncology [address] [place] [phone] Quintin Guzmán MD [address] [place] [phone] 11/07/2024 3:00 PM EDT Appointment [facility] Infusion Center [address] [phone] Health Maintenance Due Date Last Done Comments [...] LAB HEMETOLOGY METHOD 10/10/2024 1:52 PM EST [facility] RBC 4.30(L) 4.50 - 5.50 M/mcL LAB HEMETOLOGY METHOD 10/10/2024 1:[address] [facility] Hemoglobin 14.1 13.5 - 17.5 g/dL LAB HEMETOLOGY METHOD 10/10/2024 1:[address] [facility] Hematocrit 42.7 42.0 - 54.0 % LAB HEMETOLOGY METHOD 10/10/2024 1:[address] [facility] MCV 98.6(H) 79.0 - 98.0 FL LAB HEMETOLOGY METHOD 10/10/2024 1:[address] [facility] MCH 32.6(H) 27.0 - 32.0 pcg LAB HEMETOLOGY METHOD 10/10/2024 1:[address] [facility] MCHC 33.0 32.0 - 37.0 g/dL LAB HEMETOLOGY METHOD 10/10/2024 1:[address] [facility] RDW 12.6 11.0 - 15.0 % LAB HEMETOLOGY METHOD 10/10/2024 1:[address] [facility] Platelets 190 130 - 400 K/mcL LAB HEMETOLOGY METHOD 10/10/2024 1:[address] [facility] MPV 9.6 7.0 - 11.0 FL LAB HEMETOLOGY METHOD 10/10/2024 1:[address] [facility] NRBC 0.0 <1.0 % LAB HEMETOLOGY METHOD 10/10/2024 1:[address] [facility] NRBC Absolute 0.00 <0.10 K/mcL LAB HEMETOLOGY METHOD 10/10/2024 1:[address] [facility] Neutrophils Relative 64.6 % LAB HEMETOLOGY METHOD 10/10/2024 1:[address] [facility] Lymphocytes Relative 15.0 % LAB HEMETOLOGY METHOD 10/10/2024 1:[address] [facility] Monocytes Relative 6.2 % LAB HEMETOLOGY METHOD 10/10/2024 1:52 PM EST [facility] Eosinophils Relative 13.1 % LAB HEMETOLOGY METHOD 10/10/2024 1:[address] [facility] Basophils Relative 0.8 % LAB HEMETOLOGY METHOD 10/10/2024 1:52 PM EST [facility] Immature Granulocytes Relative 0.3 % LAB HEMETOLOGY METHOD 10/10/2024 1:[address] [facility] Neutrophils Absolute 5.67 1.50 - 7.00 K/mcL LAB HEMETOLOGY METHOD 10/10/2024 1:[address] [facility] Lymphocytes Absolute 1.32 1.00 - 5.00 K/mcL LAB HEMETOLOGY METHOD 10/10/2024 1:[address] [facility] Monocytes Absolute 0.54 0.20 - 1.00 K/mcL LAB HEMETOLOGY METHOD 10/10/2024 1:[address] [facility] Eosinophils Absolute 1.15(H) 0.00 - 0.50 K/mcL LAB HEMETOLOGY METHOD 10/10/2024 1:[address] [facility] Basophils Absolute 0.07 0.00 - 0.20 K/mcL LAB HEMETOLOGY METHOD 10/10/2024 1:[address] [facility] Immature Granulocytes Absolute 0.03 0.00 - 0.03 K/mcL LAB HEMETOLOGY METHOD 10/10/2024 1:[address] [facility] Blood Blood sample taken from central line / Unknown Existing Catheter / Unknown 10/10/2024 12:44 PM EST 10/10/2024 1:31 PM EST us Subramedward Guzmán MD LAB BLOOD ORDERABLE S Final Result [facility] [address] [place] [address], [place] [phone] * (ABNORMAL) Thyroid stimulating hormone (10/10/2024 12:44 PM EST) Only the most recent of2 resultswithin the time period is included. TSH 6.30(H) 0.40 - 4.00 mcIU/mL LAB CHEMISTRY METHOD 10/10/2024 2:08 PM EST [facility] Blood Blood sample taken from central line / Unknown Existing Catheter / Unknown 10/10/2024 12:44 PM EST 10/10/2024 1:31 PM EST Quintin Guzmán MD LAB BLOOD ORDERABLE S Final Result [facility] [address] [place] [address], [place] [phone] * (ABNORMAL) Comprehensive metabolic panel (10/10/2024 12:44 PM EST) Only the most recent of2 resultswithin the time period is included. Pathologist [facility] Sodium 139 133 - 145 mmol/L LAB CHEMISTRY METHOD 10/10/2024 3:[address] [facility] Potassium 3.9 3.5 - 5.5 mmol/L LAB CHEMISTRY METHOD 10/10/2024 3:[address] [facility] Chloride 108 96 - 110 mmol/L LAB CHEMISTRY METHOD 10/10/2024 3:[address] [facility] CO2 23 21 - 32 mmol/L LAB CHEMISTRY METHOD 10/10/2024 3:[address] [facility] Anion Gap 8 3 - 11 LAB CHEMISTRY METHOD 10/10/2024 3:[address] [facility] Glucose 100 70 - 100 mg/dL LAB CHEMISTRY METHOD 10/10/2024 3:[address] [facility] BUN 8 5 - 25 mg/dL LAB CHEMISTRY METHOD 10/10/2024 3:[address] [facility] Creatinine 1.07 0.70 - 1.30 mg/dL LAB CHEMISTRY METHOD 10/10/2024 3:[address] [facility] eGFR 80 >=60 mL/min/1. 73m2 LAB CHEMISTRY METHOD 10/10/2024 3:[address] [facility] Comment:Calculation based on the??Chronic Kidney Disease Epidemiology Collaboration (CKD-EPI) equation refit??without adjustment for race. BUN/Creatinine Ratio 7.5 LAB CHEMISTRY METHOD 10/10/2024 3:[address] [facility] Calcium 8.3(L) 8.5 - 10.5 mg/dL LAB CHEMISTRY METHOD 10/10/2024 3:[address] [facility] AST (SGOT) 20 10 - 42 unit/L LAB CHEMISTRY METHOD 10/10/2024 3:[address] [facility] ALT (SGPT) 26 10 - 60 unit/L LAB CHEMISTRY METHOD 10/10/2024 3:[address] [facility] Alkaline Phosphatase 81 42 - 121 unit/L LAB CHEMISTRY METHOD 10/10/2024 3:[address] [facility] Total Protein 6.9 6.0 - 8.0 g/dL LAB CHEMISTRY METHOD 10/10/2024 3:[address] [facility] Albumin 3.3 3.2 - 5.0 g/dL LAB CHEMISTRY METHOD 10/10/2024 3:[address] [facility] Total Bilirubin 0.6 0.0 - 1.4 mg/dL LAB CHEMISTRY METHOD 10/10/2024 3:[address] [facility] Blood Blood sample taken from central line / Unknown Existing Catheter / Unknown 10/10/2024 12:44 PM EST 10/10/2024 1:31 PM EST Quintin Guzmán MD LAB BLOOD ORDERABLE S Final Result [facility] [address] [place] [address], * CT Chest/Abdomen/Pelvis w Contrast (09/05/2024 2:46 [...] Signed Date: 09/09/2024 12:40 ET Workstation ID: [id number] Transcribed By: Self Edit Transcribed Date: 09/09/2024 [...] Signed Date: 09/09/2024 12:40 ET Workstation ID: [id number] Transcribed By: Self Edit Transcribed Date: 09/09/2024 12:18 ET Subramony Subefrem-Michael PRIETO IMG CT PROCEDURES F inal Result from Last 3 Months Insurance [facility] Care Teams Cable Operator Relationship Specialty Start Date End Date Nataly Cerda MD [address] [place] [address] [address] [facility] [place] [address] PCP - General 07/05/22
--- OUTSIDE RECORDS SUMMARY | 2024-10-22 16:23 | XMS_ITS | Encounter Summary ---
Author Organization [facility] Address [address] [place] [address] Care Team Providers Care Sports Book Board Attendant Name Role Phone Nataly Cerda MD Primary Care Provider [phone] Reason for Visit * Reason Comments Med Refill Encounter Details Date Type Department Care Team (Late st Contact Info) Description 10/21/2024 Telephone [facility] Hematology Oncology [address] [place] [phone] Quintin Guzmán MD [address] [place] [phone] Med Refill Social History Tobacco Use Types Packs/Day Years [...] PM EST documented as of this encounter Ordered Prescriptions Prescription Sig Dispense Quantity Refills Last Filled Start Date End Date cabozantinib (CABOMETYX) 40 mg tabletIndications:r enal cell carcinoma Take 1 tablet (40 mg total) by mouth 1 (one) time each day 30 tablet 3 10/22/2024 documented in this encounter Progress Notes * Maribel Allred RN - 10/22/2024 1:55 PM EDT Images from the original note were not included. Dr Rodriguez, Pt currently on 20 mg daily with plan to increase to 30 mg per last OV but dosage forms are 20 -40-60 mg tabs. Please advise. Thanks! T * Maribel Allred RN - 10/22/2024 1:44 PM EDT Images from the original note were not included. -copied from 10/10/24 FOV documented in this encounter Plan of Treatment Upcoming Encounters Date Type Department Care Team (Late st Contact Info) Description 11/07/2024 2:45 PM EDT Office Visit [facility] Hematology Oncology [address] [place] [phone] Katie-Quintin Rodriguez MD [address] [place] [phone] 11/07/2024 3:00 PM EDT Appointment [facility] Infusion Center [address] [place] [phone] documented as of this encounter Visit Diagnoses Not on filedocumented in this encounter Discontinued Medications Medication Sig Discontinue Reason Start Date End Da te cabozantinib (Cabometyx) 20 mg tablet Take 1 tablet (20 mg total) by mouth 1 (one) time each day Dose adjustment 09/12/2024 10/22/2024 documented as of this encounter Care Teams Sports Book Board Attendant Relationship Specialty Start Date End Date Po, MD Nataly [address] [place] [address] Dr Theodore [address] [facility] [place] [address] PCP - General 07/05/22 documented as of this encounter
--- OUTSIDE RECORDS SUMMARY | 2024-10-22 16:23 | XMS_ITS | Encounter Summary ---
Author Organization [facility] [place] [address] Care Team Providers Care Paper Cutter Name Role Phone Nataly Cerda MD Primary Care Provider [phone] Encounter Details Date Type Department Care Team (Late st Contact Info) Description 06/04/2024 10:04 AM EDT Hospital Encounter TH HISTORIC ENCOUNTERS EASTERN CONVERSION ONLY Janis Carrillo MD [address] [place] [phone] Social History Tobacco Use Types Packs/Day Years [...] due to cabozantinib), patient end up in [facility] with generalized weakness, abdominal pain, nausea [...] and patient last Sunday and up in [facility] with generalized weakness, abdominal pain, nausea, vomiting, diarrhea, decreased appetiteand have significant SVT, his heart rate was 180, patient had some extensive workup and restarted on prednisone as well as metoprolol and discharge. I discussed with patient and his about his hospitalization, I also discussed with Dr. Melvin Post (hospitalist in [facility]) about his symptom which most likely [...] 11/07/2024 2:45 PM EDT Office Visit [facility] Hematology Oncology [address] [place] [phone] Quintin Guzmán MD [address] [place] [phone] 11/07/2024 3:[address] [facility] Infusion Center [address] [place] [phone] documented as of this encounter Procedures Procedure Name Priority Date/Time Associated Diagnosis Comments HISTORICAL IMAGING SCAN RESULT 06/04/2024 documented in this encounter Results * HISTORICAL IMAGING SCAN RESULT (06/04/2024) Anatomical Region Laterality Modality Ultrasound us Provider Onbase IMMorgan US PROCEDURES Final Resul t documented in this encounter Visit Diagnoses Not on filedocumented in this encounter Care Teams Paper Cutter Relationship Specialty Start Date End Date Prashant, MD Nataly [address] [place] [address] Dr Theodore [address] [facility] [place] [address] PCP - General 07/05/22 documented as of this encounter
--- OUTSIDE RECORDS SUMMARY | 2024-10-22 16:23 | XMS_ITS | Clinical Summary ---
Author Organization [facility] Address [address] [place] [address] Care Team Providers Care Electric Screw Driver Operator Name Role Phone Nataly Cerda MD Primary Care Provider [phone] Allergies No known active allergies Medications Medication [...] age to complete this topic Care Teams Electric Screw Driver Operator Relationship Specialty Start Date End Date Nataly Cerda MD [address] [place] [address] Dr Theodore [address] [facility] [place] [address] PCP - General Internal Medicine 07/05/22
--- OUTSIDE RECORDS SUMMARY | 2024-10-22 16:23 | XMS_ITS ---
Author Organization [facility] Address [address] [place] [address] Care Team Providers Care Acetylene Torch Burner Name Role Phone Nataly Cerda MD Primary Care Provider [phone] Active Problems Problem Noted Date Diagnosed Date [...] Treatment Medications Discontinue Reason Plan Provider Cycles [facility] OP NIVOLUMAB 480 MG EVERY 28 DAYS 2 08/08/2023 albuterol (PROVENTIL)diphen hydrAMINE (BENADRYL)EPINEPH rinefamotidine (PEPCID)hydrocort isone (SOLU-CORTEF) IVmeperidine (DEMEROL) 25 MG/MLnivolumab (OPDIVO) infusionSaline Flush 0.9 %sodium chloride (NS) 0.9 %sodium chloride 0.9% bolus (NS) Not Tolerated Quintin Ott MD 13 of 17 cycles started Radiation Treatments * No radiation treatments are documented for this patient in [facility]. Treatments may have been administered in another system.
--- OUTSIDE RECORDS SUMMARY | 2024-10-22 16:23 | XMS_ITS | Encounter Summary ---
Author Organization [facility] Address [address] [place] [address] Care Team Providers Care Hip Hop Artist Name Role Phone Nataly Cerda MD Primary Care Provider [phone] Encounter Details Date Type Department Care Team (Latest Contact Info) Description 10/10/2024 12:00 PM EST - 10/10/2024 11:59 PM EST Hospital Encounter [facility] Infusion Center [address] [phone] Quintin Guzmán MD [address] [place] [phone] Renal cell carcinoma of right kidney (CMS/HCC) [...] (one) time each day 30 tablet 09/12/2024 10/22/2024 documented as of this encounter Discharge Disposition [...] Description 11/07/2024 2:45 PM EDT Office Visit [facility] Hematology Oncology [address] [place] [phone] Quintin Guzmán MD [address] [place] [phone] 11/07/2024 3:00 PM EDT Appointment [facility] Infusion Center [address] [place] [phone] documented as of this encounter Procedures Procedure [...] LAB HEMETOLOGY METHOD 10/10/2024 1:52 PM EST [facility] RBC 4.30(L) 4.50 - 5.50 M/mcL LAB HEMETOLOGY METHOD 10/10/2024 1:52 PM EST [facility] Hemoglobin 14.1 13.5 - 17.5 g/dL LAB HEMETOLOGY METHOD 10/10/2024 1:52 PM [facility] Hematocrit 42.7 42.0 - 54.0 % LAB HEMETOLOGY METHOD 10/10/2024 1:52 PM [facility] MCV 98.6(H) 79.0 - 98.0 FL LAB HEMETOLOGY METHOD 10/10/2024 1:52 PM [facility] MCH 32.6(H) 27.0 - 32.0 pcg LAB HEMETOLOGY METHOD 10/10/2024 1:52 PM [facility] MCHC 33.0 32.0 - 37.0 g/dL LAB HEMETOLOGY METHOD 10/10/2024 1:52 PM [facility] RDW 12.6 11.0 - 15.0 % LAB HEMETOLOGY METHOD 10/10/2024 1:52 PM [facility] Platelets 190 130 - 400 K/mcL LAB HEMETOLOGY METHOD 10/10/2024 1:52 PM [facility] MPV 9.6 7.0 - 11.0 FL LAB HEMETOLOGY METHOD 10/10/2024 1:52 PM [facility] NRBC 0.0 <1.0 % LAB HEMETOLOGY METHOD 10/10/2024 1:52 PM [facility] NRBC Absolute 0.00 <0.10 K/mcL LAB HEMETOLOGY METHOD 10/10/2024 1:52 PM [facility] Neutrophils Relative 64.6 % LAB HEMETOLOGY METHOD 10/10/2024 1:52 PM [facility] Lymphocytes Relative 15.0 % LAB HEMETOLOGY METHOD 10/10/2024 1:52 PM [facility] Monocytes Relative 6.2 % LAB HEMETOLOGY METHOD 10/10/2024 1:52 PM [facility] Eosinophils Relative 13.1 % LAB HEMETOLOGY METHOD 10/10/2024 1:52 PM EST [facility] Basophils Relative 0.8 % LAB HEMETOLOGY METHOD 10/10/2024 1:52 PM [facility] Immature Granulocytes Relative 0.3 % LAB HEMETOLOGY METHOD 10/10/2024 1:52 PM [facility] Neutrophils Absolute 5.67 1.50 - 7.00 K/mcL LAB HEMETOLOGY METHOD 10/10/2024 1:52 PM EST [facility] Lymphocytes Absolute 1.32 1.00 - 5.00 K/mcL LAB HEMETOLOGY METHOD 10/10/2024 1:52 PM [facility] Monocytes Absolute 0.54 0.20 - 1.00 K/mcL LAB HEMETOLOGY METHOD 10/10/2024 1:52 PM [facility] Eosinophils Absolute 1.15(H) 0.00 - 0.50 K/mcL LAB HEMETOLOGY METHOD 10/10/2024 1:52 PM EST [facility] Basophils Absolute 0.07 0.00 - 0.20 K/mcL LAB HEMETOLOGY METHOD 10/10/2024 1:52 PM [facility] Immature Granulocytes Absolute 0.03 0.00 - 0.03 K/mcL LAB HEMETOLOGY METHOD 10/10/2024 1:52 PM [facility] Blood Blood sample taken from central line / Unknown Existing Catheter / Unknown 10/10/2024 12:44 PM EST 10/10/2024 1:31 PM EST us Quintin Guzmán MD LAB BLOOD ORDERABLE S Final Result [facility] [address] [place] [address], * (ABNORMAL) Thyroid stimulating hormone (10/10/2024 12:44 PM EST) TSH 6.30(H) 0.40 - 4.00 mcIU/mL LAB CHEMISTRY METHOD 10/10/2024 2:08 PM [facility] Blood Blood sample taken from central line / Unknown Existing Catheter / Unknown 10/10/2024 12:44 PM EST 10/10/2024 1:31 PM EST Subramedward Guzmán MD LAB BLOOD ORDERABLE S Final Result [facility] [address] [place] [address], * (ABNORMAL) Comprehensive metabolic panel (10/10/2024 12:44 PM EST) [facility] Sodium 139 133 - 145 mmol/L LAB CHEMISTRY METHOD 10/10/2024 3:56 PM [facility] Potassium 3.9 3.5 - 5.5 mmol/L LAB CHEMISTRY METHOD 10/10/2024 3:56 PM [facility] Chloride 108 96 - 110 mmol/L LAB CHEMISTRY METHOD 10/10/2024 3:56 PM [facility] CO2 23 21 - 32 mmol/L LAB CHEMISTRY METHOD 10/10/2024 3:56 PM [facility] Anion Gap 8 3 - 11 LAB CHEMISTRY METHOD 10/10/2024 3:56 PM [facility] Glucose 100 70 - 100 mg/dL LAB CHEMISTRY METHOD 10/10/2024 3:56 PM [facility] BUN 8 5 - 25 mg/dL LAB CHEMISTRY METHOD 10/10/2024 3:56 PM [facility] Creatinine 1.07 0.70 - 1.30 mg/dL LAB CHEMISTRY METHOD 10/10/2024 3:56 PM [facility] eGFR 80 >=60 mL/min/1. 73m2 LAB CHEMISTRY METHOD 10/10/2024 3:56 PM [facility] Comment:Calculation based on the??Chronic Kidney Disease Epidemiology Collaboration (CKD-EPI) equation refit??without adjustment for race. BUN/Creatinine Ratio 7.5 LAB CHEMISTRY METHOD 10/10/2024 3:56 PM [facility] Calcium 8.3(L) 8.5 - 10.5 mg/dL LAB CHEMISTRY METHOD 10/10/2024 3:56 PM [facility] AST (SGOT) 20 10 - 42 unit/L LAB CHEMISTRY METHOD 10/10/2024 3:56 PM [facility] ALT (SGPT) 26 10 - 60 unit/L LAB CHEMISTRY METHOD 10/10/2024 3:56 PM [facility] Alkaline Phosphatase 81 42 - 121 unit/L LAB CHEMISTRY METHOD 10/10/2024 3:56 PM [facility] Total Protein 6.9 6.0 - 8.0 g/dL LAB CHEMISTRY METHOD 10/10/2024 3:56 PM [facility] Albumin 3.3 3.2 - 5.0 g/dL LAB CHEMISTRY METHOD 10/10/2024 3:56 PM [facility] Total Bilirubin 0.6 0.0 - 1.4 mg/dL LAB CHEMISTRY METHOD 10/10/2024 3:56 PM [facility] Blood Blood sample taken from central line / Unknown Existing Catheter / Unknown 10/10/2024 12:44 PM EST 10/10/2024 1:31 PM EST us Subramony Arielle PRIETO LAB BLOOD ORDERABLE S Final Result [facility] [address] [place] [address], [place] [phone] documented in this encounter Visit Diagnoses Diagnosis Renal cell carcinoma of right kidney (CMS/HCC) documented in this encounter Care Teams Hip Hop Artist Relationship Specialty Start Date End Date Nataly Cerda MD [address] [facility] [place] [address] PCP - General 07/05/22 documented as of this encounter
--- OUTSIDE RECORDS SUMMARY | 2024-10-22 16:23 | XMS_ITS ---
Author Organization [facility] Care Team Providers Care Enterprise Application Analyst Name Role Phone Winsome Walker Unavailable Unavailable Randi Estrada Unavailable Unavailable Allergies and adverse reactions No Known Allergies Care Team Name Role Address Phone Organization Dates Winsome Walker Attending Physician [address], [place], [address], [place] (Office): : : [facility] 02/08/2023 - 02/15/2023 Randi Estrada Attending Physician [address] [facility] [address], [place], [address], [place] (Office): : [facility] 02/08/2023 - 02/15/2023 Functional Status Functional Condition Code Code System Date Dependence on Cane [id number] SNOMED CT 3 Immunizations Immunization Status Vaccine Details Vaccine Code CodeSystem Date Notes TB 1 Step Mantoux (PPD) completed tuberculin skin test; purified protein derivative solution, intradermal lotNumber: [id number] expiry: 04/06/2024 Mfg: par pharmacutical Given 0.1 [...] Status 1 ACQUIRED ABSENCE OF KIDNEY 02/08/[address] active 2 ANXIETY DISORDER, UNSPECIFIED 02/08/[address] active 3 ESSENTIAL (PRIMARY) HYPERTENSION 02/08/[address] active 4 HYPERLIPIDEMIA, UNSPECIFIED 02/08/[address] active 5 HYPOTHYROIDISM, UNSPECIFIED 02/08/[address] active 6 MALIGNANT NEOPLASM OF UNSPECIFIED KIDNEY, EXCEPT RENAL PELVIS 02/08/[address] active 7 MONOARTHRITIS, NOT ELSEWHERE CLASSIFIED, RIGHT KNEE 02/08/[address] active 8 OBSTRUCTIVE SLEEP APNEA (ADULT) (PEDIATRIC) 02/08/[address] active 9 PERSONAL HISTORY OF NICOTINE DEPENDENCE 02/08/[address] active 10 SECONDARY MALIGNANT NEOPLASM OF UNSPECIFIED LUNG 02/08/2023 C78.00 ICD-10-CM active 11 TYPE 2 DIABETES MELLITUS WITHOUT COMPLICATIONS 02/08/[address] active 12 WEAKNESS 02/08/[address] active Reason for Referral No Reasons for Referral Entered Social History Social History Observation Description Start Date End Date Code Code System Current Smoking Status Tobacco smoking consumption unknown 289327552 SNOMED CT Sex Assigned At Male 1965 92211-5 [facility] Vital Signs Code Code System Vitals Name Values and Units Timing Information 51973-6 [facility] Pain Level Value=0.0 02/15/2023 9279-1 [facility] Respiratory Rate Value=18.0 Units=/m in 02/15/2023 8462-4 [facility] Blood Pressure-Diastolic Value=67 Un its=mmHg 02/15/2023 8480-6 [facility] Blood Pressure-Systolic Xjstk=410 Un its=mmHg 02/15/2023 8310-5 [facility] Body Temperature Value=98.6 Units=?? F 02/15/2023 8867-4 [facility] Heart rate Value=94.0 Units=/min 14139-1 [facility] O2 % BldC Oximetry Value=97.0 Units= % 02/15/2023 55298-2 [facility] Weight Sarkj=380.0 Units=Lbs 01/2023 8302-2 [facility] Height Value=69.0 Units=Inches 02/08/2023
== END 2024-10-22 14:46 | disposition home or self-care (01) ==
LOC: HO.RHE 13:58
PROVIDERS: PCP Internal Medicine; Visit Provider Student in an Organized Health Care Education/Training Program
DX: M19.90 Unspecified osteoarthritis, unspecified site (principal); Z79.899 Other long term (current) drug therapy; Z79.631 Long term (current) use of antimetabolite agent; Z79.52 Long term (current) use of systemic steroids
CPT/HCPCS: 99214

== ENCOUNTER 2025-02-27 11:43 | Outpatient (AMB) | payer OTHER, SELFPAY ==
--- NOTE | 2025-02-27 11:45 | A.OFFVIS_ITS ---
Vital Signs 02/27/25 11:48 Height 5 ft 6 in Weight 208 lb 12.444 oz BMI 33.7 BP 122/80 Blood Pressure Location Lt brachial Position Sitting Pulse 87 Pulse Source Pulse Oximeter Pulse Oximetry (%) 97 Oxygen Delivery Method Room Air Intake Visit Reasons: IRAEs Intake Note: Patient presents for IRAEs follow up. Allergies No Known Allergies Allergy (Verified 02/27/25 11:48) Medication List - Last Reconciled 02/27/25 by Ines Mckeon MD apixaban (Eliquis) 5 mg PO BID atorvastatin 10 mg PO BEDTIME blood sugar diagnostic (FreeStyle Lite Strips) As directed check the BS QD blood-glucose meter (FreeStyle Lite Meter kit) As directed cabozantinib (Cabometyx) 60 mg PO DAILY ferrous sulfate 325 mg PO DAILY folic acid 1 mg PO DAILY hydrocortisone 10 mg PO TID hydroxychloroquine 200 mg PO BID lancets (FreeStyle Lancets) As directed check BS QD lisinopril 5 mg PO DAILY metformin 500 mg PO .QD methotrexate sodium 15 mg (6 x 2.5 mg) PO QWEEK 90 days metoprolol tartrate 25 mg See Protocol PO BID prednisone 2.5 mg PO Q OTHER DAY HPI Comments Details: Patient is a 59-year-old male with history of renal cell carcinoma with lung metastasis, KAYLYN hyperlipidemia, hypertension, diabetes, history of portal vein thrombosis and DVT on blood thinners, gout, polyarticular osteoarthritis and hypothyroidism here today for follow up of immune checkpoint inhibitor related inflammatory arthritis. Interval History: Patient last seen 10/22/24 - Self discontinued methotrexate - C/o right knee pain - unable to taper prednisone - plan to restart mtx Today - Still taking prednisone 2.5mg daily - Started the mtx and folic acid - still noting that taking the prednisone every day - Main complaint is right knee pain Rheumatologic History: Previously nivolumab Currently on Cabozantinib Initial history: This is a 57-year-old male presents for evaluation of multiple joint pain. Per patient has history of kidney cancer with lung metastasis. He is here with his and son. Patient states that he just took oxycodone and he is not very alert. He had a nephrectomy and was receiving (chemo/immunotherapy) until about last year. Per patient it was stopped due to patient being weak. He follows up with Dr. Rodriguez. Since May of last year patient has been having multiple episodes of multiple swollen and tender joints including his wrists, knees, ankles. He went to the hospital multiple times and had knee arthrocentesis twice. No infection was found. It would be treated with prednisone with resolution. States that the prednisone taper works until he is down to 10 mg which does not help much. S tates that he was diagnosed with diabetes but since his cancer he lost a lot of weight and his diabetes was better controlled. He is not currently on diabetes medications. Patient and his state that currently he has painful and swollen joints every single day. Today he has bilateral wrist, left knee and bilateral ankle pain. He is in a wheelchair. He denies any history of kidney stones. He is unaware of any family history of gout Current Rheumatology Medication(s): Hydroxychloroquine 200mg bid Prednisone 2.5mg daily Methotrexate 15 mg weekly Folic acid mg daily [facility] Medical History Morbid obesity with BMI of 40.0-44.9, adult Pulmonary nodule, left Hx of cancer of lung Surgical History History of biopsy History of right nephrectomy Family History Father No problems noted. Mother Breast cancer Social History Household Members: Spouse and Children Housing: House Do you presently have visiting nurse or other home services: No Alcohol intake: never Patient Tobacco Use Status: Never used Tobacco Tobacco use type: Cigarette Years Smoked: quit 1999 e-Cigarette/Vaping Use: Never Used Second Hand Smoke Exposure: No Advance Directives Date on File: 02/07/23 service: No Current occupational status: unemployed Cognitive needs: No Hearing needs: No Vision needs: Yes Review of Systems Const Details: Review of Systems Constitutional: Denies fever, chills, weight loss ENT: Denies vision changes, eye pain or eye redness, dental caries, dry mouth GI: Denies nausea, vomiting, diarrhea, abdominal pain, change in BM Pulm: Denies SOB, ALEGRE, hemoptysis, wheezing Cards: Denies chest pain, palpitations Skin: Denies Raynaud's, rash, nail changes, photosensitivity, [employer]IV[employer]AL B[employer]ER: Denies headaches, weakness, paresthesias, recurrent falls MSK: as per HPI All other systems reviewed and are unremarkable except noted above Physical Exam Exam Exam: Vital signs reviewed Physical Examination CONSTITUITIONAL Patient alert and cooperative. Well appearing and in no apparent painful distress MSK Hands: ?Good sdc teacher strength bilaterally. No deformities noted. ?No synovitis noted to the MCPs, PIPs or DIPs. ?No tenderness to palpation of these joints. Wrists: ?Full range of motion at the wrists without pain. ?No tenderness to palpation or synovitis noted to the wrists. Elbows: Full range of motion without pain. No tenderness, weakness, swelling, increased warmth or erythema. Shoulders: Full range of motion without pain. No tenderness, weakness, swelling, increased warmth or erythema. Hip bursa: No tenderness to palpation Knees: ?Full range of motion. ?Right knee warm to touch with mild effusion. Left knee without any effusion or warmth. Ankles: Full range of motion. ?No tenderness, swelling, increased warmth or erythema.? Feet: ?Negative squeeze test. ?No tenderness to palpation or swelling of the MTPs. Tender points:?No tenderness to palpation of the bilateral trapezius, supraspinatus, greater trochanters, anterior costochondral junctions, bilateral gluteal areas, bilateral suboccipital muscle insertions SKIN Skin intact without rashes. Vital Signs: BMI result Body Mass Index 33.7 Assessment & Plan Assessment & Plan (1) Inflammatory arthritis: Comment: dx 07/2023 HCQ 10/2023 effective MTX added (after discussion with oncologist )04/2024 effective Code(s): M19.90 - Unspecified osteoarthritis, unspecified site Category: Medical Plan: #Inflammatory arthritis related to check point inhibitors Patient is a 59-year-old male renal cell carcinoma with Mets to the lung currently on cabozantinib. His course has been complicated by inflammatory arthritis related to checkpoint inhibitors which has responded to prednisone Plaquenil. Restarted methotrexate 15mg and folic acid but still has right knee pain Declined steroid injection of the right knee We will increase the prednisone to 2.5mg daily Plan - Methotrexate 15mg PO weekly - Folic acid 1 mg daily - Plaquenil 200mg bid - Prednisone 2.5mg daily - Labs today: CBC, CMP, ESR, CRP - RTC 4 months - Labs before visit: CBC, CMP, ESR, CRP (2) Long-term use of hydroxychloroquine: Code(s): Z79.899 - Other oil heaterman (current) drug therapy Category: Medical Plan: #Long-term Use of Hydroxychloroquine Discussed with patient the risks and benefits of hydroxychloroquine in managing the rheumatic condition Benefits include: - Reduced pain, reduce mortality, maintenance of remission and reduction of flares Risks include: - GI upset, skin hyperpigmentation, retinal toxicity (especially after more than 5 years of use), myopathy Advised yearly ophthalmology visits (3) detention methotrexate user: Code(s): Z79.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 Limit alcohol and avoid Bactrim ? 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) use of systemic steroids Plan: #Long-term Use of Steroids Discussed with patient the risks and benefits of steroid for managing the rheumatic condition Benefits include: - Reduced pain, improved mobility, increased participation in activities, and decreased progression of disease Risks include: - GI upset, potential ultrasound worsening or formation (especially in patients > 65 years old), elevated blood pressure/worsening hypertension, elevated blood sugar/worsening diabetes control, worsening of bone density, elevated lipids/worsening triglycerides, cataract formation, weight gain Recommended using proton pump inhibitors (PPIs) for the duration of steroid use to reduce the risk of gastric ulcers and vitamin-D daily to reduce the risk of osteoporosis Labs checked: ?A1c, T spot, hepatitis-B and C serologies Pneumocystis jiroveci prophylaxis: ?Patient with risk factors including steroids greater than 50 mg for more than 30 days, age greater than 60 years, and lung involvement from underlying rheumatic disease requires prophylaxis and will be given so Plan I spent 30 minutes reviewing the record and labs, taking a history, examining the patient, discussing the treatment plan, ordering diagnostic work up and documenting in the medical record Coding Level of Care Code Est Pt Level 4 (43961) Complex EM visit Add On G2211 Diagnoses Inflammatory arthritis M19.90 Long-term use of hydroxychloroquine Z79.899 detention methotrexate user Z79.631 detention (current) use of systemic steroids Z79.52
--- OUTSIDE RECORDS SUMMARY | 2025-02-27 11:46 | XMS_ITS | Clinical Summary ---
Author Organization [facility] Address [address] [place] [address] Care Team Providers Care Credit Control Manager Name Role Phone Nataly Cerda MD Primary Care Provider [phone] Allergies No known active allergies Medications Medication [...] 100 06/04/2024 10:34 AM EDT Temperature 36.9 C (98.4 F) 06/04/2024 10:34 AM EDT Respiratory Rate 18 01/10/2023 12:48 PM EDT [...] Cancer Screening (Colonoscopy) 2011 Influenza Vaccine (#1) 2025 2, 05/01/2019, 05/24/2018, Additional history exists RSV Ped < 20 months Aged Out No longe r eligible based on patient's age to complete this topic Care Teams Credit Control Manager Relationship Specialty Start Date End Date Prashant, Nataly Anthony MD [address] [place] [address] [address] [facility] [place] [id number] PCP - General Internal Medicine 07/05/22
[2025-02-27 11:48] VITALS: BP 122/80; PULSE 87; O2SAT 97; BMI 33.7
== END 2025-02-27 12:32 | disposition home or self-care (01) ==
LOC: HO.RHE 11:44
PROVIDERS: PCP Internal Medicine; Visit Provider Student in an Organized Health Care Education/Training Program
DX: M19.90 Unspecified osteoarthritis, unspecified site (principal); Z79.899 Other long term (current) drug therapy; Z79.631 Long term (current) use of antimetabolite agent; Z79.52 Long term (current) use of systemic steroids
CPT/HCPCS: 99214; G2211

== ENCOUNTER 2025-07-22 13:07 | Outpatient (AMB) | payer OTHER, SELFPAY ==
--- OUTSIDE RECORDS SUMMARY | 2024-06-04 09:04 | XMS_ITS | Encounter Summary ---
Author Organization [facility] Address [address] [place] [address] Care Team Providers Care Assistant Import Manager Name Role Phone Nataly Cerda MD Primary Care Provider [phone] Encounter Details Date Type Department Care Team (Late st Contact Info) Description 06/04/2024 10:04 AM EDT Hospital Encounter TH HISTORIC ENCOUNTERS EASTERN CONVERSION ONLY Janis Carrillo MD [address] [place] [phone] Social History Tobacco Use Types Packs/Day Years Used Date Smoking Tobacco: Former Cigarettes 0 Q uit: 11/04/2004 Smokeless Tobacco: Never Alcohol Use Standard Drinks/Week Comments Yes 0 (1 standard drink = 0.6 oz pur e alcohol) Housing Instability Answer Date Recorde d Are you worried that in the next 2 months you may not have stable housing? Patient declined 06/06/2025 Food Access & Nutrition Answer Date Rec orded Do you have access to a vari ety of food including fruits and vegetables? Patient declined 06/06/2025 Health Literacy Answer Date Recorded How often do you need to hav e someone help you when you read instructions, pamphlets, or other written material from your doctor or pharmacy? Patient declined 06/06/2025 Caregiver: How often do you need to have someone help you when you read instructions, pamphlets, or other written material from your doctor or pharmacy? Not on file 025 Financial Risk Answer Date Recorded How hard is it for you to pa y for the very basics like food, housing, medical care, and air conditioning / heating? Patient declined 06/06/2025 Transportation Answer Date Recorded Has the lack of transportati on kept you from meetings, work, or from getting things needed for daily living? Patient declined 06/06/2025 Has the lack of transportati on kept you from medical appointments or from getting medications? Patient declined 06/06/2025 Social Isolation Answer Date Recorded How often do you feel lonely or isolated from those around you? Patient declined 06/06/2025 Food Risk Answer Date Recorded Within the past 12 months we worried whether our food would run out before we got money to buy more. Patient declined 025 Within the past 12 months th e food we bought just didn't last and we didn't have money to get more. Patient declined 08/2024 Dependent Care Answer Date Recorded Do you need help finding or paying for care for your loved ones. For example, summer child caregiver or elderly care for an older adult? Patient declined 06/06/2025 Education Answer Date Recorded Do you think completing more education or training, like finishing a GED, going to college, or learning a trade, would be helpful for you? Patient declined 06/06/2025 Employment and Income Answer Date Recor ded During the last four weeks, have you been actively looking for work? Patient declined 06/06/2025 Living Situation Answer Date Recorded What is your living situation? Unrecognized valu e 06/06/2025 Interpersonal Safety Answer Date Record ed Physical Abuse Unrecognized value 06/06/2025 Verbal Abuse Unrecognized value 06/06/2025 Sex and Gender Information Value Date Recorded Sex Assigned at Male 09/12/2024 3:01 PM EST Legal Sex Male 11:33 AM EST Gender Identity Male 09/12/2024 3:01 PM EST Sexual Orientation Straight 09/12/2024 3: 01 PM EST documented as of this encounter Last Filed Vital Signs Vital Sign Reading Time Taken Comments Blood Pressure 119/96 06/04/2024 10:34 AM EDT Sitting Right arm Pulse 100 06/04/2024 10:34 AM EDT Temperature - - Respiratory Rate - - Oxygen Saturation - - Inhaled Oxygen Concentration - - Weight 114 kg (251 lb) 06/04/2024 10:34 AM EDT Height 170.2 cm (5' 7.01 ) 01/27/2022 2 :39 PM EDT Body Mass Index 39.3 01/27/2022 2:39 PM EDT documented in this encounter Functional Status * Calculated C-SSRS Risk Score (Lifetime/Recent) Answer Date of Assessment Author No Risk Indicated 06/06/2025 5:51 AM EDT Daisy Mendoza lt, RN * [place] Suicide Severity Rating Scale (Screener/Recent Self-Report) Question Answer Date of Assessment Author 1. Wish to be (Past 1 Month) No 025 5:51 AM EDT Daisy Lockett RN 2. Non-Specific Active Suici sara Thoughts (Past 1 Month) No 06/06/2025 5:51 AM EDT Heri Lockett RN 6. Suicidal Behavior (Lifetime) No 5:51 AM EDT Daisy Lockett RN documented as of this encounter Progress Notes * Janis Carrillo MD - 06/04/2024 10:45 AM EDT CHIEF COMPLAINT: Follow-up IDENTIFIER:Clifford Brooks is a 58 y.o. male. HPI: 59-year-old man who has a long history of renal cell carcinoma of right kidney, please see oncology history for details, patient initially diagnosed with renal cell carcinoma in pandemic year, patient also found to have significant pulmonary nodules consistent with malignancy, patient wastreated with different therapeutic regimen, patient has iatrogenic hypophysitis with significant hypothyroidism and hypoadrenalism, patient has been on levothyroxine and was supposed to be on hydrocortisone which apparently he discontinued because of some GI side effects (most likely GI side effects was due to cabozantinib), patient end up in [facility] with generalized weakness, abdominal pain, nausea vomiting and significant palpitations/SVT. Patient was restarted on prednisone as well as metoprolol with some improvement in his symptoms, patient is here with his to discuss about his condition as well as new onset left upper extremity swelling etc. ROS: Not feeling good but better than last week Still having generalized weakness Still having on and off abdominal discomfort and diarrhea Since restarted on prednisone arthritic pain is better as well as he is feeling slightly better He has no significant chest pain or shortness of breath He has significant swelling of left upper extremity Oncology History Overview Note 12/10/2019 -CT chest, showing multiple pulmonary nodules 12/11/2019- 54-year-old gentleman, with recently diagnosed right-sided renal mass, as well as multiple bilateral pulmonary nodules, suspicious for pulmonary metastasis from renal cell carcinoma--likelystage IV disease 12/22/2019--lung nodule biopsy, clear cell carcinoma 12/24/2019--MRI brain, no metastasis 01/02 2020--right nephrectomy, 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, involving renal vein, pT3a, PN XM1 02/2020 -- Palliative immuotherapy, combination Yervoy / Opdivo started 04/2020-- 4 cycles combination Rx completed Started yervoy maintenance 03/2020-- Clinical Hypophysitis and thyroiditis MRI neg for metastases Started Flourinef 0.1 mg daily Renal cell carcinoma of right kidney (HCC) 01/02/2020 Initial Diagnosis Renal cell carcinoma of right kidney (HCC) 02/04/2020 - 04/07/2020 Immunotherapy Cycle number 1 day #1 Ipilimumab Nivolumab Plan 4 cycles -- completed 04/21/2020 - Immunotherapy Nivolumab 240 mg q 2 weeks Dose changed to 480 mg q 4 weeks in Aug 2020 12/15/[address] CAP -- no evidence of metastatic disease 08/2021-- CT CAP -- no metastases 12/30/2021 - 01/10/2023 [facility] NIV[facility] 480 MG EVERY 28 DAYS Plan Provider: Quintin Rodriguez MD Treatment goal: Palliative Line of treatment: Maintenance Cancer Staging Renal cell carcinoma of right kidney (HCC) Staging form: Kidney, AJCC 8th Edition - Pathologic stage from 01/05/2020: Stage IV (pT3a, pNX, pM1) - Signed by Quintin Ott MD on 02/04/2020 - Clinical: No stage assigned - Unsigned PAST MEDICAL HISTORY: Patient Active Problem List Diagnosis SNOMED CT(R) ??? Renal mass, right RENAL MASS ??? Malignant neoplasm metastatic to lung (HCC) METASTATIC MALIGNANT NEOPLASM TO LUNG ??? Secondary erythrocytosis SECONDARY POLYCYTHEMIA ??? Essential hypertension ESSENTIAL HYPERTENSION ??? Renal cell carcinoma of right kidney (HCC) RENAL CELL CARCINOMA ??? New daily persistent headache NEW DAILY PERSISTENT HEADACHE ??? Photophobia PHOTOPHOBIA ??? Hypotension due to hypovolemia LOW BLOOD PRESSURE ??? Hypophysitis (HCC) HYPOPHYSITIS ??? Hypotension due to drugs DRUG-INDUCED HYPOTENSION ??? Thyroiditis, iatrogenic IATROGENIC THYROIDITIS ??? Neoplastic malignant related fatigue CANCER-RELATED FATIGUE ??? Weight loss WEIGHT LOSS ??? Constipation CONSTIPATION ??? Reactive depression REACTIVE DEPRESSION (SITUATIONAL) ??? Hypothyroidism due to medication HYPOTHYROIDISM CAUSED BY DRUG ??? 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 (HCC) ADRENAL CORTICAL HYPOFUNCTION ??? Hypovolemic shock (HCC) HYPOVOLEMIC SHOCK ??? Bilateral knee effusions BILATERAL EFFUSION OF JOINTS OF KNEES ??? Inflammatory arthritis ARTHRITIS Past Medical History: Diagnosis Date ??? Diabetes mellitus (HCC) ??? Hypercholesterolemia ??? Hypertension ??? Sleep apnea SOCIAL HISTORY: Social History Tobacco Use ??? Smoking status: Former Years: .5 Types: Cigarettes Quit date: 11/04/2004 Years since quittin.5 ??? Smokeless tobacco: Never Substance Use Topics ??? Alcohol use: Yes Comment: rarely FAMILY HISTORY: Family History Problem Relation Age of Onset ??? Cancer Mother Current Outpatient Medications: ??? atorvastatin (LIPITOR) tablet 40 mg, Take 1 tablet (40 mg total) by mouth daily., Disp: , Rfl: ??? cabozantinib (CABOMETYX) 60 MG tablet, Take 1 tablet (60 mg total) by mouth daily, Disp: 90 tablet, Rfl: 3 ??? ferrous sulfate 325 (65 FE) MG tablet, Take 1 tablet (325 mg total) by mouth every morning withbreakfast., Disp: , Rfl: ??? folic acid (FOLVITE) tablet 1 mg, Take 1 tablet (1,000 mcg total) by mouth daily., Disp: , Rfl: ??? hydroxychloroquine (PLAQUENIL) 200 MG tablet, Take by mouth daily., Disp: , Rfl: ??? meloxicam (MOBIC) 15 MG tablet, TAKE 1 TABLET (15 MG TOTAL) BY MOUTH DAILY., Disp: 30 tablet, Rfl: 0 ??? metFORMIN (GLUCOPHAGE) tablet 500 mg, Take 1 tablet (500 mg total) by mouth 2 (two) times a daywith meals., Disp: , Rfl: ??? methotrexate 2.5 MG tablet, TAKE 6 TABLETS BY MOUTH ONCE WEEKLY FOR 2 WEEKS THEN 8 TABS ONCE WEEKLY, Disp: , Rfl: ??? oxyCODONE-acetaminophen (PERCOCET) 5-325 MG per tablet, Take 1 tablet by mouth 2 (two) times a day as needed for pain., Disp: 60 tablet, Rfl: 0 ??? predniSONE (DELTASONE) tablet 10 mg, Take by mouth every morning with breakfast., Disp: , Rfl: You are allergic to the following Date Reviewed: 06/04/2024 No active allergies PHYSICAL EXAM: BP (!) 119/96 (BP Location: Right arm) Pulse 100 Temp 98.4 ??F (36.9 ??C) (Temporal) Wt 113.9kg (251 lb) SpO2 97% BMI 39.30 kg/m?? ECOG 1-2 APPEARANCE: Alert and oriented in no acute distress though looks very frail and morbidly obese EYES: nonicteric sclera pink conjunctiva ORAL CAVITY: No mucositis or thrush NECK: Neck supple, no cervical adenopathy, there is fullness in supraclavicular area bilaterally HEART: normal S1 and S2 with tachycardia LUNG: Distant breath sound bilaterally LYMPH NODES: No palpable superficial adenopathy ABDOMEN: Obese, distended, soft, mild diffuse generalized tenderness on palpation and no gross organomegaly appreciated EXTREMITIES: Mild edema of extremities, significant edema of left upper extremity IMPRESSION: SNOMED CT(R) 1. Renal cell carcinoma of right kidney (HCC) RENAL CELL CARCINOMA 2. Malignant neoplasm metastatic to both lungs (HCC) METASTATIC MALIGNANT NEOPLASM TO BILATERAL LUNGS 3. Hypoadrenalism (HCC) HYPOADRENALISM 58-year-old man, who has history of renal cell carcinoma of right kidney metastatic to lung, patient has been on different palliative cytotoxic therapy, most recently patient has been on Cabometyx, titrated to 60 mg but last week patient was having significant GI side effects due to thesemedication patient stopped taking all his medication and patient last Sunday and up in [facility] with generalized weakness, abdominal pain, nausea, vomiting, diarrhea, decreased appetiteand have significant SVT, his heart rate was 180, patient had some extensive workup and restarted on prednisone as well as metoprolol and discharge. I discussed with patient and his about his hospitalization, I also discussed with Dr. Melvin Post (hospitalist in [facility]) about his symptom which most likely because of his stopping allhis medication especially hydrocortisone because patient has significant hypoadrenalism (iatrogenic) and apparently according to Dr. Rodriguez he was on hydrocortisone 10 mg daily and he stopped suddenly.I told patient because of his GI side effect which is most likely due to cabozantinib, he can decrease the dose of cabozantinib for the time being and focus on drinking a lot of fluids etc. Patient noticed significant swelling of left upper extremity, patient apparently did not have any significant issues when he was in the hospital few days ago and did not have any Doppler studies, I will do Doppler of left upper extremity to rule out DVT or any etiology for his possible lymphatic/venous obstruction. PLAN: I will start patient on hydrocortisone 10 mg p.o. I will get Doppler of left upper extremity to rule out DVT Since patient having significant GI side effect due to cabozantinib, I recommend to cut down dose to 50% that is approximately 30 mg daily until seen by Dr. Carri Carrillo, Janis Castillo MD documented in this encounter Plan of Treatment Upcoming Encounters Date Type Department Care Team (Late st Contact Info) Description 09/18/2025 11:30 AM EST Office Visit [facility] Hematology Oncology [address] [place] [phone] Quintin Guzmán MD [address] [place] [phone] 09/18/2025 12:00 PM EST Appointment [facility] [address] [place] [phone] documented as of this encounter Procedures Procedure Name Priority Date/Time Associated Diagnosis Comments HISTORICAL IMAGING SCAN RESULT 06/04/2024 documented in this encounter Results * HISTORICAL IMAGING SCAN RESULT (06/04/2024) Anatomical Region Laterality Modality Ultrasound us Provider Onbase MD ROSE US PROCEDURES Final Resul t documented in this encounter Visit Diagnoses Not on filedocumented in this encounter Additional Health Concerns Infection Onset Date Last Indicated Resolved Time Respiratory Rule-Out 06/05/2025 06/05/2025 10/31/2 025 2:39 PM EDT COVID-19 Rule-Out 06/05/2025 06/05/2025 06/05/2025 2:39 PM EDT documented as of this encounter Care Teams Assistant Import Manager Relationship Specialty Start Date End Date Nataly Cerda MD [address] [place] [address] [address] [facility] [place] [address] PCP - General 07/05/22 documented as of this encounter
--- NOTE | 2025-07-22 13:12 | A.OFFVIS_ITS ---
Vital Signs 07/22/25 13:17 Height 5 ft 6 in Weight 169 lb 1.513 oz BMI 27.3 BP 122/70 Blood Pressure Location Lt brachial Position Sitting Pulse 114 H Pulse Source Pulse Oximeter Pulse Oximetry (%) 94 Oxygen Delivery Method Room Air Intake Visit Reasons: follow up Intake Note: Patient presents today for IRAEs follow up and test results. System Administration Advisor Required: No Information Interpreted: non-clinical & clinical Accompanied by: Self / Same As Patient Allergies No Known Allergies Allergy (Verified 07/22/25 13:16) HPI Comments Details: Patient is a 59-year-old male with history of renal cell carcinoma with lung metastasis, KAYLYN hyperlipidemia, hypertension, diabetes, history of portal vein thrombosis and DVT on blood thinners, gout, polyarticular osteoarthritis and hypothyroidism here today for follow up of immune checkpoint inhibitor related inflammatory arthritis. Interval History: Patient last seen 02/27/25 - Still taking prednisone 2.5mg daily - Started the mtx and folic acid - still noting that taking the prednisone every day - Main complaint is right knee pain Today - On Hydroxychloroquine 200mg bid, methotrexate 15mg weekly, folic acid 1mg, prednisone 2.5 mg every other day - presenting for follow-up of inflammatory arthritis secondary to checkpoint inhibitor therapy. - He is currently being treated with hydroxychloroquine, methotrexate once week ly, and prednisone 2.5 mg every other day. - The primary complaint at the last visit was right knee pain, for which he declined a steroid injection. - The right knee pain is described as about the same, exacerbated by cold weather and climbing stairs, but is considered livable. - He reports no significant change in symptoms since starting methotrexate. - He notes his wrists are much better and previously would swell prior to beginning treatment. Rheumatologic History: Previously nivolumab Currently on Cabozantinib Initial history: This is a 57-year-old male presents for evaluation of multiple joint pain. Per patient has history of kidney cancer with lung metastasis. He is here with his and son. Patient states that he just took oxycodone and he is not very alert. He had a nephrectomy and was receiving (chemo/immunotherapy) until about last year. Per patient it was stopped due to patient being weak. He follows up with Dr. Rodriguez. Since May of last year patient has been having multiple episodes of multiple swollen and tender joints including his wrists, knees, ankles. He went to the hospital multiple times and had knee arthrocentesis twice. No infection was found. It would be treated with prednisone with resolution. States that the prednisone taper works until he is down to 10 mg which does not help much. States that he was diagnosed with diabetes but since his cancer he lost a lot of weight and his diabetes was better controlled. He is not currently on diabetes medications. Patient and his state that currently he has painful and swollen joints every single day. Today he has bilateral wrist, left knee and bilateral ankle pain. He is in a wheelchair. He denies any history of kidney stones. He is unaware of any family history of gout Current Rheumatology Medication(s): Hydroxychloroquine 200mg bid Prednisone 2.5mg every other day Methotrexate 15 mg weekly Folic acid mg daily [facility] Medical History Morbid obesity with BMI of 40.0-44.9, adult Pulmonary nodule, left Hx of cancer of lung Surgical History History of biopsy History of right nephrectomy Family History Father No problems noted. Mother Breast cancer Social History Household Members: Spouse and Children Housing: House Do you presently have visiting nurse or other home services: No Alcohol intake: never Patient Tobacco Use Status: Never used Tobacco Tobacco use type: Cigarette Years Smoked: quit 1999 e-Cigarette/Vaping Use: Never Used Second Hand Smoke Exposure: No Advance Directives Date on File: 02/07/23 service: No Current occupational status: unemployed Cognitive needs: No Hearing needs: No Vision needs: Yes Review of Systems Narrative Review of Systems Constitutional: Denies fever, chills, weight loss ENT: Denies vision changes, eye pain or eye redness, dental caries, dry mouth GI: Denies nausea, vomiting, diarrhea, abdominal pain, change in BM Pulm: Denies SOB, ALEGRE, hemoptysis, wheezing Cards: Denies chest pain, palpitations Skin: Denies Raynaud's, rash, nail changes, photosensitivity, FARM BUTCHER: Denies headaches, weakness, paresthesias, recurrent falls MSK: as per HPI All other systems reviewed and are unremarkable except noted above Physical Exam Exam Exam: Vital signs reviewed Physical Examination CONSTITUITIONAL Patient alert and cooperative. Well appearing and in no apparent painful distress MSK Hands * Right Hand: Able to make a fist. No swelling or tenderness to palpation of the MCPs, PIPs or DIPs. No deformities noted. * Left Hand: Able to make a fist. No swelling or tenderness to palpation of the MCPs, PIPs or DIPs. No deformities noted. Wrists * Right Wrist: Full ROM to flexion and extension. No swelling or TTP * Left Wrist: Full ROM to flexion and extension. No swelling or TTP Elbows * Right Elbow: Full ROM. No swelling or TTP. No TTP of the medial epicondyle. No TTP of the lateral epicondyle * Left Elbow: Full ROM. No swelling or TTP. No TTP of the medial epicondyle. No TTP of the lateral epicondyle Shoulders * Right shoulder: Full ROM. No swelling noted. No TTP of the AC joint. No TTP of the subacromial bursa. No TTP of the posterior shoulder * Left shoulder: Full ROM. No swelling noted. No TTP of the AC joint. No TTP of the subacromial bursa. No TTP of the posterior shoulder Knees * Right knee: Full ROM. No swelling noted. No TTP of the knee joint line. No TTP of pes anserine bursa * Left knee: Full ROM. No swelling noted. No TTP of the knee joint line. No TTP of pes anserine bursa. * Crepitations felt bilaterally Ankles * Right ankle: Good ankle dorsiflexion and plantar flexion. No swelling. No TTP of the ankle joint * Left ankle: Good ankle dorsiflexion and plantar flexion. No swelling. No TTP of the ankle joint Feet * Right foot: Negative squeeze test * Left foot: Negative squeeze test Tender points? * No tenderness to palpation of the bilateral trapezius, supraspinatus, anterior costochondral junctions, bilateral suboccipital muscle insertions SKIN No rashes Vital Signs: Last Vital Signs Pulse 114 H 07/22/25 13:17 BP 122/70 07/22/25 13:17 Pulse Ox 94 07/22/25 13:17 Oxygen Delivery Method Room Air 07/22/25 13:17 BMI result Body Mass Index 27.3 Results Reviewed Results Reviewed: Laboratory Tests 03/19/25 12:46 WBC 11.3 H RBC 4.82 Hgb 15.2 Hct 46.3 Plt Count 252 D ESR 13 Sodium 140 Potassium 4.5 D Chloride 106 Carbon Dioxide 27 BUN 12 Creatinine 1.07 Calcium 9.0 D Total Bilirubin 0.3 AST 25 ALT 24 Alkaline Phosphatase 74 C-Reactive Protein 0.79 H Total Protein 7.5 Albumin 3.8 XR Right Knee 05/2023 FINDINGS: Moderate joint effusion is present, similar compared to 02/23/2023. Bones have normal alignment joint spaces are maintained. No acute fracture or subluxation. There appears to be periarticular osteopenia of the knee. No erosions or periostitis. Small marginal osteophytes are present at patellofemoral and tibiofemoral compartments. IMPRESSION: * No acute fracture or malalignment the right knee. * Persistent joint effusion, similar compared to 03/05/2023. The specific cause of the joint effusion is uncertain. Consider possibility of inflammation/synovitis, or reactive change if there is internal derangement. * Mild tricompartmental osteoarthritis is present. Assessment & Plan Assessment & Plan (1) Inflammatory arthritis: Comment: dx 07/2023 HCQ 10/2023 effective MTX added (after discussion with oncologist )04/2024 effective Code(s): M19.90 - Unspecified osteoarthritis, unspecified site Category: Medical Plan: #Inflammatory arthritis related to check point inhibitors Patient is a 59-year-old male renal cell carcinoma with Mets to the lung currently on cabozantinib. His course has been complicated by inflammatory arthritis related to checkpoint inhibitors which has responded to prednisone, methotrexate and Plaquenil. Blood work is required to monitor liver function due to methotrexate use before medication refills can be provided. A follow-up is scheduled in four months, with the potential to extend to every six months if his condition remains stable. Plan - Methotrexate 15mg PO weekly - Folic acid 1 mg daily - Plaquenil 200mg bid - Prednisone 2.5mg every other day - Labs today: CBC, CMP, ESR, CRP - RTC 4 months - Labs before visit: CBC, CMP, ESR, CRP (2) Bilateral primary osteoarthritis of knee: Code(s): M17.0 - Bilateral primary osteoarthritis of knee Plan: #Bilateral Knee OA The patient's persistent right knee pain, which is exacerbated by activity such as climbing stairs, is consistent with osteoarthritis rather than inflammatory arthritis. I explained that his current medications for inflammatory arthritis will not treat the mechanical issue of osteoarthritis. The patient continues to decline a steroid injection for the knee, as he finds the pain to be manageable. 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 Limit alcohol and avoid Bactrim ? Monitoring: ?CBC, BMP, LFTs every 3-4 months and hepatitis serologies as needed (5) detention (current) use of systemic steroids: Code(s): Z79.52 - detention (current) use of systemic steroids Plan: #Long-term Use of Steroids Discussed with patient the risks and benefits of steroid for managing the rheumatic condition Benefits include: - Reduced pain, improved mobility, increased participation in activities, and decreased progression of disease Risks include: - GI upset, potential ultrasound worsening or formation (especially in patients > 65 years old), elevated blood pressure/worsening hypertension, elevated blood sugar/worsening diabetes control, worsening of bone density, elevated lipids/worsening triglycerides, cataract formation, weight gain Recommended using proton pump inhibitors (PPIs) for the duration of steroid use to reduce the risk of gastric ulcers and vitamin-D daily to reduce the risk of osteoporosis Labs checked: ?A1c, T spot, hepatitis-B and C serologies Pneumocystis jiroveci prophylaxis: ?Patient with risk factors including steroids greater than 50 mg for more than 30 days, age greater than 60 years, and lung involvement from underlying rheumatic disease requires prophylaxis and will be given so Plan I discussed with the patient his ongoing management for inflammatory arthritis related to checkpoint inhibitors, including his current medications of hydroxychloroquine, methotrexate, and prednisone 2.5 mg every other day. I emphasized the necessity of obtaining blood work to monitor his liver function due to methotrexate therapy before his medications can be refilled. We discussed that his persistent right knee pain, particularly with stairs, is more characteristic of osteoarthritis, which is a mechanical issue not treated by his current systemic medications. I again offered a steroid injection for his knee, which he declined, stating the pain is livable. I advised him to continue his current treatment plan and to follow up in four months. I informed him that if he remains stable, future follow-up visits can be extended to every six months. 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
[2025-07-22 13:17] VITALS: BP 122/70; PULSE 114; O2SAT 94; BMI 27.3
--- OUTSIDE RECORDS SUMMARY | 2025-07-22 17:19 | XMS_ITS | Encounter Summary ---
Author Organization Formerly [facility] Prior to 01/03/[address] [place] [id number] Care Team Providers Care Blanket Cutter Hand Name Role Phone Nataly Cerda MD Primary Care Provider [phone] Reason for Visit * Reason Comments New Start CABOMETYX (cabozantinib) Encounter Details Date Type Department Care Team Description 01/15/2024 Nurse Only [facility] On[facility] [address], [place] [id number] Maribel Allred RN New Start CABOMETYX (cabozantinib) [...] on filedocumented in this encounter Care Teams Blanket Cutter Hand Relationship Specialty Start Date End Date Nataly Cerda MD [address] [place] [address] [address] [facility] [place] [address] PCP - General Internal Medicine 07/05/22 documented as of this encounter
--- OUTSIDE RECORDS SUMMARY | 2025-07-22 17:19 | XMS_ITS ---
Author Organization [facility] Prior to 01/03/[address] [place] [id number] Care Team Providers Care Prescription Clerk Name Role Phone Nataly Cerda MD Primary Care Provider [phone] Active Problems Problem Noted Date Diagnosed Date [...] Treatment Medications Discontinue Reason Plan Provider Cycles [facility] OP NIVOLUMAB 480 MG EVERY 28 [...]
--- OUTSIDE RECORDS SUMMARY | 2025-07-22 17:19 | XMS_ITS | Clinical Summary ---
Author Organization [facility] Address [address] [place] [address] Phone Care Team Providers Care Dice Person Name Role Phone Nataly Cerda MD Primary Care Provider [phone] Allergies No known active allergies Medications Vitamin C 500 mg tablet Take 1 tablet (500 mg total) by mouth 1 (one) time each day. 08/09/2023 Active atorvastatin (LIPITOR) 20 mg tablet Take 1 tablet (20 mg total) by mouth at bedtime. Active cholecalciferol , vitamin D3, 25 mcg (1,000 unit) tablet,chewable Chew 25 mcg. A ctive ferrous sulfate 325 mg (65 mg elemental iron) tablet Take 1 tablet (325 mg total) by mouth 1 (one) time each day. Active folic acid (FOLVITE) 1 mg tablet Take 1 tablet (1,000 mcg total) by mouth 1 (one) time each day. 04/15/2024 Active metFORMIN (GLUCOPHAGE) 500 mg tablet Take 1 tablet (500 mg total) by mouth 2 (two) times a day with meals. Active methotrexate 2.5 mg tablet TAKE 6 TABLETS BY MOUTH ONCE WEEKLY FOR 2 WEEKS THEN 8 TABS ONCE WEEKLY Active oxyCODONE-aceta minophen (PERCOCET) 5-325 mg per tablet Take 1 tablet by mouth 2 times daily as needed. 08/08/2023 Active predniSONE (DELTASONE) 2.5 mg tablet Take 1 tablet (2.5 mg total) by mouth every other day. 06/02/2024 Active hydroxychloroqu ine (PLAQUENIL) 200 mg tablet Take 1 tablet (200 mg total) by mouth 2 (two) times a day. Active hydrocortisone (CORTEF) 10 mg tablet Take 1 tablet (10 mg total) by mouth 1 (one) time each day. 90 each 3 05/15/2025 Active levothyroxine (SYNTHROID, LEVOTHROID) 50 mcg tabletIndicatio ns:Hypothyroidi sm due to medication Take 1 tablet (50 mcg total) by mouth 1 (one) time each day before breakfast. 90 each 1 05/15/2025 Active cabozantinib (CABOMETYX) 40 mg tablet TAKE 1 TABLET DAILY 30 tablet 3 06/02/2025 Active amiodarone (PACERONE) 200 mg tablet Take 1 tablet (200 mg total) by mouth 2 (two) times a day for 30 days, THEN 1 tablet (200 mg total) 1 (one) time each day. 90 each 06/09/2025 Active Active Problems Problem Noted Date Diagnosed Date Adjustment disorder 06/07/2025 Hypotension (arterial) 06/05/2025 Acute cephalic vein thrombosis, left 06/20/2024 History [...] Encounters Date Type Department Care Team Description 07/10/2025 3:23 PM EST - 07/10/2025 11:59 PM EST Hospital Encounter [facility] [address] [place] [address] 2nd [place] [phone] History of renal carcinoma Discharge Disposition: Home or Self Care 07/10/2025 3:00 PM EST Office Visit [facility] H[facility] Oncology [address] [place] [phone] Quintin Guzmán MD Renal cell carcinoma of right kidney (CMS/HCC V24, CMS/HCC V28) (Primary Dx) 06/12/2025 Telephone [facility] [address] [place] [phone] Cardiology, [facility] 06/10/2025 Telephone [facility] [address] [place] [phone] Quintin Guzmán MD 06/08/2025 Telephone [facility] [address] [place] [phone] Quintin Guzmán MD 06/05/2025 12:06 PM EDT - 06/09/2025 12:17 PM EST Hospital Encounter [facility] [address] [place] [address] Dao Duval MD Bukalo, Nermina, MD Kela, Kashyap Devendrabhai, MD Zipagan, James T, MD Mohani, Priya, MD Hypertension, unspecified type (Primary Dx); Renal cell carcinoma, unspecified laterality (CMS/HCC V24, CMS/HCC V28); Adrenal insufficiency ([facility]/HCC V24); Ventricular tachycardia (CMS/HCC V24, CMS/HCC V28); Neoplastic malignant related fatigue Discharge Disposition: Home or Self Care 06/05/2025 11:15 AM EDT Office Visit [facility] [address] [place] [phone] Quintin Guzmán MD Renal cell carcinoma of right kidney (CMS/HCC V24, CMS/HCC V28) (Primary Dx); Hypovolemic shock (CMS/HCC V24, CMS/HCC V28); 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 (CMS/HCC V24); Hypothyroidism due to medication; Inflammatory arthritis; Hypophysitis (CMS/HCC V24) 05/15/2025 12:13 PM EDT - 05/15/2025 11:59 PM EDT Hospital Encounter [facility] [address] [phone] Quintin Guzmán MD Renal cell carcinoma of right kidney ([facility] [place], [facility] V28); Hypothyroidism due to medication; 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 ([facility] [place]24) Discharge Disposition: Home or Self Care 05/15/2025 11:45 AM EDT Office Visit [facility] [address] [place] [phone] Quintin Guzmán MD Renal cell carcinoma of right kidney ([facility] [place]24, [facility] V28) (Primary Dx); Inflammatory arthritis; Bilateral knee effusions; 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 ([facility] V24); Neoplastic malignant related fatigue; Reactive depression; Acute cephalic vein thrombosis, left; Obstructive sleep apnea (adult) (pediatric); Hypothyroidism due to medication 05/15/2025 Telephone [facility] [address] [place] [phone] Quintin Guzmán MD 04/28/2025 Telephone [facility] [address] [place] [phone] Ivy Zarate MA from Last 3 Months Medical History Medical History Date Comments Hypertension DX:Hypertension Diabetes mellitus ([facility] [place]24, [facility] V28) DX:Diabetes mellitus (HCC) Hypercholesterolemia DX:Hypercho lesterolemia Sleep apnea DX:Sleep apnea Cancer ([facility] V24, [facility] V28) Family History Medical History Relation Name Comments Cancer Mother Relation Name Status Comments Mother Social History Tobacco Use Types Packs/Day Years Used Date Smoking Tobacco: Former Cigarettes 0 Q uit: 11/04/2004 Smokeless Tobacco: Never Tobacco [...] care for your loved ones. For example, child guidance counselor or elderly care for an older adult? [...] Orientation Straight 09/12/2024 3: 01 PM EST Last Filed Vital Signs Vital Sign Reading Time Taken Comments Blood Pressure 94/63 07/10/2025 3:02 PM EST Pulse 98 07/10/2025 3:02 PM EST Temperature 36.3 C (97.3 F) 07/10/2025 3:02 PM EST Respiratory Rate 20 06/09/2025 7:12 AM EST Oxygen Saturation 100% 07/10/2025 3:02 PM EST Inhaled Oxygen Concentration - - Weight 78.5 kg (173 lb) 07/10/2025 3:02 PM EST Height 167.6 cm (5' 5.98 ) 07/10/2025 3:02 PM ES T Body Mass Index 27.94 07/10/2025 3:02 PM EST Plan of Treatment Upcoming Encounters Date Type Department Care Team (Late st Contact Info) Description 09/18/2025 11:30 AM EST Office Visit [facility]cology [address] [place] [phone] Quintin Guzmán MD [address] [place] [phone] 09/18/2025 12:00 PM EST Appointment [facility] [address] [phone] Health Maintenance Due Date Last Done Comments Colorectal Cancer Screening: Colonoscopy 1966 Diabetes: Annual Foot Exam 1976 Diabetes: Annual Retina Eye Exam 1976 Hepatitis B Vaccines (1 of 3 - 19+ 3-dose series) 1985 Pneumococcal Vaccine: 50+ Years (1 of 2 - PCV) 1985 Zoster Vaccines (1 of 2) 1985 RSV Immunization Adult Patients (1 - Risk 50-74 years 1-dose series) 2016 COVID-19 Vaccine (3 - Pfizer risk series) 12/06/2020 11/08/2020, 10/18/2020 Cholesterol Screening (Lipid Panel) 07/10/2022 HIV Screening 07/10/2022 Hepatitis C Screening 07/10/2022 Diabetes: Annual Urine Albumin-Creatinine Ratio (uACR) 06/11/2024 Diabetes: Blood Sugar Control Test (HGBA1C) 06/11/2024 Depression Screening 08/06/2024 Influenza Vaccine (#1) 2025 , 06/08/2023, 06/14/2022, Additional history exists Social Influencers of Health Screening 06/06/2026 06/06/2025 Diabetes: Annual GFR (Glomerular Filtration Rate) 07/10/2026 07/10/2025, 06/09/2025, 06/08/2025, Additional history exists Hypertension/CHF/CAD Annual BMP Blood Test 07/10/2026 07/10/2025, 06/09/2025, 06/08/2025, Additional history exists DTaP,Tdap,and Td Vaccines (2 - Td or Tdap) 10/24/2032 10/24/2022 HIB Vaccines Aged Out No longer eligi [...] age to complete this topic Meningococcal B Vaccine Aged Out No l onger eligible based on patient's age to complete this topic RSV Immunization Patients Under 20 months Aged Out No longer eligible based on patient's age to complete this topic Varicella Vaccines Aged Out No longer eligible based on patient's age to complete this topic Procedures Procedure Name Priority Date/Time Associated Diagnosis Comments CBC WITH AUTO DIFFERENTIAL Routine 07/10/2025 3:25 PM EST History of renal carcinoma COMPREHENSIVE METABOLIC PANEL Routine 07/10/2025 3:25 PM EST History of renal carcinoma CBC AND DIFFERENTIAL Routine 07/10/2025 3:25 PM EST History of renal carcinoma THYROID STIMULATING HORMONE Routine 07/10/2025 3:25 PM EST History of renal carcinoma ECG ANNOTATED 06/10/2025 POCT GLUCOSE BLOOD Routine 06/09/2025 9: 01 AM EST THYROID STIMULATING HORMONE Add-On 06/09/2025 7:43 AM EST ALANINE AMINOTRANSFERASE Add-On 06/09/2025 7:43 AM EST ASPARTATE AMINOTRANSFERASE Add-On 06/09/2025 7:43 AM EST COMPLETE BLOOD COUNT Routine 06/09/2025 7:43 AM EST MAGNESIUM Routine 06/09/2025 7:43 AM EST PHOSPHORUS Routine 06/09/2025 7:43 AM EST BASIC METABOLIC PANEL Routine 06/09/2025 7:43 AM EST POCT GLUCOSE BLOOD Routine 06/09/2025 7: 12 AM EST POCT GLUCOSE BLOOD Routine 06/08/2025 8: 08 PM EST POCT GLUCOSE BLOOD Routine 06/08/2025 4: 26 PM EST POCT GLUCOSE BLOOD Routine 06/08/2025 11 :32 AM EST POCT GLUCOSE BLOOD Routine 06/08/2025 9: 59 AM EST TRANSTHORACIC ECHOCARDIOGRAM (TTE) COMPLETE W/ CONTRAST Routine 06/08/2025 8:47 AM EST Ventricular tachycardia (CMS/HCC V24, CMS/HCC V28) BASIC METABOLIC PANEL Routine 06/08/2025 5:36 AM EST COMPLETE BLOOD COUNT Routine 06/08/2025 5:36 AM EST POCT GLUCOSE BLOOD Routine 06/07/2025 7: 37 PM EST POCT GLUCOSE BLOOD Routine 06/07/2025 4: 47 PM EST POCT GLUCOSE BLOOD Routine 06/07/2025 12 :06 PM EST POCT GLUCOSE BLOOD Routine 06/07/2025 7: 57 AM EST MAGNESIUM Routine 06/07/2025 5:27 AM EST BASIC METABOLIC PANEL Routine 06/07/2025 5:27 AM EST COMPLETE BLOOD COUNT Routine 06/07/2025 5:27 AM EST PHOSPHORUS Routine 06/07/2025 5:27 AM EST POCT GLUCOSE BLOOD Routine 06/06/2025 7: 46 PM EDT POCT GLUCOSE BLOOD Routine 06/06/2025 5: 01 PM EDT POCT GLUCOSE BLOOD Routine 06/06/2025 11 :03 AM EDT PATHOLOGIST REVIEW BLOOD SMEAR Routine 06/06/2025 10:39 AM EDT Neoplastic malignant related fatigue POCT GLUCOSE BLOOD Routine 06/06/2025 7: 48 AM EDT LACTATE STAT 06/06/2025 6:15 AM EDT COMPLETE BLOOD COUNT Routine 06/06/2025 5:46 AM EDT BASIC METABOLIC PANEL Routine 06/06/2025 5:46 AM EDT UGALDE URINE CULTURE TUBE Routine 06/06/20 12:57 AM EDT EXTRA TUBES Routine 06/06/2025 12:57 AM EDT URINALYSIS WITH REFLEX MICROSCOPIC STAT 06/06/2025 12:57 AM EDT URINALYSIS WITH REFLEX MICROSCOPIC STAT 06/06/2025 12:57 AM EDT MAGNESIUM Routine 06/05/2025 10:27 PM EDT PHOSPHORUS Routine 06/05/2025 10:27 PM EDT BASIC METABOLIC PANEL Routine 06/05/2025 10:27 PM EDT POCT GLUCOSE BLOOD Routine 06/05/2025 8: 22 PM EDT LACTATE, WITH REFLEX STAT 06/05/2025 5:31 PM EDT TROPONIN I HIGH SENSITIVITY STAT 06/05/2025 5:26 PM EDT XR CHEST 1 VIEW STAT 06/05/2025 3:[address] ABDOMEN PELVIS W CONTRAST STAT 06/05/2025 2:27 PM EDT ECG 12-LEAD Routine 06/05/2025 1:49 PM EDT ECG 12-LEAD Routine 06/05/2025 1:40 PM EDT ECG 12-LEAD Routine 06/05/2025 1:25 PM EDT CULTURE BLOOD STAT 06/05/2025 1:19 PM EDT CULTURE BLOOD STAT 06/05/2025 1:19 PM EDT TRIIODOTHYRONINE FREE Routine 06/05/2025 12:56 PM EDT FREE THYROXINE WITH REFLEX TO FREE TRIIODOTHYRONINE Routine 06/05/2025 12:56 PM EDT CREATINE KINASE AND CKMB Add-On 06/05/2025 12:56 PM EDT THYROID STIMULATING HORMONE WITH REFLEX TO FREE T4 AND FREE T3 Add-On 06/05/2025 12:56 PM EDT CBC WITH AUTO DIFFERENTIAL STAT 06/05/2025 12:56 PM EDT PHOSPHORUS STAT 06/05/2025 12:56 PM EDT CALCIUM, IONIZED STAT 06/05/2025 12:5 6 PM EDT MAGNESIUM STAT 06/05/2025 12:56 PM EDT COMPREHENSIVE METABOLIC PANEL STAT 06/05/2025 12:56 PM EDT CBC AND DIFFERENTIAL STAT 06/05/2025 12:56 PM EDT LACTATE, WITH REFLEX STAT 06/05/2025 12:56 PM EDT RESPIRATORY VIRUS PANEL MOLECULAR STUDY STAT 06/05/2025 12:41 PM EDT ECG 12-LEAD Routine 06/05/2025 12:12 PM EDT [facility] 30-74 MINUTES Routine 06/05/2025 12:06 PM EDT TRIIODOTHYRONINE FREE Routine 05/15/2025 12:28 PM EDT Renal cell carcinoma of right kidney (CMS/HCC V24, CMS/HCC V28) Hypothyroidism due to medication FREE THYROXINE WITH REFLEX TO FREE TRIIODOTHYRONINE Routine 05/15/2025 12:28 PM EDT Renal cell carcinoma of right kidney (CMS/HCC V24, CMS/HCC V28) Hypothyroidism due to medication CBC WITH AUTO DIFFERENTIAL Routine 05/15/2025 12:28 PM EDT Renal cell carcinoma of right kidney (CMS/HCC V24, CMS/HCC V28) CORTISOL Routine 05/15/2025 12:28 PM EDT 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 ([facility] V24) LACTATE DEHYDROGENASE Routine 05/15/2025 12:28 PM EDT Renal cell carcinoma of right kidney ([facility] V24, CMS/HCC V28) THYROID STIMULATING HORMONE WITH REFLEX TO FREE T4 AND FREE T3 Routine 05/15/2025 12:28 PM EDT Renal cell carcinoma of right kidney ([facility]/HCC V24, [facility] V28) Hypothyroidism due to medication COMPREHENSIVE METABOLIC PANEL Routine 05/15/2025 12:28 PM EDT Renal cell carcinoma of right kidney ([facility]/HCC V24, [facility] V28) CBC AND DIFFERENTIAL Routine 05/15/2025 12:28 PM EDT Renal cell carcinoma of right kidney ([facility] V24, [facility] V28) from Last 3 Months Results * (ABNORMAL) CBC auto differential (07/10/2025 3:25 PM EST) Only the most recent of3 resultswithin the time period is included. WBC 8.6 4.8 - 10.8 K/mcL LAB HEMETOLOGY METHOD 07/10/2025 4:58 PM [facility] RBC 3.70(L) 4.50 - 5.50 M/mcL LAB HEMETOLOGY METHOD 07/10/2025 4:58 PM [facility] Hemoglobin 12.7(L) 13.5 - 17.5 g/dL LAB HEMETOLOGY METHOD 07/10/2025 4:58 PM [facility] Hematocrit 37.9(L) 42.0 - 54.0 % LAB HEMETOLOGY METHOD 07/10/2025 4:58 PM [facility] MCV 103.3(H) 79.0 - 98.0 FL LAB HEMETOLOGY METHOD 07/10/2025 4:58 PM [facility] MCH 34.6(H) 27.0 - 32.0 pcg LAB HEMETOLOGY METHOD 07/10/2025 4:58 PM [facility] MCHC 33.5 32.0 - 37.0 g/dL LAB HEMETOLOGY METHOD 07/10/2025 4:58 PM [facility] RDW 17.2(H) 11.0 - 15.0 % LAB HEMETOLOGY METHOD 07/10/2025 4:58 PM [facility] Platelets 176 130 - 400 K/mcL LAB HEMETOLOGY METHOD 07/10/2025 4:58 PM [facility] MPV 9.9 7.0 - 11.0 FL LAB HEMETOLOGY METHOD 07/10/2025 4:58 PM [facility] NRBC 0.0 <1.0 % LAB HEMETOLOGY METHOD 07/10/2025 4:58 PM [facility] NRBC Absolute 0.00 <0.10 K/mcL LAB HEMETOLOGY METHOD 07/10/2025 4:58 PM [facility] Neutrophils Relative 56.8 % LAB HEMETOLOGY METHOD 07/10/2025 4:58 PM [facility] Lymphocytes Relative 34.4 % LAB HEMETOLOGY METHOD 07/10/2025 4:58 PM [facility] Monocytes Relative 4.6 % LAB HEMETOLOGY METHOD 07/10/2025 4:58 PM [facility] Eosinophils Relative 2.9 % LAB HEMETOLOGY METHOD 07/10/2025 4:58 PM [facility] Basophils Relative 0.7 % LAB HEMETOLOGY METHOD 07/10/2025 4:58 PM [facility] Immature Granulocytes Relative 0.6 % LAB HEMETOLOGY METHOD 07/10/2025 4:58 PM [facility] Neutrophils Absolute 4.91 1.50 - 7.00 K/mcL LAB HEMETOLOGY METHOD 07/10/2025 4:58 PM EST [facility] Lymphocytes Absolute 2.97 1.00 - 5.00 K/mcL LAB HEMETOLOGY METHOD 07/10/2025 4:58 PM EST [facility] Monocytes Absolute 0.40 0.20 - 1.00 K/[facility] LAB HEMETOLOGY METHOD 07/10/2025 4:58 PM EST [facility] Eosinophils Absolute 0.25 0.00 - 0.50 K/[facility] LAB HEMETOLOGY METHOD 07/10/2025 4:58 PM EST [facility] Basophils Absolute 0.06 0.00 - 0.20 K/[facility] LAB HEMETOLOGY METHOD 07/10/2025 4:58 PM EST [facility] Immature Granulocytes Absolute 0.05(H) 0.00 - 0.03 K/[facility] LAB HEMETOLOGY METHOD 07/10/2025 4:58 PM EST [facility] Blood Blood sample taken from central line / Unknown Existing Catheter / Unknown 07/10/2025 3:25 PM EST 07/10/2025 4:44 PM EST Quintin Guzmán MD LAB BLOOD ORDERABLE S Final Result [facility] [address] [place] [address], * (ABNORMAL) Thyroid stimulating hormone (07/10/2025 3:25 PM EST) Only the most recent of2 resultswithin the time period is included. TSH 13.04(H) 0.40 - 4.00 mcIU/mL 07/10/2025 5:32 PM EST [facility] Blood Blood sample taken from central line / Unknown Existing Catheter / Unknown 07/10/2025 3:25 PM EST 07/10/2025 4:44 PM EST us Quintin Guzmán MD LAB BLOOD ORDERABLE S Final Result [facility] [address] [place] [address], [place] [phone] * (ABNORMAL) Comprehensive metabolic panel (07/10/2025 3:25 PM EST) Only the most recent of3 resultswithin the time period is included. [facility] Sodium 141 133 - 145 mmol/L 07/10/2025 5:46 PM [facility] Potassium 2.8(LL) 3.5 - 5.5 mmol/L 07/10/2025 5:46 PM [facility] Chloride 102 96 - 110 mmol/L 07/10/2025 5:46 PM [facility] CO2 24 21 - 32 mmol/L 07/10/2025 5:46 PM [facility] Anion Gap 15(H) 3 - 11 07/10/2025 5:46 PM [facility] Glucose 77 70 - 100 mg/dL 07/10/2025 5:46 PM [facility] BUN 9 5 - 25 mg/dL 07/10/2025 5:46 PM [facility] Creatinine 0.91 0.70 - 1.30 mg/dL 07/10/2025 5:46 PM [facility] eGFR 98 >=60 mL/min/1. 73m2 07/10/2025 5:46 PM [facility] Comment:Calculation based on the Chronic Kidney Disease Epidemiology Collaboration (CKD-EPI) equation refit without adjustment for race. BUN/Creatinine Ratio 9.9 07/10/2025 5:46 PM [facility] Calcium 7.6(L) 8.5 - 10.5 mg/dL 07/10/2025 5:46 PM [facility] AST (SGOT) 23 10 - 42 unit/L 07/10/2025 5:46 PM [facility] ALT (SGPT) 24 10 - 60 unit/L 07/10/2025 5:46 PM [facility] Alkaline Phosphatase 81 42 - 121 unit/L 07/10/2025 5:46 PM [facility] Total Protein 5.8(L) 6.0 - 8.0 g/dL 07/10/2025 5:46 PM [facility] Albumin 3.3 3.2 - 5.0 g/dL 07/10/2025 5:46 PM [facility] Total Bilirubin 1.0 0.0 - 1.4 mg/dL 07/10/2025 5:46 PM [facility] Blood Blood sample taken from central line / Unknown Existing Catheter / Unknown 07/10/2025 3:25 PM EST 07/10/2025 4:44 PM EST Martyramedward Guzmán MD LAB BLOOD ORDERABLE S Final Result [facility] [address] [place] [address], * ECG-Annotated (06/10/2025) us Provider Onbase ECG ORDERABLES Final Result * POCT Glucose, blood (06/09/2025 9:01 AM EST) Only the most recent of15 resultswithin the time period is included. Glucose POCT 86 70 - 100 mg/dL 06/09/2025 9:02 AM EST [facility] Blood Capillary blood specimen / Unknown 06/09/2025 9:01 AM EST 06/09/2025 9:03 AM EST us Gisele Zavala MD LAB POINT OF CARE TE ST DOCKED DEVICE UNSOLICITED RESULTS Final Result [facility] [address] [place] [address], [place] [phone] * (ABNORMAL) Complete blood count (06/09/2025 7:43 AM EST) Only the most recent of4 resultswithin the time period is included. WBC 4.3(L) 4.8 - 10.8 K/mcL LAB HEMETOLOGY METHOD 06/09/2025 9:01 AM [facility] RBC 3.60(L) 4.50 - 5.50 M/mcL LAB HEMETOLOGY METHOD 06/09/2025 9:01 AM [facility] Hemoglobin 11.7(L) 13.5 - 17.5 g/dL LAB HEMETOLOGY METHOD 06/09/2025 9:01 AM [facility] Hematocrit 34.7(L) 42.0 - 54.0 % LAB HEMETOLOGY METHOD 06/09/2025 9:01 AM [facility] MCV 95.9 79.0 - 98.0 FL LAB HEMETOLOGY METHOD 06/09/2025 9:01 AM [facility] MCH 32.3(H) 27.0 - 32.0 pcg LAB HEMETOLOGY METHOD 06/09/2025 9:01 AM [facility] MCHC 33.7 32.0 - 37.0 g/dL LAB HEMETOLOGY METHOD 06/09/2025 9:01 AM [facility] RDW 19.2(H) 11.0 - 15.0 % LAB HEMETOLOGY METHOD 06/09/2025 9:01 AM [facility] Platelets 102(L) 130 - 400 K/mcL LAB HEMETOLOGY METHOD 06/09/2025 9:01 AM EST [facility] MPV 10.2 7.0 - 11.0 FL LAB HEMETOLOGY METHOD 06/09/2025 9:01 AM EST [facility] NRBC 0.0 <1.0 % LAB HEMETOLOGY METHOD 06/09/2025 9:01 AM EST [facility] NRBC Absolute 0.00 <0.10 K/mcL LAB HEMETOLOGY METHOD 06/09/2025 9:01 AM EST [facility] Blood Venous blood specimen / Unknown Venipuncture / Unknown 06/09/2025 7:43 AM EST 06/09/2025 7:58 AM EST Gisele Zavala MD LAB BLOOD ORDERABLES Final Resul t Performing Organization Address City/[facility]/ZIP Co de Phone Number [facility] [address] [place] [address], * Alanine aminotransferase (06/09/2025 7:43 AM EST) ALT (SGPT) 23 10 - 60 unit/L LAB CHEMISTRY METHOD 06/09/2025 8:26 AM [facility] Blood Venous blood specimen / Unknown Venipuncture / Unknown 06/09/2025 7:43 AM EST 06/09/2025 7:58 AM EST us Ortiz Bruno MD LAB BLOOD ORDERABLES Final Res ult [facility] [address] [place] [address], * Aspartate aminotransferase (06/09/2025 7:43 AM EST) AST (SGOT) 26 10 - 42 unit/L LAB CHEMISTRY METHOD 06/09/2025 8:26 AM EST [facility] Blood Venous blood specimen / Unknown Venipuncture / Unknown 06/09/2025 7:43 AM EST 06/09/2025 7:58 AM EST Ortiz Bruno MD LAB BLOOD ORDERABLES Final Res ult [facility] [address] [place] [address], [place] [phone] * (ABNORMAL) Phosphorus (06/09/2025 7:43 AM EST) Only the most recent of4 resultswithin the time period is included. Phosphorus 1.9(L) 2.5 - 4.5 mg/dL LAB CHEMISTRY METHOD 06/09/2025 8:26 AM EST [facility] Blood Venous blood specimen / Unknown Venipuncture / Unknown 06/09/2025 7:43 AM EST 06/09/2025 7:58 AM EST Gisele Zavala MD LAB BLOOD ORDERABLES Final Resul t Performing Organization Address [facility]/ZIP Co de Phone Number [facility] [address] [place] [address], [place] [phone] * (ABNORMAL) Magnesium (06/09/2025 7:43 AM EST) Only the most recent of4 resultswithin the time period is included. Magnesium 1.8(L) 1.9 - 2.6 mg/dL LAB CHEMISTRY METHOD 06/09/2025 8:26 AM EST [facility] Blood Venous blood specimen / Unknown Venipuncture / Unknown 06/09/2025 7:43 AM EST 06/09/2025 7:58 AM EST us Gisele Zavala MD LAB BLOOD ORDERABLES Final Resul t [facility] [address] [place] [address], [place] [phone] * (ABNORMAL) Basic metabolic panel (06/09/2025 7:43 AM EST) Only the most recent of5 resultswithin the time period is included. Sodium 138 133 - 145 mmol/L LAB CHEMISTRY METHOD 06/09/2025 8:26 AM [facility] Potassium 3.5 3.5 - 5.5 mmol/L LAB CHEMISTRY METHOD 06/09/2025 8:26 AM [facility] Chloride 107 96 - 110 mmol/L LAB CHEMISTRY METHOD 06/09/2025 8:26 AM [facility] CO2 28 21 - 32 mmol/L LAB CHEMISTRY METHOD 06/09/2025 8:26 AM [facility] Anion Gap 3 3 - 11 LAB CHEMISTRY METHOD 06/09/2025 8:26 AM [facility] Glucose 75 70 - 100 mg/dL LAB CHEMISTRY METHOD 06/09/2025 8:26 AM [facility] BUN 16 5 - 25 mg/dL LAB CHEMISTRY METHOD 06/09/2025 8:26 AM [facility] Creatinine 0.89 0.70 - 1.30 mg/dL LAB CHEMISTRY METHOD 06/09/2025 8:26 AM [facility] eGFR 99 >=60 mL/min/1. 73m2 LAB CHEMISTRY METHOD 06/09/2025 8:26 AM [facility] Comment:Calculation based on the Chronic Kidney Disease Epidemiology Collaboration (CKD-EPI) equation refit without adjustment for race. BUN/Creatinine Ratio 18.0 LAB CHEMISTRY METHOD 06/09/2025 8:26 AM [facility] Calcium 7.8(L) 8.5 - 10.5 mg/dL LAB CHEMISTRY METHOD 06/09/2025 8:26 AM [facility] Blood Venous blood specimen / Unknown Venipuncture / Unknown 06/09/2025 7:43 AM EST 06/09/2025 7:58 AM EST us Gisele Zavala MD LAB BLOOD ORDERABLES Final Resul t [facility] [address] [place] [address], [place] [phone] * TRANSTHORACIC ECHOCARDIOGRAM (TTE) COMPLETE W/ CONTRAST (06/08/2025 8:47 AM EST) MV E' Tissue Velocity Lateral 13 cm/s CV PACS MV E' Tissue Velocity Septal 11 cm/s CV PACS MV Deceleration [place] 4.2 m/s2 CV PACS E Wave Deceleration Time 183 119 - 242 ms CV PACS MV PHT 54 ms CV PACS MV Peak A Roni 0.73 m/s CV PACS MV Peak E Roni 0.77 m/s CV PACS MV Area PHT 4.1 cm2 CV PACS RV S' 10 cm/s CV PACS TAPSE 19 mm CV PACS TR Peak Velocity 2.59 m/s CV PACS TR Peak Gradient 27 mmHg CV PACS E/E' Ratio Septal 7 CV PACS E/E' Ratio Averaged 6 CV PACS E/A Ratio 1.1 CV PACS E/E' Ratio Lateral 6 CV PACS BSA 1.96 m2 CV PACS Anatomical Region Laterality Modality Ultrasound Narrative 06/08/2025 9:52 AM EST This is a technically difficult study due to poor acoustic windows. Parasternal images and subcostal images cannot be obtained. Apical images are off axis. Left ventricle cavity size is normal. Wall thickness was not well visualized. Systolic function is grossly normal with an ejection fraction of 55%. Regional LV wall motion cannot be accurately assessed. Apical view are off axis. Right ventricle cavity appears mildly dilated. Systolic function is normal. 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 No hemodynamically significant valvular disease. Left Ventricle Left ventricle cavity size is normal. Wall thickness was not well visualized. Systolic function is grossly normal with an ejection fraction of 55%. Regional LV wall motion cannot be accurately assessed. Right Ventricle Apical view are off axis. Right ventricle cavity appears mildly dilated. Systolic function is normal. 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 Left Atrium Left atrium cavity size is normal. Mitral Valve The leaflets are mildly thickened. There is trace regurgitation. There is no evidence of mitral valve stenosis. Tricuspid Valve Tricuspid valve structure is normal. There is mild regurgitation. There is no evidence of tricuspid valve stenosis. Aortic Valve Number of aortic valve cusps cannot be determined. There is no regurgitation or stenosis. Pulmonic Valve There is no regurgitation or stenosis. Ascending Aorta The aorta was not well visualized. Pericardium Pericardium was not well visualized. There is no pericardial effusion. Study Details Overall the study quality was suboptimal. Definity contrast was given to enhance imaging. Study was difficult due to: poor acoustic windows. NO PLAX, PSAX, SUBS, OR SSN images us Aung Will MD CV ECHO PROCEDURES Final Result * Pathology review, blood smear (06/06/2025 10:39 AM EDT) Pathologist Review Blood Smear Pancytopenia: consider medication/tox in effect, infection or other etiologies. Thrombocytopen ia confirmed (no significant platelet clumps identified). [place] cells: consider electrolyte abnormality or artifact. 06/08/2025 8:33 AM EST [facility] Blood Venous blood specimen / Unknown Venipuncture / Unknown 06/06/2025 10:39 AM EDT 06/06/2025 10:39 AM EDT us Aung Will MD LAB BLOOD ORDERABLE S Final Result [facility] [address] [place] [address], * Lactate (06/06/2025 6:15 AM EDT) Lactate 1.3 0.4 - 2.0 mmol/L LAB CHEMISTRY METHOD 06/06/2025 7:04 AM EDT [facility] Blood Venous blood specimen / Unknown Venipuncture / Unknown 06/06/2025 6:15 AM EDT 06/06/2025 6:35 AM EDT Aung Will MD LAB BLOOD ORDERABLE S Final Result [facility] [address] [place] [address], [place] [phone] * (ABNORMAL) Urinalysis with reflex microscopic (06/06/2025 12:57 AM EDT) Specific [place] Urine 1.045(H) 1.003 - 1.030 LAB URINALYSIS - AUTOMATED METHOD 06/06/2025 1:18 AM [facility] pH, Urine 5.5 5.0 - 8.0 pH LAB URINALYSIS - AUTOMATED METHOD 06/06/2025 1:18 AM [facility] Leukocytes, Urine Negative Negative LAB URINALYSIS - AUTOMATED METHOD 06/06/2025 1:18 AM [facility] Nitrite, Urine Negative Negative LAB URINALYSIS - AUTOMATED METHOD 06/06/2025 1:18 AM [facility] Protein, Urine Negative <=Trace mg/dL LAB URINALYSIS - AUTOMATED METHOD 06/06/2025 1:18 AM [facility] Glucose, Urine Negative Negative mg/dL LAB URINALYSIS - AUTOMATED METHOD 06/06/2025 1:18 AM [facility] Ketones, Urine 15(A) Negative mg/dL LAB URINALYSIS - AUTOMATED METHOD 06/06/2025 1:18 AM [facility] Urobilinogen, Urine 1.0 0.2 - 1.0 mg/dL LAB URINALYSIS - AUTOMATED METHOD 06/06/2025 1:18 AM [facility] Bilirubin, Urine Negative Negative LAB URINALYSIS - AUTOMATED METHOD 06/06/2025 1:18 AM EDT [facility] Blood, Urine Negative Negative LAB URINALYSIS - AUTOMATED METHOD 06/06/2025 1:18 AM EDT [facility] Urine Urine specimen obtained by clean catch procedure / Unknown Non-blood Collection / Unknown 06/06/2025 12:57 AM EDT 06/06/2025 1:10 AM EDT Dao Duval MD LAB URINE ORDERABLES Final Resu lt Performing Organization Address [facility]/ZIP Co de Phone Number [facility] [address] [place] [address], [place] [phone] * [place] urine culture tube (06/06/2025 12:57 AM EDT) Extra Tube Hold for add-ons. 06/06/2025 3:16 AM EDT [facility] Comment:Auto resulted. Urine Urine specimen obtained by clean catch procedure / Unknown Non-blood Collection / Unknown 06/06/2025 12:57 AM EDT 06/06/2025 1:10 AM EDT Luz Maria Lockwood MD LAB URINE ORDERABLES Final Res ult Performing Organization Address [facility] Co de Phone Number [facility] [address] [place] [address], [place] [phone] * (ABNORMAL) Lactate, with reflex (06/05/2025 5:31 PM EDT) Only the most recent of2 resultswithin the time period is included. LACTIC ACID 4.8(HH) 0.4 - 2.0 mmol/L LAB CHEMISTRY METHOD 06/05/2025 6:26 PM EDT [facility] Blood Venous blood specimen / Unknown Venipuncture / Unknown 06/05/2025 5:31 PM EDT 06/05/2025 5:37 PM EDT Luz Maria Lockwood MD LAB BLOOD ORDERABLES Final Res ult Performing Organization Address [facility]/ZIP Co de Phone Number [facility] [address] [place] [address], [place] [phone] * Troponin I high sensitivity (06/05/2025 5:26 PM EDT) High Sensitivity Troponin I 7 <=79 ng/L LAB CHEMISTRY METHOD 06/05/2025 6:10 PM EDT [facility] Blood Venous blood specimen / Unknown Venipuncture / Unknown 06/05/2025 5:26 PM EDT 06/05/2025 5:37 PM EDT Narrative [facility] - 06/05/2025 6:10 PM EDT High levels of biotin in samples may falsely decrease hsTroponin values. Use caution when interpreting hsTroponin results in patients taking biotin who exhibit renal impairment (eGFR <60) or in patients taking more than 20 mg/day of biotin. Luz Maria Lockwood MD LAB BLOOD ORDERABLES Final Res ult Performing Organization Address [facility] de Phone Number [facility] [address] [place] [address], [place] [phone] * XR Chest 1 View (06/05/2025 3:03 PM EDT) Anatomical Region Laterality Modality Body Radiographic Ania ging 06/05/2025 3:52 PM EDT Impressions 06/05/2025 3:52 PM EDT FINDINGS/IMPRESSION: Hyperinflation. No consolidation or effusion. Normal heart size without congestive heart failure. Right chest wall port. -------- FINAL REPORT -------- Dictated By: Srinivas Moulton Dictated Date: 06/05/2025 15:52 ET Assigned Physician: Srinivas Moulton Reviewed and Electronically Signed By: Srinivas Moulton Signed Date: 06/05/2025 15:52 ET Workstation ID: [id number] Transcribed By: Self Edit Transcribed Date: 06/05/2025 15:52 ET Narrative 06/05/2025 3:52 PM EDT XR CHEST 1 VIEW INDICATION: tachycardia TECHNIQUE: XR CHEST 1 VIEW COMPARISON: None Procedure Note Srinivas Moulton MD - 06/05/2025 XR CHEST 1 VIEW INDICATION: tachycardia TECHNIQUE: XR CHEST 1 VIEW COMPARISON: None IMPRESSION: FINDINGS/IMPRESSION: Hyperinflation. No consolidation or effusion.Normal heart size without congestive heart failure. Right chest wallport. -------- FINAL REPORT -------- Dictated By: Srinivas Moulton Dictated Date: 06/05/2025 15:52 ET Assigned Physician: Srinivas Moulton Reviewed and Electronically Signed By: Srinivas Moulton Signed Date: 06/05/2025 15:52 ET Workstation ID: [id number] Transcribed By: Self Edit Transcribed Date: 06/05/2025 15:52 ET Dao Duval MD IMG XR PROCEDURES Final Result * CT Abdomen Pelvis w Contrast (06/05/2025 2:27 PM EDT) Anatomical Region Laterality Modality Body Computed Tomogra phy 06/05/2025 2:54 PM EDT Impressions 06/05/2025 4:[address] for acute infectious or inflammatory process. Findings as above. -------- FINAL REPORT -------- Dictated By: Srinivas Moulton Dictated Date: 06/05/2025 14:54 ET Assigned Physician: Srinivas Moulton Reviewed and Electronically Signed By: Srinivas Moulton Signed Date: 06/05/2025 16:04 ET Workstation ID: [id number] Transcribed By: Self Edit Transcribed Date: 06/05/2025 15:17 ET Narrative 06/05/2025 4:04 PM EDT PROCEDURE: CT ABDOMEN/PELVIS WITH CONTRAST INDICATION: Left flank pain TECHNIQUE: CT of the abdomen and pelvis following the intravenous administration of 90cc Isovue 370. Multiplanar reformats. The examination was performed utilizing dose reduction techniques. Total DLP 1077 COMPARISON: No priors available. FINDINGS: LOWER THORAX: Scarring in the right middle lobe. Thickening of the distal esophagus. HEPATOBILIARY: No focal liver lesions. L bladder sludge enhancement of the gallbladder wall. Exophytic cysts adjacent to the liver. SPLEEN: No focal lesion. PANCREAS: No focal mass or ductal dilatation. ADRENALS: No nodules. KIDNEYS/URETERS: Right nephrectomy. Exophytic left renal cyst with some peripheral hyperdensity. No hydronephrosis. PELVIC ORGANS/BLADDER: Prostatomegaly. PERITONEUM / RETROPERITONEUM: No ascites or free air. No retroperitoneal lymphadenopathy. VESSELS: Scattered atherosclerotic calcifications throughout the aorta and its major branches. There is also prominent eccentric soft plaque versus mural thrombus thoracoabdominal aorta. No aneurysm. GI TRACT: There is thickening of the colon which is presumably related to underdistention. There is some fluid within the right colon which could represent sequelae of gastroenteritis. BONES AND SOFT TISSUES: Scattered degenerative changes seen throughout the bones. Soft tissues are unremarkable. Procedure Note Srinivas Moulton MD - 06/05/2025 PROCEDURE: CT ABDOMEN/PELVIS WITH CONTRAST INDICATION: Left flank pain TECHNIQUE: CT of the abdomen and pelvis following the intravenousadministration of 90cc Isovue 370. Multiplanar reformats. The examinationwas performed utilizing dose reduction techniques. Total DLP 1077 COMPARISON: No priors available. FINDINGS: LOWER THORAX: Scarring in the right middle lobe. Thickening of the distalesophagus. HEPATOBILIARY: No focal liver lesions. L bladder sludge enhancement of thegallbladder wall. Exophytic cysts adjacent to the liver. SPLEEN: No focal lesion. PANCREAS: No focal mass or ductal dilatation. ADRENALS: No nodules. KIDNEYS/URETERS: Right nephrectomy. Exophytic left renal cyst with someperipheral hyperdensity. No hydronephrosis. PELVIC ORGANS/BLADDER: Prostatomegaly. PERITONEUM / RETROPERITONEUM: No ascites or free air. No retroperitoneallymphadenopathy. VESSELS: Scattered atherosclerotic calcifications throughout the aorta andits major branches. There is also prominent eccentric soft plaque versusmural thrombus thoracoabdominal aorta. No aneurysm. GI TRACT: There is thickening of the colon which is presumably related tounderdistention. There is some fluid within the right colon which couldrepresent sequelae of gastroenteritis. BONES AND SOFT TISSUES: Scattered degenerative changes seen throughout thebones. Soft tissues are unremarkable. IMPRESSION: Negative CT for acute infectious or inflammatory process. Findings asabove. -------- FINAL REPORT -------- Dictated By: Srinivas Moulton Dictated Date: 06/05/2025 14:54 ET Assigned Physician: Srinivas Moulton Reviewed and Electronically Signed By: Srinivas Moulton Signed Date: 06/05/2025 16:04 ET Workstation ID: [id number] Transcribed By: Self Edit Transcribed Date: 06/05/2025 15:17 ET us Dao Duval MD IMG CT PROCEDURES Final Result * ECG 12 lead (06/05/2025 1:49 PM EDT) Only the most recent of4 resultswithin the time period is included. Ventricular Rate ECG 87 BPM GEMUSE Atrial Rate 87 BPM GEMUSE P-R Interval 160 ms GEMUSE QRS Duration 94 ms GEMUSE Q-T Interval 434 ms GEMUSE QTc 522 ms GEMUSE P Wave [place] 66 degrees GEMUSE R [place] 33 degrees GEMUSE T [place] -141 degrees GEMUSE ECG Interpretation Normal sinus rhythm ST and T wave abnormality, consider inferior ischemia ST and T wave abnormality, consider anterolateral ischemia Prolonged QT Abnormal ECG When compared with ECG of 05-JUN-2025 13:40, (unconfirmed) LA interval has increased Vent. rate has decreased BY 72 BPM T wave inversion less evident in Inferior leads Confirmed by Renata BRUNO JOHN ([id number]) on 06/07/2025 4:13:23 PM GEMUSE 06/05/2025 1:49 PM EDT 06/07/2025 4:13 PM EST Dao Duval MD ECG ORDERABLES Final Result GEMUSE * Culture blood (06/05/2025 1:19 PM EDT) Only the most recent of2 resultswithin the time period is included. Culture, Blood No growth at 5 days 06/10/2025 1:01 PM EST [facility] Blood Venous blood specimen / Unknown Venipuncture / Unknown 06/05/2025 1:19 PM EDT 06/05/2025 1:25 PM EDT us Dao Duval MD LAB MICROBIOLOGY - GENERAL ORDE JACINTA Final Result Performing Organization Address [facility] Co de Phone Number [facility] [address] [place] [address], [place] [phone] * (ABNORMAL) Thyroid stimulating hormone with reflex to free t4 and free t3 (06/05/2025 12:56 PM EDT) Only the most recent of2 resultswithin the time period is included. TSH 20.66(H) 0.40 - 4.00 mcIU/mL LAB CHEMISTRY METHOD 06/05/2025 6:26 PM EDT [facility] Blood Venous blood specimen / Unknown Venipuncture / Unknown 06/05/2025 12:56 PM EDT 06/05/2025 1:28 PM EDT us Sherice Stovall NP LAB BLOOD ORDERABLES Fin al Result Performing Organization Address [facility]/ZIP Co de Phone Number [facility] [address] [place] [address], [place] [phone] * Free thyroxine with reflex to free triiodothyronine (06/05/2025 12:56 PM EDT) Only the most recent of2 resultswithin the time period is included. Free T4 1.17 0.70 - 1.80 ng/dL LAB CHEMISTRY METHOD 06/05/2025 7:30 PM EDT [facility] Blood Venous blood specimen / Unknown Venipuncture / Unknown 06/05/2025 12:56 PM EDT 06/05/2025 1:28 PM EDT us Sherice L Sanky [place] [employer] LAB BLOOD ORDERABLES Fin al Result Performing Organization Address [facility] de Phone Number [facility] [address] [place] [address], [place] [phone] * (ABNORMAL) Triiodothyronine free (06/05/2025 12:56 PM EDT) Only the most recent of2 resultswithin the time period is included. Pathologist [facility] T3, Free 214(L) 230 - 420 pcg/dL LAB CHEMISTRY METHOD 06/05/2025 8:40 PM EDT [facility] Blood Venous blood specimen / Unknown Venipuncture / Unknown 06/05/2025 12:56 PM EDT 06/05/2025 1:28 PM EDT Sherice Stovall NP LAB BLOOD ORDERABLES Fin al Result Performing Organization Address [facility] de Phone Number [facility] [address] [place] [address], [place] [phone] * Creatine kinase and CKMB (06/05/2025 12:56 PM EDT) [facility] Total CK 72 22 - 269 unit/L LAB CHEMISTRY METHOD 06/05/2025 7:14 PM EDT [facility] CK-MB 1.3 1.0 - 3.6 ng/mL LAB CHEMISTRY METHOD 06/05/2025 7:14 PM EDT [facility] CK-MB Index 0.0 0.0 - 5.0 LAB CHEMISTRY METHOD 06/05/2025 7:14 PM EDT [facility] Blood Venous blood specimen / Unknown Venipuncture / Unknown 06/05/2025 12:56 PM EDT 06/05/2025 1:28 PM EDT Luz Maria Lockwood MD LAB BLOOD ORDERABLES Final Res ult Performing Organization Address [facility]/ZIP Co de Phone Number [facility] [address] [place] [address], [place] [phone] * (ABNORMAL) Calcium, ionized (06/05/2025 12:56 PM EDT) [facility] Calcium Ionized 3.96(L) 4.50 - 5.30 mg/dL 06/05/2025 1:44 PM EDT [facility] Blood Venous blood specimen / Unknown Venipuncture / Unknown 06/05/2025 12:56 PM EDT 06/05/2025 1:28 PM EDT Dao Duval MD LAB BLOOD ORDERABLES Final Resu lt [facility] [address] [place] [address], [place] [phone] * Respiratory virus panel molecular study (06/05/2025 12:41 PM EDT) [facility] Adenovirus Detection by PCR Not Detected Not Detected LAB MICROBIOLOGY METHOD 06/05/2025 2:39 PM EDT [facility] Influenza A PCR Not Detected Not Detected LAB MICROBIOLOGY METHOD 06/05/2025 2:39 PM EDT [facility] Influenza B PCR Not Detected Not Detected LAB MICROBIOLOGY METHOD 06/05/2025 2:39 PM EDT [facility] Coronavirus 229E Not Detected Not Detected LAB MICROBIOLOGY METHOD 06/05/2025 2:39 PM EDT [facility] Coronavirus HKU1 Not Detected Not Detected LAB MICROBIOLOGY METHOD 06/05/2025 2:39 PM EDT [facility] Coronavirus OC43 Not Detected Not Detected LAB MICROBIOLOGY METHOD 06/05/2025 2:39 PM EDT [facility] Coronavirus NL63 Not Detected Not Detected LAB MICROBIOLOGY METHOD 06/05/2025 2:39 PM EDT [facility] Parainfluenza Virus 1 Not Detected Not Detected LAB MICROBIOLOGY METHOD 06/05/2025 2:39 PM EDT [facility] Parainfluenza Virus 2 Not Detected Not Detected LAB MICROBIOLOGY METHOD 06/05/2025 2:39 PM EDT [facility] Parainfluenza Virus 3 Not Detected Not Detected LAB MICROBIOLOGY METHOD 06/05/2025 2:39 PM EDT [facility] Parainfluenza Virus 4 Not Detected Not Detected LAB MICROBIOLOGY METHOD 06/05/2025 2:39 PM EDT [facility] RSV PCR Not Detected Not Detected LAB MICROBIOLOGY METHOD 06/05/2025 2:39 PM EDT [facility] Human Metapneumovirus A and B Not Detected Not Detected LAB MICROBIOLOGY METHOD 06/05/2025 2:39 PM EDT [facility] Rhinovirus/Entero virus Not Detected Not Detected LAB MICROBIOLOGY METHOD 06/05/2025 2:39 PM EDT [facility] Bordetella pertussis Not Detected Not Detected LAB MICROBIOLOGY METHOD 06/05/2025 2:39 PM EDT [facility] Bordetella parapertussis Not Detected Not Detected LAB MICROBIOLOGY METHOD 06/05/2025 2:39 PM EDT [facility] Mycoplasma pneumo by PCR Not Detected Not Detected LAB MICROBIOLOGY METHOD 06/05/2025 2:39 PM EDT [facility] Chlamydia pneumoniae Not Detected Not Detected LAB MICROBIOLOGY METHOD 06/05/2025 2:39 PM EDT [facility] SARS COV-2 Not Detected Not Detected LAB MICROBIOLOGY METHOD 06/05/2025 2:39 PM EDT [facility] Swab Both anterior nares / Unknown Non-blood Collection / Unknown 06/05/2025 12:41 PM EDT 06/05/2025 1:28 PM EDT [facility] - 06/05/2025 2:39 PM EDT Testing was performed using the [employer] Respiratory Pathogen PCR Assay. All results must be correlated with the clinical findings. Results should not be used as the sole basis for diagnosis. False Negative results may occur from the presence of sequence variants in the region targeted by the assay or the presence of inhibitors. Results may be affected by concurrent antiviral/antimicrobial therapy or levels of organisms that are below the limit of detection. Dao Duval MD LAB MICROBIOLOGY - GENERAL ORDE RABLES Final Result [facility] [address] [place] [address], [place] [phone] * [facility] CRITICAL CARE 30-74 MINUTES (06/05/2025 12:06 PM EDT) Narrative Dao Duval MD - 06/05/2025 12:06 PM EDT Dao Duval MD 06/05/2025 4:16 PM Critical Care Performed by: Dao Duval MD Authorized by: Dao Duval MD Critical care provider statement: Critical care time (minutes): 90 Total face to face critical care time (minutes): 90 Critical care time was exclusive of: Separately billable procedures and treating other patients Critical care was necessary to treat or prevent imminent or life-threatening deterioration of the following conditions: Adrenal insufficiency, hypertension. Critical care was time spent personally by me on the following activities: Development of treatment plan with patient or surrogate, evaluation of patient's response to treatment, examination of patient, obtaining history from patient or surrogate, ordering and performing treatments and interventions, ordering and review of laboratory studies, ordering and review of radiographic studies, re-evaluation of patient's condition and review of old charts Comments: Patient required critical care due to adrenal insufficiency and hypotension requiring IV steroids and fluid bolus. Dao Duval MD IN CLINIC/BEDSIDE ORDERABLES Ed ited Result - Final * (ABNORMAL) Lactate dehydrogenase (05/15/2025 12:28 PM EDT) LDH 540(H) 120 - 246 unit/L LAB CHEMISTRY METHOD 05/15/2025 1:57 PM EDT [facility] Blood Blood sample taken from central line / Unknown Existing Catheter / Unknown 05/15/2025 12:28 PM EDT 05/15/2025 1:24 PM EDT Quintin Gumzán MD LAB BLOOD ORDERABLE S Final Result Performing Organization Address [facility]/ZIP Co de Phone Number [facility] [address] [place] [address], [place] [phone] * Cortisol (05/15/2025 12:28 PM EDT) [facility] Signature Cortisol 1.9 mcg/dL LAB CHEMISTRY METHOD 05/15/2025 2:35 PM EDT [facility] Blood Blood sample taken from central line / Unknown Existing Catheter / Unknown 05/15/2025 12:28 PM EDT 05/15/2025 1:24 PM EDT Narrative [facility] [facility] - 05/15/2025 2:35 PM EDT CORTISOL REFERENCE RANGE 8 AM SPEC: 5.0-23.0 mcg/dL 4 PM SPEC: 3.0-16.0 mcg/dL 8 PM SPEC: <5.0 mcg/dL Quintin Guzmán MD LAB BLOOD ORDERABLE S Final Result Performing Organization Address [facility] Co de Phone Number [facility] [address] [place] [address], [place] [phone] from Last 3 Months Insurance [employer] Advance Directives Documents on File Type Date 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 Do not modify or discontinue any currently active code status orders. * Full Code - Default Date Activated Date Inactivated Comments 06/05/2025 4:25 PM 06/05/2025 4:57 PM This is or everett is used when code status has not been discussed with the patient, or code status is otherwise unknown/unconfirmed To update the patient's code status, place a code status order. Do not modify or discontinue any currently active code status orders. Healthcare Agents on File Name Relationship Healthcare Agent Relationshi p Communication Paloma Heath Spouse Health Care Agent Care Teams Dice Person Relationship Specialty Start Date End Date Nataly Cerda MD [address] [place] [address] [address] [facility] [place] [address] PCP - General 07/05/22
--- OUTSIDE RECORDS SUMMARY | 2025-07-22 17:19 | XMS_ITS | Clinical Summary ---
Author Organization [facility] Prior to 01/03/25 Address [address] [place] [address] Care Team Providers Care Maintenance Mechanic Engine Name Role Phone Nataly eCrda MD Primary Care Provider [phone] Allergies No known active allergies Medications Medication [...] age to complete this topic Care Teams Maintenance Mechanic Engine Relationship Specialty Start Date End Date Po, Nataly Anthony MD [address] [place] [address] [address] [facility] [place] [address] PCP - General Internal Medicine 07/05/22
== END 2025-07-22 13:42 | disposition home or self-care (01) ==
LOC: HO.RHES 13:08
PROVIDERS: PCP Internal Medicine; Visit Provider Student in an Organized Health Care Education/Training Program
DX: M19.90 Unspecified osteoarthritis, unspecified site (principal); M17.0 Bilateral primary osteoarthritis of knee; Z79.899 Other long term (current) drug therapy; Z79.631 Long term (current) use of antimetabolite agent; Z79.52 Long term (current) use of systemic steroids
CPT/HCPCS: 99213; G2211